=== PATIENT | male | born 1955 | race American Indian/Alaskan Native ===

== ENCOUNTER 2018-06-02 21:58 | Observation (INO) | payer MEDICARE ==
[2018-06-02] MEDS ORDERED: Nitrostat 0.4 MG (ED) SL ONE ×2 (22:23→22:29)
[2018-06-02] MEDS ORDERED: BABY ASPIRIN 81 MG CHEW PO ONE (22:23)
--- NOTE | 2018-06-02 22:23 | ERPHSYRPT ---
- History of Present Illness Time Seen by Provider: 06/02/18 22:20 Historian: patient, family Exam Limitations: no limitations Patient Subjective Stated Complaint: pt is alert and oriented. pt is ambulatory with a steady gait. pt comes in with c/o chest pain. pt is have chest pain in the center of his chest. pt denies lightheadedness, dizziness, vomiting, diaphoresis. pt did say he had some nausea lately. pt states that there has been alot of stress at home. pt radial pulses are equal. pt heart sounds regular. pt is not short of breath. Triage Nursing Assessment: see above Physician History: The patient is a 8-year-old male with his complaining of central chest pain and a very rapid heart rate that began about 4 hours ago (6 PM). He also has a very bad headache. He denies in short of breath or sweating. He was slightly nauseated. The chest pain is not as bad currently nor is the heart rate as fast as it once was. He is having a lot of recent stress at home due to his mother. He does not have any local doctor. He does not have a cash accountant. He denies numbness or tingling. His past medical history is significant for multiple left leg and knee surgeries , systemic staph infection, chronic pain syndrome, PTSD, HTN, and COPD. Timing/Duration: today, hour(s) (4), sudden, improved Activities at Onset: none Quality: sharpness Location: central Chest Pain Radiation: no radiation Severity of Pain-Max: severe Severity of Pain-Current: mild Modifying Factors: Improves With: aspirin (81 mg) Associated Symptoms: nausea, palpitations, No vomiting, No shortness of breath, No hurts to breathe, No diaphoresis Prior Chest Pain/Cardiac Workup: no prior chest pain Nitro Today/Relief: 0.4 mg x 1, provided by ED Aspirin Treatment Today: 81 mg x 1, provided at home Allergies/Adverse Reactions: No Known Drug Allergies Allergy (Verified 01/11/16 22:46) Home Medications: Albuterol 2.5 mg/3 ml Neb [Proventil 2.5 mg/3 ml Neb] 2.5 mg IH Q4HPRN PRN 07/23/12 [History] Multivitamin with Minerals [Multiple Vitamin] 1 each PO DAILY 07/23/12 [History] Buspirone HCl 5 mg [Buspar 5 mg] 10 mg PO TID 02/08/15 [History] Cyclobenzaprine HCl 10 mg [Cyclobenzaprine 10 MG] 10 mg PO TIDPRN [History] Gabapentin 600 mg PO BID 02/08/15 [History] Hydrocodone/APAP 10/325 mg [[place] 10/325 MG Tablet] 1 - 2 tab PO Q6H PRN 02/08/15 [History] Indomethacin 25 mg [Indocin 25 MG] 50 mg PO TID 02/08/15 [History] Tramadol HCl 50 mg [Ultram 50 mg] 50 mg PO Q4HPRN PRN 02/08/15 [History] buPROPion HCl [Bupropion HCl Sr] 200 mg PO Q12H 02/08/15 [History] Fluticasone/Salmeterol Disc [Advair 250-50 Diskus 14 Dose] 1 each IH BID 10/17/15 [History] Lisinopril [Prinivil] 20 mg PO DAILY 10/17/15 [History] Venlafaxine HCl [Venlafaxine HCl ER] 75 mg PO BID 06/02/18 [History] Hx Tetanus, Diphtheria Vaccination/Date Given: Yes Hx Influenza Vaccination/Date Given: No Hx Pneumococcal Vaccination/Date Given: No Immunizations Up to Date: Yes - Review of Systems Constitutional: No Fever, No Chills Eyes: No Symptoms Ears, Nose, & Throat: No Symptoms Respiratory: No Cough, No Dyspnea Cardiac: Chest Pain Abdominal/Gastrointestinal: No Abdominal Pain, No Nausea, No Vomiting, No Diarrhea Genitourinary Symptoms: No Dysuria Musculoskeletal: No Back Pain, No Neck Pain Skin: No Rash Neurological: Headache Psychological: No Symptoms Endocrine: No Symptoms Hematologic/Lymphatic: No Symptoms Immunological/Allergic: No Symptoms All Other Systems: Reviewed and Negative - Past Medical History Pertinent Past Medical History: Yes Neurological History: No Pertinent History ENT History: Other Cardiac History: Hypertension Respiratory History: COPD Endocrine Medical History: No Pertinent History Musculoskeletal History: Osteoarthritis GI Medical History: No Pertinent History, GERD History: No Pertinent History Psycho-Social History: Depression, Other Male Reproductive Disorders: No Pertinent History Other Medical History: PTSD - Past Surgical History Past Surgical History: Yes Neuro Surgical History: No Pertinent History Cardiac: No Pertinent History Respiratory: No Pertinent History Gastrointestinal: No Pertinent History Genitourinary: No Pertinent History Musculoskeletal: Joint Replacement, Orthopedic Surgery Male Surgical History: No Pertinent History Other Surgical History: right Elbow and right shoulder surgery. right knee 11 surgeries "15 surgeries in 12 years". " back surgery" - Social History Smoking Status: Never smoker Exposure to second hand smoke: Yes Drug Use: none Patient Lives Alone: No - Nursing Vital Signs Nursing Vital Signs: Initial Vital Signs Temperature 99.0 F 06/02/18 21:58 Pulse Rate 86 06/02/18 21:58 Respiratory Rate 18 06/02/18 21:58 Blood Pressure 146/96 06/02/18 21:58 O2 Sat by Pulse Oximetry 98 06/02/18 21:58 Pain Scale Pain Intensity 2 - Physical Exam General Appearance: mild distress, anxiety Eye Exam: PERRL/EOMI, eyes nml inspection Ears, Nose, Throat Exam: normal ENT inspection, moist mucous membranes Neck Exam: normal inspection, non-tender, supple, full range of motion Respiratory Exam: normal breath sounds, lungs clear, No respiratory distress Cardiovascular Exam: regular rate/rhythm, normal heart sounds Gastrointestinal/Abdomen Exam: soft, No tenderness, No mass Rectal Exam: not done Back Exam: normal inspection, No CVA tenderness, No vertebral tenderness Extremity Exam: normal inspection, normal range of motion Neurologic Exam: alert, oriented x 3, cooperative, normal mood/affect, sensation nml, No motor deficits Skin Exam: normal color, warm, dry SpO2 Interpretation: normal SpO2: 98 Oxygen Delivery: Room Air - Course EKG Interpreted by Me: RATE, Sinus Rhythm, NORMAL INTERVALS, NORMAL QRS, NORMAL ST-T, Other (comp EKG 10/14/15) - CT Exams Head CT Interpretation: Tele-radiologist Report (per Dr Roger), No/Intracranial Hemorrhag Ordered Tests: Active Orders 24 hr Category Date Time Status Gasoline Tester STAT Care 06/02/18 22:24 Active Clean Catch Urine Specimen STAT Care 06/02/18 22:23 Active EKG-ER Only STAT Care 06/02/18 22:23 Active IV Insertion STAT Care 06/02/18 22:23 Active Oxygen-ED Only NASAL CANNULA 2 lpm Care 06/02/18 22:23 Active Pulse Oximetry (ED) STAT Care 06/02/18 22:23 Active CHEST 2 VIEWS (PA AND LAT) Stat Exams 06/02/18 23:02 Taken HEAD WITHOUT CONTRAST [CT] Stat Exams 06/02/18 22:25 Taken CBC W DIFF Stat Lab 06/02/18 22:23 Completed CMP Stat Lab 06/02/18 22:23 Completed NT PRO BNP Stat Lab 06/02/18 22:23 Completed PROTIME WITH INR Stat Lab 06/02/18 22:23 Completed TROPONIN Q3H Lab 06/02/18 22:23 Completed TROPONIN Q3H Lab 06/03/18 01:30 Ordered TROPONIN Q3H Lab 06/03/18 04:30 Ordered TROPONIN Q3H Lab 06/03/18 07:30 Ordered TROPONIN Q3H Lab 06/03/18 10:30 Ordered Urine Triage Profile Stat Lab 06/02/18 23:22 Ordered Medication Summary Discontinued Medications Generic Name Dose Route Start Last Admin Trade Name Freq PRN Reason Stop Dose Admin Aspirin 324 mg 06/02/18 22:23 06/02/18 22:30 Baby Aspirin 81 Mg Chew PO 06/02/18 22:24 324 mg STAT ONE Administration Aspirin Confirm 06/02/18 22:29 Baby Aspirin 81 Mg Chew Administered 06/02/18 22:30 Dose 324 mg .ROUTE .STK-MED ONE Ketorolac Tromethamine 30 mg 06/02/18 23:23 06/02/18 23:29 Toradol 30 Mg Injection IV 06/02/18 23:24 30 mg STAT ONE Administration Ketorolac Tromethamine Confirm 06/02/18 23:26 Toradol 30 Mg Injection Administered 06/02/18 23:27 Dose 30 mg .ROUTE .STK-MED ONE Lorazepam 2 mg 06/02/18 23:42 Ativan 2 Mg/1 Ml Vial IV 06/02/18 23:43 STAT ONE Lorazepam Confirm 06/02/18 23:45 Ativan 2 Mg/1 Ml Vial Administered 06/02/18 23:46 Dose 2 mg .ROUTE .STK-MED ONE Morphine Sulfate 4 mg 06/02/18 22:44 06/02/18 22:58 Morphine Sulfate 4 Mg Inj IV 06/02/18 22:45 4 mg STAT ONE Administration Morphine Sulfate Confirm 06/02/18 22:51 Morphine Sulfate 4 Mg Inj Administered 06/02/18 22:52 Dose 4 mg .ROUTE .STK-MED ONE Nitroglycerin 0.4 mg 06/02/18 22:23 06/02/18 22:29 Nitrostat 0.4 Mg (Ed) SL 06/02/18 22:24 0.4 mg STAT ONE Administration Nitroglycerin Confirm 06/02/18 22:29 Nitrostat 0.4 Mg (Ed) Administered 06/02/18 22:30 Dose 0.4 mg SL .STK-MED ONE Ondansetron HCl 4 mg 06/02/18 22:44 06/02/18 22:59 Zofran 4 Mg/2 Ml Vial IV 06/02/18 22:45 4 mg STAT ONE Administration Ondansetron HCl Confirm 06/02/18 22:51 Zofran 4 Mg/2 Ml Vial Administered 06/02/18 22:52 Dose 4 mg .ROUTE .STK-MED ONE Lab/Rad Data: Laboratory Result Diagrams 06/02/18 22:23 06/02/18 22:23 Laboratory Results 06/02/18 06/02/18 06/02/18 Range/Units 22:23 22:23 22:23 WBC (4.0-10.5) K/mm3 RBC (4.1-5.6) M/mm3 Hgb (12.5-18.0) gm/dl Hct (42-50) % MCV (78-100) fl MCH (26-32) pg MCHC (32-36) g/dl RDW (11.5-14.0) % Plt Count (150-450) K/mm3 MPV (6-9.5) fl Gran % (36.0-66.0) % Eos # (Auto) (0-0.5) Absolute Lymphs (auto) (1.0-4.6) Absolute Monos (auto) (0.0-1.3) Lymphocytes % (24.0-44.0) % Monocytes % (0.0-12.0) % Eosinophils % (0.00-5.0) % Basophils % (0.0-0.4) % Absolute Granulocytes (1.4-6.9) Basophils # (0-0.4) PT 12.1 (8.83-12.87) SECONDS INR 1.04 (0.8-3.0) Sodium 139 (137-145) mmol/L Potassium 4.0 (3.5-5.1) mmol/L Chloride 105 (98-107) mmol/L Carbon Dioxide 27 (22-30) mmol/L Anion Gap 11.5 (5-15) MEQ/L BUN 16 (9-20) mg/dL Creatinine 1.27 H (0.66-1.25) mg/dL Estimated GFR > 60.0 ML/MIN Glucose 101 (74-106) mg/dL Calcium 9.0 (8.4-10.2) mg/dL Total Bilirubin 0.10 L (0.2-1.3) mg/dL AST 16 L (17-59) U/L ALT 21 (0-50) U/L Alkaline Phosphatase 50 (38-126) U/L Troponin I < 0.012 (0.000-0.034) ng/mL NT-Pro-B Natriuret Pep 74.0 (0-900) pg/mL Serum Total Protein 6.5 (6.3-8.2) g/dL Albumin 4.2 (3.5-5.0) g/dL 06/02/ Range/Units 22:23 WBC 8.0 (4.0-10.5) K/mm3 RBC 4.30 (4.1-5.6) M/mm3 Hgb 11.7 L (12.5-18.0) gm/dl Hct 37.1 L (42-50) % MCV 86.3 (78-100) fl MCH 27.2 (26-32) pg MCHC 31.5 L (32-36) g/dl RDW 13.7 (11.5-14.0) % Plt Count 292 (150-450) K/mm3 MPV 9.7 H (6-9.5) fl Gran % 58.6 (36.0-66.0) % Eos # (Auto) 0.18 (0-0.5) Absolute Lymphs (auto) 2.23 (1.0-4.6) Absolute Monos (auto) 0.86 (0.0-1.3) Lymphocytes % 27.9 (24.0-44.0) % Monocytes % 10.8 (0.0-12.0) % Eosinophils % 2.3 (0.00-5.0) % Basophils % 0.4 (0.0-0.4) % Absolute Granulocytes 4.69 (1.4-6.9) Basophils # 0.03 (0-0.4) PT (8.83-12.87) SECONDS INR (0.8-3.0) Sodium (137-145) mmol/L Potassium (3.5-5.1) mmol/L Chloride (98-107) mmol/L Carbon Dioxide (22-30) mmol/L Anion Gap (5-15) MEQ/L BUN (9-20) mg/dL Creatinine (0.66-1.25) mg/dL Estimated GFR ML/MIN Glucose (74-106) mg/dL Calcium (8.4-10.2) mg/dL Total Bilirubin (0.2-1.3) mg/dL AST (17-59) U/L ALT (0-50) U/L Alkaline Phosphatase (38-126) U/L Troponin I (0.000-0.034) ng/mL NT-Pro-B Natriuret Pep (0-900) pg/mL Serum Total Protein (6.3-8.2) g/dL Albumin (3.5-5.0) g/dL - Progress Progress: improved Progress Note: 06/02/18 23:52 Pt given MSO4 4 mg, toradol 30 mg, and ativan 2 mg IV for LORA. Discussed pt with Dr Cortez for observation. Blood Culture(s) Obtained: No Antibiotics given: No Discussed with : Diego Will see patient in: hospital (observation) Counseled pt/family regarding: lab results, diagnosis, rad results - Departure Time of Disposition: 23:54 Departure Disposition: Observation (per Dr Cortez) Clinical Impression: Chest pain, Headache Condition: Stable Critical Care Time: No Referrals: SUSANNAH YOUNG [Primary Care Provider] -
[2018-06-02] MEDS ORDERED: BABY ASPIRIN 81 MG CHEW ONE (22:29)
[2018-06-02 22:38] LABS: BASOPHIL % 0.4 % (0.0-0.4); Basophil (Absolute #) 0.03 (0-0.4); Eosinophil % 2.3 % (0.00-5.0); Eosinophil (Absolute #) 0.18 (0-0.5); Granulocyte Absolute (ANC) 4.69 (1.4-6.9); Granulocytes % 58.6 % (36.0-66.0); Hematocrit 37.1 % (42-50); Hemoglobin 11.7 gm/dl (12.5-18.0); Lymphocyte (Absolute #) 2.23 (1.0-4.6); Lymphocytes % 27.9 % (24.0-44.0); Mean Cell Volume 86.3 fl (78-100); Mean Corpuscular Hemoglobin 27.2 pg (26-32); Mean Corpuscular Hgb Concent. 31.5 g/dl (32-36); Mean Platelet Volume 9.7 fl (6-9.5); Monocyte (Absolute #) 0.86 (0.0-1.3); Monocytes % 10.8 % (0.0-12.0); Platelet Count 292 K/mm3 (150-450); Red Cell Distribution Width 13.7 % (11.5-14.0)
[2018-06-02] MEDS ORDERED: MORPHINE SULFATE 4 MG INJ IV ONE (22:44)
[2018-06-02] MEDS ORDERED: Zofran 4 MG/2 ML VIAL IV ONE (22:44)
[2018-06-02] MEDS ORDERED: Zofran 4 MG/2 ML VIAL ONE (22:51)
[2018-06-02] MEDS ORDERED: MORPHINE SULFATE 4 MG INJ ONE (22:51)
[2018-06-02 22:55] LABS: INR 1.04 (0.8-3.0)
[2018-06-02 23:07] LABS: ALBUMIN 4.2 g/dL (3.5-5.0); ALKALINE PHOSPHATASE 50 U/L (38-126); ANION GAP 11.5 MEQ/L (5-15); BLOOD UREA NITROGEN 16 mg/dL (9-20); CHLORIDE 105 mmol/L (98-107); Carbon Dioxide 27 mmol/L (22-30); Creatinine 1 1.27 mg/dL (0.66-1.25); Glucose 101 mg/dL (74-106); SGOT/AST 16 U/L (17-59); SGPT/ALT 21 U/L (0-50); SODIUM 139 mmol/L (137-145); Total Protein 6.5 g/dL (6.3-8.2)
[2018-06-02] MEDS ORDERED: TORAdol 30 mg Injection IV ONE (23:23)
[2018-06-02] MEDS ORDERED: TORAdol 30 mg Injection ONE (23:26)
[2018-06-02] MEDS ORDERED: Ativan 2 MG/1 ML VIAL IV ONE (23:42)
[2018-06-02] MEDS ORDERED: Ativan 2 MG/1 ML VIAL ONE (23:45)
[2018-06-02 23:51] LABS: Amphetamine,Urine NEGATIVE (NEGATIVE); Barbiturate,Urine NEGATIVE (NEGATIVE); Benzodiazepine,Urine NEGATIVE (NEGATIVE); Cocaine,Urine NEGATIVE (NEGATIVE); Methadone,Urine NEGATIVE (NEGATIVE); Opiate,Urine POSITIVE (NEGATIVE); PCP,Urine NEGATIVE (NEGATIVE); THC,Urine NEGATIVE (NEGATIVE)
[2018-06-03] MEDS ORDERED: Ativan 2 MG/1 ML VIAL IV PRN (01:55)
[2018-06-03] MEDS ORDERED: Zofran 4 MG/2 ML VIAL IV PRN (01:55)
[2018-06-03] MEDS ORDERED: TYLENOL 325 MG PO PRN (01:55)
[2018-06-03] MEDS ORDERED: MORPHINE SULFATE 2 MG INJ IV PRN (01:55)
[2018-06-03] MEDS ORDERED: Nitrostat 0.4 MG Tablet SL PRN (01:55)
[2018-06-03] MEDS ORDERED: MAALOX ES 30 ML UNIT DOSE PO PRN (01:55)
[2018-06-03] MEDS ORDERED: MILK OF MAGNESIA 30 ML PO PRN (01:55)
[2018-06-03] MEDS ORDERED: Senokot-S Tablet PO PRN (01:55)
[2018-06-03 05:00] LABS: Risk Ratio 5.2
[2018-06-03 07:40] VITALS: BP 138/80; PULSE 79; O2SAT 99
[2018-06-03] MEDS ORDERED: Cyclobenzaprine 10 MG PO PRN (08:30)
[2018-06-03] MEDS ORDERED: ULTRAM 50 MG PO PRN (08:30)
[2018-06-03] MEDS ORDERED: PROVENTIL 2.5 MG/3 ML NEB IH PRN (08:30)
[2018-06-03] MEDS ORDERED: Norco 10/325 MG Tablet PO PRN (08:30)
[2018-06-03] MEDS ORDERED: BUPROPION HCL 200 MG PO SCH (08:30)
--- NOTE | 2018-06-03 08:52 | XRAY ---
Indication: Chest pain. Comparison: September 08, 2013. PA/lateral chest again demonstrates normal heart and lungs with incidental elevation of the right hemidiaphragm. Bony thorax intact. No new/acute findings.
--- NOTE | 2018-06-03 08:52 | XRAY ---
Indication: Headache. Multiple contiguous axial images obtained through the head without contrast. Comparison: None Normal appearing brain parenchyma, ventricles, and bony calvarium. Visualized paranasal sinuses and mastoid air cells are clear. Impression: Normal CT head without contrast exam. Comment: Preliminary interpretation was made by [facility]. No discrepancy. CT DI 66.59.
[2018-06-03] MEDS ORDERED: Advair Hfa 115/21 Common canister IH SCH (09:00)
--- NOTE | 2018-06-03 09:07 | PCM.SSS ---
History of Present Illness - Chief Complaint Chief Complaint: Chest Pain History of Present Illness: is a 62 year old male pt of Dr. Malik with PMHx of PTSD, HTN, COPD who came to ER yesterday with LORA and chest pain. He had been staying at his mother's house, which was "incredibly stressful," for about 2 weeks and had just come home 2d beforehand. He was driving and started having 7/10 substernal chest pain, throbbing, that radiated to his shoulders bilaterally. Also had severe LORA with blurry vision. In the ER he was found to have EKG with NSR, no ST changes. Troponin negative. Troponins curretnly negative x 3. Currently he is denying jadon chest pain, feels much better and would like to go home. - Review of Systems Ears, Nose, & Throat: Other (blurry vision) Cardiac: Chest Pain, Edema (RLE; chronic s/p multiple surgeries) Neurological: Headache, No Parasthesia Psychological: Anxiety, No Depression, No Suicidal Ideations All Other Systems: Reviewed and Negative Medications & Allergies Home Medications: Home Medication List Albuterol 2.5 mg/3 ml Neb [Proventil 2.5 mg/3 ml Neb] 2.5 mg IH Q4HPRN PRN 07/23/12 [History Confirmed 06/02/18] Multivitamin with Minerals [Multiple Vitamin] 1 each PO DAILY 07/23/12 [History Confirmed 06/02/18] Buspirone HCl 5 mg [Buspar 5 mg] 10 mg PO TID 02/08/15 [History Confirmed 06/02/18] Cyclobenzaprine HCl 10 mg [Cyclobenzaprine 10 MG] 10 mg PO TIDPRN [History Confirmed 06/02/18] Gabapentin 600 mg PO BID 02/08/15 [History Confirmed 06/02/18] Hydrocodone/APAP 10/325 mg [[place] 10/325 MG Tablet] 1 - 2 tab PO Q6H PRN 02/08/15 [History Confirmed 06/02/18] Indomethacin 25 mg [Indocin 25 MG] 50 mg PO TID 02/08/15 [History Confirmed 06/02/18] Tramadol HCl 50 mg [Ultram 50 mg] 50 mg PO Q4HPRN PRN 02/08/15 [History Confirmed 06/02/18] buPROPion HCl [Bupropion HCl Sr] 200 mg PO Q12H 02/08/15 [History Confirmed ] Fluticasone/Salmeterol Disc [Advair 250-50 Diskus 14 Dose] 1 each IH BID 10/17/15 [History Confirmed 06/02/18] Lisinopril [Prinivil] 20 mg PO DAILY 10/17/15 [History Confirmed 06/02/18] Venlafaxine HCl [Venlafaxine HCl ER] 75 mg PO BID 06/02/18 [History Confirmed ] Allergies/Adverse Reactions: Allergies Allergy/AdvReac Type Severity Reaction Status Date / Time No Known Drug Allergies Allergy Verified 06/03/18 02:50 - Past Medical History Past Medical History: Yes Neurological History: No Pertinent History ENT History: Other Cardiac History: Hypertension Respiratory History: COPD Endocrine Medical History: No Pertinent History Musculoskelatal History: Osteoarthritis GI Medical History: No Pertinent History, GERD History: No Pertinent History Pyscho-Social History: Depression, Other Male Reproductive Disorders: No Pertinent History Comment: PTSD - Past Surgical History Past Surgical History: Yes Neuro Surgical History: No Pertinent History Cardiac History: No Pertinent History Respiratory Surgery: No Pertinent History GI Surgical History: No Pertinent History Genitourinary Surgical Hx: No Pertinent History Musculskeletal Surgical Hx: Joint Replacement, Orthopedic Surgery Male Surgical History: No Pertinent History Other Surgical History: right Elbow and right shoulder surgery. right knee 11 surgeries "15 surgeries in 12 years". " back surgery" - Social History Smoking Status: Former smoker How long have you smoked: 25+ years Exposure to second hand smoke: Yes Alcohol: Rarely Drug Use: none - Physical Exam Vital Signs: Vital Signs - 24 hr Temp Pulse Pulse Resp BP Pulse Ox 06/03/18 07:39 97.7 F 79 12 138/80 99 06/03/18 04:10 98.2 F 80 15 132/88 98 06/03/18 02:10 98.3 F 85 20 129/84 99 06/03/18 00:45 89 154/94 06/03/18 00:34 89 15 154/94 96 06/02/18 23:59 98 06/02/18 22:48 89 18 142/93 96 06/02/18 22:32 96 06/02/18 21:58 99.0 F 88 86 18 146/96 98 Oxygen-Last 24 hours O2 Percentage 2 Liters = 28% O2 Percentage 2 Liters = 28% O2 Percentage 2 Liters = 28% Oxygen Flowrate (L/min)-RT 2 Oxygen Flowrate (L/min)-RT 2 General Appearance: no apparent distress, alert, obese Neurologic Exam: oriented x 3, cooperative Eye Exam: eyes nml inspection Ears, Nose, Throat Exam: moist mucous membranes Neck Exam: normal inspection, non-tender, supple, No lymphadenopathy Respiratory Exam: normal breath sounds, lungs clear, No crackles/rales, No rhonchi, No wheezing Cardiovascular Exam: regular rate/rhythm, normal heart sounds, No murmur Back Exam: normal inspection, No rash Extremity Exam: No pedal edema, No swelling Skin Exam: normal color, warm, dry, No rash Results - Labs Lab/Micro Results: Lab Results-Last 24 Hours 06/02/18 06/02/18 06/02/18 Range/Units 22:23 22:23 22:23 WBC 8.0 (4.0-10.5) K/mm3 RBC 4.30 (4.1-5.6) M/mm3 Hgb 11.7 L (12.5-18.0) gm/dl Hct 37.1 L (42-50) % MCV 86.3 (78-100) fl MCH 27.2 (26-32) pg MCHC 31.5 L (32-36) g/dl RDW 13.7 (11.5-14.0) % Plt Count 292 (150-450) K/mm3 MPV 9.7 H (6-9.5) fl Gran % 58.6 (36.0-66.0) % Eos # (Auto) 0.18 (0-0.5) Absolute Lymphs (auto) 2.23 (1.0-4.6) Absolute Monos (auto) 0.86 (0.0-1.3) Lymphocytes % 27.9 (24.0-44.0) % Monocytes % 10.8 (0.0-12.0) % Eosinophils % 2.3 (0.00-5.0) % Basophils % 0.4 (0.0-0.4) % Absolute Granulocytes 4.69 (1.4-6.9) Basophils # 0.03 (0-0.4) PT 12.1 (8.83-12.87) SECONDS INR 1.04 (0.8-3.0) Sodium 139 (137-145) mmol/L Potassium 4.0 (3.5-5.1) mmol/L Chloride 105 (98-107) mmol/L Carbon Dioxide 27 (22-30) mmol/L Anion Gap 11.5 (5-15) MEQ/L BUN 16 (9-20) mg/dL Creatinine 1.27 H (0.66-1.25) mg/dL Estimated GFR > 60.0 ML/MIN Glucose 101 (74-106) mg/dL Calcium 9.0 (8.4-10.2) mg/dL Total Bilirubin 0.10 L (0.2-1.3) mg/dL AST 16 L (17-59) U/L ALT 21 (0-50) U/L Alkaline Phosphatase 50 (38-126) U/L Troponin I (0.000-0.034) ng/mL NT-Pro-B Natriuret Pep 74.0 (0-900) pg/mL Serum Total Protein 6.5 (6.3-8.2) g/dL Albumin 4.2 (3.5-5.0) g/dL Triglycerides (30-150) mg/dL Cholesterol (50-200) mg/dL LDL Cholesterol (30-100) mg/dL HDL Cholesterol (40-60) mg/dL Heart Disease Risk Ratio Urine Opiates Level (NEGATIVE) Ur Methadone (NEGATIVE) Urine Barbiturates (NEGATIVE) Ur Phencyclidine (PCP) (NEGATIVE) Urine Amphetamine (NEGATIVE) U Benzodiazepine Level (NEGATIVE) Urine Cocaine (NEGATIVE) Urine Marijuana (THC) (NEGATIVE) 06/02/18 06/02/18 06/03/18 Range/Units 22:23 23:22 02:00 WBC (4.0-10.5) K/mm3 RBC (4.1-5.6) M/mm3 Hgb (12.5-18.0) gm/dl Hct (42-50) % MCV (78-100) fl MCH (26-32) pg MCHC (32-36) g/dl RDW (11.5-14.0) % Plt Count (150-450) K/mm3 MPV (6-9.5) fl Gran % (36.0-66.0) % Eos # (Auto) (0-0.5) Absolute Lymphs (auto) (1.0-4.6) Absolute Monos (auto) (0.0-1.3) Lymphocytes % (24.0-44.0) % Monocytes % (0.0-12.0) % Eosinophils % (0.00-5.0) % Basophils % (0.0-0.4) % Absolute Granulocytes (1.4-6.9) Basophils # (0-0.4) PT (8.83-12.87) SECONDS INR (0.8-3.0) Sodium (137-145) mmol/L Potassium (3.5-5.1) mmol/L Chloride (98-107) mmol/L Carbon Dioxide (22-30) mmol/L Anion Gap (5-15) MEQ/L BUN (9-20) mg/dL Creatinine (0.66-1.25) mg/dL Estimated GFR ML/MIN Glucose (74-106) mg/dL Calcium (8.4-10.2) mg/dL Total Bilirubin (0.2-1.3) mg/dL AST (17-59) U/L ALT (0-50) U/L Alkaline Phosphatase (38-126) U/L Troponin I < 0.012 < 0.012 (0.000-0.034) ng/mL NT-Pro-B Natriuret Pep (0-900) pg/mL Serum Total Protein (6.3-8.2) g/dL Albumin (3.5-5.0) g/dL Triglycerides (30-150) mg/dL Cholesterol (50-200) mg/dL LDL Cholesterol (30-100) mg/dL HDL Cholesterol (40-60) mg/dL Heart Disease Risk Ratio Urine Opiates Level POSITIVE (NEGATIVE) Ur Methadone NEGATIVE (NEGATIVE) Urine Barbiturates NEGATIVE (NEGATIVE) Ur Phencyclidine (PCP) NEGATIVE (NEGATIVE) Urine Amphetamine NEGATIVE (NEGATIVE) U Benzodiazepine Level NEGATIVE (NEGATIVE) Urine Cocaine NEGATIVE (NEGATIVE) Urine Marijuana (THC) NEGATIVE (NEGATIVE) 06/03/18 06/03/18 06/03/18 Range/Units 04:15 04:15 07:30 WBC (4.0-10.5) K/mm3 RBC (4.1-5.6) M/mm3 Hgb (12.5-18.0) gm/dl Hct (42-50) % MCV (78-100) fl MCH (26-32) pg MCHC (32-36) g/dl RDW (11.5-14.0) % Plt Count (150-450) K/mm3 MPV (6-9.5) fl Gran % (36.0-66.0) % Eos # (Auto) (0-0.5) Absolute Lymphs (auto) (1.0-4.6) Absolute Monos (auto) (0.0-1.3) Lymphocytes % (24.0-44.0) % Monocytes % (0.0-12.0) % Eosinophils % (0.00-5.0) % Basophils % (0.0-0.4) % Absolute Granulocytes (1.4-6.9) Basophils # (0-0.4) PT (8.83-12.87) SECONDS INR (0.8-3.0) Sodium (137-145) mmol/L Potassium (3.5-5.1) mmol/L Chloride (98-107) mmol/L Carbon Dioxide (22-30) mmol/L Anion Gap (5-15) MEQ/L BUN (9-20) mg/dL Creatinine (0.66-1.25) mg/dL Estimated GFR ML/MIN Glucose (74-106) mg/dL Calcium (8.4-10.2) mg/dL Total Bilirubin (0.2-1.3) mg/dL AST (17-59) U/L ALT (0-50) U/L Alkaline Phosphatase (38-126) U/L Troponin I < 0.012 < 0.012 (0.000-0.034) ng/mL NT-Pro-B Natriuret Pep (0-900) pg/mL Serum Total Protein (6.3-8.2) g/dL Albumin (3.5-5.0) g/dL Triglycerides 178 H (30-150) mg/dL Cholesterol 155 (50-200) mg/dL LDL Cholesterol 97 (30-100) mg/dL HDL Cholesterol 30 L (40-60) mg/dL Heart Disease Risk Ratio 5.2 Urine Opiates Level (NEGATIVE) Ur Methadone (NEGATIVE) Urine Barbiturates (NEGATIVE) Ur Phencyclidine (PCP) (NEGATIVE) Urine Amphetamine (NEGATIVE) U Benzodiazepine Level (NEGATIVE) Urine Cocaine (NEGATIVE) Urine Marijuana (THC) (NEGATIVE) - Radiology Impressions Radiology Exams & Impressions: Radiology Procedures Category Date Time Status CHEST 2 VIEWS (PA AND LAT) Stat Exams 06/02/18 23:02 Completed HEAD WITHOUT CONTRAST [CT] Stat Exams 06/02/18 22:25 Completed - Other Procedures and Tests Respiratory Therapy 06/04/18 05:00 EKG ROUTINE 06/05/18 05:00 EKG ROUTINE 06/06/18 05:00 EKG ROUTINE Assessment/Plan (1) Chest pain Current Visit: Yes Status: Resolved Qualifiers: Chest pain type: unspecified Qualified Code(s): R07.9 - Chest pain, unspecified Assessment & Plan: Three neg troponins so far. EKG neg. CXR nonacute. Will continue to r/o NC; if next 2 troponins neg will d/c to home and he will need to f/u with Dr. Malik re: need for further testing. Code(s): R07.9 - CHEST PAIN, UNSPECIFIED (2) Headache Current Visit: Yes Status: Resolved Qualifiers: Headache type: unspecified Headache chronicity pattern: acute headache Intractability: not intractable Qualified Code(s): R51 - Headache Assessment & Plan: LORA is gone, likely also related to stress. CT head was neg for acute changes. Code(s): R51 - HEADACHE (3) PTSD (post-traumatic stress disorder) Current Visit: Yes Status: Chronic Assessment & Plan: resume home meds Code(s): F43.10 - POST-TRAUMATIC STRESS DISORDER, UNSPECIFIED (4) Anxiety Current Visit: Yes Status: Chronic Assessment & Plan: acute on chronic. Code(s): F41.9 - ANXIETY DISORDER, UNSPECIFIED (5) HTN (hypertension) Current Visit: Yes Status: Chronic Qualifiers: Hypertension type: essential hypertension Qualified Code(s): I10 - Essential (primary) hypertension Code(s): I10 - ESSENTIAL (PRIMARY) HYPERTENSION (6) COPD (chronic obstructive pulmonary disease) Current Visit: Yes Status: Chronic Hospital Summary - Hospital Course Hospital Course: is a 62 year old male pt , MD is not local (Dr. Quispe? or Dr. Malik) with PMHx of PTSD, HTN, COPD who came to ER yesterday with LORA and chest pain. He had been staying at his mother's house, which was "incredibly stressful," for about 2 weeks and had just come home 2d beforehand. He was driving and started having 7/10 substernal chest pain, throbbing, that radiated to his shoulders bilaterally. Also had severe LORA with blurry vision. In the ER he was found to have EKG with NSR, no ST changes. Troponin negative. He was given dilaudid and toradol in ER which did not help his pain at all; he was then given IV ativan. Troponins curretnly negative x 3. Currently he is denying jadon chest pain, feels much better and would like to go home. Will have him f/u with PCP in 1 week regarding need for additional testing. - Vitals & Intake/Output Vital Signs: Vital Signs Temperature 97.7 F 06/03/18 07:39 Pulse Rate 79 06/03/18 07:39 Respiratory Rate 12 06/03/18 07:39 Blood Pressure 138/80 06/03/18 07:39 O2 Sat by Pulse Oximetry 99 06/03/18 07:39 Oxygen-Last Documented O2 Percentage 2 Liters = 28% Intake & Output: Intake & Output 05/31/18 06/01/18 06/02/18 06/03/18 11:59 11:59 11:59 11:59 Intake Total 200 Balance 200 Weight 106.3 kg - Lab Result Diagrams: 06/02/18 22:23 06/02/18 22:23 Lab Results-Last 24 Hrs: Lab Results-Last 24 Hours 06/02/18 06/02/18 06/02/18 Range/Units 22:23 22:23 22:23 WBC 8.0 (4.0-10.5) K/mm3 RBC 4.30 (4.1-5.6) M/mm3 Hgb 11.7 L (12.5-18.0) gm/dl Hct 37.1 L (42-50) % MCV 86.3 (78-100) fl MCH 27.2 (26-32) pg MCHC 31.5 L (32-36) g/dl RDW 13.7 (11.5-14.0) % Plt Count 292 (150-450) K/mm3 MPV 9.7 H (6-9.5) fl Gran % 58.6 (36.0-66.0) % Eos # (Auto) 0.18 (0-0.5) Absolute Lymphs (auto) 2.23 (1.0-4.6) Absolute Monos (auto) 0.86 (0.0-1.3) Lymphocytes % 27.9 (24.0-44.0) % Monocytes % 10.8 (0.0-12.0) % Eosinophils % 2.3 (0.00-5.0) % Basophils % 0.4 (0.0-0.4) % Absolute Granulocytes 4.69 (1.4-6.9) Basophils # 0.03 (0-0.4) PT 12.1 (8.83-12.87) SECONDS INR 1.04 (0.8-3.0) Sodium 139 (137-145) mmol/L Potassium 4.0 (3.5-5.1) mmol/L Chloride 105 (98-107) mmol/L Carbon Dioxide 27 (22-30) mmol/L Anion Gap 11.5 (5-15) MEQ/L BUN 16 (9-20) mg/dL Creatinine 1.27 H (0.66-1.25) mg/dL Estimated GFR > 60.0 ML/MIN Glucose 101 (74-106) mg/dL Calcium 9.0 (8.4-10.2) mg/dL Total Bilirubin 0.10 L (0.2-1.3) mg/dL AST 16 L (17-59) U/L ALT 21 (0-50) U/L Alkaline Phosphatase 50 (38-126) U/L Troponin I (0.000-0.034) ng/mL NT-Pro-B Natriuret Pep 74.0 (0-900) pg/mL Serum Total Protein 6.5 (6.3-8.2) g/dL Albumin 4.2 (3.5-5.0) g/dL Triglycerides (30-150) mg/dL Cholesterol (50-200) mg/dL LDL Cholesterol (30-100) mg/dL HDL Cholesterol (40-60) mg/dL Heart Disease Risk Ratio Urine Opiates Level (NEGATIVE) Ur Methadone (NEGATIVE) Urine Barbiturates (NEGATIVE) Ur Phencyclidine (PCP) (NEGATIVE) Urine Amphetamine (NEGATIVE) U Benzodiazepine Level (NEGATIVE) Urine Cocaine (NEGATIVE) Urine Marijuana (THC) (NEGATIVE) 06/02/18 06/02/18 06/03/18 Range/Units 22:23 23:22 02:00 WBC (4.0-10.5) K/mm3 RBC (4.1-5.6) M/mm3 Hgb (12.5-18.0) gm/dl Hct (42-50) % MCV (78-100) fl MCH (26-32) pg MCHC (32-36) g/dl RDW (11.5-14.0) % Plt Count (150-450) K/mm3 MPV (6-9.5) fl Gran % (36.0-66.0) % Eos # (Auto) (0-0.5) Absolute Lymphs (auto) (1.0-4.6) Absolute Monos (auto) (0.0-1.3) Lymphocytes % (24.0-44.0) % Monocytes % (0.0-12.0) % Eosinophils % (0.00-5.0) % Basophils % (0.0-0.4) % Absolute Granulocytes (1.4-6.9) Basophils # (0-0.4) PT (8.83-12.87) SECONDS INR (0.8-3.0) Sodium (137-145) mmol/L Potassium (3.5-5.1) mmol/L Chloride (98-107) mmol/L Carbon Dioxide (22-30) mmol/L Anion Gap (5-15) MEQ/L BUN (9-20) mg/dL Creatinine (0.66-1.25) mg/dL Estimated GFR ML/MIN Glucose (74-106) mg/dL Calcium (8.4-10.2) mg/dL Total Bilirubin (0.2-1.3) mg/dL AST (17-59) U/L ALT (0-50) U/L Alkaline Phosphatase (38-126) U/L Troponin I < 0.012 < 0.012 (0.000-0.034) ng/mL NT-Pro-B Natriuret Pep (0-900) pg/mL Serum Total Protein (6.3-8.2) g/dL Albumin (3.5-5.0) g/dL Triglycerides (30-150) mg/dL Cholesterol (50-200) mg/dL LDL Cholesterol (30-100) mg/dL HDL Cholesterol (40-60) mg/dL Heart Disease Risk Ratio Urine Opiates Level POSITIVE (NEGATIVE) Ur Methadone NEGATIVE (NEGATIVE) Urine Barbiturates NEGATIVE (NEGATIVE) Ur Phencyclidine (PCP) NEGATIVE (NEGATIVE) Urine Amphetamine NEGATIVE (NEGATIVE) U Benzodiazepine Level NEGATIVE (NEGATIVE) Urine Cocaine NEGATIVE (NEGATIVE) Urine Marijuana (THC) NEGATIVE (NEGATIVE) 06/03/18 06/03/18 06/03/18 Range/Units 04:15 04:15 07:30 WBC (4.0-10.5) K/mm3 RBC (4.1-5.6) M/mm3 Hgb (12.5-18.0) gm/dl Hct (42-50) % MCV (78-100) fl MCH (26-32) pg MCHC (32-36) g/dl RDW (11.5-14.0) % Plt Count (150-450) K/mm3 MPV (6-9.5) fl Gran % (36.0-66.0) % Eos # (Auto) (0-0.5) Absolute Lymphs (auto) (1.0-4.6) Absolute Monos (auto) (0.0-1.3) Lymphocytes % (24.0-44.0) % Monocytes % (0.0-12.0) % Eosinophils % (0.00-5.0) % Basophils % (0.0-0.4) % Absolute Granulocytes (1.4-6.9) Basophils # (0-0.4) PT (8.83-12.87) SECONDS INR (0.8-3.0) Sodium (137-145) mmol/L Potassium (3.5-5.1) mmol/L Chloride (98-107) mmol/L Carbon Dioxide (22-30) mmol/L Anion Gap (5-15) MEQ/L BUN (9-20) mg/dL Creatinine (0.66-1.25) mg/dL Estimated GFR ML/MIN Glucose (74-106) mg/dL Calcium (8.4-10.2) mg/dL Total Bilirubin (0.2-1.3) mg/dL AST (17-59) U/L ALT (0-50) U/L Alkaline Phosphatase (38-126) U/L Troponin I < 0.012 < 0.012 (0.000-0.034) ng/mL NT-Pro-B Natriuret Pep (0-900) pg/mL Serum Total Protein (6.3-8.2) g/dL Albumin (3.5-5.0) g/dL Triglycerides 178 H (30-150) mg/dL Cholesterol 155 (50-200) mg/dL LDL Cholesterol 97 (30-100) mg/dL HDL Cholesterol 30 L (40-60) mg/dL Heart Disease Risk Ratio 5.2 Urine Opiates Level (NEGATIVE) Ur Methadone (NEGATIVE) Urine Barbiturates (NEGATIVE) Ur Phencyclidine (PCP) (NEGATIVE) Urine Amphetamine (NEGATIVE) U Benzodiazepine Level (NEGATIVE) Urine Cocaine (NEGATIVE) Urine Marijuana (THC) (NEGATIVE) - Radiology Exams Ordered Rad Exams-Entire Visit: Radiology Procedures Category Date Time Status CHEST 2 VIEWS (PA AND LAT) Stat Exams 06/02/18 23:02 Completed HEAD WITHOUT CONTRAST [CT] Stat Exams 06/02/18 22:25 Completed - Procedures and Test Procedures and Tests throughout Hospitalization: Therapy Orders & Screens 06/03/18 06:04 EKG ROUTINE Comment: Diagnosis: Chest Pain 06/04/18 05:00 EKG ROUTINE Comment: Diagnosis: Chest Pain 06/05/18 05:00 EKG ROUTINE Comment: Diagnosis: Chest Pain 06/06/18 05:00 EKG ROUTINE Comment: Diagnosis: Chest Pain - Discharge Disposition: Home, Self-Care Condition: Stable Prescriptions: Continue Multivitamin with Minerals [Multiple Vitamin] 1 each PO DAILY Albuterol 2.5 mg/3 ml Neb [Proventil 2.5 mg/3 ml Neb] 2.5 mg IH Q4HPRN PRN PRN Reason: Pain Indomethacin 25 mg [Indocin 25 MG] 50 mg PO TID Gabapentin 600 mg PO BID Cyclobenzaprine HCl 10 mg [Cyclobenzaprine 10 MG] 10 mg PO TIDPRN Tramadol HCl 50 mg [Ultram 50 mg] 50 mg PO Q4HPRN PRN PRN Reason: Pain Hydrocodone/APAP 10/325 mg [[place] 10/325 MG Tablet] 1 - 2 tab PO Q6H PRN PRN Reason: Pain Buspirone HCl 5 mg [Buspar 5 mg] 10 mg PO TID buPROPion HCl [Bupropion HCl Sr] 200 mg PO Q12H Fluticasone/Salmeterol Disc [Advair 250-50 Diskus 14 Dose] 1 each IH BID Lisinopril [Prinivil] 20 mg PO DAILY Venlafaxine HCl [Venlafaxine HCl ER] 75 mg PO BID Follow up with: SUSANNAH QUISPE [Primary Care Provider] - 1 Week
[2018-06-03] MEDS ORDERED: Wellbutrin SR 150 MG PO SCH (10:00)
[2018-06-03] MEDS ORDERED: NEURONTIN 300 MG PO SCH (10:00)
[2018-06-03] MEDS ORDERED: BUSPAR 5 MG PO SCH (10:00)
[2018-06-03] MEDS ORDERED: Zestril 20 MG PO SCH (10:00)
[2018-06-03] MEDS ORDERED: ADVAIR 250-50 DISKUS 14 DOSE IH SCH (10:00)
[2018-06-03] MEDS ORDERED: Effexor XR 75 MG PO SCH (10:00)
[2018-06-03] MEDS ORDERED: Ecotrin 325 MG PO SCH (10:00)
== END 2018-06-03 11:00 | disposition home or self-care (01) ==
LOC: ED 21:58 → MED SURG 06-03 01:53
PROVIDERS: ADMIT Family Medicine; ATTEND Family Medicine
DX: R07.9 Chest pain, unspecified (principal); R51 Headache; F43.10 Post-traumatic stress disorder, unspecified; F41.9 Anxiety disorder, unspecified; I10 Essential (primary) hypertension; J44.9 Chronic obstructive pulmonary disease, unspecified; Z79.899 Other long term (current) drug therapy
CPT/HCPCS: 36000; 36415; 70450; 71046; 80053; 80061; 80307; 83721; 83880; 84484; 85025; 85610; 93005; 93041; 93268; 96374; 96375; 99285; G0378; J1885; J2060; J2270; J2405; A9270-GY

== ENCOUNTER 2018-09-06 17:19 | Emergency (ER) | payer MEDICARE ==
[2018-09-06 17:32] VITALS: BP 133/83; PULSE 83; O2SAT 98
--- NOTE | 2018-09-06 17:46 | ERPHSYRPT ---
- History of Present Illness Time Seen by Provider: 09/06/18 17:35 Source: patient Exam Limitations: no limitations Patient Subjective Stated Complaint: hit right barry with an axe and has a 1.5 cm laceration Triage Nursing Assessment: Pt presents with a 1.5 cm laceration to the right barry that he hit with an axe, moderate bleeding, vitals wnl, pulses normal, rates pain 7/10 Physician History: 62 y/o white male presents with right lower leg accidental laceration from an axe while chopping wood. occurred car [place]. pts last tetanus injection was 2014. mild pain. Quality: burning Severity: mild Location: extremities (right lower leg) Associated Symptoms: denies symptoms Allergies/Adverse Reactions: No Known Drug Allergies Allergy (Verified 09/06/18 17:32) Home Medications: Albuterol 2.5 mg/3 ml Neb [Proventil 2.5 mg/3 ml Neb] 2.5 mg IH Q4HPRN PRN 07/23/12 [History] Multivitamin with Minerals [Multiple Vitamin] 1 each PO DAILY 07/23/12 [History] Buspirone HCl 5 mg [Buspar 5 mg] 10 mg PO TID 02/08/15 [History] Cyclobenzaprine HCl 10 mg [Cyclobenzaprine 10 MG] 10 mg PO TIDPRN [History] Gabapentin 600 mg PO BID 02/08/15 [History] Hydrocodone/APAP 10/325 mg [[place] 10/325 MG Tablet] 1 - 2 tab PO Q6H PRN 02/08/15 [History] Indomethacin 25 mg [Indocin 25 MG] 50 mg PO TID 02/08/15 [History] Tramadol HCl 50 mg [Ultram 50 mg] 50 mg PO Q4HPRN PRN 02/08/15 [History] buPROPion HCl [Bupropion HCl Sr] 200 mg PO Q12H 02/08/15 [History] Fluticasone/Salmeterol Disc [Advair 250-50 Diskus 14 Dose] 1 each IH BID 10/17/15 [History] Lisinopril [Prinivil] 20 mg PO DAILY 10/17/15 [History] Venlafaxine HCl [Venlafaxine HCl ER] 75 mg PO BID 06/02/18 [History] Hx Tetanus, Diphtheria Vaccination/Date Given: Yes Hx Influenza Vaccination/Date Given: No Hx Pneumococcal Vaccination/Date Given: No - Review of Systems Constitutional: No Symptoms Eyes: No Symptoms Ears, Nose, & Throat: No Symptoms Respiratory: No Symptoms Cardiac: No Symptoms Abdominal/Gastrointestinal: No Symptoms Genitourinary Symptoms: No Symptoms Musculoskeletal: No Symptoms Skin: Other (right lower leg 1.5cm lac ) Neurological: No Symptoms Psychological: No Symptoms Endocrine: No Symptoms Hematologic/Lymphatic: No Symptoms Immunological/Allergic: No Symptoms All Other Systems: Reviewed and Negative - Past Medical History Pertinent Past Medical History: Yes Neurological History: No Pertinent History ENT History: Other Cardiac History: Hypertension Respiratory History: COPD Endocrine Medical History: No Pertinent History Musculoskeletal History: Osteoarthritis GI Medical History: No Pertinent History, GERD History: No Pertinent History Psycho-Social History: Depression, Other Male Reproductive Disorders: No Pertinent History Other Medical History: PTSD - Past Surgical History Past Surgical History: Yes Neuro Surgical History: No Pertinent History Cardiac: No Pertinent History Respiratory: No Pertinent History Gastrointestinal: No Pertinent History Genitourinary: No Pertinent History Musculoskeletal: Joint Replacement, Orthopedic Surgery Male Surgical History: No Pertinent History Other Surgical History: right Elbow and right shoulder surgery. right knee 11 surgeries "15 surgeries in 12 years". " back surgery" - Social History Smoking Status: Former smoker How long have you smoked: 25+ years Exposure to second hand smoke: Yes Drug Use: none Patient Lives Alone: No - Nursing Vital Signs Nursing Vital Signs: Initial Vital Signs Temperature 97.8 F 09/06/18 17:25 Pulse Rate 83 09/06/18 17:25 Blood Pressure 133/83 09/06/18 17:25 O2 Sat by Pulse Oximetry 98 09/06/18 17:25 Pain Scale Pain Intensity 7 - Physical Exam General Appearance: no apparent distress, alert Eye Exam: PERRL/EOMI Ears, Nose, Throat Exam: normal ENT inspection, moist mucous membranes Neck Exam: normal inspection, non-tender, supple, full range of motion Respiratory Exam: normal breath sounds, airway intact, No chest tenderness, No respiratory distress Cardiovascular Exam: regular rate/rhythm, normal heart sounds, normal peripheral pulses Gastrointestinal/Abdomen Exam: soft, normal bowel sounds, No tenderness, No guarding, No rebound Rectal Exam: not done Back Exam: normal inspection, normal range of motion, No CVA tenderness, No vertebral tenderness Extremity Exam: normal inspection, normal range of motion, pelvis stable Neurologic Exam: alert, oriented x 3, cooperative, demolitionist II-XII nml as tested Skin Exam: normal color, laceration (1.5cm no active bleeding, no fb) Lymphatic Exam: No adenopathy SpO2 Interpretation: normal SpO2: 98 O2 Delivery: Room Air Procedures - Laceration/Wound Repair Right Anterior Wound Location: Right, lower leg Wound Length (cm): 1.5 Wound's Depth, Shape: superficial Wound Explored: clean Irrigated: Yes Hibiclens Prep: Yes Wound Repaired With: Robe (3) - Course Nursing assessment & vital signs reviewed: Yes Ordered Tests: Active Orders 24 hr Category Date Time Status Wound Care STAT Care 09/06/18 17:49 Ordered - Progress Progress: improved, pain not gone completely, re-examined Counseled pt/family regarding: diagnosis, need for follow-up - Departure Time of Disposition: 17:47 Departure Disposition: Home Clinical Impression: Leg laceration Condition: Stable Critical Care Time: No Referrals: FERNANDO MOSER [Primary Care Provider] - Additional Instructions: keep dry for 24 hours after 24 hours wash daily with soap and water. apply antibiotic ointment to site once daily. cover with bandaid daily. use your pain medications for pain control. staple removal in 8 to 10 days.
== END 2018-09-06 17:55 | disposition home or self-care (01) ==
LOC: ED 17:19
DX: S81.811A Laceration without foreign body, right lower leg, initial encounter (principal); W22.8XXA Striking against or struck by other objects, initial encounter; Y93.89 Activity, other specified; M79.604 Pain in right leg; I10 Essential (primary) hypertension; J44.9 Chronic obstructive pulmonary disease, unspecified; F41.9 Anxiety disorder, unspecified; F32.9 Major depressive disorder, single episode, unspecified; Z79.899 Other long term (current) drug therapy; M19.90 Unspecified osteoarthritis, unspecified site
CPT/HCPCS: 12001; 99283

== ENCOUNTER 2018-09-08 22:49 | Emergency (ER) | payer MEDICARE ==
[2018-09-08 23:20] VITALS: PULSE 88
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
[2018-09-09] MEDS ORDERED: BACTRIM DS TABLET PO STA (00:02)
[2018-09-09] MEDS ORDERED: ZOFRAN ODT 4 MG PO ONE (00:02)
[2018-09-09] MEDS ORDERED: Rocephin 1000 MG INJ IM ONE (00:02)
[2018-09-09] MEDS ORDERED: Hydromorphone 1 mg/ml Ampule IM ONE (00:03)
[2018-09-09] MEDS ORDERED: BACTRIM DS TABLET PO ONE (00:09)
[2018-09-09] MEDS ORDERED: ZOFRAN ODT 4 MG ONE (00:09)
[2018-09-09] MEDS ORDERED: Hydromorphone 1 mg/ml Ampule ONE (00:09)
[2018-09-09] MEDS ORDERED: Rocephin 1000 MG INJ ONE (00:09)
[2018-09-09 00:42] VITALS: BP 123/75; O2SAT 100
--- NOTE | 2018-09-09 09:18 | XRAY ---
Indication: Pain following injury. Comparison: None 2 views of the right lower leg demonstrates partially visualized intact total knee arthroplasty, tiny posterior heel spur, and mild diffuse soft tissue swelling/edema. No other bony, articular, or soft tissue abnormalities. Comment: Preliminary interpretation was made by [facility]. No critical discrepancy.
== END 2018-09-09 01:22 | disposition home or self-care (01) ==
LOC: ED 22:49
DX: L03.115 Cellulitis of right lower limb (principal); I10 Essential (primary) hypertension; M19.90 Unspecified osteoarthritis, unspecified site; Z48.02 Encounter for removal of sutures
CPT/HCPCS: 73590; 87070; 96372; 99284; J0696; J1170; Q0162; A9270-GY

== ENCOUNTER 2018-09-09 12:17 | Emergency (ER) | payer MEDICARE ==
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
[2018-09-09] MEDS ORDERED: Zosyn INJ 4.5 GM in D5w 100ML Mini Bag 100 ML 100 ML IV ONE (12:54)
[2018-09-09] MEDS ORDERED: Vancomycin 1GM/ Ns 250ML*** 1 GM/250 ML IVPB IV ONE (12:55)
[2018-09-09] MEDS ORDERED: Sodium Chloride 0.9% 1000 ML 1,000 ML IV SCH (13:00)
[2018-09-09] MEDS ORDERED: Sodium Chloride 0.9% 100 ML IVPB 100 ML IV ONE (13:08)
[2018-09-09] MEDS ORDERED: Zosyn INJ IV ONE (13:08)
[2018-09-09] MEDS ORDERED: Sodium Chloride 0.9% 1000 ML 1,000 ML ONE (13:08)
[2018-09-09] MEDS ORDERED: Vancomycin 1GM/ Ns 250ML*** 250 ML IV ONE (13:08)
[2018-09-09] MEDS ORDERED: Zofran 4 MG/2 ML VIAL IV ONE (13:13)
[2018-09-09] MEDS ORDERED: MORPHINE SULFATE 10 MG/ML IV ONE (13:14)
[2018-09-09] MEDS ORDERED: D5w 100ML Mini Bag 100 ML 100 ML IV ONE (13:21)
[2018-09-09 13:28] LABS: BASOPHIL % 0.5 % (0.0-0.4); Basophil (Absolute #) 0.03 (0-0.4); Eosinophil % 5.8 % (0.00-5.0); Eosinophil (Absolute #) 0.35 (0-0.5); Granulocyte Absolute (ANC) 3.71 (1.4-6.9); Granulocytes % 61.8 % (36.0-66.0); Hematocrit 35.1 % (42-50); Hemoglobin 10.9 gm/dl (12.5-18.0); Lymphocyte (Absolute #) 1.39 (1.0-4.6); Lymphocytes % 23.1 % (24.0-44.0); Mean Cell Volume 87.5 fl (78-100); Mean Corpuscular Hgb Concent. 31.1 g/dl (32-36); Mean Platelet Volume 9.1 fl (6-9.5); Monocyte (Absolute #) 0.53 (0.0-1.3); Monocytes % 8.8 % (0.0-12.0); Platelet Count 284 K/mm3 (150-450); Red Blood Count 4.01 M/mm3 (4.1-5.6); Red Cell Distribution Width 15.8 % (11.5-14.0)
[2018-09-09 13:30] LABS: Mean Corpuscular Hemoglobin 27.1 pg (26-32)
[2018-09-09] MEDS ORDERED: MORPHINE SULFATE 10 MG/ML ONE (13:37)
[2018-09-09] MEDS ORDERED: Zofran 4 MG/2 ML VIAL ONE (13:37)
[2018-09-09 13:49] LABS: ANION GAP 13.9 MEQ/L (5-15); Calcium 9.2 mg/dL (8.4-10.2); Creatinine 1 1.59 mg/dL (0.66-1.25)
[2018-09-09 13:54] LABS: Potassium 6.5 mmol/L (3.5-5.1)
--- NOTE | 2018-09-09 14:09 | XRAY ---
Indication: Lower leg pain and swelling following injury. Two-dimensional sonogram and color Doppler imaging of the major venous vessels of the right leg was performed. Comparison: None No thrombus seen in the examined deep venous vessels of the right leg including greater saphenous vein. Veins demonstrate normal compressibility. Venous waveforms are normal with and without augmentation. Impression: Right leg negative for DVT.
[2018-09-09 14:39] LABS: ANION GAP 13.2 MEQ/L (5-15); Calcium 8.8 mg/dL (8.4-10.2); Creatinine 1 1.51 mg/dL (0.66-1.25)
[2018-09-09 15:07] LABS: Potassium 6.3 mmol/L (3.5-5.1)
[2018-09-09] MEDS ORDERED: D50W 50 ml Abboject IV ONE ×2 (15:07→15:55)
[2018-09-09] MEDS ORDERED: NovoLIN R IV ONE (15:07)
[2018-09-09] MEDS ORDERED: Calcium Gluconate 10% 1000 MG IV ONE ×2 (15:07→15:54)
[2018-09-09] MEDS ORDERED: Kayexylate 15 GM/60 ML PO ONE (15:07)
[2018-09-09] MEDS ORDERED: NovoLIN R ONE (15:55)
[2018-09-09] MEDS ORDERED: Kayexylate 15 GM/60 ML ONE (15:55)
[2018-09-09 17:51] VITALS: BP 108/71; PULSE 74
[2018-09-09 18:30] VITALS: O2SAT 99
== END 2018-09-09 18:30 | disposition short-term general hospital (02) ==
LOC: ED 12:17
DX: L03.115 Cellulitis of right lower limb (principal); E87.5 Hyperkalemia; Z48.02 Encounter for removal of sutures; I10 Essential (primary) hypertension; K21.9 Gastro-esophageal reflux disease without esophagitis; J45.909 Unspecified asthma, uncomplicated; F32.9 Major depressive disorder, single episode, unspecified; M19.90 Unspecified osteoarthritis, unspecified site
CPT/HCPCS: 36000; 36415; 80048; 85025; 87040; 87070; 93005; 93041; 93971; 96374; 96375; 99285; J0610; J2270; J2405; J2543; J3370; A9270-GY

== ENCOUNTER 2019-07-10 13:37 | Emergency (ER) | payer MEDICARE, OTHER ==
--- NOTE | 2019-07-10 13:43 | ERPHSYRPT ---
- History of Present Illness Time Seen by Provider: 07/10/19 13:43 Historian: patient Exam Limitations: no limitations Physician History: 63 y/o white male who complains of left ant cp sharp and radiates into left shoulder. at times palpitations present. no known cardiac hx. no shield operator. pt denies soa and denies abd pain. 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 Timing/Duration: day(s) (a few) Activities at Onset: none Quality: sharpness, stabbing Location: other (left ant) Chest Pain Radiation: arm (left shoulder) Severity of Pain-Max: moderate Severity of Pain-Current: moderate Modifying Factors: Improves With: nothing Associated Symptoms: denies symptoms Prior Chest Pain/Cardiac Workup: no prior chest pain Nitro Today/Relief: no nitro taken today Aspirin Treatment Today: 81 mg x 3, provided at home Allergies/Adverse Reactions: No Known Drug Allergies Allergy (Verified 07/10/19 13:44) Home Medications: Albuterol 2.5 mg/3 ml Neb [Proventil 2.5 mg/3 ml Neb] 2.5 mg IH Q4HPRN PRN 07/23/12 [History] Multivitamin with Minerals [Multiple Vitamin] 1 each PO DAILY 07/23/12 [History] Buspirone HCl 5 mg [Buspar 5 mg] 10 mg PO TID 02/08/15 [History] Cyclobenzaprine HCl 10 mg [Cyclobenzaprine 10 MG] 10 mg PO TIDPRN [History] Gabapentin 600 mg PO BID 02/08/15 [History] Hydrocodone/APAP 10/325 mg [[place] 10/325 MG Tablet] 1 - 2 tab PO Q6H PRN 02/08/15 [History] Indomethacin 25 mg [Indocin 25 MG] 50 mg PO TID 02/08/15 [History] Tramadol HCl 50 mg [Ultram 50 mg] 50 mg PO Q4HPRN PRN 02/08/15 [History] buPROPion HCl [Bupropion HCl Sr] 200 mg PO Q12H 02/08/15 [History] Fluticasone/Salmeterol Disc [Advair 250-50 Diskus 14 Dose] 1 each IH BID 10/17/15 [History] lisinopriL [Prinivil] 20 mg PO DAILY 10/17/15 [History] Venlafaxine HCl [Venlafaxine HCl ER] 75 mg PO BID 06/02/18 [History] Hx Tetanus, Diphtheria Vaccination/Date Given: Yes Hx Influenza Vaccination/Date Given: No Hx Pneumococcal Vaccination/Date Given: No - Review of Systems Constitutional: No Symptoms Eyes: No Symptoms Ears, Nose, & Throat: No Symptoms Respiratory: No Symptoms Cardiac: Chest Pain Abdominal/Gastrointestinal: No Symptoms Genitourinary Symptoms: No Symptoms Musculoskeletal: No Symptoms Skin: No Symptoms Neurological: No Symptoms Psychological: No Symptoms Endocrine: No Symptoms Hematologic/Lymphatic: No Symptoms Immunological/Allergic: No Symptoms All Other Systems: Reviewed and Negative - Past Medical History Pertinent Past Medical History: Yes Neurological History: No Pertinent History ENT History: Other Cardiac History: Hypertension Respiratory History: COPD Endocrine Medical History: No Pertinent History Musculoskeletal History: Osteoarthritis GI Medical History: No Pertinent History, GERD History: No Pertinent History Psycho-Social History: Depression, Other Male Reproductive Disorders: No Pertinent History Other Medical History: PTSD - Past Surgical History Past Surgical History: Yes Neuro Surgical History: No Pertinent History Cardiac: No Pertinent History Respiratory: No Pertinent History Gastrointestinal: No Pertinent History Genitourinary: No Pertinent History Musculoskeletal: Joint Replacement, Orthopedic Surgery Male Surgical History: No Pertinent History Other Surgical History: right Elbow and right shoulder surgery. right knee 11 surgeries "15 surgeries in 12 years". " back surgery" - Social History Smoking Status: Never smoker How long have you smoked: 25+ years Exposure to second hand smoke: Yes Drug Use: none Patient Lives Alone: No - Nursing Vital Signs Nursing Vital Signs: Initial Vital Signs Temperature 98.0 F 07/10/19 13:46 Pulse Rate 81 07/10/19 13:46 Respiratory Rate 16 07/10/19 13:46 Blood Pressure 164/104 07/10/19 13:46 O2 Sat by Pulse Oximetry 98 07/10/19 13:46 Pain Scale Pain Intensity 4 - Physical Exam General Appearance: mild distress, alert, anxiety Eye Exam: PERRL/EOMI Ears, Nose, Throat Exam: normal ENT inspection, moist mucous membranes Neck Exam: normal inspection, non-tender, supple, full range of motion Respiratory Exam: normal breath sounds, chest tenderness, lungs clear, airway intact, No respiratory distress Cardiovascular Exam: regular rate/rhythm, normal heart sounds, normal peripheral pulses Gastrointestinal/Abdomen Exam: soft, normal bowel sounds, No tenderness Rectal Exam: not done Back Exam: normal inspection, normal range of motion, No CVA tenderness, No vertebral tenderness Extremity Exam: normal inspection, normal range of motion, pelvis stable Neurologic Exam: alert, oriented x 3, cooperative, learning specialist II-XII nml as tested Skin Exam: normal color, warm, dry Lymphatic Exam: No adenopathy SpO2 Interpretation: normal O2 Delivery: Room Air - Course Nursing assessment & vital signs reviewed: Yes EKG Interpreted by Me: RATE (79), Sinus Rhythm, NORMAL AXIS, NORMAL INTERVALS, NORMAL QRS, Other (no acute changes. no change when compared to EKG dated 09/09/18 ) Ordered Tests: Active Orders 24 hr Category Date Time Status Office Bookkeeper STAT Care 07/10/19 13:52 Active EKG-ER Only STAT Care 07/10/19 13:51 Active IV Insertion STAT Care 07/10/19 13:51 Active Pulse Oximetry (ED) STAT Care 07/10/19 13:51 Active CHEST 1 VIEW (PORTABLE) Stat Exams 07/10/19 13:52 Completed CBC W DIFF Stat Lab 07/10/19 14:00 Completed CMP Stat Lab 07/10/19 14:00 Completed NT PRO BNP Stat Lab 07/10/19 14:00 Completed PROTIME WITH INR Stat Lab 07/10/19 14:00 Completed TROPONIN Q3H Lab 07/10/19 14:00 Completed TROPONIN Q3H Lab 07/10/19 17:06 Completed TROPONIN Q3H Lab 07/10/19 20:00 Ordered TROPONIN Q3H Lab 07/10/19 23:00 Ordered TROPONIN Q3H Lab 07/11/19 02:00 Ordered Medication Summary Discontinued Medications Generic Name Dose Route Start Last Admin Trade Name Freq PRN Reason Stop Dose Admin Aspirin 324 mg 07/10/19 13:51 07/10/19 14:00 Baby Aspirin 81 Mg Chew PO 07/10/19 13:52 81 mg STAT ONE Administration Morphine Sulfate 4 mg 07/10/19 14:34 07/10/19 15:00 Morphine Sulfate 4 Mg Inj IV 07/10/19 14:35 4 mg STAT ONE Administration Morphine Sulfate Confirm 07/10/19 14:57 Morphine Sulfate 4 Mg Inj Administered 07/10/19 14:58 Dose 4 mg .ROUTE .STK-MED ONE Morphine Sulfate 4 mg 07/10/19 15:35 07/10/19 16:29 Morphine Sulfate 4 Mg Inj IV 07/10/19 15:36 4 mg STAT ONE Administration Morphine Sulfate Confirm 07/10/19 16:18 Morphine Sulfate 4 Mg Inj Administered 07/10/19 16:19 Dose 4 mg .ROUTE .STK-MED ONE Lab/Rad Data: Laboratory Result Diagrams 07/10/19 14:00 07/10/19 14:00 Laboratory Results 07/10/19 07/10/19 07/10/19 Range/Units 17:06 14:00 14:00 WBC (4.0-10.5) K/mm3 RBC (4.1-5.6) M/mm3 Hgb (12.5-18.0) gm/dl Hct (42-50) % MCV (78-100) fl MCH (26-32) pg MCHC (32-36) g/dl RDW (11.5-14.0) % Plt Count (150-450) K/mm3 MPV (7.5-11.0) fl Gran % (36.0-66.0) % Eos # (Auto) (0-0.5) Absolute Lymphs (auto) (1.0-4.6) Absolute Monos (auto) (0.0-1.3) Lymphocytes % (24.0-44.0) % Monocytes % (0.0-12.0) % Eosinophils % (0.00-5.0) % Basophils % (0.0-0.4) % Absolute Granulocytes (1.4-6.9) Basophils # (0-0.4) PT 11.9 (8.83-12.87) SECONDS INR 1.05 (0.8-3.0) Sodium (137-145) mmol/L Potassium (3.5-5.1) mmol/L Chloride (98-107) mmol/L Carbon Dioxide (22-30) mmol/L Anion Gap (5-15) MEQ/L BUN (9-20) mg/dL Creatinine (0.66-1.25) mg/dL Estimated GFR ML/MIN Glucose (74-106) mg/dL Calcium (8.4-10.2) mg/dL Total Bilirubin (0.2-1.3) mg/dL AST (17-59) U/L ALT (0-50) U/L Alkaline Phosphatase (38-126) U/L Troponin I < 0.012 < 0.012 (0.000-0.034) ng/mL NT-Pro-B Natriuret Pep (0-900) pg/mL Serum Total Protein (6.3-8.2) g/dL Albumin (3.5-5.0) g/dL 07/10/19 07/10/19 Range/Units 14:00 14:00 WBC 8.3 (4.0-10.5) K/mm3 RBC 4.11 (4.1-5.6) M/mm3 Hgb 11.2 L (12.5-18.0) gm/dl Hct 35.5 L (42-50) % MCV 86.4 (78-100) fl MCH 27.3 (26-32) pg MCHC 31.5 L (32-36) g/dl RDW 14.4 H (11.5-14.0) % Plt Count 296 (150-450) K/mm3 MPV 9.5 (7.5-11.0) fl Gran % 60.6 (36.0-66.0) % Eos # (Auto) 0.22 (0-0.5) Absolute Lymphs (auto) 2.29 (1.0-4.6) Absolute Monos (auto) 0.74 (0.0-1.3) Lymphocytes % 27.7 (24.0-44.0) % Monocytes % 8.9 (0.0-12.0) % Eosinophils % 2.7 (0.00-5.0) % Basophils % 0.1 (0.0-0.4) % Absolute Granulocytes 5.02 (1.4-6.9) Basophils # 0.01 (0-0.4) PT (8.83-12.87) SECONDS INR (0.8-3.0) Sodium 138 (137-145) mmol/L Potassium 4.3 (3.5-5.1) mmol/L Chloride 106 (98-107) mmol/L Carbon Dioxide 26 (22-30) mmol/L Anion Gap 10.7 (5-15) MEQ/L BUN 17 (9-20) mg/dL Creatinine 1.14 (0.66-1.25) mg/dL Estimated GFR > 60.0 ML/MIN Glucose 107 H (74-106) mg/dL Calcium 9.6 (8.4-10.2) mg/dL Total Bilirubin 0.50 (0.2-1.3) mg/dL AST 25 (17-59) U/L ALT 26 (0-50) U/L Alkaline Phosphatase 40 (38-126) U/L Troponin I (0.000-0.034) ng/mL NT-Pro-B Natriuret Pep 193 (0-900) pg/mL Serum Total Protein 7.0 (6.3-8.2) g/dL Albumin 4.3 (3.5-5.0) g/dL - Progress Progress: improved, re-examined Air Movement: good Blood Culture(s) Obtained: No Antibiotics given: No Counseled pt/family regarding: lab results, diagnosis, need for follow-up - Departure Departure Disposition: Home Clinical Impression: Chest pain Condition: Stable Critical Care Time: No Referrals: FERNANDO MOSER [Primary Care Provider] - Additional Instructions: follow up with shield operator for further management. nurses provided you with names of doctors and phone numbers of [facility]
[2019-07-10] MEDS ORDERED: BABY ASPIRIN 81 MG CHEW PO ONE (13:51)
[2019-07-10 14:15] LABS: Absolute Neutrophil Ct (ANC) 5.02 (1.4-6.9); BASOPHIL % 0.1 % (0.0-0.4); Basophil (Absolute #) 0.01 (0-0.4); Eosinophil % 2.7 % (0.00-5.0); Eosinophil (Absolute #) 0.22 (0-0.5); Hematocrit 35.5 % (42-50); Hemoglobin 11.2 gm/dl (12.5-18.0); Lymphocyte (Absolute #) 2.29 (1.0-4.6); Lymphocytes % 27.7 % (24.0-44.0); Mean Cell Volume 86.4 fl (78-100); Mean Corpuscular Hemoglobin 27.3 pg (26-32); Mean Corpuscular Hgb Concent. 31.5 g/dl (32-36); Mean Platelet Volume 9.5 fl (7.5-11.0); Monocyte (Absolute #) 0.74 (0.0-1.3); Monocytes % 8.9 % (0.0-12.0); Neutrophil % 60.6 % (36.0-66.0); Platelet Count 296 K/mm3 (150-450); Red Blood Count 4.11 M/mm3 (4.1-5.6); Red Cell Distribution Width 14.4 % (11.5-14.0); White Blood Count 8.3 K/mm3 (4.0-10.5)
--- NOTE | 2019-07-10 14:18 | XRAY ---
Indication: Chest pain. High blood pressure. Comparison: June 02 Portable apical lordotic chest underinflated and remains grossly clear. Heart is not enlarged. Bony thorax intact. Impression: Nonacute underinflated chest.
[2019-07-10 14:24] LABS: INR 1.05 (0.8-3.0); PROTIME 11.9 SECONDS (8.83-12.87)
[2019-07-10] MEDS ORDERED: MORPHINE SULFATE 4 MG INJ IV ONE ×2 (14:34→15:35)
[2019-07-10 14:38] LABS: ALBUMIN 4.3 g/dL (3.5-5.0); ALKALINE PHOSPHATASE 40 U/L (38-126); ANION GAP 10.7 MEQ/L (5-15); BLOOD UREA NITROGEN 17 mg/dL (9-20); CHLORIDE 106 mmol/L (98-107); Calcium 9.6 mg/dL (8.4-10.2); Carbon Dioxide 26 mmol/L (22-30); Creatinine 1 1.14 mg/dL (0.66-1.25); Glucose 107 mg/dL (74-106); NT PRO BNP 193 pg/mL (0-900); Potassium 4.3 mmol/L (3.5-5.1); SGOT/AST 25 U/L (17-59); SGPT/ALT 26 U/L (0-50); SODIUM 138 mmol/L (137-145)
[2019-07-10] MEDS ORDERED: MORPHINE SULFATE 4 MG INJ ONE ×2 (14:57→16:18)
[2019-07-10 18:09] VITALS: BP 155/90; PULSE 82; O2SAT 98
== END 2019-07-10 18:14 | disposition home or self-care (01) ==
LOC: ED 13:37
DX: R07.89 Other chest pain (principal); M25.512 Pain in left shoulder; Z79.899 Other long term (current) drug therapy; Z79.891 Long term (current) use of opiate analgesic; I10 Essential (primary) hypertension; J44.9 Chronic obstructive pulmonary disease, unspecified
CPT/HCPCS: 36000; 36415; 71045; 80053; 83880; 84484; 85025; 85610; 93005; 93041; 94760; 96374; 96376; 99284; J2270; A9270-GY

== ENCOUNTER 2020-04-27 17:05 | Emergency (ER) | payer MEDICARE, OTHER ==
--- NOTE | 2020-04-27 17:11 | ERPHSYRPT ---
- History of Present Illness Time Seen by Provider: 04/27/20 17:11 Source: patient Exam Limitations: no limitations Physician History: This is a 64-year-old white male who has a history of hypertension and lost his balance while walking around a truck and fell into it hurting his left lateral ribs. Patient denies shortness of breath. He has no anterior chest pain. He had no chest pain or rib pain prior to this traumatic injury that is localized to his left lateral ribs. Patient denies dizziness he denies abdominal pain. He has no no fevers, no cough. Patient is on Flexeril and [place] at home. Occurred: yesterday Reason for Fall: lost balance Injuries/Pain Location: chest (Left lateral ribs) Loss of Consciousness: no loss of consciousness Severity of Pain-Max: moderate Severity of Pain-Current: moderate Modifying Factors: Improves With: movement, other (Deep breath) Associated Symptoms (Fall): denies symptoms Allergies/Adverse Reactions: No Known Drug Allergies Allergy (Verified 04/27/20 17:23) Home Medications: Albuterol 2.5 mg/3 ml Neb [Proventil 2.5 mg/3 ml Neb] 2.5 mg IH Q4HPRN PRN 07/23/12 [History] Multivitamin with Minerals [Multiple Vitamin] 1 each PO DAILY 07/23/12 [History] Buspirone HCl 5 mg [Buspar 5 mg] 10 mg PO TID 02/08/15 [History] Cyclobenzaprine HCl 10 mg [Cyclobenzaprine 10 MG] 10 mg PO TIDPRN 02/08/15 [History] Gabapentin 600 mg PO BID 02/08/15 [History] Hydrocodone/APAP 10/325 mg [[place] 10/325 MG Tablet] 1 - 2 tab PO Q6H PRN 02/08/15 [History] Indomethacin 25 mg [Indocin 25 MG] 50 mg PO TID 02/08/15 [History] buPROPion HCl [Bupropion HCl Sr] 200 mg PO Q12H 02/08/15 [History] Fluticasone/Salmeterol Disc [Advair 250-50 Diskus 14 Dose] 1 each IH BID 10/17/15 [History] lisinopriL [Prinivil] 20 mg PO DAILY 10/17/15 [History] Venlafaxine HCl [Venlafaxine HCl ER] 75 mg PO BID 06/02/18 [History] Hx Tetanus, Diphtheria Vaccination/Date Given: Yes Hx Influenza Vaccination/Date Given: No Hx Pneumococcal Vaccination/Date Given: No Travel Risk - International Travel Have you traveled outside of the country in past 3 weeks: No - Coronavirus Screening Are you exhibiting any of the following symptoms?: No Close contact with a COVID-19 positive Pt in past 14-21 Days: No - Review of Systems Constitutional: No Symptoms Eyes: No Symptoms Ears, Nose, & Throat: No Symptoms Respiratory: No Symptoms Cardiac: No Symptoms Abdominal/Gastrointestinal: No Symptoms Genitourinary Symptoms: No Symptoms Musculoskeletal: Injury (Left lateral ribs) Skin: No Symptoms Neurological: No Symptoms Psychological: No Symptoms Endocrine: No Symptoms Hematologic/Lymphatic: No Symptoms Immunological/Allergic: No Symptoms All Other Systems: Reviewed and Negative - Past Medical History Pertinent Past Medical History: Yes Neurological History: No Pertinent History ENT History: Other Cardiac History: Hypertension Respiratory History: COPD Endocrine Medical History: No Pertinent History Musculoskeletal History: Osteoarthritis GI Medical History: No Pertinent History, GERD History: No Pertinent History Psycho-Social History: Depression, Other Male Reproductive Disorders: No Pertinent History Other Medical History: PTSD - Past Surgical History Past Surgical History: Yes Neuro Surgical History: No Pertinent History Cardiac: No Pertinent History Respiratory: No Pertinent History Gastrointestinal: No Pertinent History Genitourinary: No Pertinent History Musculoskeletal: Joint Replacement, Orthopedic Surgery Male Surgical History: No Pertinent History Other Surgical History: right Elbow and right shoulder surgery. right knee 11 surgeries "15 surgeries in 12 years". " back surgery" - Social History Smoking Status: Never smoker How long have you smoked: 25+ years Exposure to second hand smoke: Yes Drug Use: none Patient Lives Alone: No - Nursing Vital Signs Nursing Vital Signs: Initial Vital Signs Temperature 97.1 F 04/27/20 17:09 Pulse Rate 75 04/27/20 17:09 Respiratory Rate 18 04/27/20 17:09 Blood Pressure 163/113 04/27/20 17:09 O2 Sat by Pulse Oximetry 96 04/27/20 17:09 Pain Scale Pain Intensity 8 - Amanda Coma Score Best Eye Response (Amanda): (4) open spontaneously Best Verbal Response (Amanda): (5) oriented Best Motor Response (Armstrong): (6) obeys commands Amanda Total: 15 - Physical Exam General Appearance: no apparent distress, alert, anxiety Head Injury: no evidence of injury Eye Exam: PERRL/EOMI, eyes nml inspection ENT Exam: airway nml, nml ext.inspection, No evidence of ENT injury Neck Exam: supple, trachea midline, full range of motion, normal alignment, normal inspection Respiratory/Chest Exam: normal breath sounds, rib tenderness (Left lateral ribs), No respiratory distress Cardiovascular Exam: normal heart sounds, regular rate/rhythm, murmur, normal peripheral pulses Gastrointestinal Exam: soft, normal bowel sounds, No tenderness Rectal Exam: not done Back Exam: normal inspection, normal range of motion, No CVA tenderness, No vertebral tenderness Extremity Exam: normal inspection, normal range of motion, capillary refill <3 sec, pelvis stable Neurologic Exam: alert, oriented x 3, cooperative, movie machine operator II-XII nml as tested, normal mood/affect, nml cerebellar function, nml station & gait, sensation nml Skin Exam: normal color, warm, dry SpO2 Interpretation: normal O2 Delivery: Room Air - Course Nursing assessment & vital signs reviewed: Yes EKG Interpreted by Me: RATE (66), Sinus Rhythm, NORMAL AXIS, NORMAL INTERVALS, NORMAL QRS, Other (There are no acute changes on today's EKG. There are also no acute changes on the comparison EKG dated 07/10/2019.) Ordered Tests: Active Orders 24 hr Category Date Time Status EKG-ER Only STAT Care 04/27/20 17:30 Active CHEST 1 VIEW (PORTABLE) Stat Exams 04/27/20 17:29 Taken RIBS UNILATERAL Stat Exams 04/27/20 17:29 Taken - Progress Progress: improved, pain not gone completely Progress Note: 04/27/20 18:35 X-ray of the chest shows no acute pulmonary process. X-ray of the left ribs shows no acute fracture. There is no evidence of any pneumothorax on any of the x-rays performed. Counseled pt/family regarding: diagnosis, need for follow-up, rad results - Departure Departure Disposition: Home Clinical Impression: Contusion of rib on left side Condition: Stable Critical Care Time: No Referrals: FERNANDO MOSER [Primary Care Provider] - Additional Instructions: Ice pack to area 3 times a day for the next 48 hours. Take your hydrocodone and Flexeril as prescribed. Follow-up with your primary care physician for persistent pain control/management Prescriptions: Prednisone 10 mg [Deltasone 10 mg] 10 mg PO TID #12 tablet
[2020-04-27] MEDS ORDERED: Hydromorphone 1 mg/ml Injection IM ONE (18:37)
[2020-04-27] MEDS ORDERED: Phenergan 25 MG INJ IM ONE (18:37)
[2020-04-27] MEDS ORDERED: Phenergan 25 MG INJ ONE (19:40)
[2020-04-27] MEDS ORDERED: Hydromorphone 1 mg/ml Injection ONE (19:40)
[2020-04-27 20:07] VITALS: BP 132/84; PULSE 90; O2SAT 98
--- NOTE | 2020-04-27 20:37 | XRAY ---
Indication: Left-sided pain following fall. Comparison: July 10, 2019. Single PA chest again demonstrates normal heart and lungs with incidental mild right hemidiaphragm elevation and a few tiny calcified granulomas. Bony thorax intact. No new/acute findings.
--- NOTE | 2020-04-27 20:37 | XRAY ---
Indication: Pain following fall. Comparison: None 2 view left ribs demonstrates mild acromioclavicular degenerative changes, minimal degenerative changes throughout the spine, mild lumbar dextroscoliosis centered at L3, and a few tiny left lung calcified granulomas. No other bony, articular, or soft tissue abnormalities.
== END 2020-04-27 20:04 | disposition home or self-care (01) ==
LOC: ED 17:05
DX: S20.212A Contusion of left front wall of thorax, initial encounter (principal); W22.8XXA Striking against or struck by other objects, initial encounter; R07.89 Other chest pain; I10 Essential (primary) hypertension; J44.9 Chronic obstructive pulmonary disease, unspecified; Z79.899 Other long term (current) drug therapy; Z79.891 Long term (current) use of opiate analgesic
CPT/HCPCS: 71045; 71100; 93005; 96372; 99284; J1170; J2550

== ENCOUNTER 2020-06-23 18:34 | Emergency (ER) | payer MEDICARE, OTHER ==
[2020-06-23] MEDS ORDERED: XYLOCAINE 1% HCL 20 ML MDV ONE (18:51)
[2020-06-23] MEDS ORDERED: TYLENOL 325 MG PO ONE (19:22)
[2020-06-23] MEDS ORDERED: BACIGUENT PACKET TP ONE (19:23)
[2020-06-23] MEDS ORDERED: XYLOCAINE 1% HCL 20 ML MDV IJ ONE (19:25)
[2020-06-23] MEDS ORDERED: BACIGUENT PACKET ONE (19:27)
[2020-06-23] MEDS ORDERED: TYLENOL 325 MG ONE (19:27)
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
[2020-06-23 20:00] VITALS: BP 88/73; PULSE 82
[2020-06-23 20:01] VITALS: O2SAT 98
== END 2020-06-23 19:54 | disposition home or self-care (01) ==
LOC: ED 18:34
DX: S61.011A Laceration without foreign body of right thumb without damage to nail, initial encounter (principal); W26.0XXA Contact with knife, initial encounter; Y93.89 Activity, other specified; Y92.89 Other specified places as the place of occurrence of the external cause; Z79.899 Other long term (current) drug therapy; M79.641 Pain in right hand
CPT/HCPCS: 12001; 96372; 99284; A9270-GY

== ENCOUNTER 2021-02-28 15:12 | Emergency (ER) | payer MEDICARE, OTHER ==
[2021-02-28] MEDS ORDERED: Hydromorphone 1 mg/ml Injection IM ONE (17:04)
[2021-02-28] MEDS ORDERED: ZOFRAN ODT 4 MG PO ONE (17:05)
[2021-02-28] MEDS ORDERED: Hydromorphone 1 mg/ml Injection ONE (17:08)
[2021-02-28] MEDS ORDERED: ZOFRAN ODT 4 MG ONE (17:08)
[2021-02-28] MEDS ORDERED: MORPHINE SULFATE 4 MG INJ IM ONE (18:42)
[2021-02-28] MEDS ORDERED: MORPHINE SULFATE 4 MG INJ ONE (18:44)
--- NOTE | 2021-02-28 18:48 | ERPHSYRPT ---
- History of Present Illness Time Seen by Provider: 02/28/21 16:45 Source: patient, family Exam Limitations: no limitations Patient Subjective Stated Complaint: pt here for pain to lower right leg,ankle and foot a falling about 2 weeks ago, Triage Nursing Assessment: pt alert, resp easy, skin w/d/p. face mask in place, has swelling to foot and ankle Method of Injury: fell Occurred: other (2 weeks) Quality: aching, other Severity of Pain-Max: moderate Severity of Pain-Current: moderate Lower Extremities Pain: leg: right, foot: right, ankle: right Modifying Factors: Improves With: movement Associated Symptoms: other (To bear weight. New swelling over the last several days right lower extremity) Allergies/Adverse Reactions: No Known Drug Allergies Allergy (Verified 06/23/20 18:54) Home Medications: Albuterol 2.5 mg/3 ml Neb [Proventil 2.5 mg/3 ml Neb] 2.5 mg IH Q4HPRN PRN 07/23/12 [History] Multivitamin with Minerals [Multiple Vitamin] 1 each PO DAILY 07/23/12 [History] Buspirone HCl 5 mg [Buspar 5 mg] 10 mg PO TID 02/08/15 [History] Cyclobenzaprine HCl 10 mg [Cyclobenzaprine 10 MG] 10 mg PO TIDPRN 02/08/15 [History] Gabapentin 600 mg PO BID 02/08/15 [History] Hydrocodone/APAP 10/325 mg [[place] 10/325 MG TableT] 1 - 2 tab PO Q6H PRN 02/08/15 [History] Indomethacin 25 mg [Indocin 25 MG] 50 mg PO TID 02/08/15 [History] buPROPion HCL [Bupropion HCl Sr] 200 mg PO Q12H 02/08/15 [History] Fluticasone/Salmeterol Disc [Advair 250-50 Diskus 14 Dose] 1 each IH BID 10/17/15 [History] lisinopriL [Prinivil] 20 mg PO DAILY 10/17/15 [History] Venlafaxine HCl [Venlafaxine HCl ER] 75 mg PO BID 11/29/18 [History] Hx Tetanus, Diphtheria Vaccination/Date Given: Yes Hx Influenza Vaccination/Date Given: No Hx Pneumococcal Vaccination/Date Given: No Immunizations Up to Date: Yes Travel Risk - International Travel Have you traveled outside of the country in past 3 weeks: No - Coronavirus Screening Are you exhibiting any of the following symptoms?: No Close contact with a COVID-19 positive Pt in past 14-21 Days: No - Vaccine Status Have you recieved a Covid-19 vaccination: No - Review of Systems Constitutional: No Symptoms Eyes: No Symptoms Ears, Nose, & Throat: No Symptoms Respiratory: No Symptoms Cardiac: No Symptoms Abdominal/Gastrointestinal: No Symptoms Genitourinary Symptoms: No Symptoms Musculoskeletal: Fall, Injury (Right lower leg, ankle and foot) Skin: No Symptoms Neurological: No Symptoms Psychological: No Symptoms Endocrine: No Symptoms Hematologic/Lymphatic: No Symptoms Immunological/Allergic: No Symptoms All Other Systems: Reviewed and Negative - Past Medical History Pertinent Past Medical History: Yes Neurological History: No Pertinent History ENT History: Other Cardiac History: Hypertension Respiratory History: COPD Endocrine Medical History: No Pertinent History Musculoskeletal History: Osteoarthritis GI Medical History: No Pertinent History, GERD History: No Pertinent History Psycho-Social History: Depression, Other Male Reproductive Disorders: No Pertinent History Other Medical History: PTSD - Past Surgical History Past Surgical History: Yes Neuro Surgical History: No Pertinent History Cardiac: No Pertinent History Respiratory: No Pertinent History Gastrointestinal: No Pertinent History Genitourinary: No Pertinent History Musculoskeletal: Joint Replacement, Orthopedic Surgery Male Surgical History: No Pertinent History Other Surgical History: right Elbow and right shoulder surgery. right knee 11 surgeries "15 surgeries in 12 years". " back surgery" - Social History Smoking Status: Former smoker How long have you smoked: 25+ years Exposure to second hand smoke: Yes Drug Use: none Patient Lives Alone: No - Nursing Vital Signs Nursing Vital Signs: Initial Vital Signs Temperature 97.2 F 02/28/21 16:13 Pulse Rate 70 02/28/21 16:13 Respiratory Rate 16 02/28/21 16:13 Blood Pressure 167/104 02/28/21 16:13 O2 Sat by Pulse Oximetry 98 02/28/21 16:13 Pain Scale Pain Intensity 7 - Physical Exam General Appearance: no apparent distress, alert, anxiety Eyes, Ears, Nose, Throat Exam: normal ENT inspection, moist mucous membranes Neck Exam: normal inspection, non-tender, supple, full range of motion Cardiovascular/Respiratory Exam: chest non-tender, no respiratory distress Gastrointestinal/Abdominal Exam: non-tender Back Exam: normal inspection, normal range of motion, No CVA tenderness, No vertebral tenderness Hips Exam: bilateral: non-tender, normal inspection, normal range of motion, no evidence of injury Legs Exam: bilateral leg: non-tender, normal inspection, normal range of motion, no evidence of injury Knees Exam: bilateral knee: non-tender, normal inspection, normal range of motion, no evidence of injury Ankle Exam: right ankle: pain, soft tissue tenderness, swelling, left ankle: non-tender, normal inspection, normal range of motion, no evidence of injury Foot Exam: right foot: pain, soft tissue tenderness, swelling, left foot: non- tender, normal inspection, normal range of motion, no evidence of injury Neuro/Tendon Exam: normal sensation, normal motor functions, normal tendon functions, responds to pain Mental Status Exam: alert, oriented x 3, cooperative Skin Exam: normal color, warm, dry SpO2 Interpretation: normal SpO2: 98 O2 Delivery: Room Air - Course Nursing assessment & vital signs reviewed: Yes Ordered Tests: Active Orders 24 hr Category Date Time Status ANKLE (3 VIEWS) Stat Exams 02/28/21 16:18 Taken FOOT (MINIMUM 3 VIEWS) Stat Exams 02/28/21 16:18 Taken LOWER LEG Stat Exams 02/28/21 17:16 Taken VENOUS UNILAT/LIMITED EXTREMIT [US] Stat Exams 02/28/21 18:25 Taken Medication Summary Discontinued Medications Generic Name Dose Route Start Last Admin Trade Name Mechelle PRN Reason Stop Dose Admin Hydromorphone HCl 1 mg 02/28/21 17:04 02/28/21 17:15 Hydromorphone 1 Mg/Ml Injection IM 02/28/21 17:05 1 mg STAT ONE Administration Hydromorphone HCl Confirm 02/28/21 17:08 Hydromorphone 1 Mg/Ml Injection Administered 02/28/21 17:09 Dose 1 mg .ROUTE .STK-MED ONE Morphine Sulfate 4 mg 02/28/21 18:42 Morphine Sulfate 4 Mg Inj IM 02/28/21 18:43 STAT ONE Ondansetron HCl 4 mg 02/28/21 17:05 02/28/21 17:14 Zofran Odt 4 Mg PO 02/28/21 17:06 4 mg STAT ONE Administration Ondansetron HCl Confirm 02/28/21 17:08 Zofran Odt 4 Mg Administered 02/28/21 17:09 Dose 4 mg .ROUTE .STK-MED ONE - Progress Progress: improved, pain not gone completely, re-examined Progress Note: 02/28/21 18:47 X-ray of the right lower leg shows no acute fracture or dislocation. X-ray of the right ankle shows possible small, age-indeterminate, avulsion fracture distal fibula. X-ray of right foot shows no evidence of any acute fracture or dislocation. Venous Doppler of right lower extremity shows no evidence of any DVT. Counseled pt/family regarding: diagnosis, need for follow-up, rad results - Departure Departure Disposition: Home Clinical Impression: Fall with no significant injury Condition: Stable Critical Care Time: No Referrals: FERNANDO MOSER [Primary Care Provider] - Additional Instructions: Continue your pain medication as prescribed. Follow-up with your primary care physician and orthopedic surgeon for further pain management. Keep your right lower extremity elevated above the level of your heart. May add ice 3 times a day for the next 48 hours to the tender areas of your right lower extremity
[2021-02-28 19:21] VITALS: BP 136/88; PULSE 71; O2SAT 96
--- NOTE | 2021-02-28 21:34 | XRAY ---
Indication: Pain and swelling following twisting injury one week ago. Comparison: None 3 view right ankle demonstrates diffuse soft tissue swelling and tiny lateral malleolus tip curvilinear ossifications possibly avulsion fracture. Incidental small posterior heel spur and small anterior talus bone island. No other bony, articular, or soft tissue abnormalities. Comment: Pulmonary interpretation made by C. No critical discrepancy.
--- NOTE | 2021-02-28 21:38 | XRAY ---
Indication: Pain and swelling following twisting injury one week ago. Comparison: None 3 view right foot demonstrates small posterior heel spur. No other bony, articular, or soft tissue abnormalities. Ankle reported separately. Comment: Preliminary interpretation made by [facility]. No discrepancy.
--- NOTE | 2021-02-28 21:51 | XRAY ---
Indication: Right leg swelling. Two-dimensional sonogram and color Doppler imaging of the major venous vessels of the right leg performed. Comparison: September 09, 2018. No thrombus seen in the examined deep venous vessels of the right leg including greater saphenous vein. Veins demonstrate normal compressibility. Venous waveforms are normal with and without augmentation. Impression: Right leg continues to be negative for DVT. Comment: Preliminary report was given.
--- NOTE | 2021-02-28 21:51 | XRAY ---
Indication: Pain and swelling following twisting injury one week ago. Comparison: September 09, 2018. 2 view right lower leg again demonstrates partially visualized total knee arthroplasty, small posterior heel spur, anterior talus bone island, and mild diffuse soft tissue swelling/edema. No other bony, articular, or soft tissue abnormalities. Ankle reported separately. Comment: Preliminary interpretation made by [facility]. No critical discrepancy.
== END 2021-02-28 19:21 | disposition home or self-care (01) ==
LOC: ED 15:12
DX: M79.661 Pain in right lower leg (principal); M79.89 Other specified soft tissue disorders; I10 Essential (primary) hypertension; J44.9 Chronic obstructive pulmonary disease, unspecified; Z79.899 Other long term (current) drug therapy
CPT/HCPCS: 73590; 73610; 73630; 93971; 96372; 99284; J1170; J2270; Q0162

== ENCOUNTER 2022-07-27 09:36 | Emergency (ER) | payer OTHER, MEDICARE ==
[2022-07-27 09:55] VITALS: O2SAT 98
--- NOTE | 2022-07-27 10:01 | ERPHSYRPT ---
- History of Present Illness Time Seen by Provider: 07/27/22 10:01 Source: patient Exam Limitations: no limitations Patient Subjective Stated Complaint: PT states "I fell this morning and I think I hurt my ribs." Triage Nursing Assessment: PT presented alert and oriented X 3, skin pwd. Pt ambulates with an upright slow gait, grunting and holding his right ribs. pt right ribs are tender, no bruising, no swelling noted Physician History: This is a 66-year-old white male patient who tripped and fell into the edge of a wooden corner this morning hitting his right lateral ribs. He has had significant pain since his injury this morning. He did not injure his head or neck. Occurred: this morning Reason for Fall: tripped Injuries/Pain Location: middle (Right lateral middle ribs) Loss of Consciousness: no loss of consciousness Quality: aching, throbbing Severity of Pain-Max: moderate Severity of Pain-Current: moderate Associated Symptoms (Fall): other (Right lateral rib pain) Allergies/Adverse Reactions: No Known Drug Allergies Allergy (Verified 06/23/20 18:54) Home Medications: Albuterol 2.5 mg/3 ml Neb [Proventil 2.5 mg/3 ml Neb] 2.5 mg IH Q4HPRN PRN 07/23/12 [History] Multivitamin with Minerals [Multiple Vitamin] 1 each PO DAILY 07/23/12 [History] Buspirone HCl 5 mg [Buspar 5 mg] 10 mg PO TID 02/08/15 [History] Cyclobenzaprine HCl 10 mg [Cyclobenzaprine 10 MG] 10 mg PO TIDPRN 02/08/15 [History] Gabapentin 600 mg PO BID 02/08/15 [History] Hydrocodone/APAP 10/325 mg [[place] 10/325 MG TableT] 1 - 2 tab PO Q6H PRN 02/08/15 [History] Indomethacin 25 mg [Indocin 25 MG] 50 mg PO TID 02/08/15 [History] buPROPion HCL [Bupropion HCl Sr] 200 mg PO Q12H 02/08/15 [History] Fluticasone/Salmeterol Disc [Advair/Wixella 250-50 Diskus 14 Dose] 1 each IH BID 10/17/15 [History] lisinopriL [Prinivil] 20 mg PO DAILY 10/17/15 [History] Venlafaxine HCl [Venlafaxine HCl ER] 75 mg PO BID 06/02/18 [History] Hx Tetanus, Diphtheria Vaccination/Date Given: Yes Hx Influenza Vaccination/Date Given: No Hx Pneumococcal Vaccination/Date Given: No Immunizations Up to Date: Yes Travel Risk - International Travel Have you traveled outside of the country in past 3 weeks: No - Coronavirus Screening Are you exhibiting any of the following symptoms?: No Close contact with a COVID-19 positive Pt in past 14-21 Days: No - Vaccine Status Have you recieved a Covid-19 vaccination: No - Review of Systems Constitutional: No Symptoms Eyes: No Symptoms Ears, Nose, & Throat: No Symptoms Respiratory: No Symptoms Cardiac: No Symptoms Abdominal/Gastrointestinal: No Symptoms Genitourinary Symptoms: No Symptoms Musculoskeletal: Fall, Injury Neurological: No Symptoms Psychological: No Symptoms Endocrine: No Symptoms Hematologic/Lymphatic: No Symptoms Immunological/Allergic: No Symptoms All Other Systems: Reviewed and Negative - Past Medical History Pertinent Past Medical History: Yes Neurological History: No Pertinent History ENT History: Other Cardiac History: Hypertension Respiratory History: COPD Endocrine Medical History: No Pertinent History Musculoskeletal History: Osteoarthritis GI Medical History: No Pertinent History, GERD History: No Pertinent History Psycho-Social History: Depression, Other Male Reproductive Disorders: No Pertinent History Other Medical History: PTSD - Past Surgical History Past Surgical History: Yes Neuro Surgical History: No Pertinent History Cardiac: No Pertinent History Respiratory: No Pertinent History Gastrointestinal: No Pertinent History Genitourinary: No Pertinent History Musculoskeletal: Joint Replacement, Orthopedic Surgery Male Surgical History: No Pertinent History Other Surgical History: right Elbow and right shoulder surgery. right knee 11 surgeries "15 surgeries in 12 years". " back surgery" - Social History Smoking Status: Former smoker How long have you smoked: 25+ years Exposure to second hand smoke: Yes Drug Use: none Patient Lives Alone: No - Nursing Vital Signs Nursing Vital Signs: Initial Vital Signs Temperature 97.6 F 07/27/22 09:52 Pulse Rate 72 07/27/22 09:52 Respiratory Rate 22 07/27/22 09:52 Blood Pressure 145/86 07/27/22 09:52 O2 Sat by Pulse Oximetry 98 01/23/23 09:52 Pain Scale Pain Intensity 5 - Amanda Coma Score Best Eye Response (Amanda): (4) open spontaneously Best Verbal Response (Amanda): (5) oriented Best Motor Response (Amanda): (6) obeys commands [place] Total: 15 - Physical Exam General Appearance: mild distress, alert, anxiety Head Injury: no evidence of injury Eye Exam: PERRL/EOMI, eyes nml inspection ENT Exam: airway nml, nml ext.inspection, No evidence of ENT injury Neck Exam: supple, trachea midline, full range of motion, normal alignment, normal inspection Respiratory/Chest Exam: normal breath sounds, rib tenderness (Right lateral rib tenderness to palpation.), No respiratory distress, No ecchymosis, No crepitus, No decreased breath sounds Cardiovascular Exam: normal heart sounds, normal peripheral pulses Gastrointestinal Exam: soft, normal bowel sounds, tenderness Rectal Exam: not done Back Exam: normal inspection, normal range of motion, No CVA tenderness, No vertebral tenderness Extremity Exam: normal inspection, normal range of motion, capillary refill <3 sec, pelvis stable Neurologic Exam: alert, oriented x 3, cooperative, sportspersons II-XII nml as tested, normal mood/affect, nml cerebellar function, nml station & gait, sensation nml Skin Exam: normal color, warm, dry SpO2 Interpretation: normal SpO2: 98 O2 Delivery: Room Air - Course Nursing assessment & vital signs reviewed: Yes Ordered Tests: Active Orders 24 hr Category Date Time Status RIBS UNILATERAL Stat Exams 07/27/22 10:18 Completed - Progress Progress: improved, pain not gone completely Progress Note: 07/27/22 10:55 Medical decision making: This patient told me the only pain medication that he is taking is gabapentin 3 times a day. However, on 07/04/2022 it was found that he had a prescription for 180 tablets of [place] 10/325. This is a 30-day supply which should get him through the next 8 days. Patient also stated he had the gabapentin. He is also taking indomethacin. He does not need any other new prescription/medication for rib tenderness 07/27/22 10:56 Counseled pt/family regarding: diagnosis, need for follow-up, rad results - Departure Departure Disposition: Home Clinical Impression: Contusion of rib on right side Condition: Stable Critical Care Time: No [facility] [Primary Care Provider] - Follow up/PCP as directed Additional Instructions: Ice pack to area 3 times a day for the next 48 hours. Follow-up with your prescribing provider for further evaluation and management of pain issues. Continue your indomethacin and [place] as prescribed. Continue your gabapentin as prescribed.
--- NOTE | 2022-07-27 10:46 | XRAY ---
Indication: Diffuse pain following fall. Comparison: None 2 view right ribs demonstrates mild degenerative changes throughout visualized spine, mild dextroscoliosis centered at L2-L3, and moderate glenohumeral degenerative arthropathy. No other bony, articular, or soft tissue abnormalities.
[2022-07-27] MEDS ORDERED: Hydromorphone 1 mg/ml Injection IM ONE (10:57)
[2022-07-27] MEDS ORDERED: Compazine 10 MG/2 ML IM ONE (10:58)
[2022-07-27] MEDS ORDERED: Hydromorphone 1 mg/ml Injection ONE (11:24)
[2022-07-27] MEDS ORDERED: Compazine 10 MG/2 ML ONE (11:24)
[2022-07-27] MEDS ORDERED: Norflex 60 MG/2 ML IM ONE (11:51)
[2022-07-27] MEDS ORDERED: Norflex 60 MG/2 ML ONE (11:57)
[2022-07-27 12:28] VITALS: BP 130/65; PULSE 80
== END 2022-07-27 12:29 | disposition home or self-care (01) ==
LOC: ED 09:36
DX: S20.211A Contusion of right front wall of thorax, initial encounter (principal); W01.10XA Fall on same level from slipping, tripping and stumbling with subsequent striking against unspecified object, initial encounter; R07.81 Pleurodynia; I10 Essential (primary) hypertension; Z79.891 Long term (current) use of opiate analgesic; Z79.899 Other long term (current) drug therapy; Z28.310 Unvaccinated for COVID-19
CPT/HCPCS: 71100; 96372; 99283; J1170; J2360

== ENCOUNTER 2022-07-31 23:26 | Emergency (ER) | payer OTHER, MEDICARE ==
[2022-08-01 00:21] LABS: Absolute Neutrophil Ct (ANC) 3.92 x10^3/uL (1.4-6.9); BASOPHIL % 0.4 % (0.0-0.4); Basophil (Absolute #) 0.03 x10^3/uL (0-0.4); Eosinophil (Absolute #) 0.42 x10^3/uL (0-0.5); Hematocrit 39.6 % (42-50); IMMATURE GRAN # 0.03 x10^3u/L (0.00-0.03); IMMATURE GRAN % 0.4 % (0.00-0.4); Lymphocyte (Absolute #) 2.17 x10^3/uL (1.0-4.6); Lymphocytes % 30.8 % (24.0-44.0); Mean Cell Volume 86.3 fL (78-100); Mean Corpuscular Hemoglobin 28.3 pg (26-32); Mean Corpuscular Hgb Concent. 32.8 g/dL (32-36); Mean Platelet Volume 9.4 fL (7.5-11.0); Monocyte (Absolute #) 0.48 x10^3/uL (0.0-1.3); Monocytes % 6.8 % (0.0-12.0); Neutrophil % 55.6 % (36.0-66.0); Platelet Count 273 x10^3/uL (150-450); Red Blood Count 4.59 x10^6/uL (4.1-5.6); Red Cell Distribution Width 14.1 % (11.5-14.0); White Blood Count 7.1 x10^3/uL (4.0-10.5)
[2022-08-01 00:47] LABS: ALBUMIN 4.2 g/dL (3.5-5.0); ALKALINE PHOSPHATASE 55 U/L (38-126); ANION GAP 9.1 MEQ/L (5-15); BLOOD UREA NITROGEN 13 mg/dL (9-20); CHLORIDE 103 mmol/L (98-107); Calcium 8.7 mg/dL (8.4-10.2); Carbon Dioxide 30 mmol/L (22-30); Creatinine 1 0.89 mg/dL (0.66-1.25); EST GLOMERULAR FILTRATION RATE > 60.0 ML/MIN; Glucose 95 mg/dL (74-106); Potassium 4.6 mmol/L (3.5-5.1); SGOT/AST 29 U/L (17-59); SGPT/ALT 34 U/L (0-50); SODIUM 137 mmol/L (137-145); TROPONIN < 0.012 ng/mL (0.000-0.034); Total Protein 6.7 g/dL (6.3-8.2)
[2022-08-01] MEDS ORDERED: TORAdol 30 mg Injection IV ONE (03:11)
[2022-08-01] MEDS ORDERED: TORAdol 30 mg Injection ONE (03:17)
[2022-08-01 03:25] VITALS: O2SAT 100
--- NOTE | 2022-08-01 03:25 | ERPHSYRPT ---
- History of Present Illness Time Seen by Provider: 08/01/22 01:00 Source: patient Exam Limitations: no limitations Patient Subjective Stated Complaint: pt states he fell on wednesday and fractured some ribs on the right side. . has increased pain and is here for reevaluation. Triage Nursing Assessment: pt alert and oriented, answers questions approp. pt ambulatory with slow gait noted. pt splinting rt side with arm while moving. skin warm and dry. no crepitus noted to chest, back. lung sounds cta bilat. Physician History: Patient is a 66-year-old male presents to our ED for evaluation of right rib pain. Patient fell on Wednesday. Patient followed up at our ED. Patient was diagnosed with right rib fracture. Patient is here for worsening pain. Pain described as an ache that is localized. No radiation. Pain reproduced with movement and palpation. Pain improved with rest. No nausea vomiting or diaphoresis. No fever. Symptoms are mild to moderate in intensity. Patient voices no other complaints or concerns at this time. Portions of this note were created with voice recognition technology. There may be grammatical, spelling, punctuation or sound alike errors Timing/Duration: day(s) (4 days ago) Severity: moderate Modifying Factors: Improves With: other (Movement palpation.) Associated Symptoms: denies symptoms Allergies/Adverse Reactions: No Known Drug Allergies Allergy (Verified 07/31/22 23:40) Home Medications: Albuterol 2.5 mg/3 ml Neb [Proventil 2.5 mg/3 ml Neb] 2.5 mg IH Q4HPRN PRN 07/23/12 [History] Multivitamin with Minerals [Multiple Vitamin] 1 each PO DAILY 07/23/12 [History] Buspirone HCl 5 mg [Buspar 5 mg] 10 mg PO TID 02/08/15 [History] Cyclobenzaprine HCl 10 mg [Cyclobenzaprine 10 MG] 10 mg PO TIDPRN 02/08/15 [History] Gabapentin 600 mg PO BID 02/08/15 [History] Hydrocodone/APAP 10/325 mg [[place] 10/325 MG TableT] 1 - 2 tab PO Q6H PRN 02/08/15 [History] Indomethacin 25 mg [Indocin 25 MG] 50 mg PO TID 02/08/15 [History] buPROPion HCL [Bupropion HCl Sr] 200 mg PO Q12H 02/08/15 [History] Fluticasone/Salmeterol Disc [Advair/Wixella 250-50 Diskus 14 Dose] 1 each IH BID 10/17/15 [History] lisinopriL [Prinivil] 20 mg PO DAILY 10/17/15 [History] Venlafaxine HCl [Venlafaxine HCl ER] 75 mg PO BID 06/02/18 [History] Hx Tetanus, Diphtheria Vaccination/Date Given: Yes Hx Influenza Vaccination/Date Given: No Hx Pneumococcal Vaccination/Date Given: No Immunizations Up to Date: Yes Travel Risk - International Travel Have you traveled outside of the country in past 3 weeks: No - Coronavirus Screening Close contact with a COVID-19 positive Pt in past 14-21 Days: No - Vaccine Status Have you recieved a Covid-19 vaccination: No - Review of Systems Constitutional: No Symptoms, No Fever, No Chills Eyes: No Symptoms Ears, Nose, & Throat: No Symptoms Respiratory: No Symptoms, No Cough, No Dyspnea Cardiac: No Symptoms, No Chest Pain, No Edema, No Syncope Abdominal/Gastrointestinal: No Symptoms, No Abdominal Pain, No Nausea, No Vomiting, No Diarrhea Genitourinary Symptoms: No Symptoms, No Dysuria Musculoskeletal: No Symptoms, No Back Pain, No Neck Pain Skin: No Symptoms, No Rash Neurological: No Symptoms, No Dizziness, No Focal Weakness, No Sensory Changes Psychological: No Symptoms Endocrine: No Symptoms Hematologic/Lymphatic: No Symptoms Immunological/Allergic: No Symptoms All Other Systems: Reviewed and Negative - Past Medical History Pertinent Past Medical History: Yes Neurological History: No Pertinent History ENT History: Other Cardiac History: Hypertension Respiratory History: COPD Endocrine Medical History: No Pertinent History Musculoskeletal History: Osteoarthritis GI Medical History: No Pertinent History, GERD History: No Pertinent History Psycho-Social History: Depression, Other Male Reproductive Disorders: No Pertinent History Other Medical History: PTSD - Past Surgical History Past Surgical History: Yes Neuro Surgical History: No Pertinent History Cardiac: No Pertinent History Respiratory: No Pertinent History Gastrointestinal: No Pertinent History Genitourinary: No Pertinent History Musculoskeletal: Joint Replacement, Orthopedic Surgery Male Surgical History: No Pertinent History Other Surgical History: right Elbow and right shoulder surgery. right knee 11 surgeries "15 surgeries in 12 years". " back surgery" - Social History Smoking Status: Former smoker How long have you smoked: 25+ years Exposure to second hand smoke: Yes Drug Use: none Patient Lives Alone: No - Nursing Vital Signs Nursing Vital Signs: Initial Vital Signs Pulse Rate 79 07/31/22 23:58 Respiratory Rate 22 07/31/22 23:58 Blood Pressure 170/107 07/31/22 23:58 O2 Sat by Pulse Oximetry 94 L 07/31/22 23:58 Pain Scale Pain Intensity 6 - Physical Exam General Appearance: no apparent distress, alert Eye Exam: PERRL/EOMI, eyes nml inspection Ears, Nose, Throat Exam: normal ENT inspection, TMs normal, pharynx normal, moist mucous membranes Neck Exam: normal inspection, non-tender, supple, full range of motion Respiratory Exam: normal breath sounds, lungs clear, No respiratory distress Cardiovascular Exam: regular rate/rhythm, normal heart sounds, normal peripheral pulses Gastrointestinal/Abdomen Exam: soft, normal bowel sounds, No tenderness, No mass Back Exam: normal inspection, normal range of motion, No CVA tenderness, No vertebral tenderness Extremity Exam: normal inspection, normal range of motion, pelvis stable Neurologic Exam: alert, oriented x 3, cooperative, normal mood/affect, nml cerebellar function, nml station & gait, sensation nml, No motor deficits Skin Exam: normal color, warm, dry, No rash Lymphatic Exam: No adenopathy SpO2 Interpretation: normal SpO2: 100 O2 Delivery: Room Air - Course Nursing assessment & vital signs reviewed: Yes EKG Interpreted by Me: RATE (73), Sinus Rhythm, NORMAL AXIS, NORMAL INTERVALS - CT Exams Chest CT Interpretation: Tele-radiologist Report (Small right pleural effusion, bilateral shoulder arthritis, mildly displaced right lateral sixth through eighth rib fractures) Ordered Tests: Active Orders 24 hr Category Date Time Status Yield Improvement Engineer STAT Care 07/31/22 23:52 Active EKG-ER Only STAT Care 07/31/22 23:52 Active IV Insertion STAT Care 07/31/22 23:52 Active Pulse Oximetry (ED) STAT Care 07/31/22 23:52 Active CHEST WITH CONTRAST [CT] Stat Exams 08/01/22 00:48 Taken TROPONIN Q4H Lab 08/01/22 03:15 Received TROPONIN Q4H Lab 08/01/22 07:52 Ordered Medication Summary Discontinued Medications Generic Name Dose Route Start Last Admin Trade Name Mechelle PRN Reason Stop Dose Admin Ketorolac Tromethamine 30 mg 08/01/22 03:11 08/01/22 03:21 Ketorolac Tromethamine 30 Mg/Ml Inj IV 08/01/22 03:12 30 mg STAT ONE Administration Ketorolac Tromethamine Confirm 08/01/22 03:17 Ketorolac Tromethamine 30 Mg/Ml Inj Administered 08/01/22 03:18 Dose 30 mg .ROUTE .STK-MED ONE Lab/Rad Data: Laboratory Result Diagrams 07/31/22 00:10 07/31/22 00:10 Laboratory Results 07/31/22 07/31/22 07/31/22 Range/Units 00:10 00:10 00:10 WBC 7.1 (4.0-10.5) x10^3/uL RBC 4.59 (4.1-5.6) x10^6/uL Hgb 13.0 (12.5-18.0) g/dL Hct 39.6 L (42-50) % MCV 86.3 (78-100) fL MCH 28.3 (26-32) pg MCHC 32.8 (32-36) g/dL RDW 14.1 H (11.5-14.0) % Plt Count 273 (150-450) x10^3/uL MPV 9.4 (7.5-11.0) fL Gran % 55.6 (36.0-66.0) % Immature Gran % (Auto) 0.4 (0.00-0.4) % Nucleat RBC Rel Count 0.0 (0.00-0.1) % Eos # (Auto) 0.42 (0-0.5) x10^3/uL Immature Gran # (Auto) 0.03 (0.00-0.03) x10^3u/L Absolute Lymphs (auto) 2.17 (1.0-4.6) x10^3/uL Absolute Monos (auto) 0.48 (0.0-1.3) x10^3/uL Absolute Nucleated RBC 0.00 (0.00-0.01) x10^3u/L Lymphocytes % 30.8 (24.0-44.0) % Monocytes % 6.8 (0.0-12.0) % Eosinophils % 6.0 H (0.00-5.0) % Basophils % 0.4 (0.0-0.4) % Absolute Granulocytes 3.92 (1.4-6.9) x10^3/uL Basophils # 0.03 (0-0.4) x10^3/uL D-Dimer 0.72 H* (0.0-0.50) mg/L Sodium 137 (137-145) mmol/L Potassium 4.6 (3.5-5.1) mmol/L Chloride 103 (98-107) mmol/L Carbon Dioxide 30 (22-30) mmol/L Anion Gap 9.1 (5-15) MEQ/L BUN 13 (9-20) mg/dL Creatinine 0.89 (0.66-1.25) mg/dL Estimated GFR > 60.0 ML/MIN Glucose 95 (74-106) mg/dL Calcium 8.7 (8.4-10.2) mg/dL Total Bilirubin 0.30 (0.2-1.3) mg/dL AST 29 (17-59) U/L ALT 34 (0-50) U/L Alkaline Phosphatase 55 (38-126) U/L Troponin I < 0.012 (0.000-0.034) ng/mL Serum Total Protein 6.7 (6.3-8.2) g/dL Albumin 4.2 (3.5-5.0) g/dL - Progress Progress: improved Progress Note: CT scan ordered by La Shearer report resulted shows right lower lobe 0.3 cm noncalcified nodule laterally left upper lobe 0.2 cm nodule along the major fissure left lower lobe 0.5 cm noncalcified nodule posterior laterally. Patient will require follow-up for these lung nodules 08/01/22 03:32 Elevated D-dimer. CTA chest negative for PE. 08/01/22 03:42 Patient is a 66-year-old male presents emergency department for evaluation of right rib pain. Patient fell fractured his ribs 5 days ago. Patient was diagnosed in our ED couple days ago. Patient is here for worsening pain. Physical exam reveals tenderness to palpation along the right ribs. Overlying soft tissue intact. Patient's complaint is acute. Complexity of problem is moderate. No significant involvement of comorbidities. Tests ordered include CBC CMP D-dimer troponin. D-dimer positive. CT chest ordered. CT chest negative for PE. An outside CT chest was ordered which reveals lung nodules. Patient was informed. Patient agrees to follow-up with his primary care doctor regarding his lung nodules. Patient received Toradol for pain control. Pain significantly improved. Troponin negative. Patient agrees to follow-up with his primary care doctor within 48 hours for evaluation. Level of EM service provided was moderate. Complexity of problem addressed was moderate. Complexity of data reviewed and analyzed is moderate. Risk of complication or risk of morbidity/mortality of patient management is mild. No critical care time. Patient served as independent historian with significant other at bedside also contributed to our HPI. In light of the fact that patient was complaining of right rib pain and some chest pain we elected to perform a cardiac work-up patient has cardiovascular risk factors including his age. Work-up negative for ACS. No PE. Patient's pain appears to be due to rib fracture. Time spent during discharge approximately 15 minutes. Patient voices no other complaints or concerns at this time. Portions of this note were created with voice recognition technology. There may be grammatical, spelling, punctuation or sound alike errors 08/01/22 03:47 She has an incentive spirometer at home which she will utilize daily minimize complications of healing rib fractures. 08/01/22 04:12 Counseled pt/family regarding: lab results, diagnosis, need for follow-up, rad results - Departure Departure Disposition: Home Clinical Impression: Lung nodules, Rib fracture, Shoulder arthritis Condition: Stable Critical Care Time: No Referrals: FERNANDO MOSER [Primary Care Provider] - Follow up/PCP as directed Additional Instructions: You will require follow-up for the lung nodules observed on a CT scan performed today ordered by La Shearer. Please see La Shearer for follow up within 48 hours. Discharge/Care Plan SHAUNA MENDOZA JUAN was seen on 08/01/22 in the Emergency Room. The patient was counseled regarding Diagnosis,Lab results, Imaging studies, need for follow up and when to return to the Emergency Room. Prescriptions given: Discharge Note I have spoken with the patient and/or caregivers. I have explained the patient's condition, diagnosis and treatment plan based on the information available to me at this time. I have answered the patient's and/or caregiver's questions and addressed any concerns. The patient and/or caregivers have as good understanding of the patient's diagnosis, condition and treatment plan as can be expected at this point. The vital signs have been stable. The patient's condition is stable and appropriate for discharge from the emergency department. The patient will pursue further outpatient evaluation with the primary care physician or other designated or consulting physician as outlined in the discharge instructions. The patient and/or caregivers are agreeable to this plan of care and follow-up instructions have been explained in detail. The patient and/or caregivers have received these instruction. The patient/and or caregivers are aware that any significant change in condition or worsening of symptoms should prompt an immediate return to this or the closest emergency department or call 911.
[2022-08-01 04:14] VITALS: BP 167/94; PULSE 76
[2022-08-01] MEDS ORDERED: Cyclobenzaprine 10 MG PO ONE (04:32)
[2022-08-01] MEDS ORDERED: Cyclobenzaprine 10 MG ONE (04:33)
--- NOTE | 2022-08-01 08:18 | XRAY ---
Indication: Chest pain. Right 6-8 rib fractures seen on outside CT chest exam 1 day earlier from [facility]. Multiple contiguous axial images obtained through the chest using 100 cc Isovue 370 contrast and PE protocol. Comparison: Outside CT chest without contrast exam from [facility] one day earlier. Good opacification of the pulmonary arteries to include the lobar and segmental branches. No pulmonary embolus. Heart not enlarged. Aorta is normal in course and caliber. No pathologic mediastinal/hilar lymphadenopathy. Lungs again demonstrates tiny right effusion with mild right base compressive atelectasis, slightly larger than before. No suspicious pulmonary mass, nodule, or pneumothorax. Bony thorax again demonstrates nondisplaced acute fractures involving the lateral arcs of the right 6-8 ribs. Limited upper abdomen unremarkable. Impression: 1. Negative pulmonary embolus. 2. Stable acute right 6-8 rib fractures with minimally increasing right hemothorax. No pneumothorax. Comment: Preliminary interpretation made by C. No critical discrepancy.
== END 2022-08-01 05:02 | disposition home or self-care (01) ==
LOC: ED 23:26
DX: S22.31XD Fracture of one rib, right side, subsequent encounter for fracture with routine healing (principal); W19.XXXD Unspecified fall, subsequent encounter; R91.8 Other nonspecific abnormal finding of lung field; M19.012 Primary osteoarthritis, left shoulder; M19.011 Primary osteoarthritis, right shoulder; R07.9 Chest pain, unspecified; I10 Essential (primary) hypertension; Z79.899 Other long term (current) drug therapy; Z28.310 Unvaccinated for COVID-19
CPT/HCPCS: 36000; 36415; 71260; 80053; 84484; 85025; 85379; 93005; 93041; 94760; 96374; 99284; J1885; A9270-GY

== ENCOUNTER 2022-12-08 01:38 | Observation (INO) | payer OTHER, MEDICARE ==
--- NOTE | 2022-12-08 02:03 | ERPHSYRPT ---
- History of Present Illness Time Seen by Provider: 12/08/22 02:03 Source: patient Exam Limitations: no limitations Patient Subjective Stated Complaint: shortness of breath Triage Nursing Assessment: pt ambulated into ER without diff, pt alert and oriented x3, pleasant and cooperative. Pt c/o shortness of breath x2 days but worsened tonight as he was unable to lay on his side to sleep. Lungs diminished thoughout ant and post, pt not having alot of air movement. Pt denies any chest pain. Pt has a prod cough, clear sputum. Physician History: 57-year-old male presents emergency room with a 2-day history of cough pro ductive of clear sputum, congestion and increased shortness of breath. Patient reports chest pain throughout his entire anterior chest wall. He reports a subjective fever but has not actually taken his temperature. He has taken no OTC cough medications. Patient reports taking his Advair as prescribed, but not needing his albuterol inhaler until yesterday. Patient does report increased bilateral lower extremity swelling without history of CHF or CAD. Timing/Duration: yesterday Activities at Onset: none Severity of Dyspnea-Max: severe Severity of Dyspnea-Current: severe Possible Cause: occasional episodes Modifying Factors: Improves With: albuterol inhaler. Worsens With: activity, coughing, deep breath, exertion Associated Symptoms: constant, cough, chest pain/discomfort, edema, fever, wheezing, chills, leg swelling, No hemoptysis, No calf pain, No dizziness Allergies/Adverse Reactions: No Known Drug Allergies Allergy (Verified 07/31/22 23:40) Home Medications: Multivitamin with Minerals [Multiple Vitamin] 1 each PO DAILY 07/23/12 [History] Buspirone HCl 5 mg [Buspar 5 mg] 10 mg PO TID 02/08/15 [History] Cyclobenzaprine HCl 10 mg [Cyclobenzaprine 10 MG] 10 mg PO TIDPRN 02/08/15 [History] Gabapentin 600 mg PO BID 02/08/15 [History] Hydrocodone/APAP 10/325 mg [Mcbee 10/325 MG TableT] 1 - 2 tab PO Q6H PRN 02/08/15 [History] Indomethacin 25 mg [Indocin 25 MG] 50 mg PO TID 02/08/15 [History] buPROPion HCL [Bupropion HCl Sr] 200 mg PO Q12H 02/08/15 [History] Fluticasone/Salmeterol Disc [Advair/Wixella 250-50 Diskus 14 Dose] 1 each IH BID 10/17/15 [History] lisinopriL [Prinivil] 20 mg PO DAILY 10/17/15 [History] Venlafaxine HCl [Venlafaxine HCl ER] 75 mg PO BID 06/02/18 [History] Hx Tetanus, Diphtheria Vaccination/Date Given: Yes Hx Influenza Vaccination/Date Given: No Hx Pneumococcal Vaccination/Date Given: No Immunizations Up to Date: Yes Travel Risk - International Travel Have you traveled outside of the country in past 3 weeks: No - Coronavirus Screening Symptoms: Cough: New Onset, Shortness of Breath Close contact with a COVID-19 positive Pt in past 14-21 Days: No - Vaccine Status Have you recieved a Covid-19 vaccination: No - Review of Systems Constitutional: Fever, Chills, Fatigue Eyes: No Symptoms Ears, Nose, & Throat: No Symptoms Respiratory: Cough, Dyspnea, Dyspnea on Exertion (RAMIRES), Wheezing Cardiac: Chest Pain, Edema Abdominal/Gastrointestinal: Nausea, No Abdominal Pain, No Vomiting, No Diarrhea, No Constipation, No Hematemesis, No Hematochezia Genitourinary Symptoms: No Symptoms Musculoskeletal: No Symptoms Skin: No Symptoms Neurological: No Symptoms - Past Medical History Pertinent Past Medical History: Yes Neurological History: No Pertinent History ENT History: Other Cardiac History: Hypertension Respiratory History: Bronchitis, COPD, Pneumonia Endocrine Medical History: No Pertinent History Musculoskeletal History: Osteoarthritis GI Medical History: GERD History: No Pertinent History Psycho-Social History: Depression, Other Male Reproductive Disorders: No Pertinent History Other Medical History: PTSD - Past Surgical History Past Surgical History: Yes Neuro Surgical History: No Pertinent History Cardiac: No Pertinent History Respiratory: No Pertinent History Gastrointestinal: No Pertinent History Genitourinary: No Pertinent History Musculoskeletal: Joint Replacement, Orthopedic Surgery Male Surgical History: No Pertinent History Other Surgical History: right Elbow and right shoulder surgery. right knee 11 surgeries "15 surgeries in 12 years". " back surgery" - Social History Smoking Status: Never smoker How long have you smoked: 25+ years Exposure to second hand smoke: Yes Drug Use: none Patient Lives Alone: No - Nursing Vital Signs Nursing Vital Signs: Initial Vital Signs Temperature 98.0 F 12/08/22 01:42 Pulse Rate 98 H 12/08/22 01:42 Respiratory Rate 24 12/08/22 01:42 Blood Pressure 142/109 12/08/22 01:42 O2 Sat by Pulse Oximetry 97 12/08/22 01:42 Pain Scale Pain Intensity 7 - Physical Exam General Appearance: mild distress Eye Exam: eyes nml inspection Ears, Nose, Throat Exam: hearing grossly normal Neck Exam: supple, full range of motion Respiratory Exam: airway intact, diminished breath sounds, wheezing, No respiratory distress Cardiovascular/Chest Exam: normal heart sounds, regular rate/rhythm, edema (2+) Abdominal/Gastrointestinal Exam: soft, normal bowel sounds, No tenderness, No distention Extremity Exam: non-tender, no calf tenderness, swelling Neurologic Exam: alert, oriented x 3, cooperative Skin Exam: normal color, warm, dry SpO2 Interpretation: normal SpO2: 97 O2 Delivery: Room Air - Course Nursing assessment & vital signs reviewed: Yes EKG Interpreted by Me: RATE (96), Sinus Rhythm, NORMAL AXIS, NORMAL INTERVALS, NORMAL QRS, NORMAL ST-T Ordered Tests: Active Orders 24 hr Category Date Time Status [employer] Specialist STAT Care 12/08/22 02:14 Active EKG-ER Only STAT Care 12/08/22 02:10 Active IV Insertion STAT Care 12/08/22 02:10 Active Pulse Oximetry (ED) STAT Care 12/08/22 02:10 Active CHEST 1 VIEW (PORTABLE) Stat Exams 12/08/22 02:11 Taken LUMBAR COMPLETE (MIN 4 VIEWS) Stat Exams 12/08/22 03:38 Ordered CBC W DIFF Stat Lab 12/08/22 02:00 Completed CMP Stat Lab 12/08/22 02:00 Completed Lactic Acid Stat Lab 12/08/22 03:04 Completed MAGNESIUM Stat Lab 12/08/22 02:00 Completed NT PRO BNPII Stat Lab 12/08/22 02:00 Completed PROCALCITONIN Stat Lab 12/08/22 01:15 Received TROPONIN Q4H Lab 12/08/22 02:00 Completed TROPONIN Q4H Lab 12/08/22 06:15 Ordered TROPONIN Q4H Lab 12/08/22 10:15 Ordered UA W/RFX UR CULTURE Stat Lab 12/08/22 02:36 Completed VENOUS BLOOD GAS Stat Lab 12/08/22 03:04 Completed Respiratory Therapy Assessment DAILY RT 12/08/22 02:50 Active Medication Summary Discontinued Medications Generic Name Dose Route Start Last Admin Trade Name Mechelle PRN Reason Stop Dose Admin Albuterol/Ipratropium 3 ml 12/08/22 02:10 12/08/22 02:49 Ipratropium/Albuterol Sulfate 3 Ml Ampul.Neb IH 12/08/22 02:11 3 ml STAT ONE Administration Albuterol/Ipratropium Confirm 12/08/22 02:46 Ipratropium/Albuterol Sulfate 3 Ml Ampul.Neb Administered 12/08/22 02:47 Dose 3 ml IH .STK-MED ONE Methylprednisolone Sodium 0 mg 12/08/22 02:10 12/08/22 02:33 Succinate 125 mg/ Sterile IV 12/08/22 02:11 125 mg Water 2 ml STAT ONE Administration Azithromycin 500 mg in 250 mls @ 250 mls/hr 12/08/22 02:10 12/08/22 02:33 Zithromax 500 Mg/ 250 Ml Nacl Premix IV 12/08/22 03:09 250 mls/hr STAT STA 250 mls/hr Administration Azithromycin Confirm 12/08/22 02:32 Zithromax 500 Mg/ 250 Ml Nacl Premix Administered 12/08/22 02:33 Dose 500 mg in 250 mls @ ud IV .STK-MED ONE Methylprednisolone Sodium Succinate Confirm 12/08/22 02:32 Methylprednis Sod Succ 125 Mg/2 Ml Vial Administered 12/08/22 02:33 Dose 125 mg .ROUTE .STK-MED ONE Sterile Water Confirm 12/08/22 02:32 Water For Injection,Sterile 10 Ml Vial Administered 12/08/22 02:33 Dose 10 ml IJ .STK-MED ONE Lab/Rad Data: Laboratory Result Diagrams 12/08/22 02:00 12/08/22 02:00 Laboratory Results 12/08/22 12/08/22 12/08/22 Range/Units Unknown 03:04 03:04 WBC (4.0-10.5) x10^3/uL RBC (4.1-5.6) x10^6/uL Hgb (12.5-18.0) g/dL Hct (42-50) % MCV (78-100) fL MCH (26-32) pg MCHC (32-36) g/dL RDW (11.5-14.0) % Plt Count (150-450) x10^3/uL MPV (7.5-11.0) fL Gran % (36.0-66.0) % Immature Gran % (Auto) (0.00-0.4) % Nucleat RBC Rel Count (0.00-0.1) % Eos # (Auto) (0-0.5) x10^3/uL Immature Gran # (Auto) (0.00-0.03) x10^3u/L Absolute Lymphs (auto) (1.0-4.6) x10^3/uL Absolute Monos (auto) (0.0-1.3) x10^3/uL Absolute Nucleated RBC (0.00-0.01) x10^3u/L Lymphocytes % (24.0-44.0) % Monocytes % (0.0-12.0) % Eosinophils % (0.00-5.0) % Basophils % (0.0-0.4) % Absolute Granulocytes (1.4-6.9) x10^3/uL Basophils # (0-0.4) x10^3/uL pO2/FiO2 Ratio 21.0 % VBG pH 7.41 (7.32-7.42) VBG pCO2 at Pat Temp 42 (42-55) mm/Hg VBG pO2 at Pat Temp 58 H (25-40) mm/Hg VBG HCO3 26.6 (22-28) meq/L VBG O2 Sat ([place]) 94.2 L (95-100) VBG Base Excess 1.7 (-2.0-2.0) VBG Hemoglobin 11.1 VBG Carboxyhemoglobin 5.8 (0.0-6.9) % T HGB POC Potassium 3.5 (3.5-5.1) Sodium (137-145) mmol/L Potassium (3.5-5.1) mmol/L Chloride (98-107) mmol/L Carbon Dioxide (22-30) mmol/L Anion Gap (5-15) MEQ/L BUN (9-20) mg/dL Creatinine (0.66-1.25) mg/dL Estimated GFR ML/MIN Glucose (74-106) mg/dL Lactic Acid 2.0 (0.4-2.0) Calcium (8.4-10.2) mg/dL Magnesium (1.6-2.3) mg/dL Total Bilirubin (0.2-1.3) mg/dL AST (17-59) U/L ALT (0-50) U/L Alkaline Phosphatase (38-126) U/L Troponin I (0.000-0.034) ng/mL NT-Pro-B Natriuret Pep (<300) pg/mL Serum Total Protein (6.3-8.2) g/dL Albumin (3.5-5.0) g/dL Procalcitonin (0.030-0.080) ng/mL Urine Color (Yellow) Urine Appearance (Clear) Urine pH (4.6-8.0) Ur Specific [place] (1.005-1.030) Urine Protein (Negative) Urine Glucose (UA) (Negative) mg/dL Urine Ketones (Negative) Urine Blood (Negative) Urine Nitrite (Negative) Urine Bilirubin (Negative) Urine Urobilinogen (0.2) mg/dL Ur Leukocyte Esterase (Negative) U Hyaline Cast (Auto) (0-2) /LPF Urine Microscopic RBC (0-5) /HPF Urine Microscopic WBC (0-5) /HPF Ur Epithelial Cells (None Seen) /HPF Urine Bacteria (None Seen) /HPF Urine Culture Reflexed (NO) Influenza Type A Ag NEGATIVE (NEGATIVE) Influenza Type B Ag NEGATIVE (NEGATIVE) RSV (PCR) NEGATIVE (NEGATIVE) SARS-CoV-2 (PCR) NEGATIVE (NEGATIVE) 12/08/22 12/08/22 12/08/22 Range/Units 02:36 02:00 02:00 WBC (4.0-10.5) x10^3/uL RBC (4.1-5.6) x10^6/uL Hgb (12.5-18.0) g/dL Hct (42-50) % MCV (78-100) fL MCH (26-32) pg MCHC (32-36) g/dL RDW (11.5-14.0) % Plt Count (150-450) x10^3/uL MPV (7.5-11.0) fL Gran % (36.0-66.0) % Immature Gran % (Auto) (0.00-0.4) % Nucleat RBC Rel Count (0.00-0.1) % Eos # (Auto) (0-0.5) x10^3/uL Immature Gran # (Auto) (0.00-0.03) x10^3u/L Absolute Lymphs (auto) (1.0-4.6) x10^3/uL Absolute Monos (auto) (0.0-1.3) x10^3/uL Absolute Nucleated RBC (0.00-0.01) x10^3u/L Lymphocytes % (24.0-44.0) % Monocytes % (0.0-12.0) % Eosinophils % (0.00-5.0) % Basophils % (0.0-0.4) % Absolute Granulocytes (1.4-6.9) x10^3/uL Basophils # (0-0.4) x10^3/uL pO2/FiO2 Ratio % VBG pH (7.32-7.42) VBG pCO2 at Pat Temp (42-55) mm/Hg VBG pO2 at Pat Temp (25-40) mm/Hg VBG HCO3 (22-28) meq/L VBG O2 Sat ([place]) (95-100) VBG Base Excess (-2.0-2.0) VBG Hemoglobin VBG Carboxyhemoglobin (0.0-6.9) % T HGB POC Potassium (3.5-5.1) Sodium (137-145) mmol/L Potassium (3.5-5.1) mmol/L Chloride (98-107) mmol/L Carbon Dioxide (22-30) mmol/L Anion Gap (5-15) MEQ/L BUN (9-20) mg/dL Creatinine (0.66-1.25) mg/dL Estimated GFR ML/MIN Glucose (74-106) mg/dL Lactic Acid (0.4-2.0) Calcium (8.4-10.2) mg/dL Magnesium (1.6-2.3) mg/dL Total Bilirubin (0.2-1.3) mg/dL AST (17-59) U/L ALT (0-50) U/L Alkaline Phosphatase (38-126) U/L Troponin I < 0.012 (0.000-0.034) ng/mL NT-Pro-B Natriuret Pep 867 (<300) pg/mL Serum Total Protein (6.3-8.2) g/dL Albumin (3.5-5.0) g/dL Procalcitonin (0.030-0.080) ng/mL Urine Color Yellow (Yellow) Urine Appearance Clear (Clear) Urine pH 6.0 (4.6-8.0) Ur Specific [place] 1.010 (1.005-1.030) Urine Protein Negative (Negative) Urine Glucose (UA) Negative (Negative) mg/dL Urine Ketones Negative (Negative) Urine Blood Negative (Negative) Urine Nitrite Negative (Negative) Urine Bilirubin Negative (Negative) Urine Urobilinogen 0.2 (0.2) mg/dL Ur Leukocyte Esterase Negative (Negative) U Hyaline Cast (Auto) NONE SEEN (0-2) /LPF Urine Microscopic RBC 0-2 (0-5) /HPF Urine Microscopic WBC 0-2 (0-5) /HPF Ur Epithelial Cells None Seen (None Seen) /HPF Urine Bacteria None Seen (None Seen) /HPF Urine Culture Reflexed NO (NO) Influenza Type A Ag (NEGATIVE) Influenza Type B Ag (NEGATIVE) RSV (PCR) (NEGATIVE) SARS-CoV-2 (PCR) (NEGATIVE) 12/08/22 12/08/22 12/08/22 Range/Units 02:00 02:00 01:15 WBC 7.4 (4.0-10.5) x10^3/uL RBC 3.82 L (4.1-5.6) x10^6/uL Hgb 10.9 L (12.5-18.0) g/dL Hct 33.8 L (42-50) % MCV 88.5 (78-100) fL MCH 28.5 (26-32) pg MCHC 32.2 (32-36) g/dL RDW 13.5 (11.5-14.0) % Plt Count 176 (150-450) x10^3/uL MPV 10.4 (7.5-11.0) fL Gran % 55.7 (36.0-66.0) % Immature Gran % (Auto) 0.3 (0.00-0.4) % Nucleat RBC Rel Count 0.0 (0.00-0.1) % Eos # (Auto) 0.26 (0-0.5) x10^3/uL Immature Gran # (Auto) 0.02 (0.00-0.03) x10^3u/L Absolute Lymphs (auto) 2.15 (1.0-4.6) x10^3/uL Absolute Monos (auto) 0.80 (0.0-1.3) x10^3/uL Absolute Nucleated RBC 0.00 (0.00-0.01) x10^3u/L Lymphocytes % 29.2 (24.0-44.0) % Monocytes % 10.9 (0.0-12.0) % Eosinophils % 3.5 (0.00-5.0) % Basophils % 0.4 (0.0-0.4) % Absolute Granulocytes 4.10 (1.4-6.9) x10^3/uL Basophils # 0.03 (0-0.4) x10^3/uL pO2/FiO2 Ratio % VBG pH (7.32-7.42) VBG pCO2 at Pat Temp (42-55) mm/Hg VBG pO2 at Pat Temp (25-40) mm/Hg VBG HCO3 (22-28) meq/L VBG O2 Sat ([place]) (95-100) VBG Base Excess (-2.0-2.0) VBG Hemoglobin VBG Carboxyhemoglobin (0.0-6.9) % T HGB POC Potassium (3.5-5.1) Sodium 137 (137-145) mmol/L Potassium 3.6 (3.5-5.1) mmol/L Chloride 101 (98-107) mmol/L Carbon Dioxide 28 (22-30) mmol/L Anion Gap 11.4 (5-15) MEQ/L BUN 25 H (9-20) mg/dL Creatinine 1.15 (0.66-1.25) mg/dL Estimated GFR > 60.0 ML/MIN Glucose 101 (74-106) mg/dL Lactic Acid (0.4-2.0) Calcium 8.1 L (8.4-10.2) mg/dL Magnesium 2.0 (1.6-2.3) mg/dL Total Bilirubin 0.30 (0.2-1.3) mg/dL AST 35 (17-59) U/L ALT 37 (0-50) U/L Alkaline Phosphatase 52 (38-126) U/L Troponin I (0.000-0.034) ng/mL NT-Pro-B Natriuret Pep (<300) pg/mL Serum Total Protein 5.7 L (6.3-8.2) g/dL Albumin 3.5 (3.5-5.0) g/dL Procalcitonin 1.170 H (0.030-0.080) ng/mL Urine Color (Yellow) Urine Appearance (Clear) Urine pH (4.6-8.0) Ur Specific [place] (1.005-1.030) Urine Protein (Negative) Urine Glucose (UA) (Negative) mg/dL Urine Ketones (Negative) Urine Blood (Negative) Urine Nitrite (Negative) Urine Bilirubin (Negative) Urine Urobilinogen (0.2) mg/dL Ur Leukocyte Esterase (Negative) U Hyaline Cast (Auto) (0-2) /LPF Urine Microscopic RBC (0-5) /HPF Urine Microscopic WBC (0-5) /HPF Ur Epithelial Cells (None Seen) /HPF Urine Bacteria (None Seen) /HPF Urine Culture Reflexed (NO) Influenza Type A Ag (NEGATIVE) Influenza Type B Ag (NEGATIVE) RSV (PCR) (NEGATIVE) SARS-CoV-2 (PCR) (NEGATIVE) - Progress Progress: improved Air Movement: fair Progress Note: Patient was given azithromycin, Solu-Medrol and DuoNebs and had some response but still reports feeling short of breath and wheezing. He is saturating at 93% on room air. His initial troponin was negative, BNP 800. His hemoglobin was 10.9, potassium 3.6 and magnesium 1.8. His chest x-ray showed bilateral patchy alveolar infiltrates. I discussed the option of inpatient versus outpatient treatment for his COPD exacerbation and pneumonia, patient would prefer to be admitted as he does not have medications at home and would feel safer at this time. I discussed the case with who accepted admission at 347. 12/08/22 03:43 On reevaluation patient also endorsing low back pain after a fall yesterday that he did not mention during my initial evaluation. He indicates that the pain is located near the lower lumbar spine and it is tender to palpation over the midline spine so x-ray was ordered. Blood Culture(s) Obtained: No Antibiotics given: Yes Discussed with Dr.: Other (Gonzalez) Will see patient in: hospital (observation) Counseled pt/family regarding: lab results, diagnosis, need for follow-up, rad results Medical Desision Making - Discussion of managment Care discussed with:: hospitalist Reviewed:: Test results Agreed on:: Treatment plan Will see patient: in hospital - Diagnostic Testing Diagnostic test were ordered, analyzed, and reviewed by me: Yes Radiological Interpretation: Interpreted by me, Reviewed by me - Risk of complications The pt has a mod risk of morbidity or mortality based on: Need for prescription drug management The pt has a high risk of morbidity or mortality based on: Decision regarding hospitilization or escalation of hosp level of care - Departure Departure Disposition: Observation Clinical Impression: Anemia, COPD exacerbation, Hypertensive urgency, Pneumonia Condition: Stable Critical Care Time: No Referrals: FERNANDO MOSER [Primary Care Provider] - Follow up/PCP as directed Instructions: Chronic Obstructive Pulmonary Disease, Pneumonia, Adult (DC), Exacerbation of COPD (DC)
[2022-12-08] MEDS ORDERED: DUONEB 0.5-3 MG/3 ml Neb IH ONE ×2 (02:10→02:46)
[2022-12-08] MEDS ORDERED: solu-MEDROL 125 MG, Sterile H2O 10 ml 2 ML IV ONE ×2 (02:10)
[2022-12-08] MEDS ORDERED: Zithromax 500 MG/ 250 ML NaCl Premix 500 MG/250 ML IVPB IV STA (02:10)
[2022-12-08 02:23] LABS: BASOPHIL % 0.4 % (0.0-0.4); Basophil (Absolute #) 0.03 x10^3/uL (0-0.4); Eosinophil % 3.5 % (0.00-5.0); Eosinophil (Absolute #) 0.26 x10^3/uL (0-0.5); Hematocrit 33.8 % (42-50); Hemoglobin 10.9 g/dL (12.5-18.0); IMMATURE GRAN # 0.02 x10^3u/L (0.00-0.03); IMMATURE GRAN % 0.3 % (0.00-0.4); Lymphocyte (Absolute #) 2.15 x10^3/uL (1.0-4.6); Lymphocytes % 29.2 % (24.0-44.0); Mean Cell Volume 88.5 fL (78-100); Mean Corpuscular Hemoglobin 28.5 pg (26-32); Mean Corpuscular Hgb Concent. 32.2 g/dL (32-36); Mean Platelet Volume 10.4 fL (7.5-11.0); Monocytes % 10.9 % (0.0-12.0); Neutrophil % 55.7 % (36.0-66.0); Platelet Count 176 x10^3/uL (150-450); Red Blood Count 3.82 x10^6/uL (4.1-5.6); Red Cell Distribution Width 13.5 % (11.5-14.0); White Blood Count 7.4 x10^3/uL (4.0-10.5)
[2022-12-08] MEDS ORDERED: solu-MEDROL ONE ×2 (02:32→06:01)
[2022-12-08] MEDS ORDERED: Zithromax 500 MG/ 250 ML NaCl Premix 500 MG/250 ML IVPB IV ONE (02:32)
[2022-12-08] MEDS ORDERED: Sterile H2O 10 ml IJ ONE ×2 (02:32→06:01)
[2022-12-08 02:35] LABS: ALBUMIN 3.5 g/dL (3.5-5.0); ALKALINE PHOSPHATASE 52 U/L (38-126); ANION GAP 11.4 MEQ/L (5-15); BLOOD UREA NITROGEN 25 mg/dL (9-20); CHLORIDE 101 mmol/L (98-107); Calcium 8.1 mg/dL (8.4-10.2); Carbon Dioxide 28 mmol/L (22-30); Creatinine 1 1.15 mg/dL (0.66-1.25); EST GLOMERULAR FILTRATION RATE > 60.0 ML/MIN; Glucose 101 mg/dL (74-106); Potassium 3.6 mmol/L (3.5-5.1); SGOT/AST 35 U/L (17-59); SGPT/ALT 37 U/L (0-50); SODIUM 137 mmol/L (137-145); Total Protein 5.7 g/dL (6.3-8.2)
[2022-12-08 02:48] LABS: Appearance Clear (Clear); Bacteria None Seen /HPF (None Seen); Bilirubin Negative (Negative); Blood Negative (Negative); Epithelial Cells None Seen /HPF (None Seen); Glucose, Urine Negative (Negative); Hyaline Casts NONE SEEN /LPF (0-2); Ketones Negative (Negative); Leukocyte Esterase Negative (Negative); Nitrite Negative (Negative); Protein,Urine Dip Negative (Negative); RBC 0-2 /HPF (0-5); Urobilinogen 0.2 mg/dL (0.2); WBC 0-2 /HPF (0-5)
[2022-12-08 02:50] LABS: ADD URINE CULTURE? NO (NO)
[2022-12-08 03:15] LABS: VBG BASE EXCESS 1.7 (-2.0-2.0); VBG CARBOXYHEMOGLOBIN 5.8 % T HGB (0.0-6.9); VBG HCO3- 26.6 meq/L (22-28); VBG HEMOGLOBIN 11.1; VBG O2 SATURATION 94.2 (95-100); VBG POTASSIUM 3.5 (3.5-5.1); VBG pH 7.41 (7.32-7.42)
[2022-12-08 03:17] LABS: INFLUENZA A NEGATIVE (NEGATIVE); INFLUENZA B NEGATIVE (NEGATIVE); RESPIRATORY SYNCTIAL VIRUS NEGATIVE (NEGATIVE); SARS-CoV-2 Xpert Express NEGATIVE (NEGATIVE)
--- NOTE | 2022-12-08 04:08 | XRAY ---
CLINICAL HISTORY:Shortness of breath. COMPARISON:Chest x-ray 04/27/[address] Chest 08/01/2022. TECHNIQUES:Chest x-ray frontal projection. FINDINGS: Suboptimal inspiration is noted leading to the crowding of vessels. There are suspected patchy consolidations in the left retrocardiac and left lower zone, blurring the left hemidiaphragm. Visualized right lung is clear. Blunting of the right costophrenic angle, suggestive of pleural effusion. Sonographic correlation is advised. The enlarged cardiac silhouette obscures the left lower lung zone and costophrenic angle. Redemonstration of cardiomegaly. Magnified mediastinal silhouette, may be due to projection. The bony thoracic cage is intact. IMPRESSION: Suspected patchy consolidations in the left retrocardiac and left lower zone. please correlate clinically. If suspected lateral chest X-ray and/or chest CT is recommended. This is a new finding. Blunting of the right costophrenic angle suggests pleural effusion on the current x-ray. Sonographic correlation is advised. Redemonstration of cardiomegaly. Electronically Signed by: Shanika aLnza MD. ( 12/08/2022 03:05:52 [employer])
--- NOTE | 2022-12-08 05:07 | XRAY ---
CLINICAL HISTORY:History of trauma, back pain status post fall. COMPARISON:None. TECHNIQUES:X-ray lumbar spine AP, lateral, spot L5-S1, and bilateral oblique views. FINDINGS: Normal bone mineralization. Degenerative changes were identified along the articular margin of the lumbar spine with osteophyte formation. Reduce intervertebral disc space at L1-L2 and L5-S1 levels. No evidence of fracture or spondylolisthesis. Facet joints appear normal without evidence of foramina stenosis. Bilateral sacroiliac joints are maintained. Normal paravertebral soft tissue densities. The bowel gas pattern is normal. IMPRESSION: Moderate lumbar spondylosis. Would recommend MRI lumbar spine for further evaluation. DISCLAIMER: A subtle bone abnormality or fracture may not be readily apparent on X-rays, thus clinical correlation and further imaging including follow-up CT, MRI, or follow-up X-rays are advised as needed. Electronically Signed by: Shanika Lanza MD. (12/08/2022 04:04:09 RN PERIOPERATIVE)
[2022-12-08] MEDS ORDERED: FLUTICASONE-SALMETEROL 250-50 IH ONE (06:03)
[2022-12-08] MEDS: FLUTICASONE-SALMETEROL 250-50 IH SCH ×2 (06:09→19:08)
[2022-12-08] MEDS: TYLENOL 325 MG PO PRN ×2 (06:10→12:19)
[2022-12-08] MEDS: Sodium Chloride 0.9% 1000 ML 1,000 ML IV SCH (06:10)
[2022-12-08] MEDS ORDERED: TORAdol 30 mg Injection IV PRN ×2 (06:34→06:40)
[2022-12-08] MEDS ORDERED: Cyclobenzaprine 10 MG PO PRN (06:36)
[2022-12-08] MEDS ORDERED: HYDROCODONE-ACETAMIN 10-325 MG PO PRN ×2 (06:40→15:00)
[2022-12-08] MEDS: solu-MEDROL 60 MG, Sterile H2O 10 ml 2 ML IV SCH ×8 (06:42→23:31)
--- NOTE | 2022-12-08 06:51 | PCM.HP ---
History of Present Illness - Chief Complaint Chief Complaint: SOB - COPD Exacerb. PNA Date: 12/08/22 History of Present Illness: is a 67 year old male who presents to the hospital with dyspnea for 2 days. He has experienced some anterior chest wall pain, and has reported subjective fever, and cough productive of clear sputum. He began to use his home albuterol inhaler one day prior to presentation, but his dyspnea was persistent. The patient also states that he recently lost his equilibrium and was generally weak (nonfocal) and fell, and he has experienced significant back pain. However, he denies any focal lower extremity numbness or weakness. He also has reported mild lower extremity edema (right greater than left, with a history of prior right knee surgery). No orthopnea is reported. In the ED the patient received nebulizers, steroids and antibiotics with marginal improvement. The entirety of this encounter was performed via telemedicine. The patient consented to this telemedicine encounter. - Review of Systems Constitutional: Fever, Fatigue, Malaise, Weakness Eyes: No Symptoms Ears, Nose, & Throat: No Symptoms Respiratory: Cough, Short Of Breath, Wheezing Cardiac: Edema Abdominal/Gastrointestinal: No Symptoms Musculoskeletal: Arthralgias, Back Pain, Fall, Injury Skin: No Symptoms Neurological: No Symptoms Psychological: No Symptoms Endocrine: No Symptoms Hematologic/Lymphatic: No Symptoms Immunological/Allergic: No Symptoms All Other Systems: Reviewed and Negative Medications & Allergies Home Medications: Home Medication List Multivitamin with Minerals [Multiple Vitamin] 1 each PO DAILY 07/23/12 [History Confirmed 12/08/22] Buspirone HCl 5 mg [Buspar 5 mg] 10 mg PO TID 02/08/15 [History Confirmed 12/08/22] Cyclobenzaprine HCl 10 mg [Cyclobenzaprine 10 MG] 10 mg PO TIDPRN 02/08/15 [History Confirmed 12/08/22] Gabapentin 600 mg PO BID 02/08/15 [History Confirmed 12/08/22] Hydrocodone/APAP 10/325 mg [[place] 10/325 MG TableT] 1 - 2 tab PO Q6H PRN 02/08/15 [History Confirmed 12/08/22] Indomethacin 25 mg [Indocin 25 MG] 50 mg PO TID 02/08/15 [History Confirmed 12/08/22] buPROPion HCL [Bupropion HCl Sr] 200 mg PO Q12H 02/08/15 [History Confirmed 12/08/22] Fluticasone/Salmeterol Disc [Advair/[place] 250-50 Diskus 14 Dose] 1 each IH BID 10/17/15 [History Confirmed 12/08/22] lisinopriL [Prinivil] 20 mg PO DAILY 10/17/15 [History Confirmed 12/08/22] Venlafaxine HCl [Venlafaxine HCl ER] 75 mg PO BID 06/02/18 [History Confirmed 12/08/22] Allergies/Adverse Reactions: Allergies Allergy/AdvReac Type Severity Reaction Status Date / Time No Known Drug Allergies Allergy Verified 07/31/22 23:40 - Past Medical History Past Medical History: Yes Neurological History: No Pertinent History ENT History: No Pertinent History Cardiac History: No Pertinent History Respiratory History: Bronchitis, COPD, Pneumonia, Sleep Apnea Endocrine Medical History: No Pertinent History Musculoskelatal History: Arthritis GI Medical History: No Pertinent History History: No Pertinent History Pyscho-Social History: No Pertinent History Male Reproductive Disorders: No Pertinent History Comment: PTSD - Past Surgical History Past Surgical History: Yes Neuro Surgical History: No Pertinent History Cardiac History: No Pertinent History Respiratory Surgery: No Pertinent History GI Surgical History: No Pertinent History Genitourinary Surgical Hx: No Pertinent History Musculskeletal Surgical Hx: Joint Replacement, Orthopedic Surgery Male Surgical History: No Pertinent History Other Surgical History: Right knee - Social History Smoking Status: Former smoker How long have you smoked: 25+ years Exposure to second hand smoke: Yes Alcohol: None Drug Use: none - Physical Exam Vital Signs: Vital Signs - 24 hr Temp Pulse Resp BP Pulse Ox 12/08/22 06:10 102 H 18 94 L 12/08/22 05:13 98.5 F 107 H 18 140/81 93 L 12/08/22 04:49 112 H 18 174/113 93 L 12/08/22 03:50 97 12/08/22 03:39 104 H 24 150/96 99 12/08/22 02:50 116 H 24 96 12/08/22 02:39 113 H 24 143/101 93 L 12/08/22 02:27 97 12/08/22 01:43 24 97 12/08/22 01:42 98.0 F 98 H 24 142/109 97 General Appearance: no apparent distress Neurologic Exam: alert, oriented x 3, cooperative Eye Exam: PERRL/EOMI, eyes nml inspection Ears, Nose, Throat Exam: normal ENT inspection Neck Exam: normal inspection Respiratory Exam: normal breath sounds Cardiovascular Exam: regular rate/rhythm, normal heart sounds Gastrointestinal/Abdomen Exam: soft, normal bowel sounds Extremity Exam: normal range of motion, pedal edema (trace bilateral leg edema (R > L)) Skin Exam: normal color Results - Labs Lab/Micro Results: Lab Results-Last 24 Hours 12/08/22 12/08/22 12/08/22 Range/Units 01:15 02:00 02:00 WBC 7.4 (4.0-10.5) x10^3/uL RBC 3.82 L (4.1-5.6) x10^6/uL Hgb 10.9 L (12.5-18.0) g/dL Hct 33.8 L (42-50) % MCV 88.5 (78-100) fL MCH 28.5 (26-32) pg MCHC 32.2 (32-36) g/dL RDW 13.5 (11.5-14.0) % Plt Count 176 (150-450) x10^3/uL MPV 10.4 (7.5-11.0) fL Gran % 55.7 (36.0-66.0) % Immature Gran % (Auto) 0.3 (0.00-0.4) % Nucleat RBC Rel Count 0.0 (0.00-0.1) % Eos # (Auto) 0.26 (0-0.5) x10^3/uL Immature Gran # (Auto) 0.02 (0.00-0.03) x10^3u/L Absolute Lymphs (auto) 2.15 (1.0-4.6) x10^3/uL Absolute Monos (auto) 0.80 (0.0-1.3) x10^3/uL Absolute Nucleated RBC 0.00 (0.00-0.01) x10^3u/L Lymphocytes % 29.2 (24.0-44.0) % Monocytes % 10.9 (0.0-12.0) % Eosinophils % 3.5 (0.00-5.0) % Basophils % 0.4 (0.0-0.4) % Absolute Granulocytes 4.10 (1.4-6.9) x10^3/uL Basophils # 0.03 (0-0.4) x10^3/uL pO2/FiO2 Ratio % VBG pH (7.32-7.42) VBG pCO2 at Pat Temp (42-55) mm/Hg VBG pO2 at Pat Temp (25-40) mm/Hg VBG HCO3 (22-28) meq/L VBG O2 Sat ([place]) (95-100) VBG Base Excess (-2.0-2.0) VBG Hemoglobin VBG Carboxyhemoglobin (0.0-6.9) % T HGB POC Potassium (3.5-5.1) Sodium 137 (137-145) mmol/L Potassium 3.6 (3.5-5.1) mmol/L Chloride 101 (98-107) mmol/L Carbon Dioxide 28 (22-30) mmol/L Anion Gap 11.4 (5-15) MEQ/L BUN 25 H (9-20) mg/dL Creatinine 1.15 (0.66-1.25) mg/dL Estimated GFR > 60.0 ML/MIN Glucose 101 (74-106) mg/dL Lactic Acid (0.4-2.0) Calcium 8.1 L (8.4-10.2) mg/dL Magnesium 2.0 (1.6-2.3) mg/dL Total Bilirubin 0.30 (0.2-1.3) mg/dL AST 35 (17-59) U/L ALT 37 (0-50) U/L Alkaline Phosphatase 52 (38-126) U/L Troponin I (0.000-0.034) ng/mL NT-Pro-B Natriuret Pep (<300) pg/mL Serum Total Protein 5.7 L (6.3-8.2) g/dL Albumin 3.5 (3.5-5.0) g/dL Procalcitonin 1.170 H (0.030-0.080) ng/mL Urine Color (Yellow) Urine Appearance (Clear) Urine pH (4.6-8.0) Ur Specific [place] (1.005-1.030) Urine Protein (Negative) Urine Glucose (UA) (Negative) mg/dL Urine Ketones (Negative) Urine Blood (Negative) Urine Nitrite (Negative) Urine Bilirubin (Negative) Urine Urobilinogen (0.2) mg/dL Ur Leukocyte Esterase (Negative) U Hyaline Cast (Auto) (0-2) /LPF Urine Microscopic RBC (0-5) /HPF Urine Microscopic WBC (0-5) /HPF Ur Epithelial Cells (None Seen) /HPF Urine Bacteria (None Seen) /HPF Urine Culture Reflexed (NO) Influenza Type A Ag (NEGATIVE) Influenza Type B Ag (NEGATIVE) RSV (PCR) (NEGATIVE) SARS-CoV-2 (PCR) (NEGATIVE) 12/08/22 12/08/22 12/08/22 Range/Units 02:00 02:00 02:36 WBC (4.0-10.5) x10^3/uL RBC (4.1-5.6) x10^6/uL Hgb (12.5-18.0) g/dL Hct (42-50) % MCV (78-100) fL MCH (26-32) pg MCHC (32-36) g/dL RDW (11.5-14.0) % Plt Count (150-450) x10^3/uL MPV (7.5-11.0) fL Gran % (36.0-66.0) % Immature Gran % (Auto) (0.00-0.4) % Nucleat RBC Rel Count (0.00-0.1) % Eos # (Auto) (0-0.5) x10^3/uL Immature Gran # (Auto) (0.00-0.03) x10^3u/L Absolute Lymphs (auto) (1.0-4.6) x10^3/uL Absolute Monos (auto) (0.0-1.3) x10^3/uL Absolute Nucleated RBC (0.00-0.01) x10^3u/L Lymphocytes % (24.0-44.0) % Monocytes % (0.0-12.0) % Eosinophils % (0.00-5.0) % Basophils % (0.0-0.4) % Absolute Granulocytes (1.4-6.9) x10^3/uL Basophils # (0-0.4) x10^3/uL pO2/FiO2 Ratio % VBG pH (7.32-7.42) VBG pCO2 at Pat Temp (42-55) mm/Hg VBG pO2 at Pat Temp (25-40) mm/Hg VBG HCO3 (22-28) meq/L VBG O2 Sat ([place]) (95-100) VBG Base Excess (-2.0-2.0) VBG Hemoglobin VBG Carboxyhemoglobin (0.0-6.9) % T HGB POC Potassium (3.5-5.1) Sodium (137-145) mmol/L Potassium (3.5-5.1) mmol/L Chloride (98-107) mmol/L Carbon Dioxide (22-30) mmol/L Anion Gap (5-15) MEQ/L BUN (9-20) mg/dL Creatinine (0.66-1.25) mg/dL Estimated GFR ML/MIN Glucose (74-106) mg/dL Lactic Acid (0.4-2.0) Calcium (8.4-10.2) mg/dL Magnesium (1.6-2.3) mg/dL Total Bilirubin (0.2-1.3) mg/dL AST (17-59) U/L ALT (0-50) U/L Alkaline Phosphatase (38-126) U/L Troponin I < 0.012 (0.000-0.034) ng/mL NT-Pro-B Natriuret Pep 867 (<300) pg/mL Serum Total Protein (6.3-8.2) g/dL Albumin (3.5-5.0) g/dL Procalcitonin (0.030-0.080) ng/mL Urine Color Yellow (Yellow) Urine Appearance Clear (Clear) Urine pH 6.0 (4.6-8.0) Ur Specific [place] 1.010 (1.005-1.030) Urine Protein Negative (Negative) Urine Glucose (UA) Negative (Negative) mg/dL Urine Ketones Negative (Negative) Urine Blood Negative (Negative) Urine Nitrite Negative (Negative) Urine Bilirubin Negative (Negative) Urine Urobilinogen 0.2 (0.2) mg/dL Ur Leukocyte Esterase Negative (Negative) U Hyaline Cast (Auto) NONE SEEN (0-2) /LPF Urine Microscopic RBC 0-2 (0-5) /HPF Urine Microscopic WBC 0-2 (0-5) /HPF Ur Epithelial Cells None Seen (None Seen) /HPF Urine Bacteria None Seen (None Seen) /HPF Urine Culture Reflexed NO (NO) Influenza Type A Ag (NEGATIVE) Influenza Type B Ag (NEGATIVE) RSV (PCR) (NEGATIVE) SARS-CoV-2 (PCR) (NEGATIVE) 12/08/22 12/08/22 12/08/22 Range/Units 03:04 03:04 Unknown WBC (4.0-10.5) x10^3/uL RBC (4.1-5.6) x10^6/uL Hgb (12.5-18.0) g/dL Hct (42-50) % MCV (78-100) fL MCH (26-32) pg MCHC (32-36) g/dL RDW (11.5-14.0) % Plt Count (150-450) x10^3/uL MPV (7.5-11.0) fL Gran % (36.0-66.0) % Immature Gran % (Auto) (0.00-0.4) % Nucleat RBC Rel Count (0.00-0.1) % Eos # (Auto) (0-0.5) x10^3/uL Immature Gran # (Auto) (0.00-0.03) x10^3u/L Absolute Lymphs (auto) (1.0-4.6) x10^3/uL Absolute Monos (auto) (0.0-1.3) x10^3/uL Absolute Nucleated RBC (0.00-0.01) x10^3u/L Lymphocytes % (24.0-44.0) % Monocytes % (0.0-12.0) % Eosinophils % (0.00-5.0) % Basophils % (0.0-0.4) % Absolute Granulocytes (1.4-6.9) x10^3/uL Basophils # (0-0.4) x10^3/uL pO2/FiO2 Ratio 21.0 % VBG pH 7.41 (7.32-7.42) VBG pCO2 at Pat Temp 42 (42-55) mm/Hg VBG pO2 at Pat Temp 58 H (25-40) mm/Hg VBG HCO3 26.6 (22-28) meq/L VBG O2 Sat ([place]) 94.2 L (95-100) VBG Base Excess 1.7 (-2.0-2.0) VBG Hemoglobin 11.1 VBG Carboxyhemoglobin 5.8 (0.0-6.9) % T HGB POC Potassium 3.5 (3.5-5.1) Sodium (137-145) mmol/L Potassium (3.5-5.1) mmol/L Chloride (98-107) mmol/L Carbon Dioxide (22-30) mmol/L Anion Gap (5-15) MEQ/L BUN (9-20) mg/dL Creatinine (0.66-1.25) mg/dL Estimated GFR ML/MIN Glucose (74-106) mg/dL Lactic Acid 2.0 (0.4-2.0) Calcium (8.4-10.2) mg/dL Magnesium (1.6-2.3) mg/dL Total Bilirubin (0.2-1.3) mg/dL AST (17-59) U/L ALT (0-50) U/L Alkaline Phosphatase (38-126) U/L Troponin I (0.000-0.034) ng/mL NT-Pro-B Natriuret Pep (<300) pg/mL Serum Total Protein (6.3-8.2) g/dL Albumin (3.5-5.0) g/dL Procalcitonin (0.030-0.080) ng/mL Urine Color (Yellow) Urine Appearance (Clear) Urine pH (4.6-8.0) Ur Specific [place] (1.005-1.030) Urine Protein (Negative) Urine Glucose (UA) (Negative) mg/dL Urine Ketones (Negative) Urine Blood (Negative) Urine Nitrite (Negative) Urine Bilirubin (Negative) Urine Urobilinogen (0.2) mg/dL Ur Leukocyte Esterase (Negative) U Hyaline Cast (Auto) (0-2) /LPF Urine Microscopic RBC (0-5) /HPF Urine Microscopic WBC (0-5) /HPF Ur Epithelial Cells (None Seen) /HPF Urine Bacteria (None Seen) /HPF Urine Culture Reflexed (NO) Influenza Type A Ag NEGATIVE (NEGATIVE) Influenza Type B Ag NEGATIVE (NEGATIVE) RSV (PCR) NEGATIVE (NEGATIVE) SARS-CoV-2 (PCR) NEGATIVE (NEGATIVE) - Radiology Impressions Radiology Exams & Impressions: Radiology Procedures Category Date Time Status CHEST 1 VIEW (PORTABLE) Stat Exams 12/08/22 02:11 Completed LUMBAR COMPLETE (MIN 4 VIEWS) Stat Exams 12/08/22 03:38 Completed - Other Procedures and Tests Respiratory Therapy 12/08/22 02:50 Respiratory Therapy Assessment DAILY 12/08/22 06:10 Respiratory MDI UD Assessment/Plan (1) Pneumonia Current Visit: Yes Status: Acute Assessment & Plan: IV antibiotics. Monitor clinical course Code(s): J18.9 - PNEUMONIA, UNSPECIFIED ORGANISM (2) Chest pain Current Visit: No Status: Acute Assessment & Plan: Telemetry. Follow troponin trend. Suspect atypical chest pain, likely from underlying COPD/pneumonia Code(s): R07.9 - CHEST PAIN, UNSPECIFIED (3) COPD exacerbation Current Visit: Yes Status: Acute Assessment & Plan: Nebs, IV steroids. Monitor clinical course. Code(s): J44.1 - CHRONIC OBSTRUCTIVE PULMONARY DISEASE W (ACUTE) EXACERBATION Telemedicine Encounter - Telemedicine Encounter Telemedicine Encounter: The entirety of this encounter was performed via Telemedicine"
[2022-12-08] MEDS ORDERED: DUONEB 0.5-3 MG/3 ml Neb IH SCH (07:00)
[2022-12-08] MEDS: NEURONTIN PO SCH ×2 (09:47→23:19)
[2022-12-08] MEDS: Pepcid 20 MG VIAL IV SCH ×2 (09:47→23:20)
[2022-12-08] MEDS: Effexor XR 75 MG PO SCH ×2 (09:48→23:19)
[2022-12-08] MEDS: Wellbutrin SR 150 MG PO SCH ×2 (09:48→23:18)
[2022-12-08] MEDS: ENOXAPARIN SODIUM SQ SCH (09:49)
[2022-12-08] MEDS: Zestril 20 MG PO SCH (09:49)
[2022-12-08] MEDS: THERAGRAN MULTIVITAMIN PO SCH (09:49)
[2022-12-08] MEDS: BUSPAR 5 MG PO SCH ×3 (09:49→23:18)
[2022-12-08] MEDS: ROCEPHIN 1 Gm-D5w 50 ml Bag** 1 G/50 ML IVPB IV SCH (10:14)
[2022-12-08] MEDS: DUONEB 0.5-3 MG/3 ml Neb IH SCH ×3 (11:21→19:05)
[2022-12-08] MEDS: Indocin 25 MG PO SCH ×2 (15:03→23:19)
[2022-12-08] MEDS: HYDROCODONE-ACETAMIN 10-325 MG PO PRN ×2 (15:09→23:18)
[2022-12-08] MEDS ORDERED: Zithromax 500 MG/ 250 ML NaCl Premix 500 MG/250 ML IVPB IV SCH (22:00)
[2022-12-09] MEDS: Sodium Chloride 0.9% 1000 ML 1,000 ML IV SCH (05:21)
[2022-12-09] MEDS: solu-MEDROL 60 MG, Sterile H2O 10 ml 2 ML IV SCH ×4 (05:21→12:31)
[2022-12-09 05:27] LABS: Hematocrit 33.4 % (42-50); Hemoglobin 10.6 g/dL (12.5-18.0); Mean Cell Volume 88.8 fL (78-100); Mean Corpuscular Hemoglobin 28.2 pg (26-32); Mean Corpuscular Hgb Concent. 31.7 g/dL (32-36); Mean Platelet Volume 10.7 fL (7.5-11.0); Platelet Count 186 x10^3/uL (150-450); Red Blood Count 3.76 x10^6/uL (4.1-5.6); Red Cell Distribution Width 13.9 % (11.5-14.0); White Blood Count 4.9 x10^3/uL (4.0-10.5)
[2022-12-09 05:36] LABS: ANION GAP 13.6 MEQ/L (5-15); BLOOD UREA NITROGEN 22 mg/dL (9-20); CHLORIDE 105 mmol/L (98-107); Carbon Dioxide 25 mmol/L (22-30); Creatinine 1 0.94 mg/dL (0.66-1.25); EST GLOMERULAR FILTRATION RATE > 60.0 ML/MIN; Glucose 184 mg/dL (74-106); Potassium 3.7 mmol/L (3.5-5.1); SODIUM 140 mmol/L (137-145)
[2022-12-09] MEDS: DUONEB 0.5-3 MG/3 ml Neb IH SCH ×3 (06:41→15:20)
[2022-12-09] MEDS: Wellbutrin SR 150 MG PO SCH (06:41)
[2022-12-09] MEDS: FLUTICASONE-SALMETEROL 250-50 IH SCH (06:41)
[2022-12-09] MEDS: ROCEPHIN 1 Gm-D5w 50 ml Bag** 1 G/50 ML IVPB IV SCH (09:26)
[2022-12-09] MEDS: BUSPAR 5 MG PO SCH ×2 (09:26→15:09)
[2022-12-09] MEDS: THERAGRAN MULTIVITAMIN PO SCH (09:26)
[2022-12-09] MEDS: Pepcid 20 MG VIAL IV SCH (09:26)
[2022-12-09] MEDS: ENOXAPARIN SODIUM SQ SCH (09:27)
[2022-12-09] MEDS: NEURONTIN PO SCH (09:27)
[2022-12-09] MEDS: Zestril 20 MG PO SCH (09:27)
[2022-12-09] MEDS: Effexor XR 75 MG PO SCH (09:27)
[2022-12-09] MEDS: Indocin 25 MG PO SCH (09:28)
[2022-12-09] MEDS: HYDROCODONE-ACETAMIN 10-325 MG PO PRN (09:48)
--- NOTE | 2022-12-09 14:51 | PCM.DS ---
Discharge Summary Date of Admission: 12/08/22 05:00 Admitting Physician: JESSICA NASH MD Primary Care Provider: FERNANDO MOSER Allergies Allergies No Known Drug Allergies Allergy (Verified 07/31/22 23:40) Hospital Summary - Hospital Course Hospital Course: Patient presented with pneumonia and COPD. Respiratory status has significantly improved. The patient will resume his home medications and receive prescriptions for 1. cefdinir 300 mg po bid x 5 days 2. azithromycin 500 mg po daily x 4 days 3. Prednisone taper po as directed 4. Albuterol 90 mcg MDI 1 puff INH q4h prn wheezing The patient was seen and examined via telemedicine. The entirety of this encounter was performed via telemedicine. The patient consented to this telemedicine encounter. - Vitals & Intake/Output Vital Signs: Vital Signs Temperature 97.1 F 12/09/22 12:00 Pulse Rate 87 12/09/22 12:00 Respiratory Rate 16 12/09/22 12:00 Blood Pressure 158/87 12/09/22 12:00 O2 Sat by Pulse Oximetry 97 12/09/22 12:00 Intake & Output: Intake & Output 12/07/22 12/08/22 12/09/22 12/10/22 11:59 11:59 11:59 11:59 Intake Total 560 4077 240 Output Total 1200 1675 Balance -640 2402 240 Weight 109 kg - Lab Result Diagrams: 12/09/22 04:19 12/09/22 04:19 Lab Results-Last 24 Hrs: Lab Results-Last 24 Hours 12/08/22 12/09/22 12/09/22 Range/Units 21:15 04:19 04:19 WBC 4.9 (4.0-10.5) x10^3/uL RBC 3.76 L (4.1-5.6) x10^6/uL Hgb 10.6 L (12.5-18.0) g/dL Hct 33.4 L (42-50) % MCV 88.8 (78-100) fL MCH 28.2 (26-32) pg MCHC 31.7 L (32-36) g/dL RDW 13.9 (11.5-14.0) % Plt Count 186 (150-450) x10^3/uL MPV 10.7 (7.5-11.0) fL Sodium 140 (137-145) mmol/L Potassium 3.7 (3.5-5.1) mmol/L Chloride 105 (98-107) mmol/L Carbon Dioxide 25 (22-30) mmol/L Anion Gap 13.6 (5-15) MEQ/L BUN 22 H (9-20) mg/dL Creatinine 0.94 (0.66-1.25) mg/dL Estimated GFR > 60.0 ML/MIN Glucose 184 H (74-106) mg/dL Calcium 8.0 L (8.4-10.2) mg/dL Troponin I < 0.012 (0.000-0.034) ng/mL - Radiology Exams Ordered Rad Exams-Entire Visit: Radiology Procedures Category Date Time Status CHEST 1 VIEW (PORTABLE) Stat Exams 12/08/22 02:11 Completed LUMBAR COMPLETE (MIN 4 VIEWS) Stat Exams 12/08/22 03:38 Completed - Procedures and Test Procedures and Tests throughout Hospitalization: Therapy Orders & Screens 12/08/22 02:50 Respiratory Therapy Assessment DAILY Comment: 12/08/22 05:10 Respiratory Therapy Consult ROUTINE Comment: Reason For Exam: 12/08/22 06:10 Respiratory MDI UD Comment: [place] Diagnosis: SOB - COPD Exacerb. PNA 12/08/22 06:31 Respiratory Therapy Consult ROUTINE Comment: Reason For Exam: Diagnosis: SOB - COPD Exacerb. PNA 12/08/22 06:33 PT Eval & Treat (MD Order) ONCE Reason for Eval:: recent fall, back pain Diagnosis: SOB - COPD Exacerb. PNA 12/08/22 19:31 EKG ROUTINE Comment: Diagnosis: SOB - COPD Exacerb. PNA Discharge Exam Neurologic Exam: alert, oriented x 3 Eye Exam: PERRL, EOMI, eyes nml inspection Ears, Nose, Throat Exam: normal ENT inspection Neck Exam: normal inspection Respiratory Exam: normal breath sounds Cardiovascular Exam: regular rate/rhythm, normal heart sounds Gastrointestinal/Abdomen Exam: soft Back Exam: normal inspection, normal range of motion Extremity Exam: normal inspection, normal range of motion Final Diagnosis/Problem List - Final Discharge Diagnosis/Problem (1) Pneumonia Current Visit: Yes Status: Acute Assessment & Plan: antibiotics to be prescribed Code(s): J18.9 - PNEUMONIA, UNSPECIFIED ORGANISM (2) Chest pain Current Visit: No Status: Acute Assessment & Plan: resolved Code(s): R07.9 - CHEST PAIN, UNSPECIFIED (3) COPD exacerbation Current Visit: Yes Status: Acute Assessment & Plan: will prescribe steroid taper and MDI Code(s): J44.1 - CHRONIC OBSTRUCTIVE PULMONARY DISEASE W (ACUTE) EXACERBATION - Discharge Disposition: Home, Self-Care Condition: Stable Prescriptions: New Albuterol Sulfate [Proair [place]] 90 mcg IH Q4H PRN PRN 30 Days #1 inhaler PRN Reason: Shortness Of Breath/Wheezing Azithromycin 500 mg PO DAILY 5 Days #5 tablet Cefdinir 300 mg PO BID 5 Days #10 cap predniSONE [Prednisone] See Rx Instructions .ROUTE .COMPLEX 9 Days #21 tablet Continue Multivitamin with Minerals [Multiple Vitamin] 1 each PO DAILY Indomethacin 25 mg [Indocin 25 MG] 50 mg PO TID Gabapentin 600 mg PO BID Cyclobenzaprine HCl 10 mg [Cyclobenzaprine 10 MG] 10 mg PO TIDPRN Hydrocodone/APAP 10/325 mg [[place] 10/325 MG TableT] 1 - 2 tab PO Q6H PRN PRN Reason: Pain Buspirone HCl 5 mg [Buspar 5 mg] 10 mg PO TID buPROPion HCL [Bupropion HCl Sr] 200 mg PO Q12H Fluticasone/Salmeterol Disc [Advair/[place] 250-50 Diskus 14 Dose] 1 each IH BID lisinopriL [Prinivil] 20 mg PO DAILY Venlafaxine HCl [Venlafaxine HCl ER] 75 mg PO BID Additional Instructions: follow up with pcp in 1 week Follow up with: FERNANDO MOSER [Primary Care Provider] - 12/15/22 9:20 am
[2022-12-09 16:04] VITALS: BP 166/89; PULSE 84; O2SAT 96
== END 2022-12-09 17:55 | disposition home or self-care (01) ==
LOC: ED 01:38 → MED SURG 05:00
PROVIDERS: ADMIT Internal Medicine; ATTEND General Practice
DX: J18.9 Pneumonia, unspecified organism (principal); R07.9 Chest pain, unspecified; J44.1 Chronic obstructive pulmonary disease with (acute) exacerbation; R60.0 Localized edema; M54.9 Dorsalgia, unspecified; W19.XXXA Unspecified fall, initial encounter; Z79.899 Other long term (current) drug therapy; Z20.828 Contact with and (suspected) exposure to other viral communicable diseases; Z87.891 Personal history of nicotine dependence
CPT/HCPCS: 0241U; 36000; 36415; 71045; 72110; 80048; 80053; 81001; 82805; 83605; 83735; 83880; 84145; 84484; 85025; 85027; 93005; 93041; 94640; 94760; 96365; 96374; 97161; 99285; Q3014; 93268; J0456; J0696; J1650; J1885; J2930; A9270-GY; G0378

== ENCOUNTER 2023-04-16 09:31 | Emergency (ER) | payer MEDICARE ==
--- NOTE | 2023-04-16 09:34 | ERPHSYRPT ---
- History of Present Illness Time Seen by Provider: 04/16/23 09:33 Source: patient, family Exam Limitations: no limitations Physician History: This is a 67-year-old white male patient who is a former smoker and was brought into the emergency department by his son who provided additional independent history on this patient. The patient, in the last couple days, has not been eating, drinking or moving well and has been coughing. Patient has a history of COPD (not oxygen dependent), recurrent pneumonia, recurrent bronchitis. He also has a history of sleep apnea, arthritis and PTSD as well as hypertension. Patient currently does not have chest pain or abdominal pain. He has had no nausea vomiting or diarrhea. However, he has had fever as high as 102 at home. He presents the emergency department afebrile at this time. Patient does have a blood pressure of 92/71 and a heart rate of 111 on presentation to the emergency department. Fever Severity: moderate (At home) Fever Therapy [employer] MANAGER: none Associated Symptoms: cough, muscle aches, shortness of breath, No abdominal pain, No chest pain, No nausea/vomiting Allergies/Adverse Reactions: No Known Drug Allergies Allergy (Verified 04/16/23 10:00) Home Medications: Multivitamin with Minerals [Multiple Vitamin] 1 each PO DAILY 07/23/12 [History] Buspirone HCl 5 mg [Buspar 5 mg] 10 mg PO TID 02/08/15 [History] Cyclobenzaprine HCl 10 mg [Cyclobenzaprine 10 MG] 10 mg PO TIDPRN 02/08/15 [History] Gabapentin 600 mg PO BID 02/08/15 [History] Hydrocodone/APAP 10/325 mg [Simpson 10/325 MG TableT] 1 - 2 tab PO Q6H PRN 02/08/15 [History] Indomethacin 25 mg [Indocin 25 MG] 50 mg PO TID 02/08/15 [History] buPROPion HCL [Bupropion HCl Sr] 200 mg PO Q12H 02/08/15 [History] Fluticasone/Salmeterol Disc [Advair/Wixella 250-50 Diskus 14 Dose] 1 each IH BID 10/17/15 [History] lisinopriL [Prinivil] 20 mg PO DAILY 10/17/15 [History] Venlafaxine HCl [Venlafaxine HCl ER] 75 mg PO BID 06/02/18 [History] Hx Tetanus, Diphtheria Vaccination/Date Given: Yes Hx Influenza Vaccination/Date Given: No Hx Pneumococcal Vaccination/Date Given: No Travel Risk - International Travel Have you traveled outside of the country in past 3 weeks: No - Coronavirus Screening Are you exhibiting any of the following symptoms?: Yes Symptoms: Fever, Cough: New Onset, Shortness of Breath Close contact with a COVID-19 positive Pt in past 14-21 Days: No - Vaccine Status Have you recieved a Covid-19 vaccination: No - Review of Systems Constitutional: Fever, Weakness Eyes: No Symptoms Ears, Nose, & Throat: No Symptoms Respiratory: Cough, Dyspnea, Wheezing Cardiac: No Symptoms Abdominal/Gastrointestinal: No Symptoms Genitourinary Symptoms: No Symptoms Musculoskeletal: No Symptoms Skin: No Symptoms Neurological: No Symptoms Psychological: No Symptoms Endocrine: No Symptoms Hematologic/Lymphatic: No Symptoms Immunological/Allergic: No Symptoms All Other Systems: Reviewed and Negative - Past Medical History Pertinent Past Medical History: Yes Neurological History: No Pertinent History ENT History: No Pertinent History Cardiac History: No Pertinent History Respiratory History: Bronchitis, COPD, Pneumonia, Sleep Apnea Endocrine Medical History: No Pertinent History Musculoskeletal History: Arthritis GI Medical History: No Pertinent History History: No Pertinent History Psycho-Social History: No Pertinent History Male Reproductive Disorders: No Pertinent History Other Medical History: PTSD - Past Surgical History Past Surgical History: Yes Neuro Surgical History: No Pertinent History Cardiac: No Pertinent History Respiratory: No Pertinent History Gastrointestinal: No Pertinent History Genitourinary: No Pertinent History Musculoskeletal: Joint Replacement, Orthopedic Surgery Male Surgical History: No Pertinent History Other Surgical History: Right knee - Social History Smoking Status: Former smoker How long have you smoked: 25+ years Exposure to second hand smoke: Yes Drug Use: none Patient Lives Alone: No - Nursing Vital Signs Nursing Vital Signs: Initial Vital Signs Temperature 96.9 F 04/16/23 09:44 Pulse Rate 111 H 04/16/23 09:44 Respiratory Rate 28 H 04/16/23 09:44 Blood Pressure 92/70 04/16/23 09:44 O2 Sat by Pulse Oximetry 91 L 04/16/23 09:44 Pain Scale Pain Intensity 8 - Physical Exam General Appearance: mild distress, alert Eye Exam: PERRL/EOMI, eyes nml inspection ENT Exam: normal ENT inspection, hearing grossly normal, airway intact Neck Exam: normal inspection, non-tender, supple, full range of motion, trachea midline Respiratory Exam: chest non-tender, respiratory distress (Mild), rhonchi Cardiovascular/Chest Exam: tachycardia Gastrointestinal/Abdominal Exam: soft, non tender, no distention, no mass, no guarding, no ecchymosis, no organomegaly, no pulsatile mass, normal bowel sounds Rectal Exam: not done Extremity Exam: non-tender, normal range of motion, normal inspection, normal capillary refill, no calf tenderness Neurologic Exam: alert, oriented x 3, cooperative, special diet cook II-XII nml as tested Skin Exam: normal color, warm, dry Lymphatic: No adenopathy SpO2 Interpretation: hypoxic O2 Delivery: Room Air - Course Nursing assessment & vital signs reviewed: Yes EKG Interpreted by Me: RATE (111), Sinus Tach, NORMAL AXIS, NORMAL INTERVALS, NORMAL QRS, Non-specific ST Changes, Other (No evidence of acute ischemia on today's twelve-lead EKG.) Ordered Tests: Active Orders 24 hr Category Date Time Status Supervisor Speech STAT Care 04/16/23 09:59 Active EKG-ER Only STAT Care 04/16/23 09:58 Active IV Insertion STAT Care 04/16/23 09:58 Active Pulse Oximetry (ED) STAT Care 04/16/23 09:58 Active CHEST 1 VIEW (PORTABLE) Stat Exams 04/16/23 09:59 Completed ABG [ARTERIAL BLOOD GASES] Stat Lab 04/16/23 09:50 Completed BLOOD CULTURE Stat Lab 04/16/23 09:59 Received BNPII [NT PRO BNPII] Stat Lab 04/16/23 10:00 Completed CBC W DIFF Stat Lab 04/16/23 10:00 Completed CMP Stat Lab 04/16/23 10:00 Completed CULTURE,URINE Stat Lab 04/16/23 11:42 Received Lactic Acid Stat Lab 04/16/23 09:50 Completed MONO SCREEN Stat Lab 04/16/23 10:00 Completed Manual Differential NC Stat Lab 04/16/23 10:00 Completed UA W/RFX UR CULTURE Stat Lab 04/16/23 11:42 Completed Respiratory Therapy Assessment DAILY RT 04/16/23 09:57 Active Medication Summary Generic Name Dose Route Start Last Admin Trade Name Freq PRN Reason Stop Dose Admin Sodium Chloride 1,000 mls @ 999 mls/hr 04/16/23 12:26 04/16/23 12:46 Sodium Chloride 0.9% 1000 Ml IV 04/16/23 13:26 250 mls/hr .Q1H1M STA Infusion Norepinephrine/Dextrose 8 mg in 250 mls @ 15 mls/hr 04/16/23 12:26 Norepinephrine 8 Mg/250 Ml-D5w IV 05/16/23 12:25 .[id number] PRN HYPOTENSION Protocol 8 MCG/MIN Metronidazole 500 mg in 100 mls @ 200 mls/hr 04/16/23 12:56 04/16/23 13:04 Flagyl 500 Mg Ivpb IV 04/16/23 13:25 200 ml/hr STAT STA 200 mls/hr Administration Discontinued Medications Generic Name Dose Route Start Last Admin Trade Name Freq PRN Reason Stop Dose Admin Albuterol/Ipratropium Confirm 04/16/23 09:55 Ipratropium/Albuterol Sulfate 3 Ml Ampul.Neb Administered 04/16/23 09:56 Dose 3 ml IH .STK-MED ONE Albuterol/Ipratropium 3 ml 04/16/23 09:57 04/16/23 10:13 Ipratropium/Albuterol Sulfate 3 Ml Ampul.Neb IH 04/16/23 09:58 3 ml STAT ONE Administration Methylprednisolone Sodium 0 mg 04/16/23 10:27 04/16/23 10:35 Succinate 125 mg/ Sterile IV 04/16/23 10:28 125 mg Water 2 ml STAT ONE Administration Furosemide 40 mg 04/16/23 12:26 04/16/23 12:41 Furosemide 40 Mg/4 Ml Vial IV 04/16/23 12:27 40 mg STAT ONE Administration Furosemide Confirm 04/16/23 12:40 Furosemide 40 Mg/4 Ml Vial Administered 04/16/23 12:41 Dose 40 mg .ROUTE .STK-MED ONE Sodium Chloride 1,000 mls @ 999 mls/hr 04/16/23 09:58 04/16/23 11:40 Sodium Chloride 0.9% 1000 Ml IV 04/16/23 10:58 Infused .Q1H1M STA Infusion Sodium Chloride Confirm 04/16/23 10:09 Sodium Chloride 0.9% 1000 Ml Administered 04/16/23 10:10 Dose 1,000 mls @ ud .ROUTE .STK-MED ONE Levofloxacin/Dextrose 500 mg in 100 mls @ 100 mls/hr 04/16/23 10:27 04/16/23 11:40 Levofloxacin 500mg/100ml D5w IV 04/16/23 11:26 Infused STAT STA Infusion Levofloxacin/Dextrose Confirm 04/16/23 10:34 Levofloxacin 500mg/100ml D5w Administered 04/16/23 10:35 Dose 500 mg in 100 mls @ ud IV .STK-MED ONE Sodium Chloride 1,000 mls @ 999 mls/hr 04/16/23 10:55 04/16/23 12:10 Sodium Chloride 0.9% 1000 Ml IV 04/16/23 11:55 Infused .Q1H1M STA Infusion Sodium Chloride Confirm 04/16/23 11:03 Sodium Chloride 0.9% 1000 Ml Administered 04/16/23 11:04 Dose 1,000 mls @ ud .ROUTE .STK-MED ONE Sodium Chloride Confirm 04/16/23 12:40 Sodium Chloride 0.9% 1000 Ml Administered 04/16/23 12:41 Dose 1,000 mls @ ud .ROUTE .STK-MED ONE Metronidazole Confirm 04/16/23 13:03 Flagyl 500 Mg Ivpb Administered 04/16/23 13:04 Dose 500 mg in 100 mls @ ud IV .STK-MED ONE Methylprednisolone Sodium Succinate Confirm 04/16/23 10:34 Methylprednis Sod Succ 125 Mg/2 Ml Vial Administered 04/16/23 10:35 Dose 125 mg .ROUTE .STK-MED ONE Ondansetron HCl 4 mg 04/16/23 09:58 04/16/23 10:10 Ondansetron Hcl 4 Mg/2 Ml Vial IV 04/16/23 09:59 4 mg STAT STA Administration Ondansetron HCl Confirm 04/16/23 10:09 Ondansetron Hcl 4 Mg/2 Ml Vial Administered 04/16/23 10:10 Dose 4 mg .ROUTE .STK-MED ONE Sterile Water Confirm 04/16/23 10:34 Water For Injection,Sterile 10 Ml Vial Administered 04/16/23 10:35 Dose 10 ml IJ .STK-MED ONE Lab/Rad Data: Laboratory Result Diagrams 04/16/23 10:00 04/16/23 10:00 Laboratory Results 04/16/23 04/16/23 04/16/23 Range/Units 11:42 10:15 10:15 WBC (4.0-10.5) x10^3/uL RBC (4.1-5.6) x10^6/uL Hgb (12.5-18.0) g/dL Hct (42-50) % MCV (78-100) fL MCH (26-32) pg MCHC (32-36) g/dL RDW (11.5-14.0) % Plt Count (150-450) x10^3/uL MPV (7.5-11.0) fL Gran % (36.0-66.0) % Immature Gran % (Auto) (0.00-0.4) % Nucleat RBC Rel Count (0.00-0.1) % Eos # (Auto) (0-0.5) x10^3/uL Immature Gran # (Auto) (0.00-0.03) x10^3u/L Absolute Lymphs (auto) (1.0-4.6) x10^3/uL Absolute Monos (auto) (0.0-1.3) x10^3/uL Absolute Nucleated RBC (0.00-0.01) x10^3u/L Lymphocytes % (24.0-44.0) % Monocytes % (0.0-12.0) % Eosinophils % (0.00-5.0) % Basophils % (0.0-0.4) % Absolute Granulocytes (1.4-6.9) x10^3/uL Segmented Neutrophils (36.-66.) % Lymphocytes (Manual) (24-44) % Monocytes (Manual) (0.0-12.0) % Basophils # (0-0.4) x10^3/uL Toxic Granulation Platelet Estimate (NORMAL) RBC Morphology Anisocytosis Puncture Site pCO2 (35-45) mmHg pO2 (75-100) mmHg Base Excess (-2.0-2.0) O2 Saturation (94-100) g/dF ABG pH (7.35-7.45) ABG HCO3 (22-28) ABG O2 Sat (Measured) (95-100) % Umesh Test A-a Gradient a/A Ratio Hemoglobin Carboxyhemoglobin (0.0-6.9) % THgb Methemoglobin (1.4-1.5) % Potassium (3.5-5.1) Temperature C POC O2 Flow Rate % Sodium (137-145) mmol/L Chloride (98-107) mmol/L Carbon Dioxide (22-30) mmol/L Anion Gap (5-15) MEQ/L BUN (9-20) mg/dL Creatinine (0.66-1.25) mg/dL Estimated GFR ML/MIN Glucose (74-106) mg/dL Lactic Acid (0.4-2.0) Calcium (8.4-10.2) mg/dL Total Bilirubin (0.2-1.3) mg/dL AST (17-59) U/L ALT (0-50) U/L Alkaline Phosphatase (38-126) U/L NT-Pro-B Natriuret Pep (<300) pg/mL Serum Total Protein (6.3-8.2) g/dL Albumin (3.5-5.0) g/dL Urine Color Dark Yellow (Yellow) Urine Appearance Cloudy A (Clear) Urine pH 5.5 (4.6-8.0) Ur Specific [place] 1.025 (1.005-1.030) Urine Protein 30 (Negative) Urine Glucose (UA) Negative (Negative) mg/dL Urine Ketones Trace A (Negative) Urine Blood Trace (Negative) Urine Nitrite Negative (Negative) Urine Bilirubin Negative (Negative) Urine Urobilinogen 0.2 (0.2) mg/dL Ur Leukocyte Esterase Negative (Negative) U Hyaline Cast (Auto) 3-5 A (0-2) /LPF Urine Microscopic RBC 0-2 (0-5) /HPF Urine Microscopic WBC 3-5 (0-5) /HPF Ur Epithelial Cells None Seen (None Seen) /HPF Urine Bacteria None Seen (None Seen) /HPF Urine Culture Reflexed YES (NO) Monoscreen (NEGATIVE) Influenza Type A Ag NEGATIVE (NEGATIVE) Influenza Type B Ag NEGATIVE (NEGATIVE) RSV (PCR) NEGATIVE (NEGATIVE) SARS-CoV-2 (PCR) NEGATIVE (NEGATIVE) Group A Strep Antibody NOT DETECTED (NEGATIVE) 04/16/23 04/16/23 04/16/23 Range/Units 10:00 10:00 10:00 WBC (4.0-10.5) x10^3/uL RBC (4.1-5.6) x10^6/uL Hgb (12.5-18.0) g/dL Hct (42-50) % MCV (78-100) fL MCH (26-32) pg MCHC (32-36) g/dL RDW (11.5-14.0) % Plt Count (150-450) x10^3/uL MPV (7.5-11.0) fL Gran % (36.0-66.0) % Immature Gran % (Auto) (0.00-0.4) % Nucleat RBC Rel Count (0.00-0.1) % Eos # (Auto) (0-0.5) x10^3/uL Immature Gran # (Auto) (0.00-0.03) x10^3u/L Absolute Lymphs (auto) (1.0-4.6) x10^3/uL Absolute Monos (auto) (0.0-1.3) x10^3/uL Absolute Nucleated RBC (0.00-0.01) x10^3u/L Lymphocytes % (24.0-44.0) % Monocytes % (0.0-12.0) % Eosinophils % (0.00-5.0) % Basophils % (0.0-0.4) % Absolute Granulocytes (1.4-6.9) x10^3/uL Segmented Neutrophils (36.-66.) % Lymphocytes (Manual) (24-44) % Monocytes (Manual) (0.0-12.0) % Basophils # (0-0.4) x10^3/uL Toxic Granulation Platelet Estimate (NORMAL) RBC Morphology Anisocytosis Puncture Site pCO2 (35-45) mmHg pO2 (75-100) mmHg Base Excess (-2.0-2.0) O2 Saturation (94-100) g/dF ABG pH (7.35-7.45) ABG HCO3 (22-28) ABG O2 Sat (Measured) (95-100) % Umesh Test A-a Gradient a/A Ratio Hemoglobin Carboxyhemoglobin (0.0-6.9) % THgb Methemoglobin (1.4-1.5) % Potassium 5.0 (3.5-5.1) Temperature C POC O2 Flow Rate % Sodium 141 (137-145) mmol/L Chloride 101 (98-107) mmol/L Carbon Dioxide 20 L (22-30) mmol/L Anion Gap 25.4 H (5-15) MEQ/L BUN 57 H (9-20) mg/dL Creatinine 7.33 H (0.66-1.25) mg/dL Estimated GFR 8.0 ML/MIN Glucose 121 H (74-106) mg/dL Lactic Acid (0.4-2.0) Calcium 8.6 (8.4-10.2) mg/dL Total Bilirubin 0.50 (0.2-1.3) mg/dL AST 28 (17-59) U/L ALT 33 (0-50) U/L Alkaline Phosphatase 55 (38-126) U/L NT-Pro-B Natriuret Pep 6550 (<300) pg/mL Serum Total Protein 6.7 (6.3-8.2) g/dL Albumin 4.4 (3.5-5.0) g/dL Urine Color (Yellow) Urine Appearance (Clear) Urine pH (4.6-8.0) Ur Specific [place] (1.005-1.030) Urine Protein (Negative) Urine Glucose (UA) (Negative) mg/dL Urine Ketones (Negative) Urine Blood (Negative) Urine Nitrite (Negative) Urine Bilirubin (Negative) Urine Urobilinogen (0.2) mg/dL Ur Leukocyte Esterase (Negative) U Hyaline Cast (Auto) (0-2) /LPF Urine Microscopic RBC (0-5) /HPF Urine Microscopic WBC (0-5) /HPF Ur Epithelial Cells (None Seen) /HPF Urine Bacteria (None Seen) /HPF Urine Culture Reflexed (NO) Monoscreen NEGATIVE (NEGATIVE) Influenza Type A Ag (NEGATIVE) Influenza Type B Ag (NEGATIVE) RSV (PCR) (NEGATIVE) SARS-CoV-2 (PCR) (NEGATIVE) Group A Strep Antibody (NEGATIVE) 04/16/23 04/16/23 04/16/23 Range/Units 10:00 09:50 09:50 WBC 12.2 H (4.0-10.5) x10^3/uL RBC 4.65 (4.1-5.6) x10^6/uL Hgb 13.3 (12.5-18.0) g/dL Hct 41.9 L (42-50) % MCV 90.1 (78-100) fL MCH 28.6 (26-32) pg MCHC 31.7 L (32-36) g/dL RDW 14.6 H (11.5-14.0) % Plt Count 211 (150-450) x10^3/uL MPV 10.3 (7.5-11.0) fL Gran % 75.4 H (36.0-66.0) % Immature Gran % (Auto) 0.6 H (0.00-0.4) % Nucleat RBC Rel Count 0.0 (0.00-0.1) % Eos # (Auto) 0.08 (0-0.5) x10^3/uL Immature Gran # (Auto) 0.07 H (0.00-0.03) x10^3u/L Absolute Lymphs (auto) 1.97 (1.0-4.6) x10^3/uL Absolute Monos (auto) 0.79 (0.0-1.3) x10^3/uL Absolute Nucleated RBC 0.00 (0.00-0.01) x10^3u/L Lymphocytes % 16.2 L (24.0-44.0) % Monocytes % 6.5 (0.0-12.0) % Eosinophils % 0.7 (0.00-5.0) % Basophils % 0.6 (0.0-0.4) % Absolute Granulocytes 9.18 H (1.4-6.9) x10^3/uL Segmented Neutrophils 72 H (36.-66.) % Lymphocytes (Manual) 21 L (24-44) % Monocytes (Manual) 7 (0.0-12.0) % Basophils # 0.07 (0-0.4) x10^3/uL Toxic Granulation 1+ Platelet Estimate NORMAL (NORMAL) RBC Morphology ABNORMAL Anisocytosis 1+ Puncture Site RIGHT BRACHIAL pCO2 38 (35-45) mmHg pO2 59 L (75-100) mmHg Base Excess -5.4 L (-2.0-2.0) O2 Saturation 89.7 L (94-100) g/dF ABG pH 7.33 L (7.35-7.45) ABG HCO3 20.0 L (22-28) ABG O2 Sat (Measured) 92.4 L (95-100) % Umesh Test NOT APPLICABLE A-a Gradient 43 a/A Ratio 0.58 Hemoglobin 13.7 Carboxyhemoglobin 1.9 (0.0-6.9) % THgb Methemoglobin 0.9 L (1.4-1.5) % Potassium 5.1 (3.5-5.1) Temperature 37.0 C POC O2 Flow Rate 21 % Sodium (137-145) mmol/L Chloride (98-107) mmol/L Carbon Dioxide (22-30) mmol/L Anion Gap (5-15) MEQ/L BUN (9-20) mg/dL Creatinine (0.66-1.25) mg/dL Estimated GFR ML/MIN Glucose (74-106) mg/dL Lactic Acid 3.8 H (0.4-2.0) Calcium (8.4-10.2) mg/dL Total Bilirubin (0.2-1.3) mg/dL AST (17-59) U/L ALT (0-50) U/L Alkaline Phosphatase (38-126) U/L NT-Pro-B Natriuret Pep (<300) pg/mL Serum Total Protein (6.3-8.2) g/dL Albumin (3.5-5.0) g/dL Urine Color (Yellow) Urine Appearance (Clear) Urine pH (4.6-8.0) Ur Specific [place] (1.005-1.030) Urine Protein (Negative) Urine Glucose (UA) (Negative) mg/dL Urine Ketones (Negative) Urine Blood (Negative) Urine Nitrite (Negative) Urine Bilirubin (Negative) Urine Urobilinogen (0.2) mg/dL Ur Leukocyte Esterase (Negative) U Hyaline Cast (Auto) (0-2) /LPF Urine Microscopic RBC (0-5) /HPF Urine Microscopic WBC (0-5) /HPF Ur Epithelial Cells (None Seen) /HPF Urine Bacteria (None Seen) /HPF Urine Culture Reflexed (NO) Monoscreen (NEGATIVE) Influenza Type A Ag (NEGATIVE) Influenza Type B Ag (NEGATIVE) RSV (PCR) (NEGATIVE) SARS-CoV-2 (PCR) (NEGATIVE) Group A Strep Antibody (NEGATIVE) - Progress Progress: improved, re-examined Progress Note: 04/16/23 10:09 This patient medical issues 1 of moderate to high complexity. Level complexity in the work-up performed is based on review of the patient's past medical history, review of the patient's medication list, review the patient's drug allergy list, history of present illness and physical findings on examination. This patient appears to have sepsis and we will place an intravenous line and provide him with intravenous fluid infusion, we will have respiratory therapy evaluate this patient and provide the patient with oxygen supplementation. We will obtain an ABG, lactic acid level, twelve-lead EKG, CBC, CMP, urinalysis, viral swab test, monotest and group A strep test. We will also provide the patient with intravenous antibiotics after blood cultures are obtained. 04/16/23 10:25 Chest x-ray was interpreted by the radiologist and I reviewed the impression. There is worsening left lung consolidation/on consolidating airspace disease. There is stable, tiny right base pleural effusion/thickening 04/16/23 13:[address] Glen Merritt, the emergency room physician on at [facility] in [facility]. I reviewed the patient history, the patient's presenting complaint, work-up performed and results of those studies as well as the patient response to the management. He accepts the patient in transfer. Counseled pt/family regarding: lab results, diagnosis, rad results Medical Desision Making - Independent Historian Additional History obtained from: Child - Diagnostic Testing Diagnostic test were ordered, analyzed, and reviewed by me: Yes Radiological Interpretation: Reviewed by me, Teleradiologist Report - Risk of complications The pt has a high risk of morbidity or mortality based on: Decision regarding hospitilization or escalation of hosp level of care - Departure Departure Disposition: In-patient Admission (60 minutes) Clinical Impression: Sepsis, Pneumonia, Acute renal failure Condition: Serious Critical Care Time: Yes Critical Care Time(excluding separately billable procedures): Critical 30-74 mins (40 minutes) Referrals: FERNANDO MOSER [Primary Care Provider] - Follow up/PCP as directed
[2023-04-16] MEDS ORDERED: DUONEB 0.5-3 MG/3 ml Neb IH ONE ×2 (09:55→09:57)
[2023-04-16] MEDS ORDERED: Sodium Chloride 0.9% 1000 ML 1,000 ML IV STA ×3 (09:58→12:26)
[2023-04-16] MEDS ORDERED: Zofran 4 MG/2 ML VIAL IV STA (09:58)
[2023-04-16 10:07] LABS: Absolute Neutrophil Ct (ANC) 9.18 x10^3/uL (1.4-6.9); BASOPHIL % 0.6 % (0.0-0.4); Basophil (Absolute #) 0.07 x10^3/uL (0-0.4); Eosinophil % 0.7 % (0.00-5.0); Eosinophil (Absolute #) 0.08 x10^3/uL (0-0.5); Hematocrit 41.9 % (42-50); Hemoglobin 13.3 g/dL (12.5-18.0); IMMATURE GRAN # 0.07 x10^3u/L (0.00-0.03); IMMATURE GRAN % 0.6 % (0.00-0.4); Lymphocyte (Absolute #) 1.97 x10^3/uL (1.0-4.6); Lymphocytes % 16.2 % (24.0-44.0); Mean Cell Volume 90.1 fL (78-100); Mean Corpuscular Hemoglobin 28.6 pg (26-32); Mean Corpuscular Hgb Concent. 31.7 g/dL (32-36); Mean Platelet Volume 10.3 fL (7.5-11.0); Monocyte (Absolute #) 0.79 x10^3/uL (0.0-1.3); Monocytes % 6.5 % (0.0-12.0); Neutrophil % 75.4 % (36.0-66.0); Platelet Count 211 x10^3/uL (150-450); Red Blood Count 4.65 x10^6/uL (4.1-5.6); Red Cell Distribution Width 14.6 % (11.5-14.0); White Blood Count 12.2 x10^3/uL (4.0-10.5)
[2023-04-16] MEDS ORDERED: Sodium Chloride 0.9% 1000 ML 1,000 ML ONE ×3 (10:09→12:40)
[2023-04-16] MEDS ORDERED: Zofran 4 MG/2 ML VIAL ONE (10:09)
[2023-04-16 10:12] LABS: A-aADO2 43; ABG HEMOGLOBIN 13.7; ABG POTASSIUM 5.1 (3.5-5.1); ABG SITE RIGHT BRACHIAL; ARTERIAL BLD GAS O2 SATURATION 92.4 % (95-100); ARTERIAL BLOOD GAS BASE EXCESS -5.4 (-2.0-2.0); ARTERIAL BLOOD GAS FIO2 21 %; ARTERIAL BLOOD GAS PCO2 38 mmHg (35-45); ARTERIAL BLOOD GAS PO2 59 mmHg (75-100); ARTERIAL BLOOD GAS pH 7.33 (7.35-7.45); CARBOXYHEMOGLOBIN 1.9 % THgb (0.0-6.9); HGB O2 SAT 89.7 g/dF (94-100); Methhemoglobin 0.9 % (1.4-1.5); paO2 pAO1 0.58
[2023-04-16 10:21] LABS: ALBUMIN 4.4 g/dL (3.5-5.0); BILIRUBIN,TOTAL 0.5 mg/dL (0.2-1.3); Total Protein 6.7 g/dL (6.3-8.2)
--- NOTE | 2023-04-16 10:22 | XRAY ---
Indication: Fever, cough, short of breath, and respiratory crackles. Comparison: December 08, 2022 Portable chest remains underinflated accentuating cardiopulmonary structures. Worsening diffuse left lung consolidating/nonconsolidating airspace disease. Stable tiny right base pleural effusion/thickening. Bony thorax intact again with right shoulder degenerative changes.
[2023-04-16] MEDS ORDERED: solu-MEDROL 125 MG, Sterile H2O 10 ml 2 ML IV ONE ×2 (10:27)
[2023-04-16] MEDS ORDERED: Levofloxacin 500MG/100ML D5W 500 MG/100 ML BAG IV STA (10:27)
[2023-04-16 10:29] LABS: ANION GAP 25.4 MEQ/L (5-15); Calcium 8.6 mg/dL (8.4-10.2); Creatinine 1 7.33 mg/dL (0.66-1.25)
[2023-04-16] MEDS ORDERED: solu-MEDROL ONE (10:34)
[2023-04-16] MEDS ORDERED: Sterile H2O 10 ml IJ ONE (10:34)
[2023-04-16] MEDS ORDERED: Levofloxacin 500MG/100ML D5W 500 MG/100 ML BAG IV ONE (10:34)
[2023-04-16 10:53] LABS: Lymphocytes 21 % (24-44); Monocyte 7 % (0.0-12.0); Neutrophils 72 % (36.-66.); Total Cells Counted 100
[2023-04-16 10:55] LABS: ANISOCYTOSIS 1+; Platelet Estimate NORMAL (NORMAL); Toxic Granulation 1+
[2023-04-16 11:34] LABS: INFLUENZA A NEGATIVE (NEGATIVE); INFLUENZA B NEGATIVE (NEGATIVE); RESPIRATORY SYNCTIAL VIRUS NEGATIVE (NEGATIVE); SARS-CoV-2 Xpert Express NEGATIVE (NEGATIVE)
[2023-04-16 11:57] LABS: Appearance Cloudy (Clear); Bacteria None Seen /HPF (None Seen); Bilirubin Negative (Negative); Blood Trace (Negative); Epithelial Cells None Seen /HPF (None Seen); Glucose, Urine Negative (Negative); Ketones Trace (Negative); Leukocyte Esterase Negative (Negative); Nitrite Negative (Negative); Ph 5.5 (4.6-8.0); Protein,Urine Dip 30 (Negative); RBC 0-2 /HPF (0-5); Specific Gravity 1.025 (1.005-1.030); Urobilinogen 0.2 mg/dL (0.2)
[2023-04-16 11:58] LABS: ADD URINE CULTURE? YES (NO)
[2023-04-16] MEDS ORDERED: Lasix 40 MG/4 ML IV ONE (12:26)
[2023-04-16] MEDS ORDERED: NOREPINEPHRINE 8 MG/250 ML-D5W 8 MG/250 ML PLAST..BAG IV PRN (12:26)
[2023-04-16] MEDS ORDERED: Lasix 40 MG/4 ML ONE (12:40)
[2023-04-16] MEDS ORDERED: FLAGYL 500 MG IVPB 500 MG/100 ML BAG IV STA (12:56)
[2023-04-16] MEDS ORDERED: FLAGYL 500 MG IVPB 500 MG/100 ML BAG IV ONE (13:03)
[2023-04-16 13:19] VITALS: BP 109/93; PULSE 113; RESP 28; TEMP 99.7; O2SAT 94
== END 2023-04-16 13:38 | disposition short-term general hospital (02) ==
LOC: ED 09:31
DX: A41.9 Sepsis, unspecified organism (principal); J18.9 Pneumonia, unspecified organism; R65.20 Severe sepsis without septic shock; N17.9 Acute kidney failure, unspecified; R50.9 Fever, unspecified; R05.1 Acute cough; R63.0 Anorexia; J44.9 Chronic obstructive pulmonary disease, unspecified; I10 Essential (primary) hypertension; Z79.899 Other long term (current) drug therapy; Z28.310 Unvaccinated for COVID-19
CPT/HCPCS: 0241U; 36000; 36415; 36600; 71045; 80053; 81001; 82375; 82803; 83605; 83880; 85025; 86308; 87040; 87086; 87651; 93005; 93041; 94640; 94760; 96360; 96365; 96374; 96375; 99285; 99291; 87077; 87186; 96361; 96367; J1940; J1956; J2405; J2930; A9270-GY

== ENCOUNTER 2023-07-03 02:36 | Emergency (ER) | payer MEDICARE ==
[2023-07-03 03:02] VITALS: TEMP 97.6
--- NOTE | 2023-07-03 03:37 | ERPHSYRPT ---
- History of Present Illness Time Seen by Provider: 07/03/23 03:20 Source: patient, family Exam Limitations: no limitations Patient Subjective Stated Complaint: pt states he has been weak for last 4 days and has fallen several times recently. states he has body aches, back pain, and sore throat, cough. Triage Nursing Assessment: pt alert and oriented, answers questions approp. pt back to room per wheelchair and transfers to stretcher per self. skin warm and dry. abrasion to lt elbow pt states from recent fall. respirations nonlabored with exp wheeze to rt upper lobe. pupils equal and reactive. pt moves extremites without diff. bilat upper and lower ext srength equal and wnl. Physician History: This is a 67-year-old white male patient who presents to the emergency department with bodyaches, back pain, sore throat, cough, expiratory wheezing and frequent falls in the last 4 days. Patient has a history of bronchitis, COPD, sleep apnea, arthritis, PTSD, hypertension, and chronic tinnitus. Patient arrives emergency department mildly lethargic. It is in the middle of the night. In addition, he does take several medications at bedtime that can cause drowsiness. He denies hitting his head. His only extremity complaint is mild abrasion of his left elbow. He does not think any bony elements, extremities need to be x-rayed. Patient denies chest pain. He denies shortness of breath. He has not had fevers or chills Timing/Duration: day(s) (Last 4 days) Cough Quality/Degree: mild, dry cough Possible Cause: occasional episodes Modifying Factors: Improves With: coughing Associated Symptoms: cough, dizziness, muscle aches, sore throat, wheezing, No fever, No chills, No chest pain/soreness, No shortness of breath Allergies/Adverse Reactions: No Known Drug Allergies Allergy (Verified 07/03/23 02:40) Home Medications: Multivitamin with Minerals [Multiple Vitamin] 1 each PO DAILY 07/23/12 [History] Buspirone HCl 5 mg [Buspar 5 mg] 15 mg PO TID 02/08/15 [History] Gabapentin 300 mg PO TID 02/08/15 [History] buPROPion HCL [Bupropion HCl Sr] 200 mg PO Q12H 02/08/15 [History] Allopurinol 300 mg [Zyloprim 300 mg] 300 mg PO DAILY 07/03/23 [History] Amiodarone HCl 200 mg [Cordarone 200 MG] 200 mg PO BID 07/03/23 [History] Carvedilol 12.5 mg [Coreg 12.5 mg] 6.25 mg PO BID 07/03/23 [History] Fluticasone Propion/Salmeterol [Wixela 250-50 Inhub] 1 each IH BID 07/03/23 [History] Metoprolol Succinate 50 mg [Toprol Xl 50 MG] 50 mg PO DAILY 07/03/23 [History] PANTOPRAZOLE 40 mg Tablet [Protonix 40MG Tablet] 40 mg PO QAM 07/03/23 [History] Primidone 500 mg PO TID 07/03/23 [History] Trazodone HCl 50 mg [Desyrel 50 mg] 50 mg PO HS 07/03/23 [History] Venlafaxine HCl [Venlafaxine HCl ER] 150 mg PO DAILY 07/03/23 [History] Hx Tetanus, Diphtheria Vaccination/Date Given: Yes Hx Influenza Vaccination/Date Given: No Hx Pneumococcal Vaccination/Date Given: No Immunizations Up to Date: Yes Travel Risk - International Travel Have you traveled outside of the country in past 3 weeks: No - Coronavirus Screening Are you exhibiting any of the following symptoms?: Yes Symptoms: Fever, Cough: New Onset, Headaches/Body Aches/Fatigue Close contact with a COVID-19 positive Pt in past 14-21 Days: No - Vaccine Status Have you recieved a Covid-19 vaccination: No - Review of Systems Constitutional: Weakness Eyes: No Symptoms Ears, Nose, & Throat: Throat Pain Respiratory: Cough, Wheezing Cardiac: No Symptoms Abdominal/Gastrointestinal: No Symptoms Genitourinary Symptoms: No Symptoms Musculoskeletal: Arthralgias, Myalgias Skin: No Symptoms Neurological: Dizziness, No Headache Psychological: No Symptoms Endocrine: No Symptoms Hematologic/Lymphatic: No Symptoms Immunological/Allergic: No Symptoms All Other Systems: Reviewed and Negative - Past Medical History Pertinent Past Medical History: Yes Neurological History: No Pertinent History ENT History: No Pertinent History Cardiac History: No Pertinent History Respiratory History: Bronchitis, COPD, Pneumonia, Sleep Apnea Endocrine Medical History: No Pertinent History Musculoskeletal History: Arthritis GI Medical History: No Pertinent History History: Renal Disease Psycho-Social History: No Pertinent History Male Reproductive Disorders: No Pertinent History Other Medical History: PTSD, ear ringing, chronic - Past Surgical History Past Surgical History: Yes Neuro Surgical History: No Pertinent History Cardiac: No Pertinent History Respiratory: No Pertinent History Gastrointestinal: No Pertinent History Genitourinary: No Pertinent History Musculoskeletal: Joint Replacement, Orthopedic Surgery Male Surgical History: No Pertinent History Other Surgical History: Right knee, rt shoulder surgery, rt elbow surgery - Social History Smoking Status: Former smoker How long have you smoked: 25+ years Exposure to second hand smoke: Yes Drug Use: none Patient Lives Alone: No - Nursing Vital Signs Nursing Vital Signs: Initial Vital Signs Temperature 97.6 F 07/03/23 02:41 Pulse Rate 108 H 07/03/23 02:41 Respiratory Rate 16 07/03/23 02:41 Blood Pressure 147/90 07/03/23 02:41 O2 Sat by Pulse Oximetry 95 07/03/23 02:41 Pain Scale Pain Intensity 0 - Physical Exam General Appearance: lethargy (Mildly, rousable) Eye Exam: PERRL/EOMI, eyes nml inspection Ears, Nose, Throat Exam: normal ENT inspection, moist mucous membranes Neck Exam: normal inspection, non-tender, supple, full range of motion Respiratory Exam: normal breath sounds, lungs clear, airway intact, No chest ten derness, No respiratory distress Cardiovascular Exam: regular rate/rhythm, normal heart sounds, normal peripheral pulses Gastrointestinal/Abdomen Exam: soft, normal bowel sounds, No tenderness Rectal Exam: not done Back Exam: normal inspection, normal range of motion, No CVA tenderness, No vertebral tenderness Extremity Exam: normal inspection, normal range of motion, pelvis stable Neurologic Exam: alert, oriented x 3, cooperative, 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 nml as tested, nml cerebellar function, nml station & gait, sensation nml, other (Patient is sleepy but arousable and becomes more alert and answers questions accurately) Skin Exam: abrasion (Skin of left elbow) Lymphatic Exam: No adenopathy SpO2 Interpretation: normal SpO2: 95 O2 Delivery: Room Air - Course Nursing assessment & vital signs reviewed: Yes Ordered Tests: Active Orders 24 hr Category Date Time Status 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 STAT Care 07/03/23 03:39 Active EKG-ER Only STAT Care 07/03/23 03:38 Active Pulse Oximetry (ED) STAT Care 07/03/23 03:38 Active CHEST 1 VIEW (PORTABLE) Stat Exams 07/03/23 03:40 Taken HEAD WITHOUT CONTRAST [CT] Stat Exams 07/03/23 04:03 Taken BLOOD CULTURE Stat Lab 07/03/23 04:15 Received CBC W DIFF Stat Lab 07/03/23 03:45 Completed CMP Stat Lab 07/03/23 03:45 Completed MAGNESIUM Stat Lab 07/03/23 03:45 Completed MONO SCREEN Stat Lab 07/03/23 Completed NT PRO BNPII Stat Lab 07/03/23 03:45 Completed TROPONIN Q4H Lab 07/03/23 03:45 Completed TROPONIN Q4H Lab 07/03/23 07:45 Ordered TROPONIN Q4H Lab 07/03/23 11:45 Ordered UA W/RFX UR CULTURE Stat Lab 07/03/23 04:48 Completed Medication Summary Generic Name Dose Route Start Last Admin Trade Name Freq PRN Reason Stop Dose Admin Sodium Chloride 1,000 mls @ 250 mls/hr 07/03/23 03:45 07/03/23 06:04 Sodium Chloride 0.9% 1000 Ml IV 08/02/23 03:44 999 mls/hr .Q4H [facility] Infusion Lab/Rad Data: Laboratory Result Diagrams 07/03/23 03:45 07/03/23 03:45 Laboratory Results 07/03/23 07/03/23 07/03/23 Range/Units Unknown 04:48 04:20 WBC (4.0-10.5) x10^3/uL RBC (4.1-5.6) x10^6/uL Hgb (12.5-18.0) g/dL Hct (42-50) % MCV (78-100) fL MCH (26-32) pg MCHC (32-36) g/dL RDW (11.5-14.0) % Plt Count (150-450) x10^3/uL MPV (7.5-11.0) fL Gran % (36.0-66.0) % Immature Gran % (Auto) (0.00-0.4) % Nucleat RBC Rel Count (0.00-0.1) % Eos # (Auto) (0-0.5) x10^3/uL Immature Gran # (Auto) (0.00-0.03) x10^3u/L Absolute Lymphs (auto) (1.0-4.6) x10^3/uL Absolute Monos (auto) (0.0-1.3) x10^3/uL Absolute Nucleated RBC (0.00-0.01) x10^3u/L Lymphocytes % (24.0-44.0) % Monocytes % (0.0-12.0) % Eosinophils % (0.00-5.0) % Basophils % (0.0-0.4) % Absolute Granulocytes (1.4-6.9) x10^3/uL Basophils # (0-0.4) x10^3/uL Sodium (137-145) mmol/L Potassium (3.5-5.1) mmol/L Chloride (98-107) mmol/L Carbon Dioxide (22-30) mmol/L Anion Gap (5-15) MEQ/L BUN (9-20) mg/dL Creatinine (0.66-1.25) mg/dL Estimated GFR ML/MIN Glucose (74-106) mg/dL Calcium (8.4-10.2) mg/dL Magnesium (1.6-2.3) mg/dL Total Bilirubin (0.2-1.3) mg/dL AST (17-59) U/L ALT (0-50) U/L Alkaline Phosphatase (38-126) U/L Troponin I (0.000-0.034) ng/mL NT-Pro-B Natriuret Pep (<300) pg/mL Serum Total Protein (6.3-8.2) g/dL Albumin (3.5-5.0) g/dL Urine Color Yellow (Yellow) Urine Appearance Clear (Clear) Urine pH 6.0 (4.6-8.0) Ur Specific [place] 1.010 (1.005-1.030) Urine Protein Negative (Negative) Urine Glucose (UA) Negative (Negative) mg/dL Urine Ketones Negative (Negative) Urine Blood Negative (Negative) Urine Nitrite Negative (Negative) Urine Bilirubin Negative (Negative) Urine Urobilinogen 0.2 (0.2) mg/dL Ur Leukocyte Esterase Negative (Negative) U Hyaline Cast (Auto) NONE SEEN (0-2) /LPF Urine Microscopic RBC 0-2 (0-5) /HPF Urine Microscopic WBC 0-2 (0-5) /HPF Ur Epithelial Cells None Seen (None Seen) /HPF Urine Bacteria None Seen (None Seen) /HPF Urine Culture Reflexed NO (NO) Monoscreen NEGATIVE (NEGATIVE) Influenza Type A Ag (NEGATIVE) Influenza Type B Ag (NEGATIVE) RSV (PCR) (NEGATIVE) SARS-CoV-2 (PCR) (NEGATIVE) Group A Strep Antibody NOT DETECTED (NEGATIVE) 07/03/23 07/03/23 07/03/23 Range/Units 04:20 03:45 03:45 WBC (4.0-10.5) x10^3/uL RBC (4.1-5.6) x10^6/uL Hgb (12.5-18.0) g/dL Hct (42-50) % MCV (78-100) fL MCH (26-32) pg MCHC (32-36) g/dL RDW (11.5-14.0) % Plt Count (150-450) x10^3/uL MPV (7.5-11.0) fL Gran % (36.0-66.0) % Immature Gran % (Auto) (0.00-0.4) % Nucleat RBC Rel Count (0.00-0.1) % Eos # (Auto) (0-0.5) x10^3/uL Immature Gran # (Auto) (0.00-0.03) x10^3u/L Absolute Lymphs (auto) (1.0-4.6) x10^3/uL Absolute Monos (auto) (0.0-1.3) x10^3/uL Absolute Nucleated RBC (0.00-0.01) x10^3u/L Lymphocytes % (24.0-44.0) % Monocytes % (0.0-12.0) % Eosinophils % (0.00-5.0) % Basophils % (0.0-0.4) % Absolute Granulocytes (1.4-6.9) x10^3/uL Basophils # (0-0.4) x10^3/uL Sodium 135 L (137-145) mmol/L Potassium 4.0 (3.5-5.1) mmol/L Chloride 102 (98-107) mmol/L Carbon Dioxide 27 (22-30) mmol/L Anion Gap 9.0 (5-15) MEQ/L BUN 18 (9-20) mg/dL Creatinine 1.17 (0.66-1.25) mg/dL Estimated GFR 69.2 ML/MIN Glucose 117 H (74-106) mg/dL Calcium 8.8 (8.4-10.2) mg/dL Magnesium 2.1 (1.6-2.3) mg/dL Total Bilirubin 0.20 (0.2-1.3) mg/dL AST 27 (17-59) U/L ALT 19 (0-50) U/L Alkaline Phosphatase 59 (38-126) U/L Troponin I < 0.012 (0.000-0.034) ng/mL NT-Pro-B Natriuret Pep 489 (<300) pg/mL Serum Total Protein 6.7 (6.3-8.2) g/dL Albumin 3.8 (3.5-5.0) g/dL Urine Color (Yellow) Urine Appearance (Clear) Urine pH (4.6-8.0) Ur Specific [place] (1.005-1.030) Urine Protein (Negative) Urine Glucose (UA) (Negative) mg/dL Urine Ketones (Negative) Urine Blood (Negative) Urine Nitrite (Negative) Urine Bilirubin (Negative) Urine Urobilinogen (0.2) mg/dL Ur Leukocyte Esterase (Negative) U Hyaline Cast (Auto) (0-2) /LPF Urine Microscopic RBC (0-5) /HPF Urine Microscopic WBC (0-5) /HPF Ur Epithelial Cells (None Seen) /HPF Urine Bacteria (None Seen) /HPF Urine Culture Reflexed (NO) Monoscreen (NEGATIVE) Influenza Type A Ag NEGATIVE (NEGATIVE) Influenza Type B Ag NEGATIVE (NEGATIVE) RSV (PCR) NEGATIVE (NEGATIVE) SARS-CoV-2 (PCR) NEGATIVE (NEGATIVE) Group A Strep Antibody (NEGATIVE) 07/03/23 Range/Units 03:45 WBC 13.2 H (4.0-10.5) x10^3/uL RBC 3.52 L (4.1-5.6) x10^6/uL Hgb 9.8 L (12.5-18.0) g/dL Hct 31.7 L (42-50) % MCV 90.1 (78-100) fL MCH 27.8 (26-32) pg MCHC 30.9 L (32-36) g/dL RDW 14.8 H (11.5-14.0) % Plt Count 219 (150-450) x10^3/uL MPV 9.7 (7.5-11.0) fL Gran % 66.8 H (36.0-66.0) % Immature Gran % (Auto) 0.3 (0.00-0.4) % Nucleat RBC Rel Count 0.0 (0.00-0.1) % Eos # (Auto) 0.28 (0-0.5) x10^3/uL Immature Gran # (Auto) 0.04 H (0.00-0.03) x10^3u/L Absolute Lymphs (auto) 3.16 (1.0-4.6) x10^3/uL Absolute Monos (auto) 0.89 (0.0-1.3) x10^3/uL Absolute Nucleated RBC 0.00 (0.00-0.01) x10^3u/L Lymphocytes % 23.9 L (24.0-44.0) % Monocytes % 6.7 (0.0-12.0) % Eosinophils % 2.1 (0.00-5.0) % Basophils % 0.2 (0.0-0.4) % Absolute Granulocytes 8.82 H (1.4-6.9) x10^3/uL Basophils # 0.03 (0-0.4) x10^3/uL Sodium (137-145) mmol/L Potassium (3.5-5.1) mmol/L Chloride (98-107) mmol/L Carbon Dioxide (22-30) mmol/L Anion Gap (5-15) MEQ/L BUN (9-20) mg/dL Creatinine (0.66-1.25) mg/dL Estimated GFR ML/MIN Glucose (74-106) mg/dL Calcium (8.4-10.2) mg/dL Magnesium (1.6-2.3) mg/dL Total Bilirubin (0.2-1.3) mg/dL AST (17-59) U/L ALT (0-50) U/L Alkaline Phosphatase (38-126) U/L Troponin I (0.000-0.034) ng/mL NT-Pro-B Natriuret Pep (<300) pg/mL Serum Total Protein (6.3-8.2) g/dL Albumin (3.5-5.0) g/dL Urine Color (Yellow) Urine Appearance (Clear) Urine pH (4.6-8.0) Ur Specific [place] (1.005-1.030) Urine Protein (Negative) Urine Glucose (UA) (Negative) mg/dL Urine Ketones (Negative) Urine Blood (Negative) Urine Nitrite (Negative) Urine Bilirubin (Negative) Urine Urobilinogen (0.2) mg/dL Ur Leukocyte Esterase (Negative) U Hyaline Cast (Auto) (0-2) /LPF Urine Microscopic RBC (0-5) /HPF Urine Microscopic WBC (0-5) /HPF Ur Epithelial Cells (None Seen) /HPF Urine Bacteria (None Seen) /HPF Urine Culture Reflexed (NO) Monoscreen (NEGATIVE) Influenza Type A Ag (NEGATIVE) Influenza Type B Ag (NEGATIVE) RSV (PCR) (NEGATIVE) SARS-CoV-2 (PCR) (NEGATIVE) Group A Strep Antibody (NEGATIVE) - Progress Progress: improved, re-examined Air Movement: good Progress Note: 07/03/23 04:28 This patient's medical issue is 1 of moderate complexity. Level complex in the workup performed is based on review of the patient's past medical history, review of the patient's medication list, review of patient drug allergy list, history of present illness and physical findings on examination. Workup in this patient includes placement of intravenous line, infusion Normal Saline solution, CBC, CMP, viral swabs, mono, group A strep test, CT scan of the head, troponin level, twelve-lead EKG, urinalysis 07/03/23 06:40 Chest x-ray was interpreted by me. ? Diffuse right lobe airspace disease. Cardiomegaly 07/03/23 06:40 CT scan of the head without contrast was interpreted by the radiologist and I reviewed the impression. No definite calvarial fractures. No intracerebral extra axial hematoma. Interval appearance right basal ganglia (globus pallidus) tiny hypodense focus, possibly chronic lacunar infarction. This was compared to CT scan dated 06/02/2018. Blood Culture(s) Obtained: Yes Antibiotics given: Yes Counseled pt/family regarding: lab results, diagnosis, need for follow-up, rad results Medical Desision Making - Independent Historian Additional History obtained from: Family - Diagnostic Testing Diagnostic test were ordered, analyzed, and reviewed by me: Yes Radiological Interpretation: Interpreted by me, Reviewed by me, Teleradiologist Report - Risk of complications The pt has a mod risk of morbidity or mortality based on: Need for prescription drug management - Departure Departure Disposition: Home Clinical Impression: Right pulmonary infiltrate on CXR Condition: Stable Critical Care Time: No Referrals: FERNANDO MOSER [Primary Care Provider] - Follow up/PCP as directed Additional Instructions: Take your medication as prescribed. Follow-up with your primary care provider on Thursday, July 06, 2023 for further evaluation management. Prescriptions: Levofloxacin [Levaquin 500 MG Tablet] 500 mg PO DAILY #7 tablet
[2023-07-03 03:56] LABS: Absolute Neutrophil Ct (ANC) 8.82 x10^3/uL (1.4-6.9); BASOPHIL % 0.2 % (0.0-0.4); Basophil (Absolute #) 0.03 x10^3/uL (0-0.4); Eosinophil % 2.1 % (0.00-5.0); Eosinophil (Absolute #) 0.28 x10^3/uL (0-0.5); Hematocrit 31.7 % (42-50); Hemoglobin 9.8 g/dL (12.5-18.0); IMMATURE GRAN # 0.04 x10^3u/L (0.00-0.03); IMMATURE GRAN % 0.3 % (0.00-0.4); Lymphocyte (Absolute #) 3.16 x10^3/uL (1.0-4.6); Lymphocytes % 23.9 % (24.0-44.0); Mean Cell Volume 90.1 fL (78-100); Mean Corpuscular Hemoglobin 27.8 pg (26-32); Mean Corpuscular Hgb Concent. 30.9 g/dL (32-36); Mean Platelet Volume 9.7 fL (7.5-11.0); Monocyte (Absolute #) 0.89 x10^3/uL (0.0-1.3); Monocytes % 6.7 % (0.0-12.0); Neutrophil % 66.8 % (36.0-66.0); Platelet Count 219 x10^3/uL (150-450); Red Blood Count 3.52 x10^6/uL (4.1-5.6); Red Cell Distribution Width 14.8 % (11.5-14.0); White Blood Count 13.2 x10^3/uL (4.0-10.5)
[2023-07-03 04:19] LABS: ALBUMIN 3.8 g/dL (3.5-5.0); BILIRUBIN,TOTAL 0.2 mg/dL (0.2-1.3); Calcium 8.8 mg/dL (8.4-10.2); Creatinine 1 1.17 mg/dL (0.66-1.25); EST GLOMERULAR FILTRATION RATE 69.2 ML/MIN; MAGNESIUM 2.1 mg/dL (1.6-2.3); Total Protein 6.7 g/dL (6.3-8.2)
[2023-07-03] MEDS ORDERED: Sodium Chloride 0.9% 1000 ML 1,000 ML ONE (04:42)
[2023-07-03] MEDS: Sodium Chloride 0.9% 1000 ML 1,000 ML IV SCH ×2 (04:44→07:45)
[2023-07-03 05:02] VITALS: RESP 22
[2023-07-03 05:07] LABS: INFLUENZA A NEGATIVE (NEGATIVE); INFLUENZA B NEGATIVE (NEGATIVE); RESPIRATORY SYNCTIAL VIRUS NEGATIVE (NEGATIVE); SARS-CoV-2 Xpert Express NEGATIVE (NEGATIVE)
[2023-07-03 05:47] LABS: Appearance Clear (Clear); Bacteria None Seen /HPF (None Seen); Bilirubin Negative (Negative); Blood Negative (Negative); Epithelial Cells None Seen /HPF (None Seen); Glucose, Urine Negative (Negative); Hyaline Casts NONE SEEN /LPF (0-2); Ketones Negative (Negative); Leukocyte Esterase Negative (Negative); Nitrite Negative (Negative); Protein,Urine Dip Negative (Negative); RBC 0-2 /HPF (0-5); Urobilinogen 0.2 mg/dL (0.2); WBC 0-2 /HPF (0-5)
[2023-07-03 05:48] LABS: ADD URINE CULTURE? NO (NO)
[2023-07-03] MEDS ORDERED: Levofloxacin 500MG/100ML D5W 500 MG/100 ML BAG IV STA (06:42)
[2023-07-03] MEDS ORDERED: Levofloxacin 500MG/100ML D5W 500 MG/100 ML BAG IV ONE (06:48)
--- NOTE | 2023-07-03 07:16 | XRAY ---
Indication: Cough and weakness. Comparison: June 04, 2023 Portable chest unchanged again demonstrating minimal left base infiltrate/atelectasis/effusion. Remaining heart and right lung unremarkable. Bony thorax intact again with mild degenerative changes. No new abnormalities.
[2023-07-03 07:21] VITALS: PULSE 102; O2SAT 93
[2023-07-03 07:54] VITALS: BP 125/89
--- NOTE | 2023-07-03 12:53 | XRAY ---
CLINICAL HISTORY:Recurrent falls COMPARISON:CT dated 06/02/2018. TECHNIQUE:An axial non-contrast CT scan of the brain was performed from the skull base to the high parietal region. Sagittal and coronal reconstructed images were also obtained. FINDINGS: No definite calvarium fractures. No intracerebral or extra axial hematoma. Oliver-white matter differentiation is maintained. No midline shifts or deformity. Normal size and configuration of the cerebral ventricles. Interval appearance of right basal ganglia (globus pallidus) tiny hypodense focus. Normal CT appearance of the posterior fossa structures. The osseous structures in the skull base are unremarkable. Scanned paranasal sinuses are clear. IMPRESSION: 1. No definite calvarium fractures. No intracerebral or extra axial hematoma. 2. Interval appearance of right basal ganglia (globus pallidus) tiny hypodense focus, possibly chronic lacunar infarction. Electronically Signed by: Shanika Lanza MD. (07/03/2023 05:19:12 EST)
== END 2023-07-03 08:09 | disposition home or self-care (01) ==
LOC: ED 02:36
DX: R91.8 Other nonspecific abnormal finding of lung field (principal); M79.10 Myalgia, unspecified site; M54.9 Dorsalgia, unspecified; J02.9 Acute pharyngitis, unspecified; R05.1 Acute cough; R29.6 Repeated falls; I10 Essential (primary) hypertension; Z79.899 Other long term (current) drug therapy; Z28.310 Unvaccinated for COVID-19
CPT/HCPCS: 0241U; 36415; 70450; 71045; 80053; 81001; 83735; 83880; 84484; 85025; 86308; 87040; 87651; 93005; 93041; 94760; 96365; 99284; J1956

== ENCOUNTER 2023-10-15 14:54 | Emergency (ER) | payer MEDICARE ==
--- NOTE | 2023-10-15 15:23 | ERPHSYRPT ---
- History of Present Illness Time Seen by Provider: 10/15/23 15:10 Historian: patient Exam Limitations: no limitations Patient Subjective Stated Complaint: C/O Chest pain that started at 11am today while at rest. Triage Nursing Assessment: Patient ambulated back to ER. He is alert and oriented. SOB noted with extertion. No cough. Skin is flushed and warm to touch. SOLANO WNL. Slight edema to BLE; non-pitting. Physician History: Pt states he started with diarrhea without blood 4 days ago, vomiting 2 days ago, sharp/dull intermittent 5/10 anterior chest pain with episodes lasting up to 4 hours 2 days ago and fever of 105 degrees yesterday. Aspirin Treatment Today: 81 mg x 4, provided by ED Allergies/Adverse Reactions: No Known Drug Allergies Allergy (Verified 10/15/23 14:56) Home Medications: Multivitamin with Minerals [Multiple Vitamin] 1 each PO DAILY 07/23/12 [History] Buspirone HCl 5 mg [Buspar 5 mg] 15 mg PO TID 02/08/15 [History] Gabapentin 300 mg PO QID 02/08/15 [History] buPROPion HCL [Bupropion HCl Sr] 200 mg PO Q12H 02/08/15 [History] Allopurinol 300 mg [Zyloprim 300 mg] 300 mg PO DAILY 07/03/23 [History] Metoprolol Succinate 50 mg [Toprol Xl 50 MG] 50 mg PO DAILY 07/03/23 [History] Primidone 500 mg PO TID 07/03/23 [History] Trazodone HCl 50 mg [Desyrel 50 mg] 50 mg PO HS PRN 07/03/23 [History] Venlafaxine HCl [Venlafaxine HCl ER] 150 mg PO DAILY 07/03/23 [History] Hydrocodone/Acetaminophen [Hydrocodone-Acetamin 10-325 mg] 1 tab PO Q6-8HPRN PRN 10/15/23 [History] Tizanidine HCl 4 mg [Zanaflex 4 MG] 4 mg PO TID PRN 10/15/23 [History] Hx Tetanus, Diphtheria Vaccination/Date Given: Yes Hx Influenza Vaccination/Date Given: No Hx Pneumococcal Vaccination/Date Given: No Immunizations Up to Date: Yes Travel Risk - International Travel Have you traveled outside of the country in past 3 weeks: No - Emerging Infectious Disease Are you exhibiting symptoms associated with any current EIDs: Yes Symptoms: Cough: New Onset, Fever, Headaches/Body Aches/, Vomitting - Review of Systems Constitutional: Fever Cardiac: Chest Pain Abdominal/Gastrointestinal: Vomiting, Diarrhea Genitourinary Symptoms: No Dysuria Neurological: No Headache - Past Medical History Pertinent Past Medical History: Yes Neurological History: No Pertinent History ENT History: No Pertinent History Cardiac History: No Pertinent History Respiratory History: Bronchitis, COPD, Pneumonia, Sleep Apnea Endocrine Medical History: No Pertinent History Musculoskeletal History: Arthritis GI Medical History: No Pertinent History History: Renal Disease Psycho-Social History: No Pertinent History Male Reproductive Disorders: No Pertinent History Other Medical History: PTSD, ear ringing, states he had an episode of afib in the past and 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 [place] but is unsure of his name at this time - Past Surgical History Past Surgical History: Yes Neuro Surgical History: No Pertinent History Cardiac: No Pertinent History Respiratory: No Pertinent History Gastrointestinal: No Pertinent History Genitourinary: No Pertinent History Musculoskeletal: Joint Replacement, Orthopedic Surgery Male Surgical History: No Pertinent History Other Surgical History: Right knee, rt shoulder surgery, rt elbow surgery - Social History Smoking Status: Former smoker How long have you smoked: 25+ years Exposure to second hand smoke: Yes Drug Use: none Patient Lives Alone: No - Nursing Vital Signs Nursing Vital Signs: Initial Vital Signs Temperature 100 F 10/15/23 14:58 Pulse Rate 88 10/15/23 14:58 Respiratory Rate 24 10/15/23 14:58 Blood Pressure 137/90 10/15/23 14:58 O2 Sat by Pulse Oximetry 98 10/15/23 14:58 Pain Scale Pain Intensity 0 - Physical Exam General Appearance: alert Eye Exam: eyes nml inspection Ears, Nose, Throat Exam: TMs normal, pharyngeal erythema Neck Exam: normal inspection Respiratory Exam: crackles/rales (mild over right bases) Cardiovascular Exam: normal heart sounds Gastrointestinal/Abdomen Exam: normal bowel sounds Extremity Exam: No pedal edema Neurologic Exam: alert, cooperative, normal mood/affect, No motor deficits Skin Exam: warm, dry SpO2 Interpretation: normal SpO2: 98 O2 Delivery: Room Air - Course Nursing assessment & vital signs reviewed: Yes EKG Interpreted by Me: RATE (84), Sinus Rhythm, NORMAL AXIS, Other (QTc = 448) - Radiology Exams Chest X-ray Interpretation: Teleradiologist Report (Raised right dome of diaphragm suggesting diaphragmatic eventration. Minimal blunting of the right CP angle noted could be related to pleural thickening/small effusion.) - CT Exams Chest CT Interpretation: Tele-radiologist Report (No significant abnormality seen. No evidence of pulmonary embolism.) Ordered Tests: Active Orders 24 hr Category Date Time Status Family Partner STAT Care 10/15/23 15:26 Active EKG-ER Only STAT Care 10/15/23 15:25 Active IV Insertion STAT Care 10/15/23 15:25 Active Pulse Oximetry (ED) STAT Care 10/15/23 15:25 Active CHEST 2 VIEWS (PA AND LAT) Stat Exams 10/15/23 15:25 Completed CHEST WITH CONTRAST [CT] Stat Exams 10/15/23 16:37 Completed AMYLASE Stat Lab 10/15/23 15:00 Completed BLOOD CULTURE Stat Lab 10/15/23 16:06 Received BMP Stat Lab 10/15/23 18:40 Completed CBC W DIFF Stat Lab 10/15/23 15:00 Completed CMP Stat Lab 10/15/23 15:00 Completed CULTURE,SPUTUM Stat Lab 10/15/23 15:27 Ordered LIPASE Stat Lab 10/15/23 15:00 Completed Lactic Acid Stat Lab 10/15/23 15:25 Completed Lactic Acid Stat Lab 10/15/23 17:50 Received Lactic Acid Stat Lab 10/15/23 18:20 Completed MAGNESIUM Stat Lab 10/15/23 15:00 Completed TROPONIN Q4H Lab 10/15/23 15:00 Completed TROPONIN Q4H Lab 10/15/23 18:40 Completed TROPONIN Q4H Lab 10/15/23 23:30 Ordered VENOUS BLOOD GAS Urgent Lab 10/15/23 15:25 Completed Respiratory Therapy Assessment DAILY RT 10/15/23 15:53 Active Medication Summary Generic Name Dose Route Start Last Admin Trade Name Freq PRN Reason Stop Dose Admin Potassium Chloride/Sodium Chloride 1,000 mls @ 500 mls/hr 10/15/23 16:30 10/15/23 19:01 Sodium Chloride 0.9% W/ 20 Meq Kcl/Liter IV 11/14/23 16:29 Infused .Q2H ZAC Infusion Discontinued Medications Generic Name Dose Route Start Last Admin Trade Name Mechelle PRN Reason Stop Dose Admin Albuterol Sulfate 2.5 mg 10/15/23 15:27 10/15/23 15:51 Albuterol Sulfate 2.5 Mg/3 Ml Neb IH 10/15/23 15:28 2.5 mg STAT ONE Administration Albuterol Sulfate Confirm 10/15/23 15:50 Albuterol Sulfate 2.5 Mg/3 Ml Neb Administered 10/15/23 15:51 Dose 2.5 mg IH .STK-MED ONE Aspirin 324 mg 10/15/23 15:25 10/15/23 15:47 Aspirin 81 Mg Tab.Chew PO 10/15/23 15:26 324 mg STAT ONE Administration Aspirin Confirm 10/15/23 15:45 Aspirin 81 Mg Tab.Chew Administered 10/15/23 15:46 Dose 324 mg .ROUTE .STK-MED ONE Sodium Chloride 1,000 mls @ 999 mls/hr 10/15/23 15:25 10/15/23 16:49 Sodium Chloride 0.9% 1000 Ml IV 10/15/23 16:25 Infused .Q1H1M STA Infusion Ceftriaxone Sodium 1 gm in 100 mls @ 200 mls/hr 10/15/23 15:28 10/15/23 16:21 Rocephin 1 Gm / 100 Ml Nacl IV 10/15/23 15:57 Infused STAT ONE Infusion Azithromycin 500 mg in 250 mls @ 250 mls/hr 10/15/23 15:28 10/15/23 17:15 Zithromax 500 Mg/ 250 Ml Nacl Premix IV 10/15/23 16:27 Infused STAT STA Infusion Sodium Chloride Confirm 10/15/23 15:45 Sodium Chloride 0.9% 1000 Ml Administered 10/15/23 15:46 Dose 1,000 mls @ ud .ROUTE .STK-MED ONE Ceftriaxone Sodium Confirm 10/15/23 15:46 Rocephin 1 Gm / 100 Ml Nacl Administered 10/15/23 15:47 Dose 1 gm in 100 mls @ ud IV .STK-MED ONE Azithromycin Confirm 10/15/23 16:02 Zithromax 500 Mg/ 250 Ml Nacl Premix Administered 10/15/23 16:03 Dose 500 mg in 250 mls @ ud IV .STK-MED ONE Nitroglycerin 0.4 mg 10/15/23 15:25 10/15/23 15:49 Nitroglycerin 0.4 Mg (Ed) 0.4 Mg Tab.Subl SL 10/15/23 15:26 0.4 mg STAT ONE Administration Nitroglycerin Confirm 10/15/23 15:45 Nitroglycerin 0.4 Mg (Ed) 0.4 Mg Tab.Subl Administered 10/15/23 15:46 Dose 0.4 mg SL .STK-MED ONE Lab/Rad Data: Laboratory Result Diagrams 10/15/23 15:00 10/15/23 18:40 Laboratory Results 10/15/23 10/15/23 10/15/23 Range/Units 18:40 18:40 18:20 WBC (4.0-10.5) x10^3/uL RBC (4.1-5.6) x10^6/uL Hgb (12.5-18.0) g/dL Hct (42-50) % MCV (78-100) fL MCH (26-32) pg MCHC (32-36) g/dL RDW (11.5-14.0) % Plt Count (150-450) x10^3/uL MPV (7.5-11.0) fL Gran % (36.0-66.0) % Immature Gran % (Auto) (0.00-0.4) % Nucleat RBC Rel Count (0.00-0.1) % Eos # (Auto) (0-0.5) x10^3/uL Immature Gran # (Auto) (0.00-0.03) x10^3u/L Absolute Lymphs (auto) (1.0-4.6) x10^3/uL Absolute Monos (auto) (0.0-1.3) x10^3/uL Absolute Nucleated RBC (0.00-0.01) x10^3u/L Lymphocytes % (24.0-44.0) % Monocytes % (0.0-12.0) % Eosinophils % (0.00-5.0) % Basophils % (0.0-0.4) % Absolute Granulocytes (1.4-6.9) x10^3/uL Basophils # (0-0.4) x10^3/uL pO2/FiO2 Ratio % VBG pH (7.32-7.42) VBG pCO2 at Pat Temp (42-55) mm/Hg VBG pO2 at Pat Temp (25-40) mm/Hg VBG HCO3 (22-28) meq/L VBG O2 Sat ([place]) (95-100) VBG Base Excess (-2.0-2.0) VBG Hemoglobin VBG Carboxyhemoglobin (0.0-6.9) % T HGB POC Potassium (3.5-5.1) Sodium 136 (135-145) mmol/L Potassium 3.7 (3.5-5.1) mmol/L Chloride 103 (98-107) mmol/L Carbon Dioxide 28 (22-30) mmol/L Anion Gap 9.3 (5-15) MEQ/L BUN 23 H (9-20) mg/dL Creatinine 1.13 (0.66-1.25) mg/dL Estimated GFR 72.1 ML/MIN Glucose 92 (74-106) mg/dL Lactic Acid 1.5 (0.4-2.0) Calcium 8.5 (8.4-10.2) mg/dL Magnesium (1.6-2.3) mg/dL Total Bilirubin (0.2-1.3) mg/dL AST (17-59) U/L ALT (0-50) U/L Alkaline Phosphatase (38-126) U/L Troponin I < 0.012 (0.000-0.033) ng/mL Serum Total Protein (6.3-8.2) g/dL Albumin (3.5-5.0) g/dL Amylase (30-110) U/L Lipase (23-300) U/L Influenza Type A Ag (NEGATIVE) Influenza Type B Ag (NEGATIVE) RSV (PCR) (NEGATIVE) SARS-CoV-2 (PCR) (NEGATIVE) Group A Strep Antibody (NEGATIVE) 10/15/23 10/15/23 10/15/23 Range/Units 16:06 16:06 15:25 WBC (4.0-10.5) x10^3/uL RBC (4.1-5.6) x10^6/uL Hgb (12.5-18.0) g/dL Hct (42-50) % MCV (78-100) fL MCH (26-32) pg MCHC (32-36) g/dL RDW (11.5-14.0) % Plt Count (150-450) x10^3/uL MPV (7.5-11.0) fL Gran % (36.0-66.0) % Immature Gran % (Auto) (0.00-0.4) % Nucleat RBC Rel Count (0.00-0.1) % Eos # (Auto) (0-0.5) x10^3/uL Immature Gran # (Auto) (0.00-0.03) x10^3u/L Absolute Lymphs (auto) (1.0-4.6) x10^3/uL Absolute Monos (auto) (0.0-1.3) x10^3/uL Absolute Nucleated RBC (0.00-0.01) x10^3u/L Lymphocytes % (24.0-44.0) % Monocytes % (0.0-12.0) % Eosinophils % (0.00-5.0) % Basophils % (0.0-0.4) % Absolute Granulocytes (1.4-6.9) x10^3/uL Basophils # (0-0.4) x10^3/uL pO2/FiO2 Ratio 21.0 % VBG pH 7.40 (7.32-7.42) VBG pCO2 at Pat Temp 42 (42-55) mm/Hg VBG pO2 at Pat Temp 46 H (25-40) mm/Hg VBG HCO3 26.0 (22-28) meq/L VBG O2 Sat ([place]) 84.7 L (95-100) VBG Base Excess 1.0 (-2.0-2.0) VBG Hemoglobin 14.4 VBG Carboxyhemoglobin 4.0 (0.0-6.9) % T HGB POC Potassium 3.4 L (3.5-5.1) Sodium (135-145) mmol/L Potassium (3.5-5.1) mmol/L Chloride (98-107) mmol/L Carbon Dioxide (22-30) mmol/L Anion Gap (5-15) MEQ/L BUN (9-20) mg/dL Creatinine (0.66-1.25) mg/dL Estimated GFR ML/MIN Glucose (74-106) mg/dL Lactic Acid (0.4-2.0) Calcium (8.4-10.2) mg/dL Magnesium (1.6-2.3) mg/dL Total Bilirubin (0.2-1.3) mg/dL AST (17-59) U/L ALT (0-50) U/L Alkaline Phosphatase (38-126) U/L Troponin I (0.000-0.033) ng/mL Serum Total Protein (6.3-8.2) g/dL Albumin (3.5-5.0) g/dL Amylase (30-110) U/L Lipase (23-300) U/L Influenza Type A Ag NEGATIVE (NEGATIVE) Influenza Type B Ag NEGATIVE (NEGATIVE) RSV (PCR) NEGATIVE (NEGATIVE) SARS-CoV-2 (PCR) NEGATIVE (NEGATIVE) Group A Strep Antibody NOT DETECTED (NEGATIVE) 10/15/23 10/15/23 10/15/23 Range/Units 15:25 15:00 15:00 WBC (4.0-10.5) x10^3/uL RBC (4.1-5.6) x10^6/uL Hgb (12.5-18.0) g/dL Hct (42-50) % MCV (78-100) fL MCH (26-32) pg MCHC (32-36) g/dL RDW (11.5-14.0) % Plt Count (150-450) x10^3/uL MPV (7.5-11.0) fL Gran % (36.0-66.0) % Immature Gran % (Auto) (0.00-0.4) % Nucleat RBC Rel Count (0.00-0.1) % Eos # (Auto) (0-0.5) x10^3/uL Immature Gran # (Auto) (0.00-0.03) x10^3u/L Absolute Lymphs (auto) (1.0-4.6) x10^3/uL Absolute Monos (auto) (0.0-1.3) x10^3/uL Absolute Nucleated RBC (0.00-0.01) x10^3u/L Lymphocytes % (24.0-44.0) % Monocytes % (0.0-12.0) % Eosinophils % (0.00-5.0) % Basophils % (0.0-0.4) % Absolute Granulocytes (1.4-6.9) x10^3/uL Basophils # (0-0.4) x10^3/uL pO2/FiO2 Ratio % VBG pH (7.32-7.42) VBG pCO2 at Pat Temp (42-55) mm/Hg VBG pO2 at Pat Temp (25-40) mm/Hg VBG HCO3 (22-28) meq/L VBG O2 Sat ([place]) (95-100) VBG Base Excess (-2.0-2.0) VBG Hemoglobin VBG Carboxyhemoglobin (0.0-6.9) % T HGB POC Potassium (3.5-5.1) Sodium 137 (135-145) mmol/L Potassium 3.3 L (3.5-5.1) mmol/L Chloride 101 (98-107) mmol/L Carbon Dioxide 25 (22-30) mmol/L Anion Gap 14.4 (5-15) MEQ/L BUN 24 H (9-20) mg/dL Creatinine 1.15 (0.66-1.25) mg/dL Estimated GFR 70.6 ML/MIN Glucose 104 (74-106) mg/dL Lactic Acid 3.8 H (0.4-2.0) Calcium 9.6 (8.4-10.2) mg/dL Magnesium 2.0 (1.6-2.3) mg/dL Total Bilirubin 0.50 (0.2-1.3) mg/dL AST 25 (17-59) U/L ALT 31 (0-50) U/L Alkaline Phosphatase 51 (38-126) U/L Troponin I < 0.012 (0.000-0.033) ng/mL Serum Total Protein 7.7 (6.3-8.2) g/dL Albumin 4.8 (3.5-5.0) g/dL Amylase 78 (30-110) U/L Lipase 94 (23-300) U/L Influenza Type A Ag (NEGATIVE) Influenza Type B Ag (NEGATIVE) RSV (PCR) (NEGATIVE) SARS-CoV-2 (PCR) (NEGATIVE) Group A Strep Antibody (NEGATIVE) 10/15/23 Range/Units 15:00 WBC 12.2 H (4.0-10.5) x10^3/uL RBC 5.17 (4.1-5.6) x10^6/uL Hgb 14.1 (12.5-18.0) g/dL Hct 41.8 L (42-50) % MCV 80.9 (78-100) fL MCH 27.3 (26-32) pg MCHC 33.7 (32-36) g/dL RDW 15.1 H (11.5-14.0) % Plt Count 329 (150-450) x10^3/uL MPV 10.0 (7.5-11.0) fL Gran % 67.8 H (36.0-66.0) % Immature Gran % (Auto) 0.3 (0.00-0.4) % Nucleat RBC Rel Count 0.0 (0.00-0.1) % Eos # (Auto) 0.04 (0-0.5) x10^3/uL Immature Gran # (Auto) 0.04 H (0.00-0.03) x10^3u/L Absolute Lymphs (auto) 2.68 (1.0-4.6) x10^3/uL Absolute Monos (auto) 1.16 (0.0-1.3) x10^3/uL Absolute Nucleated RBC 0.00 (0.00-0.01) x10^3u/L Lymphocytes % 21.9 L (24.0-44.0) % Monocytes % 9.5 (0.0-12.0) % Eosinophils % 0.3 (0.00-5.0) % Basophils % 0.2 (0.0-0.4) % Absolute Granulocytes 8.30 H (1.4-6.9) x10^3/uL Basophils # 0.02 (0-0.4) x10^3/uL pO2/FiO2 Ratio % VBG pH (7.32-7.42) VBG pCO2 at Pat Temp (42-55) mm/Hg VBG pO2 at Pat Temp (25-40) mm/Hg VBG HCO3 (22-28) meq/L VBG O2 Sat ([place]) (95-100) VBG Base Excess (-2.0-2.0) VBG Hemoglobin VBG Carboxyhemoglobin (0.0-6.9) % T HGB POC Potassium (3.5-5.1) Sodium (135-145) mmol/L Potassium (3.5-5.1) mmol/L Chloride (98-107) mmol/L Carbon Dioxide (22-30) mmol/L Anion Gap (5-15) MEQ/L BUN (9-20) mg/dL Creatinine (0.66-1.25) mg/dL Estimated GFR ML/MIN Glucose (74-106) mg/dL Lactic Acid (0.4-2.0) Calcium (8.4-10.2) mg/dL Magnesium (1.6-2.3) mg/dL Total Bilirubin (0.2-1.3) mg/dL AST (17-59) U/L ALT (0-50) U/L Alkaline Phosphatase (38-126) U/L Troponin I (0.000-0.033) ng/mL Serum Total Protein (6.3-8.2) g/dL Albumin (3.5-5.0) g/dL Amylase (30-110) U/L Lipase (23-300) U/L Influenza Type A Ag (NEGATIVE) Influenza Type B Ag (NEGATIVE) RSV (PCR) (NEGATIVE) SARS-CoV-2 (PCR) (NEGATIVE) Group A Strep Antibody (NEGATIVE) - Progress Progress: improved Counseled pt/family regarding: lab results, diagnosis, need for follow-up, rad results Medical Desision Making - Diagnostic Testing Diagnostic test were ordered, analyzed, and reviewed by me: Yes Radiological Interpretation: Teleradiologist Report - Departure Departure Disposition: Home Clinical Impression: Pharyngitis, Chest pain, Vomiting, Diarrhea Condition: Stable Critical Care Time: No Referrals: HOLLY GARNER FNP [Primary Care Provider] - Follow up/PCP as directed Instructions: Diarrhea and Traveler's Diarrhea, Adult (DC), Chest Pain (DC), Nausea and Vomiting, Adult (DC) Additional Instructions: Follow up with private doctor tomorrow. Drink more water. Prescriptions: Azithromycin 250 mg [Zithromax 250 MG TABLET] 250 mg PO ZPACK #6 tablet
[2023-10-15] MEDS ORDERED: Sodium Chloride 0.9% 1000 ML 1,000 ML ONE (15:45)
[2023-10-15] MEDS ORDERED: BABY ASPIRIN 81 MG CHEW ONE (15:45)
[2023-10-15] MEDS ORDERED: Nitrostat 0.4 MG (ED) SL ONE (15:45)
[2023-10-15] MEDS ORDERED: ROCEPHIN 1 GM / 100 ML NaCl 1 GM/100 ML IVPB IV ONE (15:46)
[2023-10-15] MEDS: BABY ASPIRIN 81 MG CHEW PO ONE (15:47)
[2023-10-15] MEDS: Sodium Chloride 0.9% 1000 ML 1,000 ML IV STA (15:48)
[2023-10-15] MEDS: ROCEPHIN 1 GM / 100 ML NaCl 1 GM/100 ML IVPB IV ONE (15:48)
[2023-10-15 15:49] LABS: VBG HEMOGLOBIN 14.4; VBG O2 SATURATION 84.7 (95-100); VBG POTASSIUM 3.4 (3.5-5.1); VBG pH 7.4 (7.32-7.42)
[2023-10-15] MEDS: Nitrostat 0.4 MG (ED) SL ONE (15:49)
[2023-10-15] MEDS ORDERED: PROVENTIL 2.5 MG/3 ML NEB IH ONE (15:50)
[2023-10-15] MEDS: PROVENTIL 2.5 MG/3 ML NEB IH ONE (15:51)
[2023-10-15] MEDS ORDERED: Zithromax 500 MG/ 250 ML NaCl Premix 500 MG/250 ML IVPB IV ONE (16:02)
[2023-10-15] MEDS: Zithromax 500 MG/ 250 ML NaCl Premix 500 MG/250 ML IVPB IV STA (16:04)
[2023-10-15 16:07] LABS: BASOPHIL % 0.2 % (0.0-0.4); Basophil (Absolute #) 0.02 x10^3/uL (0-0.4); Eosinophil % 0.3 % (0.00-5.0); Eosinophil (Absolute #) 0.04 x10^3/uL (0-0.5); Hematocrit 41.8 % (42-50); Hemoglobin 14.1 g/dL (12.5-18.0); IMMATURE GRAN # 0.04 x10^3u/L (0.00-0.03); IMMATURE GRAN % 0.3 % (0.00-0.4); Lymphocyte (Absolute #) 2.68 x10^3/uL (1.0-4.6); Lymphocytes % 21.9 % (24.0-44.0); Mean Cell Volume 80.9 fL (78-100); Mean Corpuscular Hemoglobin 27.3 pg (26-32); Mean Corpuscular Hgb Concent. 33.7 g/dL (32-36); Monocyte (Absolute #) 1.16 x10^3/uL (0.0-1.3); Monocytes % 9.5 % (0.0-12.0); Neutrophil % 67.8 % (36.0-66.0); Platelet Count 329 x10^3/uL (150-450); Red Blood Count 5.17 x10^6/uL (4.1-5.6); Red Cell Distribution Width 15.1 % (11.5-14.0); White Blood Count 12.2 x10^3/uL (4.0-10.5)
[2023-10-15 16:22] LABS: ALBUMIN 4.8 g/dL (3.5-5.0); ANION GAP 14.4 MEQ/L (5-15); BILIRUBIN,TOTAL 0.5 mg/dL (0.2-1.3); Calcium 9.6 mg/dL (8.4-10.2); Creatinine 1 1.15 mg/dL (0.66-1.25); EST GLOMERULAR FILTRATION RATE 70.6 ML/MIN; Potassium 3.3 mmol/L (3.5-5.1); Total Protein 7.7 g/dL (6.3-8.2)
--- NOTE | 2023-10-15 16:22 | XRAY ---
CLINICAL HISTORY: chest pain COMPARISON: Compared with the prior study dated 12/08/2022. TECHNIQUE: Chest X-ray PA and lateral views were obtained. FINDINGS: No focal consolidation seen. No pulmonary infiltrations seen. Raised right dome of diaphragm seen suggesting diaphragmatic eventration. Minimal Blunting of the right CP angle noted could be related to pleural thickening/small effusion. Shallow left costophrenic angle Stable cardiomegaly. Lucina appears unremarkable. Degenerative changes seen in right glenohumeral joint. IMPRESSION: Raised right dome of diaphragm suggesting diaphragmatic eventration. Minimal Blunting of the right CP angle noted could be related to pleural thickening/small effusion. Stable cardiomegaly with mild vascular congestion. Clinical correlation is suggested. Electronically Signed by: Shanika Lanza MD. (10/15/2023 16:19:14 EDT)
[2023-10-15] MEDS ORDERED: Sodium Chloride 0.9% W/ 20 mEq KCl/LITER 1,000 ML IV ONE (16:51)
[2023-10-15 16:55] LABS: INFLUENZA A NEGATIVE (NEGATIVE); INFLUENZA B NEGATIVE (NEGATIVE); RESPIRATORY SYNCTIAL VIRUS NEGATIVE (NEGATIVE); SARS-CoV-2 Xpert Express NEGATIVE (NEGATIVE)
[2023-10-15] MEDS: Sodium Chloride 0.9% W/ 20 mEq KCl/LITER 1,000 ML IV SCH (16:58)
[2023-10-15 17:24] VITALS: TEMP 98.5
--- NOTE | 2023-10-15 18:52 | XRAY ---
CLINICAL HISTORY: chest pain COMPARISON: Prior chest CT dated 08/01/2022 TECHNIQUE: Contiguous axial CT images of the chest were acquired with the administration of intravenous contrast. Coronal and sagittal reconstructions were obtained. One of the following dose reduction techniques were utilized for this exam: Automated exposure control, adjustment of the mA and/or kV according to patient size, and use of iterative reconstruction. FINDINGS: The heart, great vessels, trachea, and esophagus have a normal appearance. There is no lymphadenopathy. Lung bases show a few linear subsegmental atelectasis. Multilevel old rib fractures of the left hemithorax are noted. Pulmonary vessels and bronchi are normal, as is the pulmonary parenchyma. The pleural spaces are clear. The upper abdominal solid organs and bowel have a normal arterial phase appearance within the field of view. No bony abnormality is identified. No evidence of pulmonary embolism on either side. IMPRESSION: 1. No significant abnormality seen. 2. No evidence of pulmonary embolism. Electronically Signed by: Shanika Lanza MD. (10/15/2023 18:48:52 EDT)
[2023-10-15 19:02] LABS: ANION GAP 9.3 MEQ/L (5-15); Calcium 8.5 mg/dL (8.4-10.2); Creatinine 1 1.13 mg/dL (0.66-1.25); EST GLOMERULAR FILTRATION RATE 72.1 ML/MIN; Potassium 3.7 mmol/L (3.5-5.1)
[2023-10-15 19:08] VITALS: O2SAT 98
[2023-10-15 19:38] VITALS: BP 139/95; PULSE 71; RESP 18
== END 2023-10-15 19:49 | disposition home or self-care (01) ==
LOC: ED 14:54
DX: R07.9 Chest pain, unspecified (principal); J02.9 Acute pharyngitis, unspecified; R11.2 Nausea with vomiting, unspecified; R19.7 Diarrhea, unspecified; R50.9 Fever, unspecified; Z79.891 Long term (current) use of opiate analgesic; Z79.899 Other long term (current) drug therapy
CPT/HCPCS: 0241U; 36000; 36415; 71046; 71260; 80048; 80053; 82150; 82805; 83605; 83690; 83735; 84484; 85025; 87040; 87651; 93005; 93041; 94640; 94760; 96360; 96361; 96365; 96367; 99285; J0456; J0696; J7609; A9270-GY

== ENCOUNTER 2024-04-20 01:13 | Emergency (ER) | payer MEDICARE ==
[2024-04-20 01:30] VITALS: TEMP 96.9
[2024-04-20] MEDS ORDERED: solu-MEDROL ONE (01:49)
[2024-04-20] MEDS ORDERED: Sterile H2O 10 ml IJ ONE (01:49)
[2024-04-20] MEDS ORDERED: DUONEB 0.5-3 MG/3 ml Neb IH ONE (01:50)
[2024-04-20] MEDS: solu-MEDROL 125 MG, Sterile H2O 10 ml 2 ML IV ONE (01:52)
[2024-04-20 01:56] LABS: Absolute Neutrophil Ct (ANC) 2.83 x10^3/uL (1.78-5.38); BASOPHIL % 0.7 % (0.2-1.2); Basophil (Absolute #) 0.04 x10^3/uL (0.01-0.08); Eosinophil % 5.1 % (0.8-7.0); Hematocrit 37.9 % (40.1-51.0); Hemoglobin 12.5 g/dL (13.7-17.5); Lymphocyte (Absolute #) 2.17 x10^3/uL (1.32-3.57); Lymphocytes % 37.2 % (21.8-53.1); Mean Cell Volume 86.3 fL (79.0-92.2); Mean Corpuscular Hemoglobin 28.5 pg (25.7-32.2); Mean Platelet Volume 9.4 fL (9.4-12.4); Monocytes % 8.6 % (5.3-12.2); Neutrophil % 48.4 % (34.0-67.9); Platelet Count 209 x10^3/uL (163-337); Red Blood Count 4.39 x10^6/uL (4.63-6.08); Red Cell Distribution Width 14.1 % (11.6-14.4); White Blood Count 5.8 x10^3/uL (4.23-9.07)
[2024-04-20] MEDS: DUONEB 0.5-3 MG/3 ml Neb IH ONE (01:56)
[2024-04-20 02:05] LABS: ALBUMIN 4.3 g/dL (3.5-5.0); ANION GAP 13.7 MEQ/L (5-15); BILIRUBIN,TOTAL 0.4 mg/dL (0.2-1.3); Calcium 8.9 mg/dL (8.4-10.2); Creatinine 1 0.95 mg/dL (0.66-1.25); EST GLOMERULAR FILTRATION RATE 88.3 ML/MIN; Potassium 4.2 mmol/L (3.5-5.1); Total Protein 6.7 g/dL (6.3-8.2)
[2024-04-20 03:03] VITALS: PULSE 71
--- NOTE | 2024-04-20 03:36 | XRAY ---
CLINICAL HISTORY: cough COMPARISON: 10/15/2023. TECHNIQUE: Radiograph of chest was acquired. FINDINGS: The lungs are clear and well-expanded with no pulmonary infiltrate. Persistent blunting of the left CP angle is noted. Persistent opacity is noted along the right lateral chest wall. Cardiomegaly is noted. No acute osseous abnormality. Both hemidiaphragms are normally positioned in the current study. IMPRESSION: 1. Cardiomegaly. 2. Persistent blunting of the left CP angle is noted. 3. Persistent opacity is noted along the right lateral chest wall. Diagnostic differentials include 1) pleural effusion 2) pleural thickening. No significant interval change in the findings is noted as compared to the previous radiograph. Electronically Signed by: Chao Rodríguez MD. (04/20/2024 03:31:46 EDT)
[2024-04-20 04:06] VITALS: BP 146/94; RESP 14; O2SAT 94
--- NOTE | 2024-04-20 04:23 | ERPHSYRPT ---
- History of Present Illness Time Seen by Provider: 04/20/24 01:45 Source: patient Exam Limitations: no limitations Patient Subjective Stated Complaint: cough, rt side of lung hurts, I think I may have bronchitis or pneumonia Triage Nursing Assessment: Pt ambulated into ER without diff, alert and oriented x4. Pt c/o non-prod cough since 4pm yesterday. Lungs clear throughout, but diminished to RLL. Pt is unable to lie flat. Heart tones reg. Physician History: 68-year-old male presents to emergency department for evaluation of a cough. Patient states his cough began yesterday. Cough is constant. Patient states his cough is forceful and causes right rib to hurt. No trauma no fever. No history of PE DVT. No associated chest pain. No nausea vomiting or diaphoresis. Symptoms are mild to moderate in intensity. No specific worsening or improving factors. Patient denies exertional dyspnea. Patient otherwise feels well. He voices no other complaints or concerns at this time. Portions of this note were created with voice recognition technology. There may be grammatical, spelling, punctuation or sound alike errors Timing/Duration: yesterday Severity: moderate Modifying Factors: Improves With: nothing Associated Symptoms: denies symptoms Allergies/Adverse Reactions: No Known Drug Allergies Allergy (Verified 04/20/24 01:42) Home Medications: Multivitamin with Minerals [Multiple Vitamin] 1 each PO DAILY 07/23/12 [History] Buspirone HCl 5 mg [Buspar 5 mg] 15 mg PO TID 02/08/15 [History] Gabapentin 300 mg PO QID 02/08/15 [History] buPROPion HCL [Bupropion HCl Sr] 200 mg PO BID 02/08/15 [History] Allopurinol 300 mg [Zyloprim 300 mg] 300 mg PO DAILY 07/03/23 [History] Metoprolol Succinate 50 mg [Toprol Xl 50 MG] 50 mg PO DAILY 07/03/23 [History] Primidone 500 mg PO TID 07/03/23 [History] Venlafaxine HCl [Venlafaxine HCl ER] 150 mg PO DAILY 07/03/23 [History] Tizanidine HCl 4 mg [Zanaflex 4 MG] 4 mg PO TID PRN 10/15/23 [History] Fexofenadine HCl 180 mg PO DAILY 04/20/24 [History] Fluticasone Propionate 2 sprays IH DAILY 04/20/24 [History] Hx Tetanus, Diphtheria Vaccination/Date Given: Yes Hx Influenza Vaccination/Date Given: No Hx Pneumococcal Vaccination/Date Given: Yes Travel Risk - International Travel Have you traveled outside of the country in past 3 weeks: No - Emerging Infectious Disease Are you exhibiting symptoms associated with any current EIDs: Yes Symptoms: Cough: New Onset - Review of Systems Constitutional: No Symptoms Eyes: No Symptoms Ears, Nose, & Throat: No Symptoms Respiratory: No Symptoms, No Cough, No Dyspnea Cardiac: No Symptoms, No Chest Pain, No Edema, No Syncope Abdominal/Gastrointestinal: No Symptoms, No Abdominal Pain, No Nausea, No Vomiting, No Diarrhea Genitourinary Symptoms: No Symptoms, No Dysuria Musculoskeletal: No Symptoms, No Back Pain, No Neck Pain Skin: No Symptoms, No Rash Neurological: No Symptoms, No Dizziness, No Focal Weakness, No Sensory Changes Psychological: No Symptoms Endocrine: No Symptoms Hematologic/Lymphatic: No Symptoms Immunological/Allergic: No Symptoms All Other Systems: Reviewed and Negative - Past Medical History Pertinent Past Medical History: Yes Neurological History: No Pertinent History ENT History: No Pertinent History Cardiac History: Arrhythmia Respiratory History: Bronchitis, COPD, Pneumonia, Sleep Apnea Endocrine Medical History: No Pertinent History Musculoskeletal History: Arthritis GI Medical History: No Pertinent History History: Renal Disease Psycho-Social History: No Pertinent History Male Reproductive Disorders: No Pertinent History Other Medical History: PTSD, ear ringing, a-fib - Past Surgical History Past Surgical History: Yes Neuro Surgical History: No Pertinent History Cardiac: No Pertinent History Respiratory: No Pertinent History Gastrointestinal: No Pertinent History Genitourinary: No Pertinent History Musculoskeletal: Joint Replacement, Orthopedic Surgery Male Surgical History: No Pertinent History Other Surgical History: Right knee, rt shoulder surgery, rt elbow surgery, rt ankle/foot, low back - Social History Smoking Status: Former smoker How long have you smoked: 25+ years Exposure to second hand smoke: Yes Drug Use: none Patient Lives Alone: No - Social Determinants of Health Will the patient participate in the screening: Yes Do you worry about a steady place to live?: No Do you have any problems with any of the following?: No known problems In the past 12 months,have you had to go without utilities?: No Transportation Issues: No Has anyone in your support network made you feel unsafe?: No Have you or anyone in your house had to go without enough: No - Nursing Vital Signs Nursing Vital Signs: Initial Vital Signs Temperature 96.9 F 04/20/24 01:28 Pulse Rate 74 04/20/24 01:28 Respiratory Rate 20 04/20/24 01:28 Blood Pressure 168/101 04/20/24 01:28 O2 Sat by Pulse Oximetry 96 04/20/24 01:28 Pain Scale Pain Intensity 6 - Physical Exam General Appearance: no apparent distress, alert Eye Exam: PERRL/EOMI, eyes nml inspection Ears, Nose, Throat Exam: normal ENT inspection, TMs normal, pharynx normal, moist mucous membranes Neck Exam: normal inspection, non-tender, supple, full range of motion Respiratory Exam: normal breath sounds, airway intact, wheezing, other (Tenderness palpation to right ribs 5 6 and 7. Overlying soft tissue intact. No signs of trauma), No respiratory distress Cardiovascular Exam: regular rate/rhythm, normal heart sounds, normal peripheral pulses Gastrointestinal/Abdomen Exam: soft, normal bowel sounds, No tenderness, No mass Back Exam: normal inspection, normal range of motion, No CVA tenderness, No v ertebral tenderness Extremity Exam: normal inspection, normal range of motion, pelvis stable Neurologic Exam: alert, oriented x 3, cooperative, normal mood/affect, sensation nml, No motor deficits Skin Exam: normal color, warm, dry, No rash Lymphatic Exam: No adenopathy SpO2 Interpretation: normal SpO2: 94 O2 Delivery: Room Air - Course Nursing assessment & vital signs reviewed: Yes - Radiology Exams Chest X-ray Interpretation: Teleradiologist Report (No acute finding) Ordered Tests: Active Orders 24 hr Category Date Time Status Manager Crisis STAT Care 04/20/24 01:45 Active IV Insertion STAT Care 04/20/24 01:41 Active Pulse Oximetry (ED) STAT Care 04/20/24 01:44 Active CHEST WITHOUT CONTRAST [CT] Stat Exams 04/20/24 02:54 Stop Req Portable Chest [CHEST 1 VIEW (PORTABLE)] Stat Exams 04/20/24 02:38 Completed BLOOD CULTURE Stat Lab 04/20/24 02:10 Received CBC W DIFF Stat Lab 04/20/24 01:40 Completed CMP Stat Lab 04/20/24 01:40 Completed D-DIMER QUANTITATIVE Stat Lab 04/20/24 01:40 Completed TROPONIN Q4H Lab 04/20/24 01:40 Completed TROPONIN Q4H Lab 04/20/24 05:45 Ordered TROPONIN Q4H Lab 04/20/24 09:45 Ordered Respiratory Therapy Assessment DAILY RT 04/20/24 01:57 Active Medication Summary Discontinued Medications Generic Name Dose Route Start Last Admin Trade Name Mechelle PRN Reason Stop Dose Admin Albuterol/Ipratropium 3 ml 04/20/24 01:46 04/20/24 01:56 Ipratropium/Albuterol Sulfate 3 Ml Ampul.Neb IH 04/20/24 01:47 3 ml STAT ONE Administration Albuterol/Ipratropium Confirm 04/20/24 01:50 Ipratropium/Albuterol Sulfate 3 Ml Ampul.Neb Administered 04/20/24 01:51 Dose 3 ml IH .STK-MED ONE Methylprednisolone Sodium 0 mg 04/20/24 01:45 04/20/24 01:52 Succinate 125 mg/ Sterile IV 04/20/24 01:46 125 mg Water 2 ml STAT ONE Administration Methylprednisolone Sodium Succinate Confirm 04/20/24 01:49 Methylprednis Sod Succ 125 Mg/2 Ml Vial Administered 04/20/24 01:50 Dose 125 mg .ROUTE .STK-MED ONE Sterile Water Confirm 04/20/24 01:49 Water For Injection,Sterile 10 Ml Vial Administered 04/20/24 01:50 Dose 10 ml IJ .STK-MED ONE Lab/Rad Data: Laboratory Result Diagrams 04/20/24 01:40 04/20/24 01:40 Laboratory Results 04/20/24 04/20/24 04/20/24 Range/Units 01:40 01:40 01:40 WBC (4.23-9.07) x10^3/uL RBC (4.63-6.08) x10^6/uL Hgb (13.7-17.5) g/dL Hct (40.1-51.0) % MCV (79.0-92.2) fL MCH (25.7-32.2) pg MCHC (32.3-36.5) g/dL RDW (11.6-14.4) % Plt Count (163-337) x10^3/uL MPV (9.4-12.4) fL Gran % (34.0-67.9) % Immature Gran % (Auto) (0.001-0.429) % Nucleat RBC Rel Count (0.00-0.2) % Eos # (Auto) (0.04-0.54) x10^3/uL Immature Gran # (Auto) (0.001-0.031) x10^3u/L Absolute Lymphs (auto) (1.32-3.57) x10^3/uL Absolute Monos (auto) (0.30-0.82) x10^3/uL Absolute Nucleated RBC (0.00-0.012) x10^3u/L Lymphocytes % (21.8-53.1) % Monocytes % (5.3-12.2) % Eosinophils % (0.8-7.0) % Basophils % (0.2-1.2) % Absolute Granulocytes (1.78-5.38) x10^3/uL Basophils # (0.01-0.08) x10^3/uL D-Dimer 0.25 (0.0-0.50) mg/L Sodium 140 (135-145) mmol/L Potassium 4.2 (3.5-5.1) mmol/L Chloride 106 (98-107) mmol/L Carbon Dioxide 25 (22-30) mmol/L Anion Gap 13.7 (5-15) MEQ/L BUN 17 (9-20) mg/dL Creatinine 0.95 (0.66-1.25) mg/dL Estimated GFR 88.3 ML/MIN Glucose 129 H (74-106) mg/dL Calcium 8.9 (8.4-10.2) mg/dL Total Bilirubin 0.40 (0.2-1.3) mg/dL AST 36 (17-59) U/L ALT 34 (0-50) U/L Alkaline Phosphatase 45 (38-126) U/L Troponin I < 0.012 (0.000-0.033) ng/mL Serum Total Protein 6.7 (6.3-8.2) g/dL Albumin 4.3 (3.5-5.0) g/dL 04/20/24 Range/Units 01:40 WBC 5.8 (4.23-9.07) x10^3/uL RBC 4.39 L (4.63-6.08) x10^6/uL Hgb 12.5 L (13.7-17.5) g/dL Hct 37.9 L (40.1-51.0) % MCV 86.3 (79.0-92.2) fL MCH 28.5 (25.7-32.2) pg MCHC 33.0 (32.3-36.5) g/dL RDW 14.1 (11.6-14.4) % Plt Count 209 (163-337) x10^3/uL MPV 9.4 (9.4-12.4) fL Gran % 48.4 (34.0-67.9) % Immature Gran % (Auto) 0.0 L (0.001-0.429) % Nucleat RBC Rel Count 0.0 (0.00-0.2) % Eos # (Auto) 0.30 (0.04-0.54) x10^3/uL Immature Gran # (Auto) 0.00 L (0.001-0.031) x10^3u/L Absolute Lymphs (auto) 2.17 (1.32-3.57) x10^3/uL Absolute Monos (auto) 0.50 (0.30-0.82) x10^3/uL Absolute Nucleated RBC 0.00 (0.00-0.012) x10^3u/L Lymphocytes % 37.2 (21.8-53.1) % Monocytes % 8.6 (5.3-12.2) % Eosinophils % 5.1 (0.8-7.0) % Basophils % 0.7 (0.2-1.2) % Absolute Granulocytes 2.83 (1.78-5.38) x10^3/uL Basophils # 0.04 (0.01-0.08) x10^3/uL D-Dimer (0.0-0.50) mg/L Sodium (135-145) mmol/L Potassium (3.5-5.1) mmol/L Chloride (98-107) mmol/L Carbon Dioxide (22-30) mmol/L Anion Gap (5-15) MEQ/L BUN (9-20) mg/dL Creatinine (0.66-1.25) mg/dL Estimated GFR ML/MIN Glucose (74-106) mg/dL Calcium (8.4-10.2) mg/dL Total Bilirubin (0.2-1.3) mg/dL AST (17-59) U/L ALT (0-50) U/L Alkaline Phosphatase (38-126) U/L Troponin I (0.000-0.033) ng/mL Serum Total Protein (6.3-8.2) g/dL Albumin (3.5-5.0) g/dL - Progress Progress: improved Progress Note: 68-year-old male presents to our ED for evaluation of 1 day history of cough. Patient states his coughs are forceful and cause his right rib to hurt. Patient concerned that he may have pneumonia. Possible bronchitis. No fever. Physical exam reveals slight wheezing. Physical exam otherwise normal. D-dimer negative. Troponin negative. Laboratory workup nonremarkable. Chest x-ray negative. Patient received Solu-Medrol and DuoNeb. Symptoms resolved coughing resolved. Lungs are clear. Patient sleeping normal vitals. No indication for further workup at this time will discharge home. Patient agrees to follow-up with his primary care doctor within 48 hours for evaluation. Patient voices no other complaints or concerns at this time. Portions of this note were created with voice recognition technology. There may be grammatical, spelling, punctuation or sound alike errors Complexity problem addressed is moderate acute complicated. No critical care time. Complex data reviewed and analyzed is moderate. Test ordered chest reviewed results analyzed and correlated clinically with history and physical exam. Risk of complication and or risk of morbidity/mortality of patient management is moderate. A prescription for prednisone forwarded to patient's pharmacy. Vital stable. Time spent to discharge patient approximately 15 minutes. Plan of care established for shared decision making. No social determinants of health present to impede follow-up. Portions of this note were created with voice recognition technology. There may be grammatical, spelling, punctuation or sound alike errors 04/20/24 04:25 Counseled pt/family regarding: lab results, diagnosis, need for follow-up, rad results - Departure Departure Disposition: Home Clinical Impression: Cough, Wheezing, Intercostal muscle strain Condition: Stable Critical Care Time: No Referrals: HOLLY [facility] [Primary Care Provider] - Follow up/PCP as directed Additional Instructions: Discharge/Care Plan SAHUNA MENDOZA was seen on 04/20/24 in the Emergency Room. The patient was counseled regarding Diagnosis,Lab results, Imaging studies, need for follow up and when to return to the Emergency Room. Prescriptions given: Discharge Note I have spoken with the patient and/or caregivers. I have explained the patient's condition, diagnosis and treatment plan based on the information available to me at this time. I have answered the patient's and/or caregiver's questions and addressed any concerns. The patient and/or caregivers have as good understanding of the patient's diagnosis, condition and treatment plan as can be expected at this point. The vital signs have been stable. The patient's condition is stable and appropriate for discharge from the emergency department. The patient will pursue further outpatient evaluation with the primary care physician or other designated or consulting physician as outlined in the discharge instructions. The patient and/or caregivers are agreeable to this plan of care and follow-up instructions have been explained in detail. The patient and/or caregivers have received these instruction. The patient/and or caregivers are aware that any significant change in condition or worsening of symptoms should prompt an immediate return to this or the closest emergency department or call 911. Prescriptions: Prednisone 20 mg [Deltasone 20 mg] 40 mg PO DAILY 3 Days #6 tablet
== END 2024-04-20 04:27 | disposition home or self-care (01) ==
LOC: ED 01:13
DX: R05.1 Acute cough (principal); R06.2 Wheezing; S29.011A Strain of muscle and tendon of front wall of thorax, initial encounter; X50.0XXA Overexertion from strenuous movement or load, initial encounter; Z79.52 Long term (current) use of systemic steroids; Z79.899 Other long term (current) drug therapy
CPT/HCPCS: 36000; 36415; 71045; 80053; 84484; 85025; 85379; 87040; 93041; 94640; 94760; 96374; 99284; J2919; A9270-GY

== ENCOUNTER 2024-06-26 20:41 | Emergency (ER) | payer MEDICARE ==
--- NOTE | 2024-06-26 21:09 | ERPHSYRPT ---
- History of Present Illness Time Seen by Provider: 06/26/24 21:09 Source: patient, family Exam Limitations: no limitations Physician History: This is a 68-year-old white male who presents to the emergency department with coughing symptoms for a week and worse in the last 2 days. He now has stabbing left lateral chest wall pain when he coughs. Patient has a history of atrial fibrillation, bronchitis, COPD, arthritis, sleep apnea and chronic renal disease. He has mild associated shortness of breath while he is coughing. He has no abdominal pain. He had no vomiting or diarrhea symptoms. He has not measured a fever at home. Timing/Duration: week(s) (1), worse (Symptoms worse in the last 2 days) Cough Quality/Degree: moderate, dry cough Possible Cause: occasional episodes Modifying Factors: Improves With: coughing Associated Symptoms: chest pain/soreness (Associated with coughing), cough, shortness of breath (Proceed with coughing), No fever, No muscle aches, No sore throat Allergies/Adverse Reactions: No Known Drug Allergies Allergy (Verified 06/26/24 21:17) Home Medications: Multivitamin with Minerals [Multiple Vitamin] 1 each PO DAILY 07/23/12 [History] Buspirone HCl 5 mg [Buspar 5 mg] 15 mg PO TID 02/08/15 [History] Gabapentin 300 mg PO QID 02/08/15 [History] buPROPion HCL [Bupropion HCl Sr] 200 mg PO BID 02/08/15 [History] Allopurinol 300 mg [Zyloprim 300 mg] 300 mg PO DAILY 07/03/23 [History] Metoprolol Succinate 50 mg [Toprol Xl 50 MG] 50 mg PO DAILY 07/03/23 [History] Primidone 500 mg PO TID 07/03/23 [History] Venlafaxine HCl [Venlafaxine HCl ER] 150 mg PO DAILY 07/03/23 [History] Tizanidine HCl 4 mg [Zanaflex 4 MG] 4 mg PO TID PRN 10/15/23 [History] Fexofenadine HCl 180 mg PO DAILY 04/20/24 [History] Fluticasone Propionate 2 sprays IH DAILY 04/20/24 [History] Hx Tetanus, Diphtheria Vaccination/Date Given: Yes Hx Influenza Vaccination/Date Given: No Hx Pneumococcal Vaccination/Date Given: Yes Travel Risk - International Travel Have you traveled outside of the country in past 3 weeks: No - Emerging Infectious Disease Are you exhibiting symptoms associated with any current EIDs: Yes Symptoms: Cough: New Onset - Review of Systems Constitutional: No Symptoms Eyes: No Symptoms Ears, Nose, & Throat: No Symptoms Respiratory: Cough, Dyspnea (Associated with coughing) Cardiac: Chest Pain (Associated with coughing) Abdominal/Gastrointestinal: No Symptoms Genitourinary Symptoms: No Symptoms Musculoskeletal: Arthralgias, Myalgias Skin: No Symptoms Neurological: No Symptoms Psychological: No Symptoms Endocrine: No Symptoms Hematologic/Lymphatic: No Symptoms Immunological/Allergic: No Symptoms All Other Systems: Reviewed and Negative - Past Medical History Pertinent Past Medical History: Yes Neurological History: No Pertinent History ENT History: No Pertinent History Cardiac History: Arrhythmia Respiratory History: Bronchitis, COPD, Pneumonia, Sleep Apnea Endocrine Medical History: No Pertinent History Musculoskeletal History: Arthritis GI Medical History: No Pertinent History History: Renal Disease Psycho-Social History: No Pertinent History Male Reproductive Disorders: No Pertinent History Other Medical History: PTSD, ear ringing, a-fib - Past Surgical History Past Surgical History: Yes Neuro Surgical History: No Pertinent History Cardiac: No Pertinent History Respiratory: No Pertinent History Gastrointestinal: No Pertinent History Genitourinary: No Pertinent History Musculoskeletal: Joint Replacement, Orthopedic Surgery Male Surgical History: No Pertinent History Other Surgical History: Right knee, rt shoulder surgery, rt elbow surgery, rt ankle/foot, low back - Social History Smoking Status: Former smoker How long have you smoked: 25+ years Exposure to second hand smoke: Yes Drug Use: none Patient Lives Alone: No - Social Determinants of Health Will the patient participate in the screening: Yes Do you worry about a steady place to live?: No In the past 12 months,have you had to go without utilities?: No Transportation Issues: No Has anyone in your support network made you feel unsafe?: No Have you or anyone in your house had to go without enough: No - Nursing Vital Signs Nursing Vital Signs: Initial Vital Signs Temperature 98.7 F 06/26/24 21:21 Pulse Rate 93 H 06/26/24 21:21 Respiratory Rate 24 06/26/24 21:21 Blood Pressure 125/88 06/26/24 21:21 O2 Sat by Pulse Oximetry 99 06/26/24 21:21 Pain Scale Pain Intensity 5 - Physical Exam General Appearance: mild distress, alert, anxiety Eye Exam: PERRL/EOMI, eyes nml inspection Ears, Nose, Throat Exam: normal ENT inspection, moist mucous membranes Neck Exam: normal inspection, non-tender, supple, full range of motion Respiratory Exam: airway intact, wheezing, No chest tenderness, No respiratory distress, No accessory muscle use (Toward bilateral) Cardiovascular Exam: regular rate/rhythm, normal heart sounds, normal peripheral pulses Gastrointestinal/Abdomen Exam: soft, normal bowel sounds, No tenderness Rectal Exam: not done Back Exam: normal inspection, normal range of motion, No CVA tenderness, No vertebral tenderness Extremity Exam: normal inspection, normal range of motion, pelvis stable Neurologic Exam: alert, oriented x 3, cooperative, quality assistant II-XII nml as tested, nml cerebellar function, nml station & gait, sensation nml Skin Exam: normal color, warm, dry Lymphatic Exam: No adenopathy SpO2 Interpretation: normal O2 Delivery: Room Air - Course Nursing assessment & vital signs reviewed: Yes Ordered Tests: Active Orders 24 hr Category Date Time Status Hotel Controller STAT Care 06/26/24 21:38 Active EKG-ER Only STAT Care 06/26/24 21:38 Active IV Insertion STAT Care 06/26/24 21:38 Active Pulse Oximetry (ED) STAT Care 06/26/24 21:38 Active CHEST 1 VIEW (PORTABLE) Stat Exams 06/26/24 23:06 Taken BLOOD CULTURE Stat Lab 06/26/24 21:59 Received CBC W DIFF Stat Lab 06/26/24 21:50 Completed CMP Stat Lab 06/26/24 21:50 Completed D-DIMER QUANTITATIVE Stat Lab 06/26/24 21:50 Completed Lactic Acid Stat Lab 06/26/24 21:43 Completed MAGNESIUM Stat Lab 06/26/24 21:50 Completed NT PRO BNPII Stat Lab 06/26/24 21:50 Completed TROPONIN Q4H Lab 06/26/24 21:50 Completed TROPONIN Q4H Lab 06/27/24 01:45 Ordered TROPONIN Q4H Lab 06/27/24 05:45 Ordered Respiratory Therapy Assessment DAILY RT 06/26/24 21:25 Active Medication Summary Generic Name Dose Route Start Last Admin Trade Name Freq PRN Reason Stop Dose Admin Ceftriaxone Sodium 1 gm in 100 mls @ 200 mls/hr 06/26/24 23:30 Rocephin 1 Gm / 100 Ml Nacl IV 06/26/24 23:59 STAT ONE Discontinued Medications Generic Name Dose Route Start Last Admin Trade Name Mechelle PRN Reason Stop Dose Admin Hydrocodone Bitart/Acetaminophen 15 ml 06/26/24 21:40 06/26/24 22:15 Hydrocodone/Acetaminophen 5 Ml Udcup PO 06/26/24 21:41 15 ml STAT STA Administration Hydrocodone Bitart/Acetaminophen Confirm 06/26/24 21:51 Hydrocodone/Acetaminophen 5 Ml Udcup Administered 06/26/24 21:52 Dose 15 ml .ROUTE .STK-MED ONE Albuterol/Ipratropium Confirm 06/26/24 21:22 Ipratropium/Albuterol Sulfate 3 Ml Ampul.Neb Administered 06/26/24 21:23 Dose 3 ml IH .STK-MED ONE Albuterol/Ipratropium 3 ml 06/26/24 21:26 06/26/24 21:28 Ipratropium/Albuterol Sulfate 3 Ml Ampul.Neb IH 06/26/24 21:27 3 ml STAT ONE Administration Methylprednisolone Sodium 0 mg 06/26/24 21:40 06/26/24 22:15 Succinate 125 mg/ Sterile IV 06/26/24 21:41 125 mg Water 2 ml STAT ONE Administration Methylprednisolone Sodium Succinate Confirm 06/26/24 21:51 Methylprednis Sod Succ 125 Mg/2 Ml Vial Administered 06/26/24 21:52 Dose 125 mg .ROUTE .STK-MED ONE Sterile Water Confirm 06/26/24 21:50 Water For Injection,Sterile 10 Ml Vial Administered 06/26/24 21:51 Dose 10 ml IJ .STK-MED ONE Lab/Rad Data: Laboratory Result Diagrams 06/26/24 21:50 06/26/24 21:50 Laboratory Results 06/26/24 06/26/24 06/26/24 Range/Units 22:00 21:50 21:50 WBC (4.23-9.07) x10^3/uL RBC (4.63-6.08) x10^6/uL Hgb (13.7-17.5) g/dL Hct (40.1-51.0) % MCV (79.0-92.2) fL MCH (25.7-32.2) pg MCHC (32.3-36.5) g/dL RDW (11.6-14.4) % Plt Count (163-337) x10^3/uL MPV (9.4-12.4) fL Gran % (34.0-67.9) % Immature Gran % (Auto) (0.001-0.429) % Nucleat RBC Rel Count (0.00-0.2) % Eos # (Auto) (0.04-0.54) x10^3/uL Immature Gran # (Auto) (0.001-0.031) x10^3u/L Absolute Lymphs (auto) (1.32-3.57) x10^3/uL Absolute Monos (auto) (0.30-0.82) x10^3/uL Absolute Nucleated RBC (0.00-0.012) x10^3u/L Lymphocytes % (21.8-53.1) % Monocytes % (5.3-12.2) % Eosinophils % (0.8-7.0) % Basophils % (0.2-1.2) % Absolute Granulocytes (1.78-5.38) x10^3/uL Basophils # (0.01-0.08) x10^3/uL D-Dimer 0.24 (0.0-0.50) mg/L Sodium (135-145) mmol/L Potassium (3.5-5.1) mmol/L Chloride (98-107) mmol/L Carbon Dioxide (22-30) mmol/L Anion Gap (5-15) MEQ/L BUN (9-20) mg/dL Creatinine (0.66-1.25) mg/dL Estimated GFR ML/MIN Glucose (74-106) mg/dL Lactic Acid (0.4-2.0) Calcium (8.4-10.2) mg/dL Magnesium (1.6-2.3) mg/dL Total Bilirubin (0.2-1.3) mg/dL AST (17-59) U/L ALT (0-50) U/L Alkaline Phosphatase (38-126) U/L Troponin I (0.000-0.033) ng/mL NT-Pro-B Natriuret Pep 487 (<300) pg/mL Serum Total Protein (6.3-8.2) g/dL Albumin (3.5-5.0) g/dL Influenza Type A Ag NEGATIVE (NEGATIVE) Influenza Type B Ag NEGATIVE (NEGATIVE) RSV (PCR) NEGATIVE (NEGATIVE) SARS-CoV-2 (PCR) NEGATIVE (NEGATIVE) 06/26/24 06/26/24 06/26/24 Range/Units 21:50 21:50 21:50 WBC 15.0 H (4.23-9.07) x10^3/uL RBC 4.19 L (4.63-6.08) x10^6/uL Hgb 11.8 L (13.7-17.5) g/dL Hct 37.2 L (40.1-51.0) % MCV 88.8 (79.0-92.2) fL MCH 28.2 (25.7-32.2) pg MCHC 31.7 L (32.3-36.5) g/dL RDW 13.9 (11.6-14.4) % Plt Count 230 (163-337) x10^3/uL MPV 9.3 L (9.4-12.4) fL Gran % 72.5 H (34.0-67.9) % Immature Gran % (Auto) 0.4 (0.001-0.429) % Nucleat RBC Rel Count 0.0 (0.00-0.2) % Eos # (Auto) 0.28 (0.04-0.54) x10^3/uL Immature Gran # (Auto) 0.06 H (0.001-0.031) x10^3u/L Absolute Lymphs (auto) 2.85 (1.32-3.57) x10^3/uL Absolute Monos (auto) 0.91 H (0.30-0.82) x10^3/uL Absolute Nucleated RBC 0.00 (0.00-0.012) x10^3u/L Lymphocytes % 18.9 L (21.8-53.1) % Monocytes % 6.1 (5.3-12.2) % Eosinophils % 1.9 (0.8-7.0) % Basophils % 0.2 (0.2-1.2) % Absolute Granulocytes 10.91 H (1.78-5.38) x10^3/uL Basophils # 0.03 (0.01-0.08) x10^3/uL D-Dimer (0.0-0.50) mg/L Sodium 135 (135-145) mmol/L Potassium 4.7 (3.5-5.1) mmol/L Chloride 103 (98-107) mmol/L Carbon Dioxide 27 (22-30) mmol/L Anion Gap 9.8 (5-15) MEQ/L BUN 22 H (9-20) mg/dL Creatinine 1.56 H (0.66-1.25) mg/dL Estimated GFR 48.7 ML/MIN Glucose 152 H (74-106) mg/dL Lactic Acid (0.4-2.0) Calcium 8.9 (8.4-10.2) mg/dL Magnesium 2.2 (1.6-2.3) mg/dL Total Bilirubin 0.20 (0.2-1.3) mg/dL AST 31 (17-59) U/L ALT 35 (0-50) U/L Alkaline Phosphatase 54 (38-126) U/L Troponin I < 0.012 (0.000-0.033) ng/mL NT-Pro-B Natriuret Pep (<300) pg/mL Serum Total Protein 5.9 L (6.3-8.2) g/dL Albumin 4.1 (3.5-5.0) g/dL Influenza Type A Ag (NEGATIVE) Influenza Type B Ag (NEGATIVE) RSV (PCR) (NEGATIVE) SARS-CoV-2 (PCR) (NEGATIVE) 06/26/24 Range/Units 21:43 WBC (4.23-9.07) x10^3/uL RBC (4.63-6.08) x10^6/uL Hgb (13.7-17.5) g/dL Hct (40.1-51.0) % MCV (79.0-92.2) fL MCH (25.7-32.2) pg MCHC (32.3-36.5) g/dL RDW (11.6-14.4) % Plt Count (163-337) x10^3/uL MPV (9.4-12.4) fL Gran % (34.0-67.9) % Immature Gran % (Auto) (0.001-0.429) % Nucleat RBC Rel Count (0.00-0.2) % Eos # (Auto) (0.04-0.54) x10^3/uL Immature Gran # (Auto) (0.001-0.031) x10^3u/L Absolute Lymphs (auto) (1.32-3.57) x10^3/uL Absolute Monos (auto) (0.30-0.82) x10^3/uL Absolute Nucleated RBC (0.00-0.012) x10^3u/L Lymphocytes % (21.8-53.1) % Monocytes % (5.3-12.2) % Eosinophils % (0.8-7.0) % Basophils % (0.2-1.2) % Absolute Granulocytes (1.78-5.38) x10^3/uL Basophils # (0.01-0.08) x10^3/uL D-Dimer (0.0-0.50) mg/L Sodium (135-145) mmol/L Potassium (3.5-5.1) mmol/L Chloride (98-107) mmol/L Carbon Dioxide (22-30) mmol/L Anion Gap (5-15) MEQ/L BUN (9-20) mg/dL Creatinine (0.66-1.25) mg/dL Estimated GFR ML/MIN Glucose (74-106) mg/dL Lactic Acid 2.3 H (0.4-2.0) Calcium (8.4-10.2) mg/dL Magnesium (1.6-2.3) mg/dL Total Bilirubin (0.2-1.3) mg/dL AST (17-59) U/L ALT (0-50) U/L Alkaline Phosphatase (38-126) U/L Troponin I (0.000-0.033) ng/mL NT-Pro-B Natriuret Pep (<300) pg/mL Serum Total Protein (6.3-8.2) g/dL Albumin (3.5-5.0) g/dL Influenza Type A Ag (NEGATIVE) Influenza Type B Ag (NEGATIVE) RSV (PCR) (NEGATIVE) SARS-CoV-2 (PCR) (NEGATIVE) - Progress Progress: improved, re-examined Air Movement: good Progress Note: 12/23/24 22:04 My medical decision making and the assignment of moderate complexity to this patient's medical issue today is based on review of the patient's past medical history, review the patient's medication list, reviewed patient drug allergy list, history present illness and physical findings on examination. The workup in this patient includes placement of intravenous line, infusion of Solu-Medrol, oral hydrocodone/acetaminophen elixir to help with cough suppressant, CBC, CMP, lactic acid level, troponin level, twelve-lead EKG, viral swabs, D-dimer level, BNP level. Differential diagnosis includes but is not limited to arrhythmia, myocardial infarction, viral illness, pulmonary embolus, pneumonia 06/26/24 23:31 I interpreted the patient's laboratory data results. Based on the laboratory data results, the patient has a leukocytosis with a left shift. No other acute or emergent findings present. I interpreted the patient's preliminary chest x-ray report. I do not appreciate an acute cardiopulmonary process. There is questionable cardiomegaly. There is a poor inspiratory effort Blood Culture(s) Obtained: Yes Antibiotics given: Yes Counseled pt/family regarding: lab results, diagnosis, need for follow-up, rad results Medical Desision Making - Diagnostic Testing Diagnostic test were ordered, analyzed, and reviewed by me: Yes Radiological Interpretation: Interpreted by me, Teleradiologist Report - Risk of complications The pt has a mod risk of morbidity or mortality based on: Need for prescription drug management - Departure Departure Disposition: Home Clinical Impression: Leukocytosis, Upper respiratory infection Condition: Stable Critical Care Time: No Referrals: HOLLY GARNER FNP [Primary Care Provider] - Follow up/PCP as directed Additional Instructions: Avoid exposure to any type of smoke. Take all your medications as prescribed. Call your primary care provider tomorrow, 06/27/2024, to make arrangements for follow-up appointment to be seen in the next 5 to 7 days. Prescriptions: Prednisone 10 mg [Deltasone 10 mg] 10 mg PO TID #12 tablet Hydrocodone/Acetaminophen [Hydrocodone-Acetamn 7.5-325/15] 10 ml PO Q8H PRN #120 ml MDD 30 ml PRN Reason: Cough Azithromycin 250 mg [Zithromax 250 MG TABLET] 250 mg PO ZPACK #6 tablet
[2024-06-26] MEDS ORDERED: DUONEB 0.5-3 MG/3 ml Neb IH ONE ×2 (21:22→23:55)
[2024-06-26] MEDS: DUONEB 0.5-3 MG/3 ml Neb IH ONE ×2 (21:28→23:56)
[2024-06-26 21:34] VITALS: TEMP 98.7
[2024-06-26] MEDS ORDERED: Sterile H2O 10 ml IJ ONE (21:50)
[2024-06-26] MEDS ORDERED: HYDROCODONE-ACETAMIN 2.5-108/5 ML SOLUTION ONE ×2 (21:51→23:55)
[2024-06-26] MEDS ORDERED: solu-MEDROL ONE (21:51)
[2024-06-26 22:09] LABS: Absolute Neutrophil Ct (ANC) 10.91 x10^3/uL (1.78-5.38); BASOPHIL % 0.2 % (0.2-1.2); Basophil (Absolute #) 0.03 x10^3/uL (0.01-0.08); Eosinophil % 1.9 % (0.8-7.0); Eosinophil (Absolute #) 0.28 x10^3/uL (0.04-0.54); Hematocrit 37.2 % (40.1-51.0); Hemoglobin 11.8 g/dL (13.7-17.5); IMMATURE GRAN # 0.06 x10^3u/L (0.001-0.031); IMMATURE GRAN % 0.4 % (0.001-0.429); Lymphocyte (Absolute #) 2.85 x10^3/uL (1.32-3.57); Lymphocytes % 18.9 % (21.8-53.1); Mean Cell Volume 88.8 fL (79.0-92.2); Mean Corpuscular Hemoglobin 28.2 pg (25.7-32.2); Mean Corpuscular Hgb Concent. 31.7 g/dL (32.3-36.5); Mean Platelet Volume 9.3 fL (9.4-12.4); Monocyte (Absolute #) 0.91 x10^3/uL (0.30-0.82); Monocytes % 6.1 % (5.3-12.2); Neutrophil % 72.5 % (34.0-67.9); Platelet Count 230 x10^3/uL (163-337); Red Blood Count 4.19 x10^6/uL (4.63-6.08); Red Cell Distribution Width 13.9 % (11.6-14.4)
[2024-06-26] MEDS: solu-MEDROL 125 MG, Sterile H2O 10 ml 2 ML IV ONE (22:15)
[2024-06-26] MEDS: HYDROCODONE-ACETAMIN 2.5-108/5 ML SOLUTION PO STA ×2 (22:15→23:56)
[2024-06-26 22:25] LABS: ALBUMIN 4.1 g/dL (3.5-5.0); ANION GAP 9.8 MEQ/L (5-15); BILIRUBIN,TOTAL 0.2 mg/dL (0.2-1.3); Calcium 8.9 mg/dL (8.4-10.2); Creatinine 1 1.56 mg/dL (0.66-1.25); EST GLOMERULAR FILTRATION RATE 48.7 ML/MIN; MAGNESIUM 2.2 mg/dL (1.6-2.3); Potassium 4.7 mmol/L (3.5-5.1); Total Protein 5.9 g/dL (6.3-8.2)
[2024-06-26 22:45] LABS: INFLUENZA A NEGATIVE (NEGATIVE); INFLUENZA B NEGATIVE (NEGATIVE); RESPIRATORY SYNCTIAL VIRUS NEGATIVE (NEGATIVE); SARS-CoV-2 Xpert Express NEGATIVE (NEGATIVE)
[2024-06-26] MEDS ORDERED: ROCEPHIN 2 GM/100 ML NACL 0 GM/0 ML IVPB IV ONE (23:33)
[2024-06-26] MEDS ORDERED: ROCEPHIN 1 GM / 100 ML NaCl 1 GM/100 ML IVPB IV ONE (23:38)
[2024-06-26] MEDS: ROCEPHIN 1 GM / 100 ML NaCl 1 GM/100 ML IVPB IV ONE (23:39)
[2024-06-27 00:08] VITALS: BP 147/102; PULSE 99; RESP 22; O2SAT 99
--- NOTE | 2024-06-27 00:13 | XRAY ---
CLINICAL HISTORY: cxr COMPARISON: Prior x ray dated 04/20/2024 was compared. TECHNIQUE: Radiograph of chest was acquired. FINDINGS: Ill defined opacity is seen in left lower zone -could be artifactual due to mid-expiratory film. Rest of the lungs are clear and well-expanded with no pulmonary infiltrate. Persistent blunting of the left CP angle is noted. Cardiomegaly is noted. No acute osseous abnormality. Both hemidiaphragms are normally positioned in the current study. IMPRESSION: 1. Persistent apparent cardiomegaly. 2. Suspicious opacity in left lower zone- could be artifactual. However follow up x ray is advised if clinical suspicion. This was not seen on previous film. 3. Persistent blunting of the left CP angle -likely suggesting effusion/pleural thickening. Electronically Signed by: Chao Rodríguez MD. (06/27/2024 00:08:19 EST)
== END 2024-06-27 00:18 | disposition home or self-care (01) ==
LOC: ED 20:41
DX: J06.9 Acute upper respiratory infection, unspecified (principal); R07.9 Chest pain, unspecified; R05.9 Cough, unspecified; D72.829 Elevated white blood cell count, unspecified
CPT/HCPCS: 0241U; 36415; 71045; 80053; 83605; 83735; 83880; 84484; 85025; 85379; 87040; 93005; 93041; 94640; 94760; 96374; 96375; 99285; 99284; J0696; J2919; A9270-GY

== ENCOUNTER 2024-10-04 19:28 | Emergency (ER) | payer MEDICARE ==
[2024-10-04 19:56] VITALS: TEMP 99
[2024-10-04] MEDS ORDERED: solu-MEDROL ONE (20:16)
[2024-10-04] MEDS ORDERED: Sterile H2O 10 ml IJ ONE (20:16)
[2024-10-04] MEDS: solu-MEDROL 125 MG, Sterile H2O 10 ml 2 ML IV ONE (20:19)
--- NOTE | 2024-10-04 20:19 | ERPHSYRPT ---
- History of Present Illness Time Seen by Provider: 10/04/24 19:33 Source: patient Exam Limitations: no limitations Patient Subjective Stated Complaint: c/o congestion, cough, and feeling short of breath Triage Nursing Assessment: patient brought self to ED with c/o of nasal congestion, cough, chest pain while taking a deep breath, and feels short of breath. rates pain 8/10 with a deep breath, lung sounds clear with inspiration and faint with expiration. hypertensive, states sputum is thick and yellowish white in color. skin w/n/d, gait steady. Physician History: 68 years old male presented in the ER with complains of flulike symptoms since last week. Patient reports it started as a sinus/nasal congestion and gradually going down in the lungs Coughing up clear to yellow sputum. Because of repeated coughing having bilateral chest pain and hurts to take a deep breath. Feels short of breath at times as well. Reports temperature of 101 earlier today. Denies any known sick contact. Reports feeling weak fatigued tired and dehydrated. Allergies/Adverse Reactions: No Known Drug Allergies Allergy (Verified 10/04/24 19:37) Home Medications: Multivitamin with Minerals [Multiple Vitamin] 1 each PO DAILY 07/23/12 [History] Buspirone HCl 5 mg [Buspar 5 mg] 15 mg PO TID 02/08/15 [History] Gabapentin 300 mg PO QID 02/08/15 [History] buPROPion HCL [Bupropion HCl Sr] 200 mg PO BID 02/08/15 [History] Allopurinol 300 mg [Zyloprim 300 mg] 300 mg PO DAILY 07/03/23 [History] Metoprolol Succinate 50 mg [Toprol Xl 50 MG] 50 mg PO DAILY 07/03/23 [History] Primidone 500 mg PO TID 07/03/23 [History] Venlafaxine HCl [Venlafaxine HCl ER] 150 mg PO DAILY 07/03/23 [History] Fluticasone Propionate 2 sprays IH DAILY 04/20/24 [History] Hydrocodone/Acetaminophen [Hydrocodone-Acetamin 10-325 mg] 1 tab PO Q6H PRN PRN 10/04/24 [History] Hx Tetanus, Diphtheria Vaccination/Date Given: Yes Hx Influenza Vaccination/Date Given: No Hx Pneumococcal Vaccination/Date Given: Yes Travel Risk - International Travel Have you traveled outside of the country in past 3 weeks: No - Emerging Infectious Disease Are you exhibiting symptoms associated with any current EIDs: Yes Symptoms: Cough: New Onset, Shortness of Breath - Review of Systems Constitutional: Fever, Chills, Fatigue, Weakness Eyes: No Symptoms Ears, Nose, & Throat: Nose Congestion, Sinus Drainage, Throat Pain Respiratory: Cough, Dyspnea Cardiac: Chest Pain Abdominal/Gastrointestinal: No Symptoms Genitourinary Symptoms: No Symptoms Musculoskeletal: Myalgias Skin: No Symptoms Neurological: Headache Psychological: No Symptoms Hematologic/Lymphatic: No Symptoms Immunological/Allergic: No Symptoms - Past Medical History Pertinent Past Medical History: Yes Neurological History: No Pertinent History ENT History: No Pertinent History Cardiac History: Arrhythmia Respiratory History: Bronchitis, COPD, Pneumonia, Sleep Apnea Endocrine Medical History: No Pertinent History Musculoskeletal History: Arthritis GI Medical History: No Pertinent History History: Renal Disease Psycho-Social History: No Pertinent History Male Reproductive Disorders: No Pertinent History Other Medical History: PTSD, ear ringing, a-fib - Past Surgical History Past Surgical History: Yes Neuro Surgical History: No Pertinent History Cardiac: No Pertinent History Respiratory: No Pertinent History Gastrointestinal: No Pertinent History Genitourinary: No Pertinent History Musculoskeletal: Joint Replacement, Orthopedic Surgery Male Surgical History: No Pertinent History Other Surgical History: Right knee, rt shoulder surgery, rt elbow surgery, rt ankle/foot, low back - Social History Smoking Status: Former smoker How long have you smoked: 25+ years Exposure to second hand smoke: Yes Drug Use: none - Social Determinants of Health Will the patient participate in the screening: Yes Do you worry about a steady place to live?: No Do you have any problems with any of the following?: No known problems In the past 12 months,have you had to go without utilities?: No Transportation Issues: No Has anyone in your support network made you feel unsafe?: No Have you or anyone in your house had to go w/o enough food: No - Nursing Vital Signs Nursing Vital Signs: Initial Vital Signs Pulse Rate 107 H 10/04/24 19:39 Respiratory Rate 19 10/04/24 19:39 Blood Pressure 163/132 10/04/24 19:39 O2 Sat by Pulse Oximetry 98 10/04/24 19:39 Pain Scale Pain Intensity 0 - Physical Exam General Appearance: no apparent distress, alert Eye Exam: PERRL/EOMI Ears, Nose, Throat Exam: moist mucous membranes, pharyngeal erythema Neck Exam: normal inspection, non-tender, supple, full range of motion Respiratory Exam: normal breath sounds, lungs clear Cardiovascular Exam: regular rate/rhythm, normal heart sounds Gastrointestinal/Abdomen Exam: soft, normal bowel sounds, No tenderness Extremity Exam: normal inspection, normal range of motion Neurologic Exam: alert, oriented x 3, cooperative, contracting officer II-XII nml as tested Skin Exam: normal color SpO2 Interpretation: normal SpO2: 99 O2 Delivery: Room Air Ordered Tests: Active Orders 24 hr Category Date Time Status Machine Leather Trimmer STAT Care 10/04/24 20:13 Active EKG-ER Only STAT Care 10/04/24 20:35 Active IV Insertion STAT Care 10/04/24 20:12 Active CHEST 1 VIEW (PORTABLE) Stat Exams 10/04/24 20:12 Taken BLOOD CULTURE Stat Lab 10/04/24 20:36 Received CBC W DIFF Stat Lab 10/04/24 20:22 Completed CMP Stat Lab 10/04/24 20:22 Completed Lactic Acid Stat Lab 10/04/24 20:30 Completed MAGNESIUM Stat Lab 10/04/24 20:22 Completed NT PRO BNPII Stat Lab 10/04/24 20:22 Completed TROPONIN Q4H Lab 10/04/24 20:22 Completed TROPONIN Q4H Lab 10/05/24 00:15 Ordered TROPONIN Q4H Lab 10/05/24 04:15 Ordered Respiratory Therapy Assessment DAILY RT 10/04/24 21:19 Active Medication Summary Discontinued Medications Generic Name Dose Route Start Last Admin Trade Name Chikiq PRN Reason Stop Dose Admin Albuterol/Ipratropium 3 ml 10/04/24 20:12 10/04/24 20:25 Ipratropium/Albuterol Sulfate 3 Ml Ampul.Neb IH 10/04/24 20:13 3 ml STAT ONE Administration Albuterol/Ipratropium Confirm 10/04/24 20:26 Ipratropium/Albuterol Sulfate 3 Ml Ampul.Neb Administered 10/04/24 20:27 Dose 3 ml IH .STK-MED ONE Azithromycin 500 mg 10/04/24 22:01 10/04/24 22:04 Azithromycin 250 Mg Tablet PO 10/04/24 22:02 500 mg STAT STA Administration Azithromycin Confirm 10/04/24 22:03 Azithromycin 250 Mg Tablet Administered 10/04/24 22:04 Dose 500 mg .ROUTE .STK-MED ONE Methylprednisolone Sodium 0 mg 10/04/24 20:12 10/04/24 20:19 Succinate 125 mg/ Sterile IV 10/04/24 20:13 125 mg Water 2 ml STAT ONE Administration Methylprednisolone Sodium Succinate Confirm 10/04/24 20:16 Methylprednis Sod Succ 125 Mg/2 Ml Vial Administered 10/04/24 20:17 Dose 125 mg .ROUTE .STK-MED ONE Sterile Water Confirm 10/04/24 20:16 Water For Injection,Sterile 10 Ml Vial Administered 10/04/24 20:17 Dose 10 ml IJ .STK-MED ONE Lab/Rad Data: Laboratory Result Diagrams 10/04/24 20:22 10/04/24 20:22 Laboratory Results 10/04/24 10/04/24 10/04/24 Range/Units 20:38 20:30 20:22 WBC (4.23-9.07) x10^3/uL RBC (4.63-6.08) x10^6/uL Hgb (13.7-17.5) g/dL Hct (40.1-51.0) % MCV (79.0-92.2) fL MCH (25.7-32.2) pg MCHC (32.3-36.5) g/dL RDW (11.6-14.4) % Plt Count (163-337) x10^3/uL MPV (9.4-12.4) fL Gran % (34.0-67.9) % Immature Gran % (Auto) (0.001-0.429) % Nucleat RBC Rel Count (0.00-0.2) % Eos # (Auto) (0.04-0.54) x10^3/uL Immature Gran # (Auto) (0.001-0.031) x10^3u/L Absolute Lymphs (auto) (1.32-3.57) x10^3/uL Absolute Monos (auto) (0.30-0.82) x10^3/uL Absolute Nucleated RBC (0.00-0.012) x10^3u/L Lymphocytes % (21.8-53.1) % Monocytes % (5.3-12.2) % Eosinophils % (0.8-7.0) % Basophils % (0.2-1.2) % Absolute Granulocytes (1.78-5.38) x10^3/uL Basophils # (0.01-0.08) x10^3/uL Sodium (135-145) mmol/L Potassium (3.5-5.1) mmol/L Chloride (98-107) mmol/L Carbon Dioxide (22-30) mmol/L Anion Gap (5-15) MEQ/L BUN (9-20) mg/dL Creatinine (0.66-1.25) mg/dL Estimated GFR ML/MIN Glucose (74-106) mg/dL Lactic Acid 2.3 H (0.4-2.0) Calcium (8.4-10.2) mg/dL Magnesium (1.6-2.3) mg/dL Total Bilirubin (0.2-1.3) mg/dL AST (17-59) U/L ALT (0-50) U/L Alkaline Phosphatase (38-126) U/L Troponin I < 0.012 (0.000-0.033) ng/mL NT-Pro-B Natriuret Pep 240 (<300) pg/mL Serum Total Protein (6.3-8.2) g/dL Albumin (3.5-5.0) g/dL Influenza Type A Ag NEGATIVE (NEGATIVE) Influenza Type B Ag NEGATIVE (NEGATIVE) RSV (PCR) NEGATIVE (NEGATIVE) SARS-CoV-2 (PCR) NEGATIVE (NEGATIVE) 10/04/24 10/04/24 Range/Units 20:22 20:22 WBC 9.4 H (4.23-9.07) x10^3/uL RBC 4.37 L (4.63-6.08) x10^6/uL Hgb 12.5 L (13.7-17.5) g/dL Hct 38.2 L (40.1-51.0) % MCV 87.4 (79.0-92.2) fL MCH 28.6 (25.7-32.2) pg MCHC 32.7 (32.3-36.5) g/dL RDW 14.2 (11.6-14.4) % Plt Count 265 (163-337) x10^3/uL MPV 10.5 (9.4-12.4) fL Gran % 54.2 (34.0-67.9) % Immature Gran % (Auto) 0.2 (0.001-0.429) % Nucleat RBC Rel Count 0.0 (0.00-0.2) % Eos # (Auto) 0.30 (0.04-0.54) x10^3/uL Immature Gran # (Auto) 0.02 (0.001-0.031) x10^3u/L Absolute Lymphs (auto) 2.75 (1.32-3.57) x10^3/uL Absolute Monos (auto) 1.22 H (0.30-0.82) x10^3/uL Absolute Nucleated RBC 0.00 (0.00-0.012) x10^3u/L Lymphocytes % 29.2 (21.8-53.1) % Monocytes % 12.9 H (5.3-12.2) % Eosinophils % 3.2 (0.8-7.0) % Basophils % 0.3 (0.2-1.2) % Absolute Granulocytes 5.11 (1.78-5.38) x10^3/uL Basophils # 0.03 (0.01-0.08) x10^3/uL Sodium 141 (135-145) mmol/L Potassium 4.4 (3.5-5.1) mmol/L Chloride 104 (98-107) mmol/L Carbon Dioxide 25 (22-30) mmol/L Anion Gap 16.0 H (5-15) MEQ/L BUN 26 H (9-20) mg/dL Creatinine 1.17 (0.66-1.25) mg/dL Estimated GFR 68.8 ML/MIN Glucose 142 H (74-106) mg/dL Lactic Acid (0.4-2.0) Calcium 9.2 (8.4-10.2) mg/dL Magnesium 1.8 (1.6-2.3) mg/dL Total Bilirubin 0.30 (0.2-1.3) mg/dL AST 28 (17-59) U/L ALT 32 (0-50) U/L Alkaline Phosphatase 54 (38-126) U/L Troponin I (0.000-0.033) ng/mL NT-Pro-B Natriuret Pep (<300) pg/mL Serum Total Protein 6.1 L (6.3-8.2) g/dL Albumin 4.2 (3.5-5.0) g/dL Influenza Type A Ag (NEGATIVE) Influenza Type B Ag (NEGATIVE) RSV (PCR) (NEGATIVE) SARS-CoV-2 (PCR) (NEGATIVE) - Progress Progress: improved, re-examined Air Movement: good Progress Note: 10/04/24 22:07 68 years old is evaluated in the ER for URI symptoms started almost a week ago and now having cough productive of yellow to clear sputum along with fever. Patient is not in any distress, given neb treatment and steroid, feeling better on reevaluation. EKG is sinus rhythm with no acute ischemic changes. Workup showed normal white count, chemistries with a lactate of 2.3, negative troponins. Chest x-ray is negative for any acute cardiopulmonary findings reviewed by me, official final report is pending Patient has negative COVID flu and RSV. I believe patient has initially viral URI with cough and congestion and now havi ng bacterial colonization and would benefit with a course of Z-Angel, given erythromycin and here I will give him albuterol inhaler. Patient has history of acid reflux and difficulty swallowing at times, I will also given prescription of Protonix to take home. Discussed signs symptoms of worsening needing return to ER which she seems understanding. Stable for discharge. Complexity of problem addressed: Moderate acute Complexity of data reviewed/analyzed: Moderate Risk of complication: Moderate risk Blood Culture(s) Obtained: No Antibiotics given: Yes Counseled pt/family regarding: lab results, diagnosis, need for follow-up, rad results - Departure Departure Disposition: Home Clinical Impression: URI with cough and congestion, Bronchitis Condition: Stable Critical Care Time: No Referrals: HOLLY GARNER FNP [Primary Care Provider] - Follow up with PCP 1 day Instructions: Cough, Adult (DC) Additional Instructions: Use Tylenol/ibuprofen as needed. Follow-up with primary care for reevaluation. Use inhaler as needed. Return to ER for difficulty breathing, worsening cough, persistent high-grade fever chills etc. Prescriptions: Albuterol Sulfate [Albuterol Sulfate Hfa] 8.5 gm IH Q6H PRN 14 Days #1 inh PRN Reason: Cough PANTOPRAZOLE 40 mg Tablet [Protonix 40MG Tablet] 40 mg PO QAM #30 tab Azithromycin 250 mg [Zithromax 250 MG TABLET] 250 mg PO DAILY 4 Days #4 tablet
[2024-10-04 20:24] LABS: Absolute Neutrophil Ct (ANC) 5.11 x10^3/uL (1.78-5.38); BASOPHIL % 0.3 % (0.2-1.2); Basophil (Absolute #) 0.03 x10^3/uL (0.01-0.08); Eosinophil % 3.2 % (0.8-7.0); Hematocrit 38.2 % (40.1-51.0); Hemoglobin 12.5 g/dL (13.7-17.5); IMMATURE GRAN # 0.02 x10^3u/L (0.001-0.031); IMMATURE GRAN % 0.2 % (0.001-0.429); Lymphocyte (Absolute #) 2.75 x10^3/uL (1.32-3.57); Lymphocytes % 29.2 % (21.8-53.1); Mean Cell Volume 87.4 fL (79.0-92.2); Mean Corpuscular Hemoglobin 28.6 pg (25.7-32.2); Mean Corpuscular Hgb Concent. 32.7 g/dL (32.3-36.5); Mean Platelet Volume 10.5 fL (9.4-12.4); Monocyte (Absolute #) 1.22 x10^3/uL (0.30-0.82); Monocytes % 12.9 % (5.3-12.2); Neutrophil % 54.2 % (34.0-67.9); Platelet Count 265 x10^3/uL (163-337); Red Blood Count 4.37 x10^6/uL (4.63-6.08); Red Cell Distribution Width 14.2 % (11.6-14.4); White Blood Count 9.4 x10^3/uL (4.23-9.07)
[2024-10-04] MEDS: DUONEB 0.5-3 MG/3 ml Neb IH ONE (20:25)
[2024-10-04] MEDS ORDERED: DUONEB 0.5-3 MG/3 ml Neb IH ONE (20:26)
[2024-10-04 20:30] LABS: ALBUMIN 4.2 g/dL (3.5-5.0); BILIRUBIN,TOTAL 0.3 mg/dL (0.2-1.3); Calcium 9.2 mg/dL (8.4-10.2); Creatinine 1 1.17 mg/dL (0.66-1.25); EST GLOMERULAR FILTRATION RATE 68.8 ML/MIN; MAGNESIUM 1.8 mg/dL (1.6-2.3); Potassium 4.4 mmol/L (3.5-5.1); Total Protein 6.1 g/dL (6.3-8.2)
[2024-10-04 20:42] LABS: NT PRO BNPII 240 pg/mL (<300); TROPONIN < 0.012 ng/mL (0.000-0.033)
[2024-10-04 21:22] LABS: INFLUENZA A NEGATIVE (NEGATIVE); INFLUENZA B NEGATIVE (NEGATIVE); RESPIRATORY SYNCTIAL VIRUS NEGATIVE (NEGATIVE); SARS-CoV-2 Xpert Express NEGATIVE (NEGATIVE)
[2024-10-04] MEDS ORDERED: Zithromax 250 MG TABLET ONE (22:03)
[2024-10-04] MEDS: Zithromax 250 MG TABLET PO STA (22:04)
[2024-10-04 22:09] VITALS: O2SAT 99
[2024-10-04 22:14] VITALS: BP 124/104; PULSE 115; RESP 20
--- NOTE | 2024-10-05 08:41 | XRAY ---
Indication: Cough. Comparison: June 26, 2024 Portable chest better inflated and now clear. Heart not enlarged again with tortuous descending aorta. Bony thorax intact again with osteopenia and degenerative changes. No new/acute findings.
== END 2024-10-04 22:17 | disposition home or self-care (01) ==
LOC: ED 19:28
DX: J06.9 Acute upper respiratory infection, unspecified (principal); R05.1 Acute cough; J40 Bronchitis, not specified as acute or chronic; R50.9 Fever, unspecified; R06.02 Shortness of breath; R53.1 Weakness; Z79.891 Long term (current) use of opiate analgesic; Z79.899 Other long term (current) drug therapy
CPT/HCPCS: 0241U; 36415; 71045; 80053; 83605; 83735; 83880; 84484; 85025; 87040; 93005; 93041; 94640; 96374; 99285; 99284; J2919; A9270-GY

== ENCOUNTER 2024-10-17 13:01 | Emergency (ER) | payer MEDICARE ==
[2024-10-17 13:17] VITALS: TEMP 97.2; O2SAT 97
[2024-10-17] MEDS: TORAdol 30 mg Injection IM ONE (13:46)
[2024-10-17] MEDS ORDERED: TORAdol 30 mg Injection ONE (13:46)
--- NOTE | 2024-10-17 13:49 | ERPHSYRPT ---
- History of Present Illness Time Seen by Provider: 10/17/24 13:44 Source: patient Exam Limitations: no limitations Patient Subjective Stated Complaint: Pt reports falling down his stairs last night and injured his left shoulder/hip/back and now the right side is hurting d ue to adjusting his gait Triage Nursing Assessment: Pt brought self to the ER, hypertensive, rates pain as 5/10, pulses normal, skin n/w/d, no bruising noted, no difficulties breathing, reports something "popping" in his left shoulder this morning, made a comment that he took his last hydrocodone yesterday for something, doesn't appear to be in any distress Physician History: 68-year-old male presents to our ED for evaluation of pain to his left proximal humerus and left hip. Patient also states his lower back is a little tender. Patient was descending stairs last night. Patient fell a couple steps down. No BHT no LOC no neck pain. Cervical spine cleared clinically. No injuries above his shoulder. Patient rates his pain 5 out of 10. The fall was secondary to missed stepped at night. The fall was not associated with any neuro or cardiovascular symptomology. No associated chest pain or shortness of breath. No nausea vomiting or diaphoresis. No numbness tingling or weakness. Patient otherwise feels well. He voices no other complaints or concerns at this time. Portions of this note were created with voice recognition technology. There may be grammatical, spelling, punctuation or sound alike errors Timing/Duration: today Severity: moderate Modifying Factors: Improves With: nothing Associated Symptoms: denies symptoms Allergies/Adverse Reactions: No Known Drug Allergies Allergy (Verified 10/17/24 13:17) Home Medications: Multivitamin with Minerals [Multiple Vitamin] 1 each PO DAILY 07/23/12 [History] Buspirone HCl 5 mg [Buspar 5 mg] 15 mg PO TID 02/08/15 [History] Gabapentin 300 mg PO QID 02/08/15 [History] buPROPion HCL [Bupropion HCl Sr] 200 mg PO BID 02/08/15 [History] Allopurinol 300 mg [Zyloprim 300 mg] 300 mg PO DAILY 07/03/23 [History] Metoprolol Succinate 50 mg [Toprol Xl 50 MG] 50 mg PO DAILY 07/03/23 [History] Primidone 500 mg PO TID 07/03/23 [History] Venlafaxine HCl [Venlafaxine HCl ER] 150 mg PO DAILY 07/03/23 [History] Fluticasone Propionate 2 sprays IH DAILY 04/20/24 [History] Hydrocodone/Acetaminophen [Hydrocodone-Acetamin 10-325 mg] 1 tab PO Q6H PRN PRN 10/04/24 [History] Hx Tetanus, Diphtheria Vaccination/Date Given: Yes Hx Influenza Vaccination/Date Given: No Hx Pneumococcal Vaccination/Date Given: Yes Travel Risk - International Travel Have you traveled outside of the country in past 3 weeks: No - Emerging Infectious Disease Are you exhibiting symptoms associated with any current EIDs: No Symptoms: Cough: New Onset, Shortness of Breath - Review of Systems Constitutional: No Symptoms, No Fever, No Chills Eyes: No Symptoms Ears, Nose, & Throat: No Symptoms Respiratory: No Symptoms, No Cough, No Dyspnea Cardiac: No Symptoms, No Chest Pain, No Edema, No Syncope Abdominal/Gastrointestinal: No Symptoms, No Abdominal Pain, No Nausea, No Vomiting, No Diarrhea Genitourinary Symptoms: No Symptoms, No Dysuria Musculoskeletal: No Symptoms, No Back Pain, No Neck Pain Skin: No Symptoms, No Rash Neurological: No Symptoms, No Dizziness, No Focal Weakness, No Sensory Changes Psychological: No Symptoms Endocrine: No Symptoms Hematologic/Lymphatic: No Symptoms Immunological/Allergic: No Symptoms All Other Systems: Reviewed and Negative - Past Medical History Pertinent Past Medical History: Yes Neurological History: No Pertinent History ENT History: No Pertinent History Cardiac History: Arrhythmia Respiratory History: Bronchitis, COPD, Pneumonia, Sleep Apnea Endocrine Medical History: No Pertinent History Musculoskeletal History: Arthritis GI Medical History: No Pertinent History History: Renal Disease Psycho-Social History: No Pertinent History Male Reproductive Disorders: No Pertinent History Other Medical History: PTSD, ear ringing, a-fib - Past Surgical History Past Surgical History: Yes Neuro Surgical History: No Pertinent History Cardiac: No Pertinent History Respiratory: No Pertinent History Gastrointestinal: No Pertinent History Genitourinary: No Pertinent History Musculoskeletal: Joint Replacement, Orthopedic Surgery Male Surgical History: No Pertinent History Other Surgical History: Right knee, rt shoulder surgery, rt elbow surgery, rt ankle/foot, low back - Social History Smoking Status: Former smoker How long have you smoked: 25+ years Exposure to second hand smoke: No Drug Use: none - Social Determinants of Health Will the patient participate in the screening: Yes Do you worry about a steady place to live?: No Do you have any problems with any of the following?: No known problems In the past 12 months,have you had to go without utilities?: No Transportation Issues: No Has anyone in your support network made you feel unsafe?: No Have you or anyone in your house had to go w/o enough food: No - Nursing Vital Signs Nursing Vital Signs: Initial Vital Signs Temperature 97.2 F 10/17/24 13:08 Pulse Rate 74 10/17/24 13:08 Blood Pressure 161/102 10/17/24 13:08 O2 Sat by Pulse Oximetry 97 10/17/24 13:08 Pain Scale Pain Intensity 0 - Physical Exam General Appearance: no apparent distress, alert Eye Exam: PERRL/EOMI, eyes nml inspection Ears, Nose, Throat Exam: normal ENT inspection, TMs normal, pharynx normal, moist mucous membranes Neck Exam: normal inspection, non-tender, supple, full range of motion Respiratory Exam: normal breath sounds, lungs clear, airway intact, No respiratory distress Cardiovascular Exam: regular rate/rhythm, normal heart sounds, normal peripheral pulses Gastrointestinal/Abdomen Exam: soft, normal bowel sounds, No tenderness, No mass Back Exam: normal inspection, normal range of motion, No CVA tenderness, No vertebral tenderness Extremity Exam: normal inspection, normal range of motion, pelvis stable Neurologic Exam: alert, oriented x 3, cooperative, normal mood/affect, nml c erebellar function, nml station & gait, sensation nml, No motor deficits Skin Exam: normal color, warm, dry, No rash Lymphatic Exam: No adenopathy SpO2 Interpretation: normal SpO2: 97 O2 Delivery: Room Air - Course Nursing assessment & vital signs reviewed: Yes - Radiology Exams L-Spine X-ray Interpretation: Teleradiologist Report (No acute findings) Humerus X-ray Interpretation: Interpreted by me (No acute findings) Hip X-ray Interpretation: Interpreted by me (No acute findings) Ordered Tests: Medication Summary Discontinued Medications Generic Name Dose Route Start Last Admin Trade Name Freq PRN Reason Stop Dose Admin Ketorolac Tromethamine 30 mg 10/17/24 13:42 10/17/24 13:46 Ketorolac Tromethamine 30 Mg/Ml Inj IM 10/17/24 13:43 30 mg STAT ONE Administration Ketorolac Tromethamine Confirm 10/17/24 13:46 Ketorolac Tromethamine 30 Mg/Ml Inj Administered 10/17/24 13:47 Dose 30 mg .ROUTE .STK-MED ONE - Progress Progress: improved Progress Note: 68-year-old male presents to our ED for evaluation of a fall. Physical exam reveals some tenderness at the left humerus left hip and low back. X-rays negative for fracture or dislocation. Patient received Toradol for pain control. Patient reassessed. Patient comfortable. Patient dates he is ready for discharge. No indication for further workup. Will discharge home. Patient agrees to follow-up with primary care doctor within 48 hours for reevaluation. Portions of this note were created with voice recognition technology. There may be grammatical, spelling, punctuation or sound alike errors Complexity of problem addressed is moderate acute complicated no critical care time. Complex of data reviewed and analyzed as moderate. Test ordered chest reviewed results analyzed and correlated clinically with history and physical exam. Risk of complication and or risk of morbidity/mortality of patient management is low. Vital stable. Time spent to discharge patient is approximately 10 minutes. Plan of care established via shared decision making. No social determinants of health present to impede follow-up. Portions of this note were created with voice recognition technology. There may be grammatical, spelling, punctuation or sound alike errors 10/19/24 06:42 Counseled pt/family regarding: diagnosis, need for follow-up, rad results - Departure Departure Disposition: Home Clinical Impression: Fall, Contusion, hip, Lumbosacral strain, Shoulder sprain Condition: Stable Critical Care Time: No Referrals: HOLLY GARNER FNP [Primary Care Provider] - Follow up/PCP as directed Instructions: Low back pain in adults Additional Instructions: Discharge/Care Plan SHAUNA MENDOZA JUAN was seen on 10/17/24 in the Emergency Room. The patient was counseled regarding Diagnosis,Lab results, Imaging studies, need for follow up and when to return to the Emergency Room. Prescriptions given: Discharge Note I have spoken with the patient and/or caregivers. I have explained the patient's condition, diagnosis and treatment plan based on the information available to me at this time. I have answered the patient's and/or caregiver's questions and addressed any concerns. The patient and/or caregivers have as good understanding of the patient's diagnosis, condition and treatment plan as can be expected at this point. The vital signs have been stable. The patient's condition is stable and appropriate for discharge from the emergency department. The patient will pursue further outpatient evaluation with the primary care physician or other designated or consulting physician as outlined in the discharge instructions. The patient and/or caregivers are agreeable to this plan of care and follow-up instructions have been explained in detail. The patient and/or caregivers have received these instruction. The patient/and or caregivers are aware that any significant change in condition or worsening of symptoms should prompt an immediate return to this or the closest emergency department or call 911.
--- NOTE | 2024-10-17 14:17 | XRAY ---
Indication: Pain following fall. Comparison: None AP pelvis and 2 view left hip demonstrates osteopenia, mild/moderate lower lumbar degenerative spondylosis, and pelvic phleboliths. No acute bony, articular, or soft tissue abnormalities.
--- NOTE | 2024-10-17 14:17 | XRAY ---
Indication: Pain following fall. Comparison: None 3 view left shoulder demonstrate osteopenia, mild acromioclavicular/glenohumeral degenerative arthropathy, and tiny spurring olecranon process. No acute bony, articular, or soft tissue abnormalities.
--- NOTE | 2024-10-17 14:29 | XRAY ---
Indication: Pain following fall. Comparison: December 08, 2022 5 view lumbar spine unchanged again demonstrating osteopenia, minimal dextroscoliosis centered at L3, and mild/moderate multilevel degenerative spondylosis again greatest at L5-S1. No new/acute findings.
[2024-10-17 14:36] VITALS: BP 136/100; PULSE 70; RESP 18
== END 2024-10-17 14:42 | disposition home or self-care (01) ==
LOC: ED 13:01
DX: S70.02XA Contusion of left hip, initial encounter (principal); S39.012A Strain of muscle, fascia and tendon of lower back, initial encounter; S43.402A Unspecified sprain of left shoulder joint, initial encounter; W10.8XXA Fall (on) (from) other stairs and steps, initial encounter; Z79.891 Long term (current) use of opiate analgesic; Z79.899 Other long term (current) drug therapy
CPT/HCPCS: 72110; 73060; 73502; 96372; 99283; 99284; J1885

== ENCOUNTER 2025-03-12 13:16 | Observation (INO) | payer MEDICARE ==
[2025-03-12 13:43] LABS: BASOPHIL % 0.7 % (0.2-1.2); Basophil (Absolute #) 0.07 x10^3/uL (0.01-0.08); Eosinophil (Absolute #) 0.32 x10^3/uL (0.04-0.54); Hematocrit 40.2 % (40.1-51.0); Hemoglobin 12.5 g/dL (13.7-17.5); IMMATURE GRAN # 0.03 x10^3u/L (0.001-0.031); IMMATURE GRAN % 0.3 % (0.001-0.429); Lymphocyte (Absolute #) 2.75 x10^3/uL (1.32-3.57); Mean Corpuscular Hemoglobin 26.2 pg (25.7-32.2); Mean Corpuscular Hgb Concent. 31.1 g/dL (32.3-36.5); Monocyte (Absolute #) 0.74 x10^3/uL (0.30-0.82); NUCLEATED RBC # 0.00 x10^3u/L (0.00-0.012); NUCLEATED RBC % 0.0 % (0.00-0.2); Platelet Count 289 x10^3/uL (163-337); Red Blood Count 4.78 x10^6/uL (4.63-6.08); White Blood Count 10.1 x10^3/uL (4.23-9.07)
[2025-03-12 13:58] LABS: Calcium 8.8 mg/dL (8.4-10.2); Carbon Dioxide 26 mmol/L (22-30); Creatinine 1 1.20 mg/dL (0.66-1.25); EST GLOMERULAR FILTRATION RATE 66.3 ML/MIN; Glucose 110 mg/dL (74-106); Potassium 4.9 mmol/L (3.5-5.1); SGOT/AST 27 U/L (17-59); SGPT/ALT 22 U/L (0-50); Total Protein 6.4 g/dL (6.3-8.2)
--- NOTE | 2025-03-12 13:59 | XRAY ---
Indication: Chest pain. Comparison: February 28, 2025 Portable chest inflated and clear. Heart not enlarged. Bony thorax intact. No new/acute findings. Impression: Continued nonacute chest.
[2025-03-12] MEDS ORDERED: Hydromorphone 1 mg/ml Injection ONE ×3 (14:09→16:18)
[2025-03-12] MEDS ORDERED: Zofran 4 MG/2 ML VIAL ONE (14:10)
[2025-03-12] MEDS: Hydromorphone 1 mg/ml Injection IV ONE ×3 (14:11→16:20)
[2025-03-12] MEDS: Zofran 4 MG/2 ML VIAL IV ONE (14:11)
--- NOTE | 2025-03-12 14:18 | ERPHSYRPT ---
- History of Present Illness Time Seen by Provider: 03/12/25 13:19 Source: patient Patient Subjective Stated Complaint: Pt. states, "I've been having chest pain for a few days. I can't lay flat cause I start coughing and trace been coughing up or vomiting some clear stuff. I'm not sure if its stomach related or what." Triage Nursing Assessment: pt ambulated to room without difficulty, A&Ox3, Skin pale, cool, dry. Resp. even unlabored, able to move all four ext. Physician History: This is a 69-year-old male with 1 week of chest pain who developed headache past 10 minutes worsening with mild tingling in the right fingers. No speech or swallowing changes. No weakness. Chest pain has been constant left-sided. No shortness of breath. No cough. No abdominal pain. No back pain. Patient has no history of stroke or coronary disease. Patient denies taking medications. Patient does not smoke, drink or use drugs. Allergies/Adverse Reactions: No Known Drug Allergies Allergy (Verified 02/28/25 13:27) Home Medications: Multivitamin with Minerals [Multiple Vitamin] 1 each PO DAILY 07/23/12 [History] Gabapentin 900 mg PO TID 02/08/15 [History] buPROPion HCL [Bupropion HCl Sr] 200 mg PO BID 02/08/15 [History] Allopurinol 300 mg [Zyloprim 300 mg] 300 mg PO DAILY 07/03/23 [History] Venlafaxine HCl [Venlafaxine HCl ER] 150 mg PO BID 07/03/23 [History] Hydrocodone/Acetaminophen [Hydrocodone-Acetamin 10-325 mg] 1 tab PO Q6H PRN PRN 10/04/24 [History] Buspirone HCl 5 mg [Buspar 5 mg] 10 mg PO BID 02/28/25 [History] Hx Tetanus, Diphtheria Vaccination/Date Given: Yes Hx Influenza Vaccination/Date Given: Yes Hx Pneumococcal Vaccination/Date Given: Yes Immunizations Up to Date: No Travel Risk - International Travel Have you traveled outside of the country in past 3 weeks: No - Emerging Infectious Disease Are you exhibiting symptoms associated with any current EIDs: No Symptoms: Shortness of Breath - Review of Systems All Other Systems: Reviewed and Negative (As per HPI otherwise negative) - Past Medical History Pertinent Past Medical History: Yes Neurological History: No Pertinent History ENT History: No Pertinent History Cardiac History: Arrhythmia Respiratory History: Bronchitis, COPD, Pneumonia, Sleep Apnea Endocrine Medical History: No Pertinent History Musculoskeletal History: Arthritis, Osteoporosis GI Medical History: No Pertinent History History: Renal Disease Psycho-Social History: No Pertinent History Male Reproductive Disorders: No Pertinent History Other Medical History: PTSD, ear ringing- constant , a-fib intermittent - Past Surgical History Past Surgical History: Yes Neuro Surgical History: No Pertinent History Cardiac: No Pertinent History Respiratory: No Pertinent History Gastrointestinal: No Pertinent History Genitourinary: No Pertinent History Musculoskeletal: Joint Replacement, Orthopedic Surgery Male Surgical History: No Pertinent History Other Surgical History: Right knee, rt shoulder surgery, rt elbow surgery, rt ankle/foot, low back - Social History Smoking Status: Never smoker Exposure to second hand smoke: No Drug Use: none - Social Determinants of Health Will the patient participate in the screening: Yes Do you worry about a steady place to live?: No Do you have any problems with any of the following?: No known problems In the past 12 months,have you had to go without utilities?: No Transportation Issues: No Has anyone in your support network made you feel unsafe?: No Have you or anyone in your house had to go w/o enough food: No - Nursing Vital Signs Nursing Vital Signs: Initial Vital Signs Temperature 97.9 F 03/12/25 13:17 Pulse Rate 67 03/12/25 13:17 Respiratory Rate 18 03/12/25 13:17 Blood Pressure 141/99 03/12/25 13:17 O2 Sat by Pulse Oximetry 94 L 03/12/25 13:17 Pain Scale Pain Intensity 7 - Physical Exam SpO2: 98 Comments: 03/12/25 14:16 General: Well-nourished well-developed. No apparent distress. HEENT: Normocephalic atraumatic no obvious facial or neck deformity or injury. Neck: Supple. No deformity or mass noted. CV: RRR NL Perfusion. No edema Resp: No Respiratory distress or adventitious breath sounds Abd: ND SNT MSK: No deformity or TTP Neuro: Alert and Upton x4. Cranial nerves II through XII intact. Pupils equal reactive and round to light. Extraocular motility intact.+5/5 motor throughout. Sensory intact. +2/4 DTRs throughout. No focal neurologic changes. NIH stroke scale 1 for tingling in fingers. 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 Care 03/12/25 13:34 Active EKG-ER Only STAT Care 03/12/25 14:07 Active IV Insertion STAT Care 03/12/25 14:07 Active NPO (ED) STAT Care 03/12/25 14:07 Active CHEST 1 VIEW (PORTABLE) Stat Exams 03/12/25 13:[address] ANGIOGRAPHY NECK [CT] Stat Exams 03/12/25 14:09 Completed CTA CHEST W AND/OR WO [CT] Stat Exams 03/12/25 14:14 Completed CTA HEAD W AND/OR WO CONTRAST [CT] Stat Exams 03/12/25 14:10 Taken CBC W DIFF Stat Lab 03/12/25 13:35 Completed CMP Stat Lab 03/12/25 13:35 Completed LIPASE Stat Lab 03/12/25 13:35 Completed PROTIME WITH INR Stat Lab 03/12/25 14:07 Completed PTT Stat Lab 03/12/25 14:07 Completed TROPONIN Q4H Lab 03/12/25 13:35 Completed TROPONIN Q4H Lab 03/12/25 17:45 Ordered TROPONIN Q4H Lab 03/12/25 21:45 Ordered Medication Summary Generic Name Dose Route Start Last Admin Trade Name Freq PRN Reason Stop Dose Admin Sodium Chloride 1,000 mls @ 999 mls/hr 03/12/25 15:28 03/12/25 15:31 Sodium Chloride 0.9% 1000 Ml IV 03/12/25 16:28 999 mls/hr .Q1H1M STA Administration Discontinued Medications Generic Name Dose Route Start Last Admin Trade Name Freq PRN Reason Stop Dose Admin Hydromorphone HCl 0.5 mg 03/12/25 14:07 03/12/25 14:11 Hydromorphone 1 Mg/1ml Inj IV 03/12/25 14:08 0.5 mg STAT ONE Administration Hydromorphone HCl Confirm 03/12/25 14:09 Hydromorphone 1 Mg/1ml Inj Administered 03/12/25 14:10 Dose 1 mg .ROUTE .STK-MED ONE Hydromorphone HCl Confirm 03/12/25 14:24 Hydromorphone 1 Mg/1ml Inj Administered 03/12/25 14:25 Dose 1 mg .ROUTE .STK-MED ONE Hydromorphone HCl 1 mg 03/12/25 14:28 03/12/25 14:30 Hydromorphone 1 Mg/1ml Inj IV 03/12/25 14:29 1 mg STAT ONE Administration Sodium Chloride Confirm 03/12/25 15:30 Sodium Chloride 0.9% 1000 Ml Administered 03/12/25 15:31 Dose 1,000 mls @ ud .ROUTE .STK-MED ONE Ondansetron HCl 4 mg 03/12/25 14:07 03/12/25 14:11 Ondansetron Hcl 4 Mg/2 Ml Vial IV 03/12/25 14:08 4 mg STAT ONE Administration Ondansetron HCl Confirm 03/12/25 14:10 Ondansetron Hcl 4 Mg/2 Ml Vial Administered 03/12/25 14:11 Dose 4 mg .ROUTE .STK-MED ONE Lab/Rad Data: Laboratory Result Diagrams 03/12/25 13:35 03/12/25 13:35 Laboratory Results 03/12/25 03/12/25 03/12/25 Range/Units 14:07 13:35 13:35 WBC (4.23-9.07) x10^3/uL RBC (4.63-6.08) x10^6/uL Hgb (13.7-17.5) g/dL Hct (40.1-51.0) % MCV (79.0-92.2) fL MCH (25.7-32.2) pg MCHC (32.3-36.5) g/dL RDW (11.6-14.4) % Plt Count (163-337) x10^3/uL MPV (9.4-12.4) fL Gran % (34.0-67.9) % Immature Gran % (Auto) (0.001-0.429) % Nucleat RBC Rel Count (0.00-0.2) % Eos # (Auto) (0.04-0.54) x10^3/uL Immature Gran # (Auto) (0.001-0.031) x10^3u/L Absolute Lymphs (auto) (1.32-3.57) x10^3/uL Absolute Monos (auto) (0.30-0.82) x10^3/uL Absolute Nucleated RBC (0.00-0.012) x10^3u/L Lymphocytes % (21.8-53.1) % Monocytes % (5.3-12.2) % Eosinophils % (0.8-7.0) % Basophils % (0.2-1.2) % Absolute Granulocytes (1.78-5.38) x10^3/uL Basophils # (0.01-0.08) x10^3/uL PT 9.3 L (9.4-12.5) SECONDS INR 0.84 (0.8-3.0) APTT 26.1 (25.1-36.5) SECONDS Sodium 138 (135-145) mmol/L Potassium 4.9 (3.5-5.1) mmol/L Chloride 103 (98-107) mmol/L Carbon Dioxide 26 (22-30) mmol/L Anion Gap 14.1 (5-15) MEQ/L BUN 20 (9-20) mg/dL Creatinine 1.20 (0.66-1.25) mg/dL Estimated GFR 66.3 ML/MIN Glucose 110 H (74-106) mg/dL Calcium 8.8 (8.4-10.2) mg/dL Total Bilirubin < 0.10 L (0.2-1.3) mg/dL AST 27 (17-59) U/L ALT 22 (0-50) U/L Alkaline Phosphatase 57 (38-126) U/L Troponin I < 0.012 (0.000-0.033) ng/mL Serum Total Protein 6.4 (6.3-8.2) g/dL Albumin 4.0 (3.5-5.0) g/dL Lipase 54 (23-300) U/L 03/12/25 Range/Units 13:35 WBC 10.1 H (4.23-9.07) x10^3/uL RBC 4.78 (4.63-6.08) x10^6/uL Hgb 12.5 L (13.7-17.5) g/dL Hct 40.2 (40.1-51.0) % MCV 84.1 (79.0-92.2) fL MCH 26.2 (25.7-32.2) pg MCHC 31.1 L (32.3-36.5) g/dL RDW 14.4 (11.6-14.4) % Plt Count 289 (163-337) x10^3/uL MPV 9.9 (9.4-12.4) fL Gran % 61.2 (34.0-67.9) % Immature Gran % (Auto) 0.3 (0.001-0.429) % Nucleat RBC Rel Count 0.0 (0.00-0.2) % Eos # (Auto) 0.32 (0.04-0.54) x10^3/uL Immature Gran # (Auto) 0.03 (0.001-0.031) x10^3u/L Absolute Lymphs (auto) 2.75 (1.32-3.57) x10^3/uL Absolute Monos (auto) 0.74 (0.30-0.82) x10^3/uL Absolute Nucleated RBC 0.00 (0.00-0.012) x10^3u/L Lymphocytes % 27.3 (21.8-53.1) % Monocytes % 7.3 (5.3-12.2) % Eosinophils % 3.2 (0.8-7.0) % Basophils % 0.7 (0.2-1.2) % Absolute Granulocytes 6.17 H (1.78-5.38) x10^3/uL Basophils # 0.07 (0.01-0.08) x10^3/uL PT (9.4-12.5) SECONDS INR (0.8-3.0) APTT (25.1-36.5) SECONDS Sodium (135-145) mmol/L Potassium (3.5-5.1) mmol/L Chloride (98-107) mmol/L Carbon Dioxide (22-30) mmol/L Anion Gap (5-15) MEQ/L BUN (9-20) mg/dL Creatinine (0.66-1.25) mg/dL Estimated GFR ML/MIN Glucose (74-106) mg/dL Calcium (8.4-10.2) mg/dL Total Bilirubin (0.2-1.3) mg/dL AST (17-59) U/L ALT (0-50) U/L Alkaline Phosphatase (38-126) U/L Troponin I (0.000-0.033) ng/mL Serum Total Protein (6.3-8.2) g/dL Albumin (3.5-5.0) g/dL Lipase (23-300) U/L - Progress Progress Note: 03/12/25 14:16 EKG 1:20 PM normal sinus rhythm 67 bpm. No ischemic changes. On evaluation, patient appears quite uncomfortable from headache. This is new onset and he does have some associated numbness and tingling. EKG is normal. Pending labs. There is concern that patient could have an underlying vascular emergency and a CTA of head, neck, chest is ordered. Patient given pain control. At this time NIH stroke scale 1. Patient is not candidate for tPA especially in light of concern for possible dissection or aneurysm. 03/12/25 16:02 Patient's angiogram are unremarkable. Will obtain gallbladder ultrasound to ensure that there is no GI source of this as he does have some right upper quadrant pain although not a true Vang sign. He has been having some swelling to his leg so Doppler lower extremities will be added for completeness. Other than that he has a heart score of 4 based on history, age and risk factors. I spoken to the hospitalist who admit the patient for observation telemetry. . - Departure Departure Disposition: Observation Clinical Impression: Chest pain Condition: Stable Critical Care Time: No Referrals: HOLLY GARNER, FRONT END ARCHITECT [Primary Care Provider, UNKNOWN] - Follow up/PCP as directed
[2025-03-12 14:26] LABS: INR 0.84 (0.8-3.0); PROTIME 9.3 SECONDS (9.4-12.5); PTT 26.1 SECONDS (25.1-36.5)
--- NOTE | 2025-03-12 15:17 | XRAY ---
Indication: Headache. Conventional contrast-enhanced CTA neck performed using 130 cc Isovue 370 contrast. 2D sagittal and coronal reformatted images obtained. Additional 3D reformatted images obtained using separate workstation. Comparison: None Visualized aortic arch is normal in course and caliber. Incidental anatomic variant for bovine arch. Normal CTA appearance to the common carotid, carotid bulb, internal carotid, and external carotid arteries bilaterally. Vertebral arteries are bilaterally patent with the left larger in diameter. No AV malformation. Visualized soft tissues are negative for pathologic cervical/supraclavicular lymphadenopathy. Thyroid gland enhances homogeneously. Parotid and submandibular glands are bilaterally symmetric. Supra and infraglottic airway widely patent. Normal epiglottis. Patient edentulous. Visualized osseous structures intact with osteopenia and mild/moderate C4-C7 degenerative spondylosis. Impression: Normal CTA neck with contrast exam. Incidental osteopenia and multilevel degenerative spondylosis.
--- NOTE | 2025-03-12 15:21 | XRAY ---
Indication: Chest pain. Dissection. Pulmonary embolus. Multiple contiguous axial images obtained through the chest using 130 cc Isovue 370 contrast and PE protocol. Comparison: None Good opacification pulmonary arteries to include lobar and segmental branches. No pulmonary embolus. Heart not enlarged. Aorta is normal in course and caliber. No pathologic mediastinal/hilar lymphadenopathy. Small hiatal hernia. Lungs hyperinflated with minimal bibasilar subsegmental atelectasis/scarring and tiny left lower lobe calcified granuloma. Bony thorax intact. Limited upper abdomen demonstrates fatty liver. Impression: Chronic findings including atelectasis/scarring, hiatal hernia, fatty liver, and old granulomatous disease. Remaining CTA chest with contrast exam is normal.
--- NOTE | 2025-03-12 15:58 | XRAY ---
Indication: Headache. Stroke. Initial CT head performed without contrast. Then Conventional contrast-enhanced CTA head performed using 130 cc Isovue 370 contrast. 2D sagittal and coronal reformatted images obtained. Additional 3D reformatted images obtained using separate workstation. 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 No acute intracranial hemorrhage, abnormal extra-axial fluid collection, or mass effect. 4th ventricle is midline without hydrocephalus. Oliver-white matter differentiation preserved. Bony calvarium intact. Visualized paranasal sinuses and mastoid air cells are clear. CTA images demonstrates bilaterally symmetric internal carotid arteries without critical stenosis, obstruction, or AV malformation. Normal carotid terminus with normal branching A1 and M1 segments bilaterally. More distal anterior cerebral and middle cerebral arteries are normal in CTA appearance bilaterally. Posterior circulation demonstrates normal CTA appearance to the basilar, left/right posterior cerebral, and left/right superior cerebellar arteries. Venous sinuses/drainage unremarkable. Brain parenchyma negative for abnormal intra or extra-axial enhancement. 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 Remaining CT head without contrast and CTA head with contrast is normal.
--- NOTE | 2025-03-12 17:10 | XRAY ---
Indication: Right upper quadrant pain. Two-dimensional color sonogram performed. Comparison: None Visualized gallbladder, liver, pancreas, and right kidney are sonographically normal. Common bile duct measures 5.9 mm. Right kidney measures 10.1 x 4.8 x 5.5 cm. Impression: Normal gallbladder sonogram.
--- NOTE | 2025-03-12 17:10 | XRAY ---
Indication: DVT. Two-dimensional sonogram and color Doppler imaging major venous vessels left and right leg performed. Comparison: None No thrombus seen in the examined deep venous vessels left and right leg including greater saphenous vein. Veins demonstrate normal compressibility. Venous waveforms are normal with and without augmentation. Impression: Left and right legs negative for DVT.
--- NOTE | 2025-03-12 17:16 | PCM.HP ---
History of Present Illness - Chief Complaint Chief Complaint: CP Date: 03/12/25 History of Present Illness: is a 69 year old male with a past medical history significant for atrial fibrillation, chronic obstructive pulmonary disease (COPD), prior pneumonia, obstructive sleep apnea, and post-traumatic stress disorder (PTSD), who presented on 03/12/2025 with recurrent chest pain. He was most recently admitted from 02/28/ for similar complaints of right upper chest pain that had been ongoing for three weeks, associated at that time with hypertensive urgency (blood pressures up to 180/110 mmHg). His blood pressure improved with medication adjustments, including an increase in metoprolol succinate to 100 mg daily, and he was discharged with instructions to follow up with his primary care provider. On this presentation, the patient again reports right-sided chest pain that began three to four weeks ago and has been intermittent. He describes the pain as moderate -aching and sharp at times, occasionally radiating to the right jaw. He identifies aggravating factors including lying on his back and consumption of acidic drinks, while relief is obtained with pain medication and by lying on his left side. Associated symptoms include nausea, diaphoresis, and a headache that lasted 1520 minutes upon arrival today, though the headache has since resolved. He denies cough, shortness of breath, abdominal pain, or focal neurologic deficits. On physical exam, the patient was hemodynamically stable. There was trace edema of the right lower extremity, non-pitting, with no edema of the left. Cardiac and respiratory exams were unremarkable. Initial workup in the ED included an EKG showing normal sinus rhythm at 67 bpm without ischemic changes. Laboratory evaluation revealed a mildly elevated WBC count of 10.1, otherwise unremarkable, with initial troponins negative x 2. CTA chest ruled out pulmonary embolism and dissection but demonstrated chronic findings including atelectasis, moderate hiatal hernia, hepatic steatosis, and sequelae of old granulomatous disease. CTA neck revealed no vascular stenosis but did note osteopenia and multilevel degenerative spondylosis. 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 Bilateral lower extremity venous Dopplers were negative for DVT. Gallbladder ultrasound was also negative for cholelithiasis or cholecystitis. The patient received IV fluids, analgesics, and ondansetron for symptom relief. - Review of Systems Constitutional: No Symptoms Eyes: No Symptoms Ears, Nose, & Throat: No Symptoms, Other (right jaw pain) Respiratory: No Symptoms Cardiac: Chest Pain, Edema (RLE trace) Abdominal/Gastrointestinal: Nausea Genitourinary Symptoms: No Symptoms Musculoskeletal: Back Pain Skin: No Symptoms Neurological: No Symptoms Psychological: No Symptoms Endocrine: No Symptoms Hematologic/Lymphatic: No Symptoms Immunological/Allergic: No Symptoms Medications & Allergies Home Medications: Home Medication List Multivitamin with Minerals [Multiple Vitamin] 1 each PO DAILY 07/23/12 [History Confirmed 03/12/25] Gabapentin 900 mg PO TID 02/08/15 [History Confirmed 03/12/25] buPROPion HCL [Bupropion HCl Sr] 200 mg PO BID 02/08/15 [History Confirmed 03/12/25] Albuterol Sulfate [Proair Respiclick] 90 mcg IH Q4H PRN PRN 30 Days #1 inhaler 12/09/22 [Rx Confirmed 03/12/25] Allopurinol 300 mg [Zyloprim 300 mg] 300 mg PO DAILY 07/03/23 [History Confirmed 03/12/25] Venlafaxine HCl [Venlafaxine HCl ER] 150 mg PO BID 07/03/23 [History Confirmed 03/12/25] Albuterol Sulfate [Albuterol Sulfate Hfa] 8.5 gm IH Q6H PRN 14 Days #1 inh 10/04/24 [Rx Confirmed 03/12/25] Hydrocodone/Acetaminophen [Hydrocodone-Acetamin 10-325 mg] 1 tab PO Q6H PRN PRN 10/04/24 [History Confirmed 03/12/25] Buspirone HCl 5 mg [Buspar 5 mg] 10 mg PO BID 02/28/25 [History Confirmed 03/12/25] Metoprolol Succinate 50 mg [Toprol Xl 50 MG] 100 mg PO DAILY 30 Days #30 tablet 03/02/25 [Rx Confirmed 03/12/25] Allergies/Adverse Reactions: Allergies Allergy/AdvReac Type Severity Reaction Status Date / Time No Known Drug Allergies Allergy Verified 03/12/25 17:39 - Past Medical History Past Medical History: Yes Neurological History: No Pertinent History ENT History: No Pertinent History Cardiac History: Arrhythmia Respiratory History: Bronchitis, COPD, Pneumonia, Sleep Apnea Endocrine Medical History: No Pertinent History Musculoskelatal History: Arthritis, Osteoporosis GI Medical History: No Pertinent History History: Renal Disease Pyscho-Social History: No Pertinent History Male Reproductive Disorders: No Pertinent History Comment: PTSD, ear ringing- constant , a-fib intermittent - Past Surgical History Past Surgical History: Yes Neuro Surgical History: No Pertinent History Cardiac History: No Pertinent History Respiratory Surgery: No Pertinent History GI Surgical History: No Pertinent History Genitourinary Surgical Hx: No Pertinent History Musculskeletal Surgical Hx: Joint Replacement, Orthopedic Surgery Male Surgical History: No Pertinent History Other Surgical History: Right knee, rt shoulder surgery, rt elbow surgery, rt ankle/foot, low back Significant Family History: heart disease, diabetes - Social History Smoking Status: Former smoker How long have you smoked: 25+ years Exposure to second hand smoke: No Alcohol: None Drug Use: none - Social Determinants of Health Will the patient participate in the screening: Yes Do you worry about a steady place to live?: No Do you have any problems with any of the following?: No known problems In the past 12 months,have you had to go without utilities?: No Have you or anyone in your house had to go without enough: No Transportation Issues: No Has anyone in your support network made you feel unsafe?: No Does the patient want assistance with any of the above?: No - Physical Exam Vital Signs: Vital Signs - 24 hr Temp Pulse Pulse Resp BP BP Pulse Ox 03/12/25 16:07 98 03/12/25 16:00 60 139/86 03/12/25 15:30 61 14 154/91 03/12/25 15:18 61 16 153/87 97 03/12/25 15:06 65 15 150/90 98 03/12/25 15:05 66 10 L 133/90 96 03/12/25 15:04 60 15 97 03/12/25 15:00 62 14 96 03/12/25 14:50 66 18 99 03/12/25 14:07 168/113 03/12/25 14:06 71 28 H 184/112 98 03/12/25 14:05 72 24 97 03/12/25 14:00 73 27 H 150/97 96 03/12/25 13:30 68 13 128/94 98 03/12/25 13:17 97.9 F 67 62 18 141/99 94 L General Appearance: no apparent distress Neurologic Exam: alert, oriented x 3, cooperative Eye Exam: PERRL/EOMI Ears, Nose, Throat Exam: normal ENT inspection Neck Exam: normal inspection Respiratory Exam: normal breath sounds, lungs clear Cardiovascular Exam: regular rate/rhythm, normal heart sounds Rectal Exam: deferred Back Exam: normal inspection Extremity Exam: swelling (RLE trace edema- LLE with no edema) Skin Exam: normal color Results - Labs Lab/Micro Results: Lab Results-Last 24 Hours 03/12/25 03/12/25 03/12/25 Range/Units 13:35 13:35 13:35 WBC 10.1 H (4.23-9.07) x10^3/uL RBC 4.78 (4.63-6.08) x10^6/uL Hgb 12.5 L (13.7-17.5) g/dL Hct 40.2 (40.1-51.0) % MCV 84.1 (79.0-92.2) fL MCH 26.2 (25.7-32.2) pg MCHC 31.1 L (32.3-36.5) g/dL RDW 14.4 (11.6-14.4) % Plt Count 289 (163-337) x10^3/uL MPV 9.9 (9.4-12.4) fL Gran % 61.2 (34.0-67.9) % Immature Gran % (Auto) 0.3 (0.001-0.429) % Nucleat RBC Rel Count 0.0 (0.00-0.2) % Eos # (Auto) 0.32 (0.04-0.54) x10^3/uL Immature Gran # (Auto) 0.03 (0.001-0.031) x10^3u/L Absolute Lymphs (auto) 2.75 (1.32-3.57) x10^3/uL Absolute Monos (auto) 0.74 (0.30-0.82) x10^3/uL Absolute Nucleated RBC 0.00 (0.00-0.012) x10^3u/L Lymphocytes % 27.3 (21.8-53.1) % Monocytes % 7.3 (5.3-12.2) % Eosinophils % 3.2 (0.8-7.0) % Basophils % 0.7 (0.2-1.2) % Absolute Granulocytes 6.17 H (1.78-5.38) x10^3/uL Basophils # 0.07 (0.01-0.08) x10^3/uL PT (9.4-12.5) SECONDS INR (0.8-3.0) APTT (25.1-36.5) SECONDS D-Dimer (0.0-0.50) mg/L Sodium 138 (135-145) mmol/L Potassium 4.9 (3.5-5.1) mmol/L Chloride 103 (98-107) mmol/L Carbon Dioxide 26 (22-30) mmol/L Anion Gap 14.1 (5-15) MEQ/L BUN 20 (9-20) mg/dL Creatinine 1.20 (0.66-1.25) mg/dL Estimated GFR 66.3 ML/MIN Glucose 110 H (74-106) mg/dL Calcium 8.8 (8.4-10.2) mg/dL Total Bilirubin < 0.10 L (0.2-1.3) mg/dL AST 27 (17-59) U/L ALT 22 (0-50) U/L Alkaline Phosphatase 57 (38-126) U/L Troponin I < 0.012 (0.000-0.033) ng/mL Serum Total Protein 6.4 (6.3-8.2) g/dL Albumin 4.0 (3.5-5.0) g/dL Lipase 54 (23-300) U/L 03/12/25 03/12/25 03/12/25 Range/Units 13:35 13:42 14:07 WBC (4.23-9.07) x10^3/uL RBC (4.63-6.08) x10^6/uL Hgb (13.7-17.5) g/dL Hct (40.1-51.0) % MCV (79.0-92.2) fL MCH (25.7-32.2) pg MCHC (32.3-36.5) g/dL RDW (11.6-14.4) % Plt Count (163-337) x10^3/uL MPV (9.4-12.4) fL Gran % (34.0-67.9) % Immature Gran % (Auto) (0.001-0.429) % Nucleat RBC Rel Count (0.00-0.2) % Eos # (Auto) (0.04-0.54) x10^3/uL Immature Gran # (Auto) (0.001-0.031) x10^3u/L Absolute Lymphs (auto) (1.32-3.57) x10^3/uL Absolute Monos (auto) (0.30-0.82) x10^3/uL Absolute Nucleated RBC (0.00-0.012) x10^3u/L Lymphocytes % (21.8-53.1) % Monocytes % (5.3-12.2) % Eosinophils % (0.8-7.0) % Basophils % (0.2-1.2) % Absolute Granulocytes (1.78-5.38) x10^3/uL Basophils # (0.01-0.08) x10^3/uL PT 9.3 L (9.4-12.5) SECONDS INR 0.84 (0.8-3.0) APTT 26.1 (25.1-36.5) SECONDS D-Dimer 0.81 H* (0.0-0.50) mg/L Sodium (135-145) mmol/L Potassium (3.5-5.1) mmol/L Chloride (98-107) mmol/L Carbon Dioxide (22-30) mmol/L Anion Gap (5-15) MEQ/L BUN (9-20) mg/dL Creatinine (0.66-1.25) mg/dL Estimated GFR ML/MIN Glucose (74-106) mg/dL Calcium (8.4-10.2) mg/dL Total Bilirubin (0.2-1.3) mg/dL AST (17-59) U/L ALT (0-50) U/L Alkaline Phosphatase (38-126) U/L Troponin I (0.000-0.033) ng/mL Serum Total Protein (6.3-8.2) g/dL Albumin (3.5-5.0) g/dL Lipase 62 (23-300) U/L 03/12/25 Range/Units 16:00 WBC (4.23-9.07) x10^3/uL RBC (4.63-6.08) x10^6/uL Hgb (13.7-17.5) g/dL Hct (40.1-51.0) % MCV (79.0-92.2) fL MCH (25.7-32.2) pg MCHC (32.3-36.5) g/dL RDW (11.6-14.4) % Plt Count (163-337) x10^3/uL MPV (9.4-12.4) fL Gran % (34.0-67.9) % Immature Gran % (Auto) (0.001-0.429) % Nucleat RBC Rel Count (0.00-0.2) % Eos # (Auto) (0.04-0.54) x10^3/uL Immature Gran # (Auto) (0.001-0.031) x10^3u/L Absolute Lymphs (auto) (1.32-3.57) x10^3/uL Absolute Monos (auto) (0.30-0.82) x10^3/uL Absolute Nucleated RBC (0.00-0.012) x10^3u/L Lymphocytes % (21.8-53.1) % Monocytes % (5.3-12.2) % Eosinophils % (0.8-7.0) % Basophils % (0.2-1.2) % Absolute Granulocytes (1.78-5.38) x10^3/uL Basophils # (0.01-0.08) x10^3/uL PT (9.4-12.5) SECONDS INR (0.8-3.0) APTT (25.1-36.5) SECONDS D-Dimer (0.0-0.50) mg/L Sodium (135-145) mmol/L Potassium (3.5-5.1) mmol/L Chloride (98-107) mmol/L Carbon Dioxide (22-30) mmol/L Anion Gap (5-15) MEQ/L BUN (9-20) mg/dL Creatinine (0.66-1.25) mg/dL Estimated GFR ML/MIN Glucose (74-106) mg/dL Calcium (8.4-10.2) mg/dL Total Bilirubin (0.2-1.3) mg/dL AST (17-59) U/L ALT (0-50) U/L Alkaline Phosphatase (38-126) U/L Troponin I < 0.012 (0.000-0.033) ng/mL Serum Total Protein (6.3-8.2) g/dL Albumin (3.5-5.0) g/dL Lipase (23-300) U/L - Radiology Impressions Radiology Exams & Impressions: Radiology Procedures Category Date Time Status CHEST 1 VIEW (PORTABLE) Stat Exams 03/12/25 13:[address] ANGIOGRAPHY NECK [CT] Stat Exams 03/12/25 14:09 Completed CTA CHEST W AND/OR WO [CT] Stat Exams 03/12/25 14:14 Completed CTA HEAD W AND/OR WO CONTRAST [CT] Stat Exams 03/12/25 14:10 Completed ULTRASOUND BILATERAL LOWER EXTREMITY [VENOUS BILATERAL Exams 03/12/25 15:59 Completed EXTREMITY] [US] Stat Ultrasound Gallbladder [GALLBLADDER] [US] Stat Exams 03/12/25 15:58 Completed Assessment/Plan (1) Chest pain Current Visit: Yes Status: Acute Assessment & Plan: -Three- to four-week history of intermittent, aching/sharp right chest pain radiating to right jaw, worse when supine or with acidic drinks, improved with pain meds and lying on left side. Associated nausea, diaphoresis, transient headache. -Negative troponins x2 -EKG showing normal sinus rhythm at 67 bpm without ischemic changes. -CTA chest negative for PE/dissection -venous Dopplers negative, gallbladder ultrasound negative. Hiatal hernia noted. -Continue telemetry monitoring; -Trend troponins x 3 -Echocardiogram -Consult Cardiology- may need OPstress testing if pain persists -initiate PPI for reflux; provide PRN analgesia; lifestyle modification for reflux/hiatal hernia. Code(s): R07.9 - CHEST PAIN, UNSPECIFIED (2) HTN (hypertension) Current Visit: Yes Status: Acute Assessment & Plan: -Recent admission with BP up to 180/110; controlled with med adjustment, now on metoprolol succinate 100 mg daily. Currently normotensive. -Continue metoprolol succinate 100 mg daily; monitor inpatient BPs; optimize antihypertensives as needed; reinforce PCP follow-up. Code(s): I10 - ESSENTIAL (PRIMARY) HYPERTENSION (3) Right upper quadrant abdominal pain Current Visit: Yes Status: Acute Assessment & Plan: -Gallbladder ultrasound negative. CTA chest noted fatty liver. -Monitor for recurrence; check hepatic panel; credit counselor lifestyle modification for hepatic steatosis. Code(s): R10.11 - RIGHT UPPER QUADRANT PAIN (4) Headache Current Visit: Yes Status: Acute Assessment & Plan: -CTA head/neck negative for acute findings. 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 Transient headache resolved. -Neuro checks; outpatient neurology referral; optimize vascular risk factors. -Consider neuro consult/MRI if headache persists Code(s): R51.9 - HEADACHE, UNSPECIFIED (5) COPD (chronic obstructive pulmonary disease) Current Visit: Yes Status: Acute Assessment & Plan: -Stable, no exacerbation -Reinforce CPAP adherence -Continue home INH/nebs -Supplemental oxygen as needed to maintain spo2 greater than 91% (6) MARISELA (obstructive sleep apnea) Current Visit: Yes Status: Acute Assessment & Plan: -Declines CPAP as prescribed Code(s): G47.33 - OBSTRUCTIVE SLEEP APNEA (ADULT) (PEDIATRIC) (7) History of atrial fibrillation Current Visit: Yes Status: Acute Assessment & Plan: -Patient reports that he was diagnosed during a hospital admission with pneumonia - not prescribed meds specificially for AFIB - on Metoprolol for his HTN- not on anticoagulation -Currently in sinus rhythm at 67 bpm. -Monitor on Tele -Cards consulted -Patient reports he has not followed with cardiology OP in 2 years- does not remember the ladle watcher name but was at [facility] Code(s): Z86.79 - PERSONAL HISTORY OF OTHER DISEASES OF THE CIRCULATORY SYSTEM (8) PTSD (post-traumatic stress disorder) Current Visit: No Status: Chronic Assessment & Plan: -Stable, but may amplify perception of chest pain. -Continue outpatient psychiatric management. VTE: Lovenox PPI: Protonix Dispo: 1-2 days Code status: SCO Plan of care time spent 40 mins Code(s): F43.10 - POST-TRAUMATIC STRESS DISORDER, UNSPECIFIED Telemedicine Encounter - Telemedicine Encounter Telemedicine Encounter: "The entirety of this encounter was performed via Telemedicine" This visit was performed using real-time audio and video connection between my location and thepatients locationwith the assistance of a surrogateat the patients location. Written or verbal consent was obtained from the patient/guardian to perform this visit usingsynchronoustelemedicine technology. Any patient questions regarding the telemedicine interaction were answered.
[2025-03-12] MEDS ORDERED: Zofran 4 MG/2 ML VIAL IV PRN (17:51)
[2025-03-12] MEDS ORDERED: DUONEB 0.5-3 MG/3 ml Neb IH PRN (17:51)
[2025-03-12] MEDS ORDERED: VENTOLIN COMMON CANISTER IH PRN (17:55)
[2025-03-12] MEDS ORDERED: NON-FORMULARY ITEM (Albuterol Sulfate [Proair Respiclick] 90 MCG Aer.Pow.Ba) IH PRN (17:55)
[2025-03-12] MEDS ORDERED: NORCO 10-325 MG PO PRN (17:55)
[2025-03-12] MEDS ORDERED: Sterile H2O 10 ml IJ ONE (18:25)
[2025-03-12] MEDS: PROTONIX 40 MG IV IV SCH (18:34)
[2025-03-12] MEDS ORDERED: Effexor XR 75 MG ONE (19:58)
[2025-03-12] MEDS: BUSPAR 5 MG PO SCH (20:07)
[2025-03-12] MEDS: Effexor XR 75 MG PO SCH (20:07)
[2025-03-12] MEDS: NEURONTIN PO SCH (20:16)
[2025-03-12] MEDS: NORCO 10-325 MG PO PRN (20:16)
[2025-03-12] MEDS: TYLENOL 325 MG PO PRN (21:50)
[2025-03-12] MEDS ORDERED: NON-FORMULARY ITEM (Venlafaxine Hcl [Venlafaxine Hcl Er] 150 MG Tab.Er.24) PO SCH (22:00)
[2025-03-12] MEDS ORDERED: BUPROPION HCL 200 MG PO SCH (22:00)
--- NOTE | 2025-03-12 22:45 | PCM.CONS ---
History of Present Illness - Date of Consult Date of Encounter: 03/12/25 Consulting Pediatric Immunologist: KELY FERRO MD Requesting Provider: Attending Provider: JESSICA NASH MD Primary Care Provider: PCP: STACEY UMANA - Consult Narrative Reason for Consult: Chest pain HPI: Patient is a 69M with a history of paroxysmal AFib, not on AC, COPD, HTN, who presents to the ED with chest pressure. He was admitted last week with hypertensive urgency and since had his medications adjusted, including an increase in his metoprolol. Since that time he continued to have chest pain, right sided, with associated jaw pain. He notes that this is often a burning sensation but also a pressure sensation other times. Denies dizziness/lightheadedness. Came to the ED because he thought he may have a stroke. In the ED workup was negative including ECG and troponin. CT-angio of the chest showed no acute PE. He denies orthopnea or PND. cc:: The requesting physician will be sent a copy of the consult. Review of Systems - Review of Systems All systems: as per HPI - Past Medical History Past Medical History: Yes Neurological History: No Pertinent History ENT History: No Pertinent History Cardiac History: Arrhythmia Respiratory History: Bronchitis, COPD, Pneumonia, Sleep Apnea Endocrine Medical History: No Pertinent History Musculoskelatal History: Arthritis, Osteoporosis GI Medical History: No Pertinent History History: Renal Disease Pyscho-Social History: No Pertinent History Male Reproductive Disorders: No Pertinent History Comment: PTSD, ear ringing- constant , a-fib intermittent - Past Surgical History Past Surgical History: Yes Neuro Surgical History: No Pertinent History Cardiac History: No Pertinent History Respiratory Surgery: No Pertinent History GI Surgical History: No Pertinent History Genitourinary Surgical Hx: No Pertinent History Musculskeletal Surgical Hx: Joint Replacement, Orthopedic Surgery Male Surgical History: No Pertinent History Other Surgical History: Right knee, rt shoulder surgery, rt elbow surgery, rt ankle/foot, low back Significant Family History: heart disease, diabetes - Social History Smoking Status: Former smoker How long have you smoked: 25+ years Exposure to second hand smoke: No Alcohol: None Drug Use: none - Social Determinants of Health Will the patient participate in the screening: Yes Do you worry about a steady place to live?: No Do you have any problems with any of the following?: No known problems In the past 12 months,have you had to go without utilities?: No Have you or anyone in your house had to go without enough: No Transportation Issues: No Has anyone in your support network made you feel unsafe?: No Does the patient want assistance with any of the above?: No Medications & Allergies Home Medications: Home Medication List Multivitamin with Minerals [Multiple Vitamin] 1 each PO DAILY 07/23/12 [History Confirmed 03/12/25] Gabapentin 900 mg PO TID 02/08/15 [History Confirmed 03/12/25] buPROPion HCL [Bupropion HCl Sr] 200 mg PO BID 02/08/15 [History Confirmed 03/12/25] Albuterol Sulfate [Proair Respiclick] 90 mcg IH Q4H PRN PRN 30 Days #1 inhaler 12/09/22 [Rx Confirmed 03/12/25] Allopurinol 300 mg [Zyloprim 300 mg] 300 mg PO DAILY 07/03/23 [History Confirmed 03/12/25] Venlafaxine HCl [Venlafaxine HCl ER] 150 mg PO BID 07/03/23 [History Confirmed 03/12/25] Albuterol Sulfate [Albuterol Sulfate Hfa] 8.5 gm IH Q6H PRN 14 Days #1 inh 10/04/24 [Rx Confirmed 03/12/25] Hydrocodone/Acetaminophen [Hydrocodone-Acetamin 10-325 mg] 1 tab PO Q6H PRN PRN 10/04/24 [History Confirmed 03/12/25] Buspirone HCl 5 mg [Buspar 5 mg] 10 mg PO BID 02/28/25 [History Confirmed 03/12/25] Metoprolol Succinate 50 mg [Toprol Xl 50 MG] 100 mg PO DAILY 30 Days #30 tablet 03/02/25 [Rx Confirmed 03/12/25] Allergies/Adverse Reactions: Allergies Allergy/AdvReac Type Severity Reaction Status Date / Time No Known Drug Allergies Allergy Verified 03/12/25 17:39 Exam - Vitals Vital Signs: Vital Signs - 24 hr Temp Pulse Pulse Resp BP BP BP 03/12/25 20:55 97.7 F 62 18 122/64 03/12/25 20:05 71 18 03/12/25 17:16 97.5 F 66 16 140/81 03/12/25 17:13 97.5 F 66 16 140/81 03/12/25 17:00 66 18 154/77 03/12/25 16:30 63 12 132/77 03/12/25 16:07 03/12/25 16:00 60 139/86 03/12/25 15:30 61 14 154/91 03/12/25 15:18 61 16 153/87 03/12/25 15:06 65 15 150/90 03/12/25 15:05 66 10 L 133/90 03/12/25 15:04 60 15 03/12/25 15:00 62 14 03/12/25 14:50 66 18 03/12/25 14:20 187/106 148/94 03/12/25 14:07 168/113 03/12/25 14:06 71 28 H 184/112 03/12/25 14:05 72 24 03/12/25 14:00 73 27 H 150/97 03/12/25 13:30 68 13 128/94 03/12/25 13:17 97.9 F 67 62 18 141/99 Pulse Ox 03/12/25 20:55 95 03/12/25 20:05 94 L 03/12/25 17:16 94 L 03/12/25 17:13 94 L 03/12/25 17:00 98 03/12/25 16:30 99 03/12/25 16:07 98 03/12/25 16:00 03/12/25 15:30 03/12/25 15:18 97 03/12/25 15:06 98 03/12/25 15:05 96 03/12/25 15:04 97 03/12/25 15:00 96 03/12/25 14:50 99 03/12/25 14:20 03/12/25 14:07 03/12/25 14:06 98 03/12/25 14:05 97 03/12/25 14:00 96 03/12/25 13:30 98 03/12/25 13:17 94 L General:: alert and oriented x 4, no acute distress HEENT: PERRLA, EOMI Cardiovascular Exam: regular rate/rhythm, normal heart sounds Respiratory Exam: normal breath sounds SpO2: 95 Oxygen Delivery: Room Air Results Vital Signs: Vital Signs - 24 hr Temp Pulse Pulse Resp BP BP BP 03/12/25 20:55 97.7 F 62 18 122/64 03/12/25 20:05 71 18 03/12/25 17:16 97.5 F 66 16 140/81 03/12/25 17:13 97.5 F 66 16 140/81 03/12/25 17:00 66 18 154/77 03/12/25 16:30 63 12 132/77 03/12/25 16:07 03/12/25 16:00 60 139/86 03/12/25 15:30 61 14 154/91 03/12/25 15:18 61 16 153/87 03/12/25 15:06 65 15 150/90 03/12/25 15:05 66 10 L 133/90 03/12/25 15:04 60 15 03/12/25 15:00 62 14 03/12/25 14:50 66 18 03/12/25 14:20 187/106 148/94 03/12/25 14:07 168/113 03/12/25 14:06 71 28 H 184/112 03/12/25 14:05 72 24 03/12/25 14:00 73 27 H 150/97 03/12/25 13:30 68 13 128/94 03/12/25 13:17 97.9 F 67 62 18 141/99 Pulse Ox 03/12/25 20:55 95 03/12/25 20:05 94 L 03/12/25 17:16 94 L 03/12/25 17:13 94 L 03/12/25 17:00 98 03/12/25 16:30 99 03/12/25 16:07 98 03/12/25 16:00 03/12/25 15:30 03/12/25 15:18 97 03/12/25 15:06 98 03/12/25 15:05 96 03/12/25 15:04 97 03/12/25 15:00 96 03/12/25 14:50 99 03/12/25 14:20 03/12/25 14:07 03/12/25 14:06 98 03/12/25 14:05 97 03/12/25 14:00 96 03/12/25 13:30 98 03/12/25 13:17 94 L Pain Assessment - Last Documented Pain Intensity 0 Pain Scale Used 0-10 Pain Scale Intake and Output: Intake & Output 03/10/25 03/11/25 03/12/25 03/13/25 11:59 11:59 11:59 11:59 Intake Total 600 Balance 600 Weight 111.5 kg LAB: I have reviewed the Labs in [facility]. Radiology Exams: Radiology Procedures Category Date Time Status CHEST 1 VIEW (PORTABLE) Stat Exams 03/12/25 13:[address] ANGIOGRAPHY NECK [CT] Stat Exams 03/12/25 14:09 Completed CTA CHEST W AND/OR WO [CT] Stat Exams 03/12/25 14:14 Completed CTA HEAD W AND/OR WO CONTRAST [CT] Stat Exams 03/12/25 14:10 Completed ECHO W/2D AND DOPPLER [US] Routine Exams 03/13/25 08:00 Ordered ULTRASOUND BILATERAL LOWER EXTREMITY [VENOUS BILATERAL Exams 03/12/25 15:59 Completed EXTREMITY] [US] Stat Ultrasound Gallbladder [GALLBLADDER] [US] Stat Exams 03/12/25 15:58 Completed - ECHO Echo: image reviewed by me (Normal LVEF without wall motion abnormality.) Assessment & Plan (1) Chest pain Current Visit: Yes Status: Acute Assessment & Plan: Ruled out for ACS Ecg without ischemia troponin negative x 3 echoardiogram with normal LVEF and no wall motion abnormality continue to monitor on telemetry outpatient stress Code(s): R07.9 - CHEST PAIN, UNSPECIFIED (2) HTN (hypertension) Current Visit: Yes Status: Acute Assessment & Plan: currently well controlled continue metoprolol continue antihypertensives Code(s): I10 - ESSENTIAL (PRIMARY) HYPERTENSION (3) History of atrial fibrillation Current Visit: Yes Status: Acute Assessment & Plan: CHADS-VASC is elevated given age, htn, = 2 Would benefit from NOAC recommend eliquis 5 mg bid continue metoprolol Code(s): Z86.79 - PERSONAL HISTORY OF OTHER DISEASES OF THE CIRCULATORY SYSTEM - Encounter Encounter: "The entirety of this encounter was performed via Telemedicine using audio and visual "
[2025-03-13 04:57] LABS: BASOPHIL % 0.5 % (0.2-1.2); Basophil (Absolute #) 0.04 x10^3/uL (0.01-0.08); Eosinophil (Absolute #) 0.28 x10^3/uL (0.04-0.54); Hematocrit 39.0 % (40.1-51.0); Hemoglobin 11.9 g/dL (13.7-17.5); IMMATURE GRAN # 0.01 x10^3u/L (0.001-0.031); IMMATURE GRAN % 0.1 % (0.001-0.429); Lymphocyte (Absolute #) 2.60 x10^3/uL (1.32-3.57); Mean Corpuscular Hemoglobin 25.6 pg (25.7-32.2); Mean Corpuscular Hgb Concent. 30.5 g/dL (32.3-36.5); Monocyte (Absolute #) 0.56 x10^3/uL (0.30-0.82); NUCLEATED RBC # 0.00 x10^3u/L (0.00-0.012); NUCLEATED RBC % 0.0 % (0.00-0.2); Platelet Count 279 x10^3/uL (163-337); Red Blood Count 4.64 x10^6/uL (4.63-6.08); White Blood Count 7.5 x10^3/uL (4.23-9.07)
[2025-03-13 05:27] LABS: Calcium 9.0 mg/dL (8.4-10.2); Carbon Dioxide 27.0 mmol/L (22-30); Creatinine 1 1.16 mg/dL (0.66-1.25); EST GLOMERULAR FILTRATION RATE 69.0 ML/MIN; Glucose 110.0 mg/dL (74-106); Potassium 5.1 mmol/L (3.5-5.1); SGOT/AST 28.0 U/L (17-59); SGPT/ALT 24.0 U/L (0-50); Total Protein 6.1 g/dL (6.3-8.2)
[2025-03-13] MEDS ORDERED: VENTOLIN COMMON CANISTER IH PRN (07:17)
[2025-03-13] MEDS ORDERED: MEDICATION INTERVENTION MC SCH (07:30)
[2025-03-13 07:41] VITALS: RESP 22; TEMP 97.9
[2025-03-13] MEDS ORDERED: ENOXAPARIN SODIUM SQ SCH (10:00)
[2025-03-13] MEDS ORDERED: MULTIVITAMIN WITH MINERALS PO SCH (10:00)
[2025-03-13] MEDS: Toprol Xl 50 MG PO SCH (10:42)
[2025-03-13] MEDS: PROTONIX 40 MG IV IV SCH (10:43)
[2025-03-13] MEDS: NEURONTIN PO SCH (10:43)
[2025-03-13] MEDS: ZYLOPRIM 300 MG PO SCH (10:44)
[2025-03-13] MEDS: NORCO 10-325 MG PO PRN (10:44)
[2025-03-13] MEDS: ELIQUIS 2.5 MG TABLET PO SCH (10:45)
[2025-03-13] MEDS: THERAGRAN MULTIVITAMIN PO SCH (10:45)
--- NOTE | 2025-03-13 11:42 | PCM.DS ---
Discharge Summary Date of Admission: 03/12/25 17:11 Date of Discharge: 03/13/25 Admitting Physician: JESSICA NASH MD Consults: Consults on Case 03/12/25 17:53 Consult Cardiology ROUTINE Primary Care Provider: STACEY UMANA Allergies Allergies No Known Drug Allergies Allergy (Verified 03/12/25 17:39) Hospital Summary - Hospital Course Hospital Course: is a 69-year-old male with a history of atrial fibrillation, COPD, prior pneumonia, MARISELA, and PTSD who was admitted on 03/12/25 for recurrent right- sided chest pain. His evaluation included serial EKGs and troponins, which were negative for ischemia, and CTA chest, neck, and head as well as lower extremity Dopplers and gallbladder ultrasound, all of which were without acute findings. Imaging revealed only chronic changes, including a moderate hiatal hernia, hepatic steatosis, degenerative spine disease, and a remote left caudate infarct. During hospitalization, his symptoms resolved, though he reported a mild headache and elevated blood pressure, which was attributed to not being restarted on his home antihypertensive regimen. Nursing confirmed and reconciled his home medications, and refills were arranged as requested. Cardiology was consulted and recommended initiation of Eliquis BID for atrial fibrillation, which was started and confirmed affordable through his pharmacy. At discharge, he was asymptomatic, hemodynamically stable, and expressed no further concerns. He will be discharged home with refills of his blood pressure medications, continuation of Eliquis, and outpatient cardiology follow-up for a stress test, along with primary care follow-up for blood pressure monitoring and chronic condition management. Eliquis was sent in via amb. orders and may not show up on D/C med plan. - Vitals & Intake/Output Vital Signs: Vital Signs Temperature 97.9 F 03/13/25 07:40 Pulse Rate 66 03/13/25 07:40 Respiratory Rate 22 03/13/25 07:40 Blood Pressure 148/85 03/13/25 07:40 O2 Sat by Pulse Oximetry 99 03/13/25 07:40 Intake & Output: Intake & Output 03/10/25 03/11/25 03/12/25 03/13/25 11:59 11:59 11:59 11:59 Intake Total 840 Balance 840 Weight 111.5 kg - Lab Result Diagrams: 03/13/25 04:10 03/13/25 04:10 Lab Results-Last 24 Hrs: Lab Results-Last 24 Hours 03/12/25 03/12/25 03/12/25 Range/Units 13:35 13:35 13:35 WBC 10.1 H (4.23-9.07) x10^3/uL RBC 4.78 (4.63-6.08) x10^6/uL Hgb 12.5 L (13.7-17.5) g/dL Hct 40.2 (40.1-51.0) % MCV 84.1 (79.0-92.2) fL MCH 26.2 (25.7-32.2) pg MCHC 31.1 L (32.3-36.5) g/dL RDW 14.4 (11.6-14.4) % Plt Count 289 (163-337) x10^3/uL MPV 9.9 (9.4-12.4) fL Gran % 61.2 (34.0-67.9) % Immature Gran % (Auto) 0.3 (0.001-0.429) % Nucleat RBC Rel Count 0.0 (0.00-0.2) % Eos # (Auto) 0.32 (0.04-0.54) x10^3/uL Immature Gran # (Auto) 0.03 (0.001-0.031) x10^3u/L Absolute Lymphs (auto) 2.75 (1.32-3.57) x10^3/uL Absolute Monos (auto) 0.74 (0.30-0.82) x10^3/uL Absolute Nucleated RBC 0.00 (0.00-0.012) x10^3u/L Lymphocytes % 27.3 (21.8-53.1) % Monocytes % 7.3 (5.3-12.2) % Eosinophils % 3.2 (0.8-7.0) % Basophils % 0.7 (0.2-1.2) % Absolute Granulocytes 6.17 H (1.78-5.38) x10^3/uL Basophils # 0.07 (0.01-0.08) x10^3/uL PT (9.4-12.5) SECONDS INR (0.8-3.0) APTT (25.1-36.5) SECONDS D-Dimer (0.0-0.50) mg/L Sodium 138 (135-145) mmol/L Potassium 4.9 (3.5-5.1) mmol/L Chloride 103 (98-107) mmol/L Carbon Dioxide 26 (22-30) mmol/L Anion Gap 14.1 (5-15) MEQ/L BUN 20 (9-20) mg/dL Creatinine 1.20 (0.66-1.25) mg/dL Estimated GFR 66.3 ML/MIN Glucose 110 H (74-106) mg/dL Calcium 8.8 (8.4-10.2) mg/dL Total Bilirubin < 0.10 L (0.2-1.3) mg/dL AST 27 (17-59) U/L ALT 22 (0-50) U/L Alkaline Phosphatase 57 (38-126) U/L Troponin I < 0.012 (0.000-0.033) ng/mL Serum Total Protein 6.4 (6.3-8.2) g/dL Albumin 4.0 (3.5-5.0) g/dL Lipase 54 (23-300) U/L TSH 3rd Generation (0.470-4.680) mIU/L 03/12/25 03/12/25 03/12/25 Range/Units 13:35 13:42 14:07 WBC (4.23-9.07) x10^3/uL RBC (4.63-6.08) x10^6/uL Hgb (13.7-17.5) g/dL Hct (40.1-51.0) % MCV (79.0-92.2) fL MCH (25.7-32.2) pg MCHC (32.3-36.5) g/dL RDW (11.6-14.4) % Plt Count (163-337) x10^3/uL MPV (9.4-12.4) fL Gran % (34.0-67.9) % Immature Gran % (Auto) (0.001-0.429) % Nucleat RBC Rel Count (0.00-0.2) % Eos # (Auto) (0.04-0.54) x10^3/uL Immature Gran # (Auto) (0.001-0.031) x10^3u/L Absolute Lymphs (auto) (1.32-3.57) x10^3/uL Absolute Monos (auto) (0.30-0.82) x10^3/uL Absolute Nucleated RBC (0.00-0.012) x10^3u/L Lymphocytes % (21.8-53.1) % Monocytes % (5.3-12.2) % Eosinophils % (0.8-7.0) % Basophils % (0.2-1.2) % Absolute Granulocytes (1.78-5.38) x10^3/uL Basophils # (0.01-0.08) x10^3/uL PT 9.3 L (9.4-12.5) SECONDS INR 0.84 (0.8-3.0) APTT 26.1 (25.1-36.5) SECONDS D-Dimer 0.81 H* (0.0-0.50) mg/L Sodium (135-145) mmol/L Potassium (3.5-5.1) mmol/L Chloride (98-107) mmol/L Carbon Dioxide (22-30) mmol/L Anion Gap (5-15) MEQ/L BUN (9-20) mg/dL Creatinine (0.66-1.25) mg/dL Estimated GFR ML/MIN Glucose (74-106) mg/dL Calcium (8.4-10.2) mg/dL Total Bilirubin (0.2-1.3) mg/dL AST (17-59) U/L ALT (0-50) U/L Alkaline Phosphatase (38-126) U/L Troponin I (0.000-0.033) ng/mL Serum Total Protein (6.3-8.2) g/dL Albumin (3.5-5.0) g/dL Lipase 62 (23-300) U/L TSH 3rd Generation (0.470-4.680) mIU/L 03/12/25 03/12/25 03/13/25 Range/Units 16:00 21:50 04:10 WBC 7.5 (4.23-9.07) x10^3/uL RBC 4.64 (4.63-6.08) x10^6/uL Hgb 11.9 L (13.7-17.5) g/dL Hct 39.0 L (40.1-51.0) % MCV 84.1 (79.0-92.2) fL MCH 25.6 L (25.7-32.2) pg MCHC 30.5 L (32.3-36.5) g/dL RDW 14.6 H (11.6-14.4) % Plt Count 279 (163-337) x10^3/uL MPV 9.8 (9.4-12.4) fL Gran % 53.4 (34.0-67.9) % Immature Gran % (Auto) 0.1 (0.001-0.429) % Nucleat RBC Rel Count 0.0 (0.00-0.2) % Eos # (Auto) 0.28 (0.04-0.54) x10^3/uL Immature Gran # (Auto) 0.01 (0.001-0.031) x10^3u/L Absolute Lymphs (auto) 2.60 (1.32-3.57) x10^3/uL Absolute Monos (auto) 0.56 (0.30-0.82) x10^3/uL Absolute Nucleated RBC 0.00 (0.00-0.012) x10^3u/L Lymphocytes % 34.8 (21.8-53.1) % Monocytes % 7.5 (5.3-12.2) % Eosinophils % 3.7 (0.8-7.0) % Basophils % 0.5 (0.2-1.2) % Absolute Granulocytes 3.98 (1.78-5.38) x10^3/uL Basophils # 0.04 (0.01-0.08) x10^3/uL PT (9.4-12.5) SECONDS INR (0.8-3.0) APTT (25.1-36.5) SECONDS D-Dimer (0.0-0.50) mg/L Sodium (135-145) mmol/L Potassium (3.5-5.1) mmol/L Chloride (98-107) mmol/L Carbon Dioxide (22-30) mmol/L Anion Gap (5-15) MEQ/L BUN (9-20) mg/dL Creatinine (0.66-1.25) mg/dL Estimated GFR ML/MIN Glucose (74-106) mg/dL Calcium (8.4-10.2) mg/dL Total Bilirubin (0.2-1.3) mg/dL AST (17-59) U/L ALT (0-50) U/L Alkaline Phosphatase (38-126) U/L Troponin I < 0.012 < 0.012 (0.000-0.033) ng/mL Serum Total Protein (6.3-8.2) g/dL Albumin (3.5-5.0) g/dL Lipase (23-300) U/L TSH 3rd Generation (0.470-4.680) mIU/L 03/13/25 03/13/25 Range/Units 04:10 05:03 WBC (4.23-9.07) x10^3/uL RBC (4.63-6.08) x10^6/uL Hgb (13.7-17.5) g/dL Hct (40.1-51.0) % MCV (79.0-92.2) fL MCH (25.7-32.2) pg MCHC (32.3-36.5) g/dL RDW (11.6-14.4) % Plt Count (163-337) x10^3/uL MPV (9.4-12.4) fL Gran % (34.0-67.9) % Immature Gran % (Auto) (0.001-0.429) % Nucleat RBC Rel Count (0.00-0.2) % Eos # (Auto) (0.04-0.54) x10^3/uL Immature Gran # (Auto) (0.001-0.031) x10^3u/L Absolute Lymphs (auto) (1.32-3.57) x10^3/uL Absolute Monos (auto) (0.30-0.82) x10^3/uL Absolute Nucleated RBC (0.00-0.012) x10^3u/L Lymphocytes % (21.8-53.1) % Monocytes % (5.3-12.2) % Eosinophils % (0.8-7.0) % Basophils % (0.2-1.2) % Absolute Granulocytes (1.78-5.38) x10^3/uL Basophils # (0.01-0.08) x10^3/uL PT (9.4-12.5) SECONDS INR (0.8-3.0) APTT (25.1-36.5) SECONDS D-Dimer (0.0-0.50) mg/L Sodium 137 (135-145) mmol/L Potassium 5.1 (3.5-5.1) mmol/L Chloride 103 (98-107) mmol/L Carbon Dioxide 27 (22-30) mmol/L Anion Gap 11.6 (5-15) MEQ/L BUN 18 (9-20) mg/dL Creatinine 1.16 (0.66-1.25) mg/dL Estimated GFR 69.0 ML/MIN Glucose 110 H (74-106) mg/dL Calcium 9.0 (8.4-10.2) mg/dL Total Bilirubin 0.20 (0.2-1.3) mg/dL AST 28 (17-59) U/L ALT 24 (0-50) U/L Alkaline Phosphatase 57 (38-126) U/L Troponin I (0.000-0.033) ng/mL Serum Total Protein 6.1 L (6.3-8.2) g/dL Albumin 3.9 (3.5-5.0) g/dL Lipase (23-300) U/L TSH 3rd Generation 0.412 L (0.470-4.680) mIU/L - Radiology Exams Ordered Rad Exams-Entire Visit: Radiology Procedures Category Date Time Status CHEST 1 VIEW (PORTABLE) Stat Exams 03/12/25 13:[address] ANGIOGRAPHY NECK [CT] Stat Exams 03/12/25 14:09 Completed CTA CHEST W AND/OR WO [CT] Stat Exams 03/12/25 14:14 Completed CTA HEAD W AND/OR WO CONTRAST [CT] Stat Exams 03/12/25 14:10 Completed ECHO W/2D AND DOPPLER [US] Routine Exams 03/13/25 08:00 Taken ULTRASOUND BILATERAL LOWER EXTREMITY [VENOUS BILATERAL Exams 03/12/25 15:59 Completed EXTREMITY] [US] Stat Ultrasound Gallbladder [GALLBLADDER] [US] Stat Exams 03/12/25 15:58 Completed - Procedures and Test Procedures and Tests throughout Hospitalization: Therapy Orders & Screens 03/12/25 17:25 Smoking Cessation Education ONCE Comment: Diagnosis: CP Smoking Status: Never smoker How long have you smoked: 25+ years Have you smoked in the past 12 months: No Do you dip or chew tobacco: No If,Former Smoker,when did you quit: yrs ago 03/12/25 17:51 EKG REPEAT IN AM Comment: Diagnosis: CP Respiratory Therapy Consult ONCE Comment: Reason For Exam: Diagnosis: CP 03/13/25 06:46 Respiratory Therapy Assessment DAILY Comment: Diagnosis: CP Discharge Exam General Appearance: no apparent distress, alert, obese Neurologic Exam: alert, oriented x 3, cooperative, normal mood/affect, nml cerebellar function, sensation nml, No motor deficits Eye Exam: PERRL, EOMI, eyes nml inspection Ears, Nose, Throat Exam: normal ENT inspection, pharynx normal, moist mucous membranes Neck Exam: normal inspection, non-tender, supple, full range of motion Respiratory Exam: normal breath sounds, lungs clear, No respiratory distress Cardiovascular Exam: regular rate/rhythm, normal heart sounds Gastrointestinal/Abdomen Exam: soft, No tenderness, No mass Male Genitalia Exam: deferred Rectal Exam: deferred Back Exam: normal inspection, normal range of motion, No CVA tenderness, No vertebral tenderness Extremity Exam: normal inspection, normal range of motion Skin Exam: normal color, warm, dry Final Diagnosis/Problem List - Final Discharge Diagnosis/Problem (1) Atrial fibrillation Current Visit: Yes Status: Acute Assessment & Plan: - Started Eliquis 5g BID and RX sent in. - Per CM affordable for pt. Code(s): I48.91 - UNSPECIFIED ATRIAL FIBRILLATION (2) COPD (chronic obstructive pulmonary disease) Current Visit: Yes Status: Chronic Assessment & Plan: -Stable, no exacerbation -Reinforce CPAP adherence -Continue home INH/nebs -Supplemental oxygen as needed to maintain spo2 greater than 91% (3) Chest pain Current Visit: Yes Status: Resolved Assessment & Plan: - Resolved - Trops x3 negative - Cards consult- note reviewed and agree with plan of care - Will need OP stress test per cardiology consult. - TSH 0.412- will need repeat test OP with PCP - D-Dimer 0.81- Code(s): R07.9 - CHEST PAIN, UNSPECIFIED (4) HTN (hypertension) Current Visit: Yes Status: Chronic Assessment & Plan: - Continue home meds - Pt reports he lost his recent meds filled. - will resend new RX for meds Code(s): I10 - ESSENTIAL (PRIMARY) HYPERTENSION (5) Headache Current Visit: Yes Status: Acute Assessment & Plan: - Has MARISELA and will not use CPAP likely cause of H/A along with uncontrolled HTN as pt has not been taking meds as prescribed. - CT head and CTA negative for acute concern. Code(s): R51.9 - HEADACHE, UNSPECIFIED (6) MARISELA (obstructive sleep apnea) Current Visit: Yes Status: Chronic Assessment & Plan: -Declines CPAP as prescribed Code(s): G47.33 - OBSTRUCTIVE SLEEP APNEA (ADULT) (PEDIATRIC) (7) Right upper quadrant abdominal pain Current Visit: Yes Status: Resolved Assessment & Plan: - Resolved - Imaging reviewed and negative for acute concern. Code(s): R10.11 - RIGHT UPPER QUADRANT PAIN (8) PTSD (post-traumatic stress disorder) Current Visit: No Status: Chronic Assessment & Plan: -Continue outpatient psychiatric management. Code(s): F43.10 - POST-TRAUMATIC STRESS DISORDER, UNSPECIFIED (9) Obesity (BMI 30.0-34.9) Current Visit: Yes Status: Chronic Assessment & Plan: - advised diet and exercise control D/C plan of care time: > 40 minutes D/C meds: Eliquis 5mg BID, also resent refills on BP meds from most recent visit as pt states he lost them. Code(s): E66.811 - OBESITY, CLASS 1 - Discharge Discharge Date: 03/13/25 Disposition: Home, Self-Care Condition: Stable Prescriptions: New Apixaban [Eliquis] 5 mg PO BID 30 Days #60 tab Chlorthalidone 25 mg PO DAILY 30 Days #30 tablet Continue Multivitamin with Minerals [Multiple Vitamin] 1 each PO DAILY Gabapentin 900 mg PO TID buPROPion HCL [Bupropion HCl Sr] 200 mg PO BID Albuterol Sulfate [Proair Respiclick] 90 mcg IH Q4H PRN PRN 30 Days #1 inhaler PRN Reason: Shortness Of Breath/Wheezing Venlafaxine HCl [Venlafaxine HCl ER] 150 mg PO BID Allopurinol 300 mg [Zyloprim 300 mg] 300 mg PO DAILY Hydrocodone/Acetaminophen [Hydrocodone-Acetamin 10-325 mg] 1 tab PO Q6H PRN PRN PRN Reason: Pain Albuterol Sulfate [Albuterol Sulfate Hfa] 8.5 gm IH Q6H PRN 14 Days #1 inh PRN Reason: Cough Buspirone HCl 5 mg [Buspar 5 mg] 10 mg PO BID Metoprolol Succinate 50 mg [Toprol Xl 50 MG] 100 mg PO DAILY 30 Days #30 tablet Instructions: Chest pain - Discharge instructions Additional Instructions: [facility]. Follow up with: HOLLY GARNER, [employer] [Primary Care Provider, UNKNOWN] - 03/22/25 9:00 am
[2025-03-13 12:14] VITALS: BP 147/79; PULSE 72; O2SAT 94
== END 2025-03-13 12:59 | disposition home or self-care (01) ==
LOC: ED 13:16 → MED SURG 17:11
PROVIDERS: ADMIT Internal Medicine; ATTEND Internal Medicine
DX: I48.91 Unspecified atrial fibrillation (principal); R07.9 Chest pain, unspecified; Z79.899 Other long term (current) drug therapy; R60.0 Localized edema; R51.9 Headache, unspecified; R20.0 Anesthesia of skin; I10 Essential (primary) hypertension; J44.9 Chronic obstructive pulmonary disease, unspecified; G47.33 Obstructive sleep apnea (adult) (pediatric); R10.11 Right upper quadrant pain; F43.10 Post-traumatic stress disorder, unspecified; E66.9 Obesity, unspecified; Z68.34 Body mass index [BMI] 34.0-34.9, adult
CPT/HCPCS: 36415; 70496; 70498; 71045; 71275; 76705; 80053; 83690; 84443; 84484; 85025; 85379; 85610; 85730; 93005; 93041; 93268; 93306; 93970; 94760; 96360; 96374; 96375; 96376; 99285; G0378; Q3014